=== PATIENT | male | born 1955 | race Caucasian/White ===

== ENCOUNTER 2020-08-08 12:23 | Observation (INO) | payer BC, SELFPAY ==
[2020-08-08] VITALS (12 sets, daily range): BP systolic 138–170; BP diastolic 70–98; PULSE 53–92; RESP 15–18; TEMP 36.2–36.9; O2SAT 96–99; BMI 29.7; BMI 29.0
--- NOTE | 2020-08-08 12:40 | EKG12_ITS ---
Test Reason : Blood Pressure : / mmHG Vent. Rate : 071 BPM Atrial Rate : 071 BPM P-R Int : 162 ms QRS Dur : 082 ms QT Int : 396 ms P-R-T Axes : 043 -36 044 degrees QTc Int : 430 ms Normal sinus rhythm with sinus arrhythmia Left axis deviation Minimal voltage criteria for LVH, may be normal variant Septal infarct , age undetermined Abnormal ECG Confirmed by TOBY VALENZUELA, WEI ([id number]), photography editor SHAE YADAV ([id number]) on 08/12/2020 1:31:08 PM Referred By: ISAAC Confirmed By:WEI LUIS MD
--- NOTE | 2020-08-08 12:48 | ED.VIS.GEN ---
History of Present Illness Chief Complaint: Dizziness Informant: Patient Onset: Today Context: Gradual Onset Timing: Continuous Current Severity: Mild Maximum Severity: Moderate Narrative: The patient is a 65-year-old male with medical history significant for COPD who presents to the emergency department with shortness of breath and lightheadedness. Patient states he woke in his normal state of health. He states that because he has to wear a mask, from time to time he will feel short of breath especially with exertion. He does not get chest pain. He states he was doing a lot of work today and felt lightheaded. He also felt like he was having tingling in both legs. He denies any focal symptoms. He states with resting, he is feeling mildly improved. He states he has been short of breath for a few months now. He does not feel like it is been significantly worsening. Sometimes he will have a scant cough. He has no history of coronary vascular disease. Prior similar symptoms: No Recent Illness/Hospitalization: No Past Medical History - Allergies and Home Meds Allergies/Adverse Reactions: Allergies No Known Allergies Allergy (Verified 08/08/20 12:24) Prior records reviewed: Yes Past Medical History: - - COPD, GERD Surgical History: noncontributory Smoking Status: Current every day smoker Review of Systems General: Denies: Chills, Fever, Sweats Eyes: Denies: Visual changes - bilaterally, Diplopia ENT: Denies: Rhinorrhea, Sore throat Cardiovascular: Denies: Chest pain, Palpitations Respiratory: Reports: Dyspnea, Cough. Denies: Dyspnea on exertion Gastrointestinal: Denies: Abdominal pain, Nausea, Vomiting, Diarrhea, Melena, Hematochezia Genitourinary: Denies: Dysuria, Hematuria, Frequency Musculoskeletal: Denies: Back pain, Extremity Pain Skin: Denies: Rash, Wounds Neurological: Denies: Headache, Weakness, Numbness Physical Exam Vital Signs/Narrative: Vital Signs Temp Pulse Resp BP Pulse Ox 08/08/20 12:25 98.1 F 92 16 148/89 H 98 Inital Vital Signs reviewed: Yes General: Well nourished, Well developed, No Acute Distress Head: Normocephalic, Atraumatic Eyes: Perrl, EOMI ENT: Moist mucous membranes, No rhinorrhea Neck: Supple, Nontender Cardiovascular: Regular rate, Regular rhythm, No murmurs Respiratory: No distress, Chest nontender, Wheezing Abdomen: Soft, Nontender, Nondistended, Normal bowel sounds Back: Nontender, Normal Inspection Extremities: Nontender, No edema Skin: Normal color, No rash Neurological: Alert, Oriented x3, Cranial nerves II-XII grossly intact, Normal Strength, Normal Sensation Psychological: Normal affect, Normal Mood Diagnostic/Tx/Re-eval Clinical Impression(s) from Imaging Studies Chest X-Ray 08/08/20 13:00 IMPRESSION: Hyperinflation. Scattered calcified granulomas. Electronically Signed: Dinh Desaikranthi, at 13:15 EDT , Service support , Abnormal Lab Results 08/08/20 08/08/20 12:50 12:50 WBC 6.8 RBC 4.71 Hgb 15.1 Hct 43.6 MCV 92.6 MCH 32.1 H MCHC 34.6 RDW Std Deviation 39.0 RDW Coeff of Kimmy 11.6 Plt Count 230 MPV 9.3 Immature Gran % (Auto) 0.300 Neut % (Auto) 67.8 Lymph % (Auto) 17.4 L [place] % (Auto) 12.0 H Eos % (Auto) 1.8 Baso % (Auto) 0.7 Absolute Neuts (auto) 4.6 Absolute Lymphs (auto) 1.18 Nucleated RBC % 0 Sodium 129 L Potassium 4.3 Chloride 96 L Carbon Dioxide 26.0 Anion Gap 7 BUN 10 Creatinine 0.81 Estim Creat Clear Calc 108.53 Est GFR (MDRD) Af Amer 123 Est GFR (MDRD) Non-Af 102 BUN/Creatinine Ratio 12.3 Glucose 111 H Calcium 9.7 Total Bilirubin 0.80 AST 80 H ALT 105 H Alkaline Phosphatase 104 Troponin I 0.103 H Total Protein 8.7 H Albumin 3.8 Globulin 4.9 H Albumin/Globulin Ratio 0.8 L - Rhythm Strip Rhythm Strip: Sinus Rhythm Rate: 80 Ectopy: None - EKG Initial EKG Interpretation: Sinus Rhythm, Non-Specific ST Changes Prior: No Prior - Medical Decision Making Patient presents to the emergency department with shortness of breath and lightheadedness. It does seem to be related to exertion. He had scant wheezing. I did obtain an EKG. There was changes consistent with LVH without acute ischemic change. Patient was given a breathing treatment and had total resolution of his symptoms. Chest x-ray shows no evidence of volume overload, pneumothorax, or infiltrative process. However, the patient's troponin is indeterminant. Given his age and exertional dyspnea, I do have some suspicion this may be a cardiac equivalent. I do feel that he would benefit from observation for cardiac rule out. He is comfortable with this plan of care. This was discussed with the hospitalist and the patient will be admitted. Impression 1. Exertional dyspnea 2. Indeterminate troponin
[2020-08-08] MEDS: Ipratropium/Albuterol Sulfate 3 ML AMPUL.NEB INHALATION (12:59)
--- NOTE | 2020-08-08 13:00 | RAD_ITS ---
STUDY: X-RAY CHEST REASON FOR EXAM: Male, 65 years old. Dizzy, weak, bilat leg numbness TECHNIQUE: Single AP portable view of the chest. COMPARISON: None. FINDINGS: EKG electrodes are seen. Hyperinflation. Scattered calcified granulomas. There is no demonstrated pleural abnormality. Normal size heart. Normal mediastinum and halima. Normal visualized pulmonary arteries. Normal visualized aortic arch and descending thoracic aorta. There are diffuse degenerative changes of the visualized thoracic spine. Normal visualized ribs, clavicles, and shoulders. There is no demonstrated abnormality of the visualized soft tissue structures of the upper abdomen. RAD/Chest 1 View (Portable) IMPRESSION: Hyperinflation. Scattered calcified granulomas. Electronically Signed: Dinh Leon, at 13:15 EDT , Service support ,
[2020-08-08 13:07] LABS: Absolute Lymphocyte Count 1.18 X10^3/uL (0.83-4.51); Absolute Neutrophil Count 4.6 X10^3/uL (2.0-7.7); Basophil# 0.05 X10^3/uL; Basophil% 0.7 % (0-1); Eosinophil# 0.12 X10^3/uL; Eosinophils% 1.8 % (0-5); Hematocrit 43.6 % (40-54); Hemoglobin 15.1 g/dL (13.0-16.5); Lymphocyte # 1.18 X10^3/ul (4.0); Lymphocyte % 17.4 % (19-41); Mean Corp Hgb Conc 34.6 g/dL (32-36); Mean Corpuscular Hgb 32.1 pg (27.0-32.0); Mean Corpuscular Volume 92.6 fL (80-94); Mean Platelet Vol. 9.3 fl (6.2-12.0); Monocyte# 0.81 X10^3/uL; NRBC Flagged by Analyzer 0 % (0-5); Neutrophil # 4.59 X10^3/uL (2.7-7.7); Neutrophil % 67.8 % (47-70); Platelet Count 230 K/mm3 (150-450); RBC Distribution Width CV 11.6 % (11.6-14.6); Red Blood Count 4.71 M/mm3 (4.6-6.2); White Blood Count 6.8 K/mm3 (4.4-11.0)
[2020-08-08 13:25] LABS: ALB/GLOB Ratio 0.8 RATIO (0.9-2.4); AST(SGOT) 80 U/L (15-37); Alanine Aminotransfer ALT/SGPT 105 U/L (16-61); Albumin, Serum 3.8 g/dL (3.2-5.0); Alkaline Phosphatase 104 U/L (45-117); Anion Gap 7 (5-15); BUN 10 mg/dL (7-18); BUN/Creat Ratio 12.3 RATIO (10-20); Calcium,Total 9.7 mg/dL (8.5-10.1); Chloride 96 mmol/L (98-107); Creatinine, Serum 0.81 mg/dL (0.70-1.30); EST Glomerular Filtration Rate 102 mL/min (>60); Est Glom Filt Rate - Afr Amer 123 mL/min (>60); Estimated Creatinine Clearance 108.53 ml/min; Globulin 4.9 g/dL (2.2-4.2); Glucose 111 mg/dL (74-106); Potassium 4.3 mmol/L (3.5-5.1); Protein, Total 8.7 g/dL (6.4-8.2); Sodium Level 129 mmol/L (136-145)
[2020-08-08] MEDS: Aspirin 325 MG Tablet PO (13:56)
--- NOTE | 2020-08-08 14:29 | HP.PCM_ITS ---
History of Present Illness Date of Admission: 08/08/20 The patient is a 65 year old M with a PMH of COPD and ongoing tobacco abuse, BPH, and EtOH abuse who presented to the ED on 08/08/2020 with progressively worsening dyspnea and lightheadedness. He states that he has noticed that over at least the last 2 weeks that he has been more SOB and contributed it to having to wear a mask at work and his COPD. He does however admit and his reinforces that even at home with exertion he has been more SOB. He has had decreased tolerance to exertion when outdoors and not wearing a mask as well when further asked about recreational activities. He denies having HTN, HPL, or DM but does admit to smoking and has been a smoker since he was about 19 yo. He has no family h/o CAD, stents, or CABG that he is aware. He denies any CP, diaphoresis, or n/v but his SOB abates with rest. He admits to drinking at least 10 beers per night. He denies ever going through withdrawal. He is currently not SOB. His EKG shows no changes c/w acute ischemia. He is mildly hyponatremic and hypochloremic. His glucose level was 111. His LFT are mildly elevated with AST 80 and ALT 105. His troponin was 0.103. Past Medical History Allergies No Known Allergies Allergy (Verified 08/08/20 12:24) Home Medications: Ambulatory Orders Medication Instructions Recorded Budesonide/Formoterol Fumarate 2 puff INHALATION BID 08/08/20 [Symbicort 80-4.5 Mcg Inhaler] Dutasteride 0.5 mg PO DAILY 08/08/20 Omeprazole 40 mg PO DAILY 08/08/20 Surgical History: noncontributory Lives: Spouse/ Significant Other Smoking Status: Current every day smoker Tobacco Use: Cigarettes Alcohol: None Drugs: None Review of Systems Constitutional: Denies: Anorexia, Chills, Fever, Night Sweats, Malaise, Weakness, Weight Change, Fatigue Eyes: Denies: Blurred vision, Double vision, Drainage, Eyelid Inflammation, Pain, Redness, Vision Change HEENT: Denies: Difficulty Hearing, Difficulty Swallowing, Ear Pain, Eye Pain, Hard of Hearing, Head Aches, Nasal bleeding, Nasal Congestion, Post Nasal Drip, Sinus Congestion, Sinus Drainage, Sore Throat, Visual Changes Cardiovascular: Denies: Chest Pain, Claudication, Chest Pressure, Chest Tightness, Edema, Heaviness, Light Headedness, Orthopnea, Palpitations, Paroxysmal Noc. Dyspnea, Syncope Respiratory: Reports: Shortness of Breath, Shortness of breath upon exertion. Denies: Cough, Hemoptysis, Pleuritic Pain, Sputum production, Wheezing Gastrointestinal: Denies: Abdominal Pain, Constipation, Diarrhea, Dyspepsia, He matemesis, Hematochezia, Nausea, Melena, Vomiting Genitourinary: Denies: Dysuria, Frequency, Hematuria, Hesitancy, Incontinence, Nocturia, Retention, Urgency Musculoskeletal: Denies: Back Pain, Joint Pain, Joint stiffness, Joint swelling, Joint Tenderness, Neck Pain Skin: Denies: Dryness, Jaundice, Lesions, Pruritis, Rash, Skin Changes, Wounds Neurological: Denies: Balance problems, Blurred vision, Double vision, Change in Speech, Slurred speech, Confusion, Difficulty swallowing, Focal weakness, Headaches, Incoordination, Numbness, Tingling, Tremor, Seizures Psychiatric: Denies: Anxiety, Depression Endocrine: Denies: Change in Body Habitus, Heat/ Cold Intolerance, Polydipsia, Polyuria Hematologic/ Lymphatic: Denies: Adenopathy, Anemia, Easy Bruising, Easy Bleeding, Petechiae, Purpura VTE Information - Inpt Only VTE Present on Admission: No VTE Mechan Device Prophylaxis: None VTE Pharm Prophylaxis ordered?: Yes - Physical Exam Vitals/I&O's: Vital Signs Temp Pulse Resp BP Pulse Ox 97.1 F L 78 18 170/98 H 99 08/08/20 13:53 08/08/20 13:53 08/08/20 13:53 08/08/20 13:53 08/08/20 13:53 Oxygen Delivery Method Room Air Weight: 105 kg Body Mass Index (BMI) 29.7 Intake and Output for Last 24 Hours 08/06/20 08/07/20 08/08/20 23:59 23:59 23:59 Intake Total 500 / 500 Balance 500 / 500 General: Alert, Oriented x3, Cooperative, No apparent distress, Well developed, Well nourished HEENT: Atraumatic, PERRLA, EOMI, Normocephalic, EAC Clear, - - sclera are red Oral: Moist Mucosa, No Gingival or Mucosal Lesions/ Ulcerations, - - dentures Neck: Supple, No JVD, Negative Carotid Bruits, Negative Hepatojugular Reflux, No Nodes, No Nuchal Rigidity, Trachea Midline, Thyroid Normal Size and Texture Lungs: Clear to auscultation, Normal air movement, No rhonchi, No wheeze, No rales Cardiovascular: Regular rate, Regular Rhythm, Normal S1, Normal S2 Abdomen: Bowel Sounds Present, Soft, Non Tender, Non-Distended, Obese Extremities: No clubbing, No cyanosis, No edema, Capillary Refill Less than 3 Seconds, Peripheral Pulses Normal Skin: No rashes, No breakdown Musculoskeletal: No Tenderness to Palpation of Joints or Extremities, No Muscle Wasting Lymphatic: No Cervical, Supraclavicular, or Inguinal Adenopathy Neurological: Cranial nerves II-XII grossly intact, Deep Tendon Reflexes 2+/4 and Symmetrical, Neuro grossly intact, Motor Exam 5/5 strength throughout, Muscle tone normal, Sensory exam intact to light touch and pain, Coordination normal Psych/Mental Status: Normal Affect, Appropriate Laboratory Results 08/08/20 12:50: WBC 6.8, RBC 4.71, Hgb 15.1, Hct 43.6, MCV 92.6, MCH 32.1 H, MCHC 34.6, RDW Std Deviation 39.0, RDW Coeff of Kimmy 11.6, Plt Count 230, MPV 9.3, Immature Gran % (Auto) 0.300, Neut % (Auto) 67.8, Lymph % (Auto) 17.4 L, [place] % (Auto) 12.0 H, Eos % (Auto) 1.8, Baso % (Auto) 0.7, Absolute Neuts (auto) 4.6, Absolute Lymphs (auto) 1.18, Nucleated RBC % 0 08/08/20 12:50: Sodium 129 L, Potassium 4.3, Chloride 96 L, Carbon Dioxide 26.0, Anion Gap 7, BUN 10, Creatinine 0.81, Estim Creat Clear Calc 108.53, Est GFR (MDRD) Af Amer 123, Est GFR (MDRD) Non-Af 102, BUN/Creatinine Ratio 12.3, Glucose 111 H, Calcium 9.7, Total Bilirubin 0.80, AST 80 H, ALT 105 H, Alkaline Phosphatase 104, Troponin I 0.103 H, Total Protein 8.7 H, Albumin 3.8, Globulin 4.9 H, Albumin/Globulin Ratio 0.8 L Current Medications Sodium Chloride () 500 mls @ 15 mls/hr IV PRN PRN PRN Reason: Blood Transfusion Sodium Chloride () 250 mls @ 15 mls/hr IV .[id number] PRN PRN Reason: Saline Flush Sodium Chloride () 250 mls @ 15 mls/hr IV .[id number] PRN PRN Reason: Additional IVPB Infusion Sodium Chloride () 10 - 40 ml IV UD PRN PRN Reason: SALINE FLUSH Assessment/Plan HILL -? anginal equivalent -cycle troponin -if no sig increase will get stress test -if trends up will consult cardiology -metoprolol 50 mg BID -start high dose statin -check lipids -check A1c -EKG with no elevations COPD -continue Inhaler -prn albuterol Mild Transaminitis -repeat in am -check RUQ US -? fatty liver with EtOH use/Obesity Hyponatremia -suspect related to chronic EtOH use -repeat in am -check TSH Hyperglycemia -check A1c Elevated BP -metoprolol and monitor Overweight -recommend wgt loss DVT prophylaxis -Lovenox Code status -Full Inpatient E&M: 79021 Init Hosp L3
--- NOTE | 2020-08-08 14:33 | EKG12_ITS ---
Test Reason : Blood Pressure : / mmHG Vent. Rate : 057 BPM Atrial Rate : 057 BPM P-R Int : 172 ms QRS Dur : 096 ms QT Int : 426 ms P-R-T Axes : 037 -20 018 degrees QTc Int : 414 ms Sinus bradycardia Left ventricular hypertrophy with repolarization abnormality Abnormal ECG When compared with ECG of 08-AUG-2020 12:57, MANUAL COMPARISON REQUIRED, DATA IS UNCONFIRMED Confirmed by TEOFILO VALENZUELA, TERRENCE ([id number]), continuity editor SHAE YADAV ([id number]) on 08/12/2020 1:21:15 PM Referred By: TAE Confirmed By:SANTIAGO RED MD
--- NOTE | 2020-08-08 14:59 | US_ITS ---
HISTORY: ELEV LFTS TECHNIQUE: Pedro scale and color doppler imaging was performed of the pancreas, liver, and gallbladder. COMPARISON: None FINDINGS: # of images incl. paperwork: 137 The liver is coarse in echotexture with poor visualization of intrahepatic vascular structures, measuring 19.3 cm in craniocaudal dimensions at about the mid axillary line. No gallstones, gallbladder wall thickening or biliary dilatation. Gallbladder wall measures 2 mm. Common bile duct measures 5 mm. No tenderness upon insonation the gallbladder. Visualized pancreas is normal in appearance. Right kidney is normal in size and appearance. Visualized abdominal aorta has normal caliber. IVC is patent. Hepatopedal flow is present within the central portal vein. US/Abdomen Limited IMPRESSION: Hepatomegaly and hepatic steatosis at 2134 Reported and signed by: Parminder Rojas MD Electronically Signed: Parminder Rojas MD at 21:33 EDT Tel , Service support ,
[2020-08-08] MEDS: Budesonide Respules 0.5 MG/2 ML AMPUL.NEB. INHALATION (19:45)
[2020-08-08] MEDS: Albuterol 2.5 MG/3 ML VIAL.NEB. INHALATION (19:46)
[2020-08-08] MEDS: Metoprolol Tartrate 50 MG Tablet PO (22:07)
[2020-08-08] MEDS: Atorvastatin Calcium 80 MG Tablet PO (22:08)
[2020-08-09] VITALS (8 sets, daily range): BP systolic 144–150; BP diastolic 75–85; PULSE 43–86; RESP 16–18; TEMP 36.8; O2SAT 96–100
--- NOTE | 2020-08-09 05:00 | EKG12_ITS ---
Test Reason : AM EKG Blood Pressure : / mmHG Vent. Rate : 056 BPM Atrial Rate : 056 BPM P-R Int : 180 ms QRS Dur : 096 ms QT Int : 428 ms P-R-T Axes : 045 -09 034 degrees QTc Int : 413 ms Sinus bradycardia Septal infarct , age undetermined Abnormal ECG When compared with ECG of 08-AUG-2020 15:20, MANUAL COMPARISON REQUIRED, DATA IS UNCONFIRMED Confirmed by TEOFILO VALENZUELA, TERRENCE ([id number]), newspaper photo editor SHAE YADAV ([id number]) on 08/22/2020 1:08:00 PM Referred By: TAE Confirmed By:SANTIAGO RED MD
[2020-08-09 05:36] LABS: Absolute Lymphocyte Count 1.22 X10^3/uL (0.83-4.51); Absolute Neutrophil Count 3.3 X10^3/uL (2.0-7.7); Basophil# 0.09 X10^3/uL; Basophil% 1.6 % (0-1); Eosinophil# 0.27 X10^3/uL; Eosinophils% 4.8 % (0-5); Hematocrit 43.2 % (40-54); Hemoglobin 14.5 g/dL (13.0-16.5); Lymphocyte # 1.22 X10^3/ul (4.0); Lymphocyte % 21.5 % (19-41); Mean Corp Hgb Conc 33.6 g/dL (32-36); Mean Corpuscular Hgb 31.2 pg (27.0-32.0); Mean Corpuscular Volume 92.9 fL (80-94); Monocyte# 0.74 X10^3/uL; Monocyte% 13.1 % (0-10); NRBC Flagged by Analyzer 0 % (0-5); Neutrophil # 3.33 X10^3/uL (2.7-7.7); Neutrophil % 58.6 % (47-70); Platelet Count 225 K/mm3 (150-450); RBC Distribution Width CV 11.9 % (11.6-14.6); RBC Distribution Width SD 40.9 fl (35.1-43.9); Red Blood Count 4.65 M/mm3 (4.6-6.2); White Blood Count 5.7 K/mm3 (4.4-11.0)
[2020-08-09 06:00] LABS: Cholesterol 174 mg/dL (200); High Density Lipoprotein 66 mg/dL; Magnesium 2.2 mg/dL (1.6-2.6); Phosphorus 3.1 mg/dL (2.5-4.9); Thyroid Stim Hormone (TSH) 3.34 uIU/mL (0.358-3.74); Triglycerides 69 mg/dL; Very Low Density Lipoprotein 14 mg/dL (5-40)
[2020-08-09] MEDS: Aspirin E.C. 81 MG Tablet PO (06:35)
[2020-08-09] MEDS: Albuterol 2.5 MG/3 ML VIAL.NEB. INHALATION ×2 (07:04→12:09)
[2020-08-09] MEDS: Budesonide Respules 0.5 MG/2 ML AMPUL.NEB. INHALATION (07:04)
[2020-08-09 09:04] LABS: Hemoglobin A1c 5.7 % (3.8-5.6)
--- NOTE | 2020-08-09 11:26 | DCINST_ITS ---
You will use the following diet at home:: Cardiac Your food should be the consistency of: Regular Your liquids should be the consistency of: Regular/Thin Discharge Activity: Return to Normal Activity Allergies/Adverse Reactions: Allergies No Known Allergies Allergy (Verified 08/08/20 12:24) Medications to take at Discharge Budesonide/Formoterol Fumarate [Symbicort 80-4.5 Mcg Inhaler] 2 puff INHALATION BID 08/08/20 Dutasteride 0.5 mg PO DAILY 08/08/20 Omeprazole 40 mg PO DAILY 08/08/20 Amlodipine [Norvasc] 5 mg PO DAILY #30 tablet 08/09/20 The following prescriptions were given: Amlodipine [Norvasc] 5 mg PO DAILY #30 tablet Primary Care Physician: Olegario Betancur MD [Primary Care Provider] - Please follow up with your Primary Care Physician in: 1 week Test Results: Test results from this visit will be discussed in further detail at your follow- up appointment, if applicable. Proposed Discharge Date: 08/09/20
--- NOTE | 2020-08-09 12:33 | STRESSREP ---
Stress Test Report Pharmacologic myocardial perfusion stress test. 65-year-old man with a history of chest pain. Stress protocol: Resting EKG demonstrates normal sinus rhythm with a rate of 65 bpm normal intervals are noted resting blood pressure is 138/90 mmHg. 0.4 mg of regadenoson was infused per usual protocol followed by rapid venous saline flush injection continuous EKG monitoring was performed. The maximum heart rate attained was 94 bpm which was 59% of max impacted heart rate the maximum workload was 1 metabolic equivalent. At rest there were no ST or T wave changes noted to suggest ischemia at peak infusion nonspecific ST-T wave changes were noted we did not meet the criteria for ischemia. No clinical angina was noted. Myocardial perfusion protocol. 14.3 mCi of technetium 99m sestamibi was injected at rest. 0.4 mg of regadenoson was infused per usual protocol. At peak infusion 44.1 mCi of technetium 99m sestamibi was injected stress images were obtained stress and rest images are reconstructed and compared in the short axis vertical long horizontal long axis. Gated images were also obtained Perfusion SPECT analysis: Review of the images demonstrate normal uptake of tracer noted in all areas of the myocardium the resting images similar demonstrate normal uptake of tracer noted in all areas of the myocardium. No obvious areas of reversibility are noted to suggest ischemia. Gated SPECT analysis: The gated ejection fraction is noted to be 70%. Conclusion: Normal pharmacologic myocardial perfusion stress test. Preserved ejection fraction.
[2020-08-09] MEDS: Metoprolol Tartrate 50 MG Tablet PO (12:47)
[2020-08-09] MEDS: Folic Acid 1 MG Tablet PO (12:48)
[2020-08-09] MEDS: Thiamine Hydrochloride 100 MG Tablet PO (12:48)
[2020-08-09] MEDS: Multivitamins,Ther W-Minerals Tablet 1 TABLET PO (12:48)
[2020-08-09] MEDS: Pantoprazole Sodium 40 MG Tablet PO (12:48)
--- NOTE | 2020-08-09 13:31 | PCM.DC.SUM ---
<Dino Ingram - Last Filed: 08/09/20 13:31> Discharge Date and Diagnosis Date of Admission: 08/08/20 Date of Discharge: 08/09/20 - Primary Discharge Diagnosis Acute Problems: Chest pain - musculoskeletal indeterminate troponin HTN Alcohol abuse Nicotine abuse Hospital Course and Treatment Imaging Results: 08/09/20 05:55 Nuclear Stress Test - Chemical [NM] AM (NON MEDS) Gated SPECT analysis: The gated ejection fraction is noted to be 70%. Conclusion: Normal pharmacologic myocardial perfusion stress test. Preserved ejection fraction. RAD/Chest 1 View (Portable) IMPRESSION: Hyperinflation. Scattered calcified granulomas. US/Abdomen Limited IMPRESSION: Hepatomegaly and hepatic steatosis Operations: None Procedures: Stress test Summary of Care Provided: Hospital Course: The patient is a 65 year old M with pmhx of EtOH and nicotine abuse, COPD, who presented to the ER with chest pain over the last 2 weeks with decreased exercise tolerance. He was found to have negative EKG, indeterminate troponin, negative CXR, hyponatremia, and mildly abnormal LFTs. He was admitted to the PCU with telemetry for chest pain work up. Trop remained flat with no significant rise/fall pattern. Stress test was negative. No events on tele. Abdominal US showed hepatomegaly and hepatic steatosis. The patient did not have any further symptoms. The patient was placed on norvasc for uncontrolled BP (changed from metoprolol with mild bradycardia), atorvastatin and baby aspirin as he had indeterminate troponin. He was discharged home in stable condition and will need follow up with his PCP in 1-2 weeks. This patient was seen by Dino Ingram PA-C under the supervision of Dr. Urias. [] - Physical Exam Vitals/I&O's: Vital Signs Temp Pulse Resp BP Pulse Ox 98.3 F 80 17 144/83 H 100 08/09/20 12:00 08/09/20 12:47 08/09/20 12:10 08/09/20 12:00 08/09/20 12:00 Oxygen Delivery Method Room Air Weight: 226 lb 13.69 oz Body Mass Index (BMI) 29.0 Intake and Output for Last 24 Hours 08/07/20 08/08/20 08/09/20 23:59 23:59 23:59 Intake Total 500 / 860 390 / 390 Balance 500 / 860 390 / 390 General: Alert, Oriented x3, Cooperative HEENT: Atraumatic, PERRLA, EOMI, Normocephalic Neck: Supple, No JVD, Negative Carotid Bruits Lungs: Clear to auscultation, Normal air movement Cardiovascular: Regular rate, No murmurs Abdomen: Bowel Sounds Present, Soft, Non Tender Extremities: No edema, Capillary Refill Less than 3 Seconds Skin: No rashes, No breakdown Musculoskeletal: No Tenderness to Palpation of Joints or Extremities Neurological: Cranial nerves II-XII grossly intact Psych/Mental Status: Normal Affect, Appropriate Laboratory Results 08/08/20 16:30: Troponin I 0.081 H 08/08/20 19:45: Troponin I 0.091 H 08/09/20 05:15: WBC 5.7, RBC 4.65, Hgb 14.5, Hct 43.2, MCV 92.9, MCH 31.2, MCHC 33.6, RDW Std Deviation 40.9, RDW Coeff of Kimmy 11.9, Plt Count 225, MPV 9.0, Immature Gran % (Auto) 0.400, Neut % (Auto) 58.6, Lymph % (Auto) 21.5, [place] % (Auto) 13.1 H, Eos % (Auto) 4.8, Baso % (Auto) 1.6 H, Absolute Neuts (auto) 3.3, Absolute Lymphs (auto) 1.22, Nucleated RBC % 0 08/09/20 05:15: Phosphorus 3.1, Magnesium 2.2, Triglycerides 69, Cholesterol 174, LDL Cholesterol 94, VLDL Cholesterol 14, HDL Cholesterol 66, TSH 3.34 08/09/20 05:15: Hemoglobin A1c 5.7 H Current Medications Acetaminophen (Tylenol) 650 mg PO Q6H PRN PRN PRN Reason: Pain Score 1-10/Temp > 100.7 F Al Hydroxide/Mg Hydroxide (Mylanta Ii) 30 ml PO Q6H PRN PRN PRN Reason: Gastric Burning Albuterol Sulfate (Ventolin Aerosols) 2.5 mg INHALATION Q2H PRN PRN PRN Reason: SOB/Wheezing Albuterol Sulfate (Ventolin Aerosols) 2.5 mg INHALATION Q6HWA.RT MERVIN Last Admin: 09/18/20 12:09 Dose: 2.5 mg Documented by: Aspirin (Ecotrin) 81 mg PO DAILY@0800 [facility] Last Admin: 08/09/20 06:35 Dose: 81 mg Documented by: Atorvastatin Calcium (Lipitor) 80 mg PO QHS [facility] Last Admin: 08/08/20 22:08 Dose: 80 mg Documented by: Budesonide (Pulmicort Aerosol) 0.5 mg INHALATION Q12H.RT [facility] Last Admin: 08/09/20 07:04 Dose: 0.5 mg Documented by: Docusate Sodium (Colace) 100 mg PO BID PRN PRN PRN Reason: Constipation Enoxaparin Sodium (Lovenox) 40 mg SC DAILY [facility] Last Admin: 08/09/20 12:48 Dose: Not Given Documented by: Finasteride (Proscar) 5 mg PO DAILY [facility] Last Admin: 08/09/20 12:46 Dose: Not Given Documented by: Folic Acid (Folic Acid) 1 mg PO DAILY@0800 [facility] Last Admin: 08/09/20 12:48 Dose: 1 mg Documented by: Lorazepam (Ativan) 2 mg PO Q2H PRN PRN; Protocol PRN Reason: CIWA score > 8 but <15 Lorazepam (Ativan) 2 mg PO UD PRN; Protocol PRN Reason: CIWA score >/=15. Lorazepam (Ativan) 2 mg IV Q2H PRN PRN; Protocol PRN Reason: CIWA score > 8 but <15 Lorazepam (Ativan) 2 mg IV UD PRN; Protocol PRN Reason: CIWA score >/=15. Melatonin (Melatonin) 3 mg PO QHS PRN PRN PRN Reason: INSOMNIA Metoprolol Tartrate (Lopressor (Beta Wilfrid)) 50 mg PO BID [facility] Last Admin: 08/09/20 12:47 Dose: 50 mg Documented by: Morphine Sulfate () 2 mg IV Q3H PRN PRN PRN Reason: Pain Score 6-10/10 Multivitamins/Minerals (Multivitamin With Minerals (Bkc)) 1 tablet PO DAILYCM [facility] Last Admin: 08/09/20 12:48 Dose: 1 tablet Documented by: Nitroglycerin (Nitrostat) 0.4 mg SUBLINGUAL Q5M PRN PRN Reason: CARDIAC/CHEST PAIN Ondansetron HCl (Zofran) 4 mg IV Q8H PRN PRN PRN Reason: NAUSEA/VOMITING Pantoprazole Sodium (Protonix) 40 mg PO DAILY [facility] Last Admin: 08/09/20 12:48 Dose: 40 mg Documented by: Sodium Chloride () 10 - 40 ml IV UD PRN PRN Reason: SALINE FLUSH Thiamine HCl (Vitamin B1) 100 mg PO DAILYCM [facility] Last Admin: 08/09/20 12:48 Dose: 100 mg Documented by: Discharge Diet: Low fat/ Low Cholesterol, 2000 mg Sodium Diet Discharge Activity: Return to Normal Activity Home Medications: Medications to take at Discharge Budesonide/Formoterol Fumarate [Symbicort 80-4.5 Mcg Inhaler] 2 puff INHALATION BID 08/08/20 Dutasteride 0.5 mg PO DAILY 08/08/20 Omeprazole 40 mg PO DAILY 08/08/20 Amlodipine [Norvasc] 5 mg PO DAILY #30 tab 08/09/20 Aspirin [Aspirin, Baby] 81 mg PO DAILY@0800 #1 tab.chew 08/09/20 Atorvastatin Calcium [Lipitor] 40 mg PO QHS #30 tab 08/09/20 Following Prescriptions Were Given to Patient: Aspirin [Aspirin, Baby] 81 mg PO DAILY@0800 #1 tab.chew Atorvastatin Calcium [Lipitor] 40 mg PO QHS #30 tab Transmission Status: Received by [facility] Amlodipine [Norvasc] 5 mg PO DAILY #30 tab Transmission Status: Received by [facility] Primary Care Physician: Olegario Betancur MD [Primary Care Provider] - Please follow up with your Primary Care Physician in: 1 week Disposition: Home Minutes spent on discharge:: 35 Patient Condition:: Stable Medical Necessity - Tobacco Use Smoking Status: Current every day smoker Tobacco Use: Cigarettes Meaningful Use Info Meaningful Use Diagnoses (Choose all that apply): None applicable <Chente Urias F - Last Filed: 08/09/20 15:06> Hospital Course and Treatment Summary of Care Provided: The patient is a 65 year old M [] - Physical Exam Vitals/I&O's: Vital Signs Temp Pulse Resp BP Pulse Ox 98.3 F 80 17 144/83 H 100 08/09/20 12:00 08/09/20 12:47 08/09/20 12:10 08/09/20 12:00 08/09/20 12:00 Oxygen Delivery Method Room Air Weight: 226 lb 13.69 oz Body Mass Index (BMI) 29.0 Intake and Output for Last 24 Hours 08/07/20 08/08/20 08/09/20 23:59 23:59 23:59 Intake Total 500 / 860 390 / 390 Balance 500 / 860 390 / 390 Laboratory Results 08/08/20 16:30: Troponin I 0.081 H 08/08/20 19:45: Troponin I 0.091 H 08/09/20 05:15: WBC 5.7, RBC 4.65, Hgb 14.5, Hct 43.2, MCV 92.9, MCH 31.2, MCHC 33.6, RDW Std Deviation 40.9, RDW Coeff of Kimmy 11.9, Plt Count 225, MPV 9.0, Immature Gran % (Auto) 0.400, Neut % (Auto) 58.6, Lymph % (Auto) 21.5, [place] % (Auto) 13.1 H, Eos % (Auto) 4.8, Baso % (Auto) 1.6 H, Absolute Neuts (auto) 3.3, Absolute Lymphs (auto) 1.22, Nucleated RBC % 0 08/09/20 05:15: Phosphorus 3.1, Magnesium 2.2, Triglycerides 69, Cholesterol 174, LDL Cholesterol 94, VLDL Cholesterol 14, HDL Cholesterol 66, TSH 3.34 08/09/20 05:15: Hemoglobin A1c 5.7 H Addendum: Dr. Urias I personally examined the patient and reviewed the chart. I agree with the above. 65-year-old male presented to the hospital with progressive dyspnea and lightheadedness. He does admit to using tobacco products which she was counseled to quit. He had an EKG which was unremarkable as well as 3 troponins the initial was slightly elevated to 0.103, and this decreased to 0.081 and then slightly increased back to 0.091. Because of the abnormal nature of his troponins he did have a stress test today which was unremarkable. This morning all of his symptoms of dyspnea and lightheadedness had resolved. On presentation his blood pressures were elevated in the 150s therefore he was started on Norvasc, given the increase in his troponins also he was started on a statin as well as an aspirin. He will need to follow-up with his PCP as an outpatient. And we discussed with him that if his chest pain or dyspnea recurs he is to come back to the hospital. I discussed with him the plan for discharge today he expressed understanding of the risks and benefits of going home. OBSV E&M: 89090 Observation care discharge
--- NOTE | 2020-08-09 14:16 | PHA.DC.MR ---
Pharmacy Service has performed discharge medication reconciliation for this patient. The patient's discharge medication list was reviewed for discrepancies and discrepancies were resolved. Home Medications Budesonide/Formoterol Fumarate [Symbicort 80-4.5 Mcg Inhaler] 2 puff INHALATION BID 08/08/20 Dutasteride 0.5 mg PO DAILY 08/08/20 Omeprazole 40 mg PO DAILY 08/08/20 Amlodipine [Norvasc] 5 mg PO DAILY #30 tab 08/09/20 Aspirin [Aspirin, Baby] 81 mg PO DAILY@0800 #1 tab.chew 08/09/20 Atorvastatin Calcium [Lipitor] 40 mg PO QHS #30 tab 08/09/20
== END 2020-08-09 11:26 | disposition home or self-care (01) ==
LOC: ED 13:17 → PCU 14:33
PROVIDERS: Admitting Provider Internal Medicine; Emergency Provider Emergency Medicine; PCP Family Medicine; Visit Provider Family Medicine
DX: R07.89 Other chest pain (principal); I10 Essential (primary) hypertension; R42 Dizziness and giddiness; J44.9 Chronic obstructive pulmonary disease, unspecified; R06.02 Shortness of breath; K21.9 Gastro-esophageal reflux disease without esophagitis; N40.0 Benign prostatic hyperplasia without lower urinary tract symptoms; F17.210 Nicotine dependence, cigarettes, uncomplicated; E87.1 Hypo-osmolality and hyponatremia; R74.0 Nonspecific elevation of levels of transaminase and lactic acid dehydrogenase [LDH]; R73.9 Hyperglycemia, unspecified; F10.10 Alcohol abuse, uncomplicated; Z79.51 Long term (current) use of inhaled steroids; Z79.899 Other long term (current) drug therapy
CPT/HCPCS: 36415; 71045; 76705; 78452; 80053; 80061; 83036; 83735; 84100; 84443; 84484; 85025; 93005; 93017; 94640; 99218; 99251; 99285; 99406; A9500; J7040; A4216; G0378; G0463; J2785

== ENCOUNTER → 2021-06-17 11:01 | Outpatient (CLI) | payer BC, SELFPAY ==
[2021-06-17 09:35] VITALS: BMI 27.1
[2021-06-17 12:41] LABS: Erythrocyte Sedimentation Rate 32 mm/hr (0-20)
[2021-06-17 12:44] LABS: Absolute Lymphocyte Count 0.59 X10^3/uL (0.83-4.51); Absolute Neutrophil Count 7.1 X10^3/uL (2.0-7.7); Basophil# 0.13 X10^3/uL; Basophil% 1.4 % (0-1); Eosinophil# 0.37 X10^3/uL; Hematocrit 35.4 % (40-54); Hemoglobin 12.7 g/dL (13.0-16.5); Lymphocyte # 0.59 X10^3/ul (0.83-4.51); Lymphocyte % 6.3 % (19-41); Mean Corp Hgb Conc 35.9 g/dL (32-36); Mean Corpuscular Hgb 31.1 pg (27.0-32.0); Mean Corpuscular Volume 86.8 fL (80-94); Monocyte# 1.08 X10^3/uL; Monocyte% 11.6 % (0-10); NRBC Flagged by Analyzer 0 % (0-5); Neutrophil # 7.08 X10^3/uL (2.7-7.7); Neutrophil % 75.8 % (47-70); POSITIVE DIFFERENTIAL YES; Platelet Count 440 K/mm3 (150-450); RBC Distribution Width CV 11.6 % (11.6-14.6); RBC Distribution Width SD 37.1 fl (35.1-43.9); Red Blood Count 4.08 M/mm3 (4.6-6.2); White Blood Count 9.3 K/mm3 (4.4-11.0)
[2021-06-17 12:50] LABS: Differential Indicated SCAN CRITERIA MET
[2021-06-17 12:51] LABS: Vitamin D,25 Hydroxy 30.9 ng/mL
[2021-06-17 12:58] LABS: ALB/GLOB Ratio 0.6 RATIO (0.9-2.4); AST(SGOT) 26 U/L (15-37); Alanine Aminotransfer ALT/SGPT 49 U/L (16-61); Albumin, Serum 3.6 g/dL (3.2-5.0); Alkaline Phosphatase 141 U/L (45-117); Anion Gap 12 (5-15); BUN 66 mg/dL (7-18); BUN/Creat Ratio 23.7 RATIO (10-20); Chloride 93 mmol/L (98-107); Cholesterol 171 mg/dL (200); Creatinine, Serum 2.79 mg/dL (0.70-1.30); EST Glomerular Filtration Rate 25 mL/min (>60); Est Glom Filt Rate - Afr Amer 30 mL/min (>60); Globulin 5.7 g/dL (2.2-4.2); Glucose 89 mg/dL (74-106); High Density Lipoprotein 40 mg/dL; Potassium 3.6 mmol/L (3.5-5.1); Protein, Total 9.3 g/dL (6.4-8.2); Sodium Level 122 mmol/L (136-145); Thyroid Stim Hormone (TSH) 2.35 uIU/mL (0.358-3.74); Triglycerides 108 mg/dL; Very Low Density Lipoprotein 22 mg/dL (5-40)
== END ==
PROVIDERS: PCP Internal Medicine; Referring Provider Nurse Practitioner Family; Visit Provider Nurse Practitioner Family
DX: R63.4 Abnormal weight loss (principal); E56.9 Vitamin deficiency, unspecified; I10 Essential (primary) hypertension; F10.10 Alcohol abuse, uncomplicated; Z72.0 Tobacco use
CPT/HCPCS: 36415; 80053; 80061; 82306; 84443; 85025; 85652

== ENCOUNTER 2021-06-17 14:33 | Inpatient (IN) | payer BC, SELFPAY ==
[2021-06-17] VITALS (7 sets, daily range): BP systolic 91–110; BP diastolic 62–74; PULSE 58–72; RESP 14–18; TEMP 36.6–36.7; O2SAT 96–100; BMI 27.1; BMI 26.9; BMI 26.8
--- NOTE | 2021-06-17 15:46 | EKG12_ITS ---
Test Reason : ABNL LABS Blood Pressure : / mmHG Vent. Rate : 062 BPM Atrial Rate : 062 BPM P-R Int : 202 ms QRS Dur : 106 ms QT Int : 408 ms P-R-T Axes : 093 -31 071 degrees QTc Int : 414 ms Sinus rhythm with occasional Premature ventricular complexes Left axis deviation Abnormal ECG Confirmed by JUANA VALENZUELA, BILLY ([id number]), mapping editor SHAE YADAV ([id number]) on 06/19/2021 9:56:33 AM Referred By: KIRT Confirmed By:BILLY ARIAS MD
[2021-06-17] MEDS: 0.9% Normal Saline 1,000 ML 999 ML IV (15:57)
--- NOTE | 2021-06-17 16:09 | RAD_ITS ---
STUDY: X-RAY CHEST REASON FOR EXAM: Male, 66 years old. shortness of breath TECHNIQUE: Single AP portable view of the chest. COMPARISON: 08/08/2020 FINDINGS: The lungs are clear and expanded. There is no demonstrated pleural abnormality. Normal size heart. Normal mediastinum and halima. Normal visualized pulmonary arteries. Normal visualized aortic arch and descending thoracic aorta. Normal visualized thoracic spine. Normal visualized ribs, clavicles, and shoulders. There is no demonstrated abnormality of the visualized soft tissue structures of the upper abdomen. RAD/Chest 1 View (Portable) IMPRESSION: Normal x-ray examination of the chest. Electronically Signed: Dexter Babin MD at 16:44 EDT Tel , Service support ,
--- NOTE | 2021-06-17 16:10 | EDS_ITS ---
HPI History of Present Illness Chief Complaint: Abn Labs Narrative Narrative: 66-year-old male presenting with abnormal lab values. He was told that his kidney function had declined. Patient states that over the last couple of weeks he has had no desire to eat or drink. He states that he has tried to turn this around has become more fluids and Gatorade's and states that he is urinating with clear urine at this point. Patient states that he used to drink at least a 12 pack a day but states over the last couple weeks he has not been drinking. He does feel as if he is a little lightheaded and generally fatigued. He does feel short of breath when he is working and he states that his coworkers have noticed this. Patient states he has a history of hypertension and GERD. Patient's believes he may be depressed. Patient had outpatient lab work drawn today and was sent to the ER after he had abnormal creatinine. [facility] Medical History COPD (chronic obstructive pulmonary disease) Depression Irregular heart rate Tobacco abuse Unintentional weight loss Home Medications budesonide-formoterol 2 puff INHALATION BID 08/08/20 [History Last Taken 08/08/20] omeprazole 40 mg PO DAILY 08/08/20 [History Last Taken 08/08/20] budesonide-formoterol HFA 160 mcg-4.5 mcg/actuation aerosol inhaler 2 puff INHALATION BID #10.2 g 06/17/21 [Rx Last Taken Unknown] gabapentin 100 mg capsule 100 mg PO DAILY 06/17/21 [History Last Taken Unknown] hydrochlorothiazide 25 mg tablet 25 mg PO DAILY 06/17/21 [History Last Taken Unknown] lisinopril 10 mg tablet 10 mg PO DAILY 06/17/21 [History Last Taken Unknown] sertraline 25 mg tablet 25 mg PO QHS #30 tab 06/17/21 [Rx Last Taken Unknown] Allergy/AdvReac Type Severity Reaction Status Date / Time No Known Allergies Allergy Verified 06/17/21 14:34 Family History Brother Cancer pancreatic cancer Father Alcoholism Surgical History H/O: knee surgery Social History Smoking Status: Light Smoker (<10/day) alcohol intake: current alcohol intake frequency: 3 or more drinks per day Alcohol type: beer details: 12 jus a day per patient substance use type: does not use ROS ROS ED Constitutional Constitutional ED: Reports other Details: Generalized weakness, lightheadedness ; Denies chills, fever(s) or sweats Eyes Eyes: Denies blurry vision or change in vision ENT ENT ED: Denies ear pain, rhinorrhea or sore throat Cardiovascular Cardiovascular: Denies chest pain, palpitations or racing heartbeat Respiratory/Chest Respiratory/Chest: Reports dyspnea; Denies cough or sputum Gastrointestinal Gastrointestinal: Denies abdominal pain, constipation, diarrhea or vomiting Genitourinary Genitourinary ED: Denies dysuria, hematuria or urinary frequency Musculoskeletal Musculoskeletal: Denies arthralgias, myalgias or neck pain Integumentary Denies abscess, Abrasions or rash Neurologic Neurologic: Denies headache(s), paresthesias or weakness Psychiatric Psychiatric: Reports depression; Denies anxiety, suicidal ideation or suicidal thoughts Endocrine Endocrinology: Denies polydipsia or polyuria EXAM Physical Exam Const Vital Signs: 06/17/21 14:34 06/17/21 15:59 06/17/21 16:06 Temperature 97.8 F Temperature Source Temporal Pulse Rate 70 Pulse Rate [Lying] 58 L Pulse Rate [Sitting] 70 Respiratory Rate 18 Respiratory Effort Normal Non-Labored Respiratory Pattern Normal Blood Pressure 93/64 Blood Pressure [Lying] 96/72 Blood Pressure [Sitting] 91/74 Blood Pressure [Standing] 102/62 Blood Pressure Mean 73 Blood Pressure Mean [Lying] 80 Blood Pressure Mean [Sitting] 79 Blood Pressure Mean [Standing] 75 Pulse Ox 100 Oxygen Delivery Method Room Air Positive well nourished General Appearance ED: NAD; Negative for pallor HEENT Reports moist mucous membranes Negative for trauma Eyes PERRL and EOMs intact bilaterally General Eye ED: Negative for pale conjunctiva or scleral icterus Resp normal respiratory effort and clear to auscultation bilaterally Cardio regular rate and regular rhythm GI normal to inspection, nondistended, normoactive bowel sounds Neuro oriented x3 and CN's II-XII intact bilaterally Sensorium / Orientation: alert Psych mental status grossly normal Skin no rashes or lesions noted and no wounds General Skin Exam: Negative for jaundice or pallor MDM MDM MDM Narrative Medical decision making narrative: Patient presenting with abnormal lab values. He states he has been feeling generally rundown, and has been eating and drinking less. He does state that he has been increasing his fluids and has been having normal urination that is clear to him. I was able to find patient's lab work done as an outpatient which shows his white blood cell count is 9.3, hemoglobin 12.7, hematocrit 35.4, platelets 440 his CMP showed a BUN of 66 and a creatinine of 2.79, GFR 25, alk phos 141, globulin 5.7, sodium 122, potassium 3.6, CO2 17 TSH was normal.I did check an EKG and on my interpretation shows a sinus rhythm with occasional PVC. Ventricular rate is 62 bpm, GA interval 202 ms, QRS duration 106 ms. Chest x-ray shows no acute cardiopulmonary process. Patient's troponin came back at 120 any again states he is not had any chest pain but does feel kind of generally weak when he is working and feels like he is short of breath. Patient's and he feel like this started about 2 weeks ago with a feeling of being run down and generalized weakness, however after talking to them at length it sounds like he has been losing weight and not eating for several weeks since his son and dog in the near past. Patient does not have abnormal orthostatic vital signs. He was given IV fluids in the ED. These will need to be continued on admission. Discussed with hospitalist for admission and transferred patient in stable condition. Impression: 1. Acute kidney injury 2. Hyponatremia 3. Elevated troponin 4. Lightheadedness Lab Data Labs: Laboratory Results - last 24 hr 06/17/21 15:55 Total Creatine Kinase 72 Troponin I High Sens 120.2 H* Radiography Diagnostic Testing: Radiology Impression Chest X-Ray 06/17/21 16:09 IMPRESSION: Normal x-ray examination of the chest. Electronically Signed: Dexter Babin MD at 16:44 EDT Tel , Service support , Discharge Plan Triage Chief Complaint: Abn Labs ED Provider: Mahendra Davila Dx/Rx/DC Orders Prescriptions: No Action hydrochlorothiazide 25 mg tablet 25 mg PO DAILY RF: 0 lisinopril 10 mg tablet 10 mg PO DAILY RF: 0 gabapentin 100 mg capsule 100 mg PO DAILY RF: 0 budesonide-formoterol [Symbicort] 160-4.5 mcg/actuation HFA aerosol inhaler 2 puff inhalation BID Qty: 10.2 RF: 3 sertraline 25 mg tablet 25 mg PO QHS Qty: 30 RF: 1 omeprazole 20 MG capsule,delayed release(DR/EC) 40 mg PO DAILY RF: 0 budesonide-formoterol 80-4.5 mcg/actuation HFA aerosol inhaler 2 puff inhalation BID RF: 0 Primary Care Provider: Falguni Beasley
[2021-06-17 16:28] LABS: CPK Total, Creatine Kinase 72 U/L (39-308); Troponin-I HS 120.2 pg/mL (3.0-78.5)
[2021-06-17 16:49] LABS: Bacteria 0 SEEN /hpf (None Seen); Mucous, Urine 0 SEEN /hpf (<or=2+); Red Blood Cells-Urine 0 SEEN /hpf (0-5); Squamous Epithelial Cells - UA 0 SEEN /hpf (0-5)
[2021-06-17 17:09] LABS: Color, Urine Yellow (Yellow); Glucose, Dipstick Normal (Normal); Ketone-Dipstick Negative (Negative); Leukocyte Esterase-Dipstick 100 /ul (Negative); Nitrite-Dipstick Negative (Negative); Occult Blood-Urine 10 /ul (Negative); Protein-Dipstick 15 mg/dl (Negative); Urine Bilirubin Dipstick Negative (Negative); Urine Clarity Clear (Clear); Urine Urobilinogen Normal (Normal)
[2021-06-17 17:20] LABS: White Blood Cells 0-5 SEEN /hpf (0-5)
[2021-06-17 17:21] LABS: Hyaline Cast 0-5 SEEN /lpf (0-5)
--- NOTE | 2021-06-17 17:26 | PCM.HP.STD ---
HPI - General General Date of Admission: 06/17/21 Date of Service: 06/17/21 Chief Complaint: Generalized weakness HPI Narrative TRACEY ORTIZ, is a 66 M with past medical history segment for COPD, essential hypertension, tobacco dependence who presents with generalized weakness. Patient in apparently not been eating and drinking for the past couple of days after the of his dog. He did experience progressive generalized weakness. He was seen at his primary care provider's office lab work obtained demonstrated presence of acute renal failure patient subsequently sent to the ED. In the ED patient was found to have elevated troponin he however did not complain of any chest pain or shortness of breath. Admitted to monitored bed for subsequent management [facility] Medical History COPD (chronic obstructive pulmonary disease) Depression Irregular heart rate Tobacco abuse Unintentional weight loss Home Medications omeprazole 40 mg PO DAILY 08/08/20 [History Last Taken 08/08/20] budesonide-formoterol HFA 160 mcg-4.5 mcg/actuation aerosol inhaler 2 puff INHALATION BID #10.2 g 06/17/21 [Rx Last Taken Unknown] gabapentin 100 mg capsule 100 mg PO DAILY 06/17/21 [History Last Taken Unknown] hydrochlorothiazide 25 mg tablet 25 mg PO DAILY 06/17/21 [History Last Taken Unknown] lisinopril 10 mg tablet 10 mg PO DAILY 06/17/21 [History Last Taken Unknown] sertraline 25 mg tablet 25 mg PO QHS #30 tab 06/17/21 [Rx Last Taken Unknown] Allergy/AdvReac Type Severity Reaction Status Date / Time No Known Allergies Allergy Verified 06/17/21 14:34 Family History Brother Cancer pancreatic cancer Father Alcoholism Surgical History H/O: knee surgery Social History Smoking Status: Light Smoker (<10/day) alcohol intake: current alcohol intake frequency: 3 or more drinks per day Alcohol type: beer details: 12 jus a day per patient substance use type: does not use ROS ROS Narrative GENERAL: weight loss, anorexia HEENT: denies headache, sinus congestion, RESPIRATORY: denies cough, sputum production, CARDIAC: denies chest pain, palpitations, orthopnea, GASTROINTESTINAL: denies abdominal pain, nausea, GENITOURINARY: denies dysuria, urgency, frequency, EXTREMITY: denies swelling MUSCULOSKELETAL: denies current joint pain or tenderness NEUROLOGIC: denies focal numbness, weakness, tingling HEMATOLOGIC: denies easy bruising and/or hemorrhage INTEGUMENT: denies rashes PSYCHIATRIC: denies suicidal or homicidal ideation Vital Signs Vital Signs Vital Signs: 06/17/21 14:34 06/17/21 15:59 06/17/21 16:06 Temperature 97.8 F Temperature Source Temporal Pulse Rate 70 Pulse Rate [Lying] 58 L Pulse Rate [Sitting] 70 Respiratory Rate 18 Respiratory Effort Normal Non-Labored Respiratory Pattern Normal Blood Pressure 93/64 Blood Pressure [Lying] 96/72 Blood Pressure [Sitting] 91/74 Blood Pressure [Standing] 102/62 Blood Pressure Mean 73 Blood Pressure Mean [Lying] 80 Blood Pressure Mean [Sitting] 79 Blood Pressure Mean [Standing] 75 Pulse Ox 100 Oxygen Delivery Method Room Air 06/17/21 17:26 Temperature 97.8 F Temperature Source Temporal Pulse Rate 66 Pulse Rate [Lying] Pulse Rate [Sitting] Respiratory Rate 14 Respiratory Effort Respiratory Pattern Blood Pressure 97/68 Blood Pressure [Lying] Blood Pressure [Sitting] Blood Pressure [Standing] Blood Pressure Mean 77 Blood Pressure Mean [Lying] Blood Pressure Mean [Sitting] Blood Pressure Mean [Standing] Pulse Ox 100 Oxygen Delivery Method Room Air Weight Weight: 95.254 kg Body Mass Index (BMI) 26.9 Physical Exam Narrative GENERAL: cooperative HEENT: Atraumatic; EYES; Anicteric, Normal Conjunctiva NECK; supple, normal thyroid, RESPIRATORY: Diminished to auscultation CARDIOVASCULAR: Regular S1 S2, GI: soft, normoactive bowel sounds, : No Renal angle tenderness; EXTREMITIES: No edema, no clubbing, MUSCULOSKELETAL: no muscle waisting NEURO: Awake; no lateralizing signs. SKIN: No Rash PSYCH; Flat affect Results Lab / Micro Data Labs: Laboratory Results - last 24 hr 06/17/21 15:55: Total Creatine Kinase 72, Troponin I High Sens 120.2 H* 06/17/21 15:55: Ethyl Alcohol 5.0 06/17/21 16:45: Urine Color Yellow, Urine Clarity Clear, Urine pH 6.0, Ur Specific [place] 1.010, Urine Protein 15 H, Urine Glucose (UA) Normal, Urine Ketones Negative, Urine Occult Blood 10 H, Urine Nitrite Negative, Urine Bilirubin Negative, Urine Urobilinogen Normal, Ur Leukocyte Esterase 100 H, Urine RBC 0 SEEN, Urine WBC 0-5 SEEN, Ur Squamous Epith Cells 0 SEEN, Urine Bacteria 0 SEEN, Hyaline Casts 0-5 SEEN, Urine Mucus 0 SEEN Radiology Impression Chest X-Ray 06/17/21 16:09 IMPRESSION: Normal x-ray examination of the chest. Electronically Signed: Dexter Babin MD at 16:44 EDT Tel , Service support , Assessment & Plan Assessment/Plan (1) JACKIE (acute kidney injury): (2) Elevated troponin: (3) Depression: (4) Tobacco abuse: (5) GERD (gastroesophageal reflux disease): (6) Essential hypertension: (7) COPD (chronic obstructive pulmonary disease): PLAN: Patient is a 66-year-old gentleman presented with progressive generalized weakness and abnormal labs 1. Acute kidney injury ?Patient has been admitted to a monitored bed currently being managed with IV fluid resuscitation. As part of his management ordered renal duplex . Patient was also started on IV fluid with subsequent monitoring electrolytes ordered. If patient kidney function persists we will consult nephrology. Patient is on lisinopril and HCTZ held as a result 2. Hyponatremia ?Secondary to combination of hypovolemic hyponatremia as well as patient being on HCTZ suspected offending medications held. Patient started on IV fluids with subsequent monitoring of electrolytes ordered 3. Elevated troponin ?Patient denies any chest pain no shortness of breath. Telemetry monitoring demonstrated frequent PVCs. Patient admitted to monitored bed for continuous telemetry. Ordered subsequent serial cardiac enzymes 2D echo. The patient troponin continues to rise will obtain cardiology consultation 4. Depression ?This may explain patient decreased oral intake. Patient is on SSRI continue 5. Essential hypertension ?Patient blood pressure controlled. On HCTZ and lisinopril held in view of above. 6. Tobacco dependence - Counseled on cessation, offered nicotine patch for tobacco cravings 7. COPD ?Currently not in exacerbation did continue with aerosol treatments as needed 8. GERD ? Patient is on omeprazole did continue 9. DVT prophylaxis ?Lovenox dose adjusted for kidney function Charges/Coding Visit Charges Inpatient E&M: 39761 Init Hosp L3
--- NOTE | 2021-06-17 17:28 | US_ITS ---
STUDY: RENAL ULTRASOUND - COMPLETE REASON FOR EXAM: Male, 66 years old. JACKIE TECHNIQUE: Ultrasound evaluation of the kidneys was performed with real-time and static thomson-scale imaging. COMPARISON: None. FINDINGS: RIGHT KIDNEY: Normal location of the right kidney, which is normal in size. The right kidney measures 12.5 cm. There is a normal cortex of the right kidney. The renal cortex measures 1.8 cm. There is no right renal mass or cyst. There are no right renal calculi. There is no right hydronephrosis. DISTAL RIGHT URETER: There is non-visualization of the distal right ureter. There is no demonstrated right ureterovesical junction calculus. There is a visualized right ureteral jet. LEFT KIDNEY: Normal location of the left kidney, which is normal in size. The left kidney measures 13.3 cm. There is a normal cortex of the left kidney. The renal cortex measures 1.8 cm. There is no left renal mass or cyst. There are no left renal calculi. There is no left hydronephrosis. DISTAL LEFT URETER: There is non-visualization of the distal left ureter. There is no demonstrated left ureterovesical junction calculus. There is a visualized left ureteral jet. BLADDER: The distended urinary bladder has a volume of 316 ml. The empty urinary bladder has a volume of ml. There is a normal wall thickness of the distended urinary bladder. There is no demonstrated mass within the urinary bladder. There are no demonstrated bladder calculi. US/Kidney and Bladder IMPRESSION: Normal ultrasound of the kidneys and urinary bladder. Electronically Signed: Dexter Babin MD at 8:25 EDT Tel , Service support ,
--- NOTE | 2021-06-17 17:42 | ECHOCS_ITS ---
Reason For Study: CHEST PAIN Procedure This was a 2D Doppler, Color Flow transthoracic echocardiogram. The study was technically difficult. Due to body habitus. Contrast injection was performed. Exam performed portable in patient room. Left Ventricle Normal LV size. Left ventricular systolic function is normal. The estimated ejection fraction is 65 %. No evidence for diastolic dysfunction. No regional wall motion abnormalities noted. Right Ventricle Normal RV size. Normal systolic function. Atria Normal left atrium. Normal right atrium. No doppler evidence for ASD. Mitral Valve There is no mitral annular calcification. Normal mitral valve. Trivial mitral valve insufficiency. Tricuspid Valve Normal tricuspid valve. Trivial tricuspid valve insufficiency. Unable to estimate RV systolic pressure/pulmonary artery pressure due to technically difficult study. Aortic Valve The aortic valve is not well visualized. Pulmonic Valve The pulmonic valve is not well visualized. Great Vessels Normal sized aortic root. Pericardium/Pleural No pericardial effusion. Epicardial fat. Medication Diluted definity 4.0ml given slow IV push to enhance endocardial definition. MMode/2D Measurements & Calculations LVIDd: 4.2 cm IVSd: 1.2 cm Ao root diam: 3.3 cm LVIDs: 3.0 cm LVPWd: 1.0 cm RVDd: 4.5 cm FS: 29.8 % LAV(MOD-bp): 46.9 ml LA A4 area: 15.8 cm2 LA dimension(2D): 3.3 cm LAV(MOD-bp) Indexed: 21.2 ml/m2 LAV(MOD-sp2): 51.0 ml LAV(MOD-sp4): 40.0 ml RA A4 area: 13.1 cm2 Time Measurements MV dec time: 0.33 sec Doppler Measurements & Calculations MV E max gus: 61.6 cm/sec Lat Peak E' Gus: 12.0 cm/sec Med Peak E' Gus: 8.3 cm/sec MV A max gus: 68.8 cm/sec E/E' lat: 5.1 E/E' med: 7.4 MV E/A: 0.90 Ao V2 max: 153.1 cm/sec LV V1 max: 122.9 cm/sec PA V2 max: 89.8 cm/sec Ao max P.4 mmHg LV V1 max P.0 mmHg ECHO/Echo Complete W/ Contrast Interpretation Summary The study was technically difficult. Contrast injection was performed. Left ventricular systolic function is normal. The estimated ejection fraction is 65 %. Trivial mitral valve insufficiency. Trivial tricuspid valve insufficiency. Epicardial fat. Unable to estimate RV systolic pressure/pulmonary artery pressure due to techni sheldon difficult study. No evidence for diastolic dysfunction. Ordering Physician: Wisam Oro Referring Physician: Falguni Beasley Performed By: Violeta Callahan RDCS, RVT
[2021-06-17] MEDS: 0.9% Normal Saline 1,000 ML 150 ML IV (18:16)
[2021-06-17] MEDS: Albuterol 2.5 MG/3 ML VIAL.NEB. INHALATION (19:22)
[2021-06-17] MEDS: Budesonide Respules 0.5 MG/2 ML AMPUL.NEB. INHALATION (19:22)
[2021-06-17 20:19] LABS: Troponin-I HS 110.7 pg/mL (3.0-78.5)
[2021-06-17] MEDS: Phenobarbital 32.4 MG Tablet 64.8 MG PO (20:27)
[2021-06-17] MEDS: Sertraline 50 MG Tablet 25 MG PO (20:36)
[2021-06-17 23:02] LABS: Troponin-I HS 119.3 pg/mL (3.0-78.5)
[2021-06-18] VITALS (14 sets, daily range): BP systolic 84–114; BP diastolic 43–72; PULSE 61–76; RESP 16–18; TEMP 36.3–37.2; O2SAT 95–100
[2021-06-18] MEDS: 0.9% Normal Saline 1,000 ML 150 ML IV ×4 (00:22→21:16)
[2021-06-18] MEDS: Phenobarbital 32.4 MG Tablet 64.8 MG PO ×2 (00:32→10:59)
[2021-06-18 06:50] LABS: Absolute Lymphocyte Count 0.66 X10^3/uL (0.83-4.51); Basophil# 0.11 X10^3/uL; Basophil% 1.4 % (0-1); Eosinophil# 0.29 X10^3/uL; Eosinophils% 3.7 % (0-5); Hematocrit 33.2 % (40-54); Hemoglobin 11.4 g/dL (13.0-16.5); Lymphocyte # 0.66 X10^3/ul (0.83-4.51); Lymphocyte % 8.4 % (19-41); Mean Corp Hgb Conc 34.3 g/dL (32-36); Mean Corpuscular Hgb 30.4 pg (27.0-32.0); Mean Corpuscular Volume 88.5 fL (80-94); Mean Platelet Vol. 8.6 fl (6.2-12.0); Monocyte# 0.74 X10^3/uL; Monocyte% 9.4 % (0-10); NRBC Flagged by Analyzer 0 % (0-5); Neutrophil % 76.5 % (47-70); Platelet Count 365 K/mm3 (150-450); RBC Distribution Width CV 11.7 % (11.6-14.6); RBC Distribution Width SD 37.7 fl (35.1-43.9); Red Blood Count 3.75 M/mm3 (4.6-6.2); White Blood Count 7.9 K/mm3 (4.4-11.0)
[2021-06-18 07:09] LABS: Anion Gap 10 (5-15); BUN 67 mg/dL (7-18); BUN/Creat Ratio 24.8 RATIO (10-20); Calcium,Total 9.3 mg/dL (8.5-10.1); Chloride 101 mmol/L (98-107); EST Glomerular Filtration Rate 25 mL/min (>60); Est Glom Filt Rate - Afr Amer 31 mL/min (>60); Estimated Creatinine Clearance 32.14 ml/min; Glucose 121 mg/dL (74-106); Magnesium 1.9 mg/dL (1.6-2.6); Potassium 3.8 mmol/L (3.5-5.1); Sodium Level 128 mmol/L (136-145)
[2021-06-18 07:14] LABS: Phosphorus 4.6 mg/dL (2.5-4.9)
[2021-06-18] MEDS: Albuterol 2.5 MG/3 ML VIAL.NEB. INHALATION ×2 (07:35→18:52)
[2021-06-18] MEDS: Budesonide Respules 0.5 MG/2 ML AMPUL.NEB. INHALATION ×2 (07:35→18:52)
--- NOTE | 2021-06-18 08:03 | PN.HOSP_ITS ---
Subjective Subjective No improvement in kidney function despite aggressive IV fluid resuscitation. Patient troponin remains elevated. Consult placed to cardiology Objective Data Objective Data Vital Signs: Vital Signs Temp Pulse Resp BP Pulse Ox 98.4 F 63 16 95/57 L 98 06/18/21 06:43 06/18/21 06:43 06/18/21 06:43 06/18/21 06:43 06/18/21 06:43 Oxygen Delivery Method Room Air Weight: 96.1 kg Body Mass Index (BMI) 26.8 Intake & Output: Intake and Output for Last 24 Hours 06/16/21 06/17/21 06/18/21 23:59 23:59 23:59 Intake Total 1000 / 1000 1847.5 / 1847.5 Balance 1000 / 1000 1847.5 / 1847.5 Lab / Micro Data Result Diagrams: 06/18/21 06:30 06/18/21 06:30 Labs: Laboratory Results - last 24 hr 06/17/21 15:55: Total Creatine Kinase 72, Troponin I High Sens 120.2 H* 06/17/21 15:55: Ethyl Alcohol 5.0 06/17/21 16:45: Urine Color Yellow, Urine Clarity Clear, Urine pH 6.0, Ur Specific [place] 1.010, Urine Protein 15 H, Urine Glucose (UA) Normal, Urine Ketones Negative, Urine Occult Blood 10 H, Urine Nitrite Negative, Urine Bilirubin Negative, Urine Urobilinogen Normal, Ur Leukocyte Esterase 100 H, Urine RBC 0 SEEN, Urine WBC 0-5 SEEN, Ur Squamous Epith Cells 0 SEEN, Urine Bacteria 0 SEEN, Hyaline Casts 0-5 SEEN, Urine Mucus 0 SEEN 06/17/21 19:25: Troponin I High Sens 110.7 H* 06/17/21 22:05: Troponin I High Sens 119.3 H* 06/18/21 06:30: Sodium 128 L, Potassium 3.8, Chloride 101, Carbon Dioxide 17.0 L , Anion Gap 10, BUN 67 H, Creatinine 2.70 H, Estim Creat Clear Calc 32.14, Est GFR (MDRD) Af Amer 31 L, Est GFR (MDRD) Non-Af 25 L, BUN/Creatinine Ratio 24.8 H , Glucose 121 H, Calcium 9.3, Magnesium 1.9 06/18/21 06:30: WBC 7.9, RBC 3.75 L, Hgb 11.4 L, Hct 33.2 L, MCV 88.5, MCH 30.4, MCHC 34.3, RDW Std Deviation 37.7, RDW Coeff of Kimmy 11.7, Plt Count 365, MPV 8.6, Immature Gran % (Auto) 0.600, Neut % (Auto) 76.5 H, Lymph % (Auto) 8.4 L, [place] % (Auto) 9.4, Eos % (Auto) 3.7, Baso % (Auto) 1.4 H, Absolute Neuts (auto) 6.0, Absolute Lymphs (auto) 0.66 L, Nucleated RBC % 0 06/18/21 06:30: Phosphorus 4.6 Radiography Diagnostic Testing: Radiology Impression Chest X-Ray 06/17/21 16:09 IMPRESSION: Normal x-ray examination of the chest. Electronically Signed: Dexter Babin MD at 16:44 EDT Tel , Service support , Physical Exam Narrative GENERAL: cooperative HEENT: Atraumatic; EYES; Anicteric, Normal Conjunctiva NECK; supple, normal thyroid, RESPIRATORY: Diminished to auscultation CARDIOVASCULAR: Regular S1 S2, GI: soft, normoactive bowel sounds, : No Renal angle tenderness; EXTREMITIES: No edema, no clubbing, MUSCULOSKELETAL: no muscle waisting NEURO: Awake; no lateralizing signs. SKIN: No Rash PSYCH; Flat affect Assessment & Plan Assessment/Plan (1) JACKIE (acute kidney injury): (2) Elevated troponin: (3) Depression: (4) Tobacco abuse: (5) GERD (gastroesophageal reflux disease): (6) Essential hypertension: (7) COPD (chronic obstructive pulmonary disease): PLAN: Patient is a 66-year-old gentleman presented with progressive generalized weakness and abnormal labs 1. Acute kidney injury ?Patient has been admitted to a monitored bed currently being managed with IV fluid resuscitation. As part of his management ordered renal duplex . Patient was also started on IV fluid with subsequent monitoring electrolytes ordered. If patient kidney function persists we will consult nephrology. Patient is on lisinopril and HCTZ held as a result ?06/18/2021 no improvement in kidney function. Did consult nephrology. Ordered renal duplex 2. Encephalopathy ?Do suspect possible alcohol withdrawal patient started on the alcohol withdrawal protocol 3. Hyponatremia ?Secondary to combination of hypovolemic hyponatremia as well as patient being on HCTZ suspected offending medications held. Patient started on IV fluids with subsequent monitoring of electrolytes ordered -06/18/2021; sodium level remains low. We will continue with IV fluids with subsequent monitoring of electrolytes 4. Elevated troponin ?Patient denies any chest pain no shortness of breath. Telemetry monitoring demonstrated frequent PVCs. Patient admitted to monitored bed for continuous telemetry. Ordered subsequent serial cardiac enzymes 2D echo. The patient troponin continues to rise will obtain cardiology consultation -06/18/2021; consult was placed to Dr. Ruvalcaba in view of the persistent elevated troponin. Case discussed with him 5. Depression ?This may explain patient decreased oral intake. Patient is on SSRI continue 6. Essential hypertension ?Patient blood pressure controlled. On HCTZ and lisinopril held in view of a lalito. 7. COPD ?Currently not in exacerbation did continue with aerosol treatments as needed 8. GERD ? Patient is on omeprazole did continue 9. DVT prophylaxis ?Lovenox dose adjusted for kidney function 10. Tobacco dependence - Counseled on cessation, offered nicotine patch for tobacco cravings Charges/Coding Visit Charges Inpatient E&M: 57559 Subs Hosp L3
--- NOTE | 2021-06-18 09:27 | CASEMGMT ---
SW reviewed patient's chart and noted he drinks 8-10 beers a day and he has been depressed from losing his dog and a son recently. SW met with patient, introduced self and role at [facility]. SW asked patient about his recent losses and if he would like to talk about it. He said he is fine and he does not need anything. SW encouraged him to talk about it with someone to help him process everything and learn some coping skills. He declined stating again that he is fine. SW asked him about his alcohol consumption and he said he is fine. He said his does worry about his drinking, but he feels like he is fine. SILVA let him know that if he changes his mind SW would be more than happy to come back and talk with him and/or give him resources. Francie MARSHALL
[2021-06-18] MEDS: Thiamine Hydrochloride 100 MG Tablet PO (10:57)
[2021-06-18] MEDS: Gabapentin 100 MG Capsule PO (10:57)
[2021-06-18] MEDS: Folic Acid 1 MG Tablet PO (10:57)
[2021-06-18] MEDS: Pantoprazole Sodium 40 MG Tablet PO (10:58)
[2021-06-18] MEDS: Enoxaparin 40 MG/0.4 ML Syringe SC (11:02)
--- NOTE | 2021-06-18 13:12 | CASEMGMT ---
RN CM M[employer]GAGE LOAN ASSISTANT CM to room to meet with patient for initial transition planning/care coordination assessment. LISA HERNDON introduced self and role at [facility]. Pt voices understanding and consents to assessment at this time. Pt sitting up in chair in room in no distress at this time. Sue, @ bedside. Pt is A/O at this time and answers all questions appropriately. Care providers, pharmacy, and demographics verified/updated at this time. PCP: Dr Beasley. Pt is new pt w/Dr Beasley--has not had first appt yet. He was just in to see Olegario Sanchez NP, yesterday. Specialists: none Preferred Pharmacy: [facility] Retail pharmacy Insurance: [place] Prescription Benefit: Yes LNOK: Sue Living Arrangements: Lives w/ in one-story home w/3 steps to enter w/full flight of stairs up and down. Independent w/ADL's and IADL's. Transportation: Pt states drives self and states no transportation concerns at this time. DME: Denies using any DME and denies needs. HHC/SNF: No history of either. No needs identified. Pt wishes to return home and states has no concerns with going home at time of discharge. CM to follow for any discharge planning/needs. Pt voices no concerns/needs at this time. Advised pt to ask for CM if any questions/concerns/needs arise. Voices understanding. PLAN: Home Lashawn ARCOS RN, CM
--- NOTE | 2021-06-18 13:47 | CON.PCM.CA_ITS ---
Assessment & Plan Assessment/Plan (1) Abnormal cardiac enzyme level: PLAN: The patient does have abnormal cardiac enzyme levels. The etiology is unclear at this time. His ECG is demonstrated no acute changes. His echocardiogram does not appear to demonstrate obvious left ventricular regional wall motion abnormalities or diminished LV systolic function. He may eventually need additional cardiovascular evaluation from a noninvasive or invasive standpoint to evaluate for any obvious coronary artery contribution to this. However, in the interim, there is concern about other etiologies such as being related to his renal insufficiency and elevated creatinine levels. He would not be an ideal candidate for further invasive cardiovascular evaluation based upon his renal insufficiency for concerns of IV contrast related nephropathy, etc. He can continue medical therapy in the interim as deemed appropriate. (2) PVC (premature ventricular contraction): PLAN: He has been found to have PVCs on his cardiac rhythm monitor. He can continue medical therapy as deemed appropriate while he is undergoing his noninvasive evaluation. (3) Essential hypertension: PLAN: He does have a history of hypertension. His blood pressure will need to be followed with his medicines adjusted and taken into consideration his renal dysfunction. (4) JACKIE (acute kidney injury): PLAN: He is going to be evaluated by nephrology for further input on his renal insufficiency. In the interim he has been receiving IV fluids and thus far has had no significant impact on his renal insufficiency. Also, his diminished appetite, etc., may potentially be related to his renal insufficiency and his markedly elevated BUN level. (5) COPD (chronic obstructive pulmonary disease): QUALIFIERS: COPD type: unspecified COPD Qualified Code(s): J44.9 - Chronic obstructive pulmonary disease, unspecified PLAN: He does need to discontinue his tobacco use. He will need continue pulmonary evaluation by internal medicine, etc. (6) Alcohol abuse: PLAN: He has been advised to discontinue his alcohol intake. (7) Tobacco abuse: PLAN: He is also been advised to discontinue his tobacco intake. Addt'l Comments Of note, based upon his symptoms with respect to his diminished appetite, etc., he did undergo a COVID-19 rapid test which was reported as negative. The patient's case has been discussed and reviewed with the patient and Dr. Oro. This note was generated using a voice recognition system and there may be incorrect words, spelling or punctuation that were not noted when reviewing the office note prior to saving. HPI Consult Data Date of Consult: 06/18/21 HPI Narrative HPI Narrative: TRACEY ORTIZ, is a 66 year old white male who presents for vascular consultation based upon concerns of abnormal cardiac enzymes in the setting of a history of hypertension and renal insufficiency. The patient denies any cardiovascular history that he is aware of. He does not recall undergoing any cardiovascular testing in the past. He states he has been active at work and at home. He notes recently his activity level has declined. He also notes that his appetite has declined. He states he has been forcing himself to eat. He denies any ongoing chest discomfort. He has had no episodes of orthopnea or PND or peripheral pitting edema. He denies any near-syncope or syncope. He admits to being a heavy smoker and a heavy beer drinker (at least a 12 pack/day). He has been undergoing cardiovascular evaluation based upon his symptoms. This included troponin I levels which have been elevated and without significant change. He was noted to have an ECG was sinus rhythm with a left axis deviation and o ccasional PVCs. On cardiac radiation monitor it appeared he also had an brief episode appearing compatible with an ectopic atrial rhythm/tachycardia. He has undergone evaluation with a transthoracic echocardiogram with the results as noted below. [facility] Medical History (Updated 06/18/21 @ 17:[address] Bryant Ruvalcaba MD) Abnormal cardiac enzyme level COPD (chronic obstructive pulmonary disease) Depression Irregular heart rate PVC (premature ventricular contraction) Smoker Tobacco abuse Unintentional weight loss Home Medications omeprazole 40 mg PO DAILY 08/08/20 [History Last Taken 06/17/21] budesonide-formoterol HFA 160 mcg-4.5 mcg/actuation aerosol inhaler 2 puff INHALATION BID #10.2 g 06/17/21 [Rx Last Taken 06/17/21] gabapentin 100 mg capsule 100 mg PO DAILY 06/17/21 [History Last Taken 06/17/21] hydrochlorothiazide 25 mg tablet 25 mg PO DAILY 06/17/21 [History Last Taken 06/17/21] lisinopril 10 mg tablet 10 mg PO DAILY 06/17/21 [History Last Taken 06/17/21] sertraline 25 mg tablet 25 mg PO QHS #30 tab 06/17/21 [Rx Last Taken Unknown] Allergy/AdvReac Type Severity Reaction Status Date / Time No Known Allergies Allergy Verified 06/17/21 14:34 Family History Brother Cancer pancreatic cancer Father Alcoholism Surgical History (Updated 06/17/21 @ 18:03 by Jaye Rojo) H/O: knee surgery Social History Smoking Status: Light Smoker (<10/day) alcohol intake: current alcohol intake frequency: 3 or more drinks per day Alcohol type: beer details: 12 jus a day per patient substance use type: does not use ROS Constitutional Constitutional: Reports as per HPI Eyes Eyes: Reports as per HPI ENT HEENT: Reports as per HPI Cardiovascular Cardiovascular: Reports dyspnea and fatigue Respiratory/Chest Respiratory/Chest: Reports dyspnea Gastrointestinal Gastrointestinal: Reports as per HPI Genitourinary Genitourinary: Reports as per HPI Musculoskeletal Musculoskeletal: Reports as per HPI Physical Exam Narrative The patient appears to be awake and alert and in no acute distress. Const alert, oriented x3 and no apparent distress Orientation / Consciousness: awake HEENT normocephalic, head/scalp atraumatic and hearing grossly normal bilaterally Eyes PERRL, EOMs intact bilaterally and conjunctivae normal Neck full ROM, supple and no JVD Chest inspection of chest normal Resp normal respiratory effort and clear to auscultation bilaterally Cardio regular rate, regular rhythm, S1 normal heart sound and S2 normal heart sound GI normal to inspection, nondistended, normoactive bowel sounds Extremity no pedal edema Skin no rashes or lesions noted Neuro oriented x3, moves all extremities, no focal motor deficits and no sensory deficits noted Psych mental status grossly normal Objective Data Vital Signs: Vital Signs Temp Pulse Resp BP Pulse Ox 97.7 F L 70 16 95/56 L 99 06/18/21 10:48 06/18/21 10:48 06/18/21 10:48 06/18/21 10:48 06/18/21 10:48 Oxygen Delivery Method Room Air Weight: 211 lb 13.828 oz Body Mass Index (BMI) 26.8 Intake & Output: Intake and Output for Last 24 Hours 06/16/21 06/17/21 06/18/21 23:59 23:59 23:59 Intake Total 1000 / 1000 1847.5 / 1847.5 Balance 1000 / 1000 1847.5 / 1847.5 Lab / Micro Data Result Diagrams: 06/18/21 06:30 06/18/21 06:30 Labs: Laboratory Results - last 24 hr 06/17/21 15:55: Total Creatine Kinase 72, Troponin I High Sens 120.2 H* 06/17/21 15:55: Ethyl Alcohol 5.0 06/17/21 16:45: Urine Color Yellow, Urine Clarity Clear, Urine pH 6.0, Ur Specific [place] 1.010, Urine Protein 15 H, Urine Glucose (UA) Normal, Urine Ketones Negative, Urine Occult Blood 10 H, Urine Nitrite Negative, Urine Bilirubin Negative, Urine Urobilinogen Normal, Ur Leukocyte Esterase 100 H, Urine RBC 0 SEEN, Urine WBC 0-5 SEEN, Ur Squamous Epith Cells 0 SEEN, Urine Bacteria 0 SEEN, Hyaline Casts 0-5 SEEN, Urine Mucus 0 SEEN 06/17/21 19:25: Troponin I High Sens 110.7 H* 06/17/21 22:05: Troponin I High Sens 119.3 H* 06/18/21 06:30: Sodium 128 L, Potassium 3.8, Chloride 101, Carbon Dioxide 17.0 L , Anion Gap 10, BUN 67 H, Creatinine 2.70 H, Estim Creat Clear Calc 32.14, Est GFR (MDRD) Af Amer 31 L, Est GFR (MDRD) Non-Af 25 L, BUN/Creatinine Ratio 24.8 H , Glucose 121 H, Calcium 9.3, Magnesium 1.9 06/18/21 06:30: WBC 7.9, RBC 3.75 L, Hgb 11.4 L, Hct 33.2 L, MCV 88.5, MCH 30.4, MCHC 34.3, RDW Std Deviation 37.7, RDW Coeff of Kimmy 11.7, Plt Count 365, MPV 8.6, Immature Gran % (Auto) 0.600, Neut % (Auto) 76.5 H, Lymph % (Auto) 8.4 L, [place] % (Auto) 9.4, Eos % (Auto) 3.7, Baso % (Auto) 1.4 H, Absolute Neuts (auto) 6.0, Absolute Lymphs (auto) 0.66 L, Nucleated RBC % 0 06/18/21 06:30: Phosphorus 4.6 Cardiology Labs/Tests 06/17/21 16:45: Urine Color Yellow, Urine Clarity Clear, Urine pH 6.0, Ur Specific [place] 1.010, Urine Protein 15 H, Urine Glucose (UA) Normal, Urine Ketones Negative, Urine Occult Blood 10 H, Urine Nitrite Negative, Urine Bilirubin Negative, Urine Urobilinogen Normal, Ur Leukocyte Esterase 100 H, Urine RBC 0 SEEN, Urine WBC 0-5 SEEN 06/18/21 06:30: Sodium 128 L, Potassium 3.8, Chloride 101, Carbon Dioxide 17.0 L , Anion Gap 10, BUN 67 H, Creatinine 2.70 H, Est GFR (MDRD) Af Amer 31 L, Est GFR (MDRD) Non-Af 25 L, BUN/Creatinine Ratio 24.8 H, Glucose 121 H, Calcium 9.3, Magnesium 1.9 06/18/21 06:30: WBC 7.9, RBC 3.75 L, Hgb 11.4 L, Hct 33.2 L, MCV 88.5, MCH 30.4, MCHC 34.3, Plt Count 365, MPV 8.6, Immature Gran % (Auto) 0.600, Neut % (Auto) 76.5 H, Lymph % (Auto) 8.4 L, [place] % (Auto) 9.4, Eos % (Auto) 3.7, Baso % (Auto) 1.4 H, Absolute Neuts (auto) 6.0, Nucleated RBC % 0 06/18/21 06:30: Phosphorus 4.6 Rhythm: As noted above EKG: As noted above ECHO: Interpretation Summary The study was technically difficult. Contrast injection was performed. Left ventricular systolic function is normal. The estimated ejection fraction is 65 %. Trivial mitral valve insufficiency. Trivial tricuspid valve insufficiency. Epicardial fat. Unable to estimate RV systolic pressure/pulmonary artery pressure due to technically difficult study. No evidence for diastolic dysfunction. Radiography Diagnostic Testing: Radiology Impression Chest X-Ray 06/17/21 16:09 IMPRESSION: Normal x-ray examination of the chest. Electronically Signed: Dexter Babin MD at 16:44 EDT Tel , Service support , Renal Ultrasound 06/17/21 17:28 IMPRESSION: Normal ultrasound of the kidneys and urinary bladder. Electronically Signed: Dexter Babin MD at 8:25 EDT Tel , Service support ,
--- NOTE | 2021-06-18 19:50 | CON.PCM.RE_ITS ---
Assessment & Plan Assessment/Plan (1) JACKIE (acute kidney injury): PLAN: JACKIE. cr was normal last year. now 2.7. renal US is ok. UA shows trace RBC, WBC. no signs of UTI. AIN is possible but he has confirmed that he did not start any new medication in last one year. all his meds including lisinopril and diuretic are more than one year old. no NSAIDs. no other precipitants. patient admits to drinking ETOH. will check CK. continue fluids other events. troponins high. cardiology following. echo looks ok Hyponatremia. ? volume depletion. continue fluids dw family dw Dr Oro HPI Consult Data Date of Consult: 06/18/21 HPI Narrative HPI Narrative: TRACEY ORTIZ, is a 66 M who presents to the hospital with several complaints generalized weakness, muscle pains/cramps, weakness, one episode of vomitings all within last 2 weeks or so. no urinary complaints. breathing is ok. admit sodium is low, cr high, troponins are high. [facility] Medical History (Updated 06/18/21 @ 17:[address] Bryant Ruvalcaba MD) Abnormal cardiac enzyme level COPD (chronic obstructive pulmonary disease) Depression Irregular heart rate PVC (premature ventricular contraction) Smoker Tobacco abuse Unintentional weight loss Home Medications omeprazole 40 mg PO DAILY 08/08/20 [History Last Taken 06/17/21] budesonide-formoterol HFA 160 mcg-4.5 mcg/actuation aerosol inhaler 2 puff INHALATION BID #10.2 g 06/17/21 [Rx Last Taken 06/17/21] gabapentin 100 mg capsule 100 mg PO DAILY 06/17/21 [History Last Taken 06/17/21] hydrochlorothiazide 25 mg tablet 25 mg PO DAILY 06/17/21 [History Last Taken 06/17/21] lisinopril 10 mg tablet 10 mg PO DAILY 06/17/21 [History Last Taken 06/17/21] sertraline 25 mg tablet 25 mg PO QHS #30 tab 06/17/21 [Rx Last Taken Unknown] Allergy/AdvReac Type Severity Reaction Status Date / Time No Known Allergies Allergy Verified 06/17/21 14:34 Family History Brother Cancer pancreatic cancer Father Alcoholism Surgical History (Updated 06/17/21 @ 18:03 by Jaye Rojo) H/O: knee surgery Social History Smoking Status: Light Smoker (<10/day) alcohol intake: current alcohol intake frequency: 3 or more drinks per day Alcohol type: beer details: 12 jus a day per patient substance use type: does not use ROS ROS Narrative except above Physical Exam Narrative Alert awake oriented x 3 no obvious distress no pallor no icterus no JVD s1s2 no murmurs lungs clear abdomen soft no organomegaly no edema no cyanosis Medical Records Data Medical Nutrition Assessment Dietitian: Nutrition Therapy Diagnosis Start: 06/18/21 13:53 Freq: Status: Active Protocol: Document 06/18/21 14:29 AG (Rec: 06/18/21 14:30 AG [email or web address]) Nutrition Malnutrition Evidence of Malnutrition Exists No Intake Problem Inadequate Oral Intake Etiology r/t decreased appetite, altered tastes Signs/Symptoms as evidenced by pt reports of consuming ~50-75% of estimated nutritional needs over past 3 months w/ worsening PO intake over past few days, unintentional wt loss of 16#/7 % x 3 months Status Active Problem Recommendation Dietitian Recommendations/Changes continue regular diet d/t recent wt loss and poor PO intake; at risk for malnutrition but does not meet criteria at this time. Continue Ensure Enlive 120mL 4x/day until PO intake improves. Recommend cardiac diet when intake at meals is improved. Lab / Micro Data Result Diagrams: 06/18/21 06:30 06/18/21 06:30 Labs: Laboratory Results - last 24 hr 06/17/21 19:25: Troponin I High Sens 110.7 H* 06/17/21 22:05: Troponin I High Sens 119.3 H* 06/18/21 06:30: Sodium 128 L, Potassium 3.8, Chloride 101, Carbon Dioxide 17.0 L , Anion Gap 10, BUN 67 H, Creatinine 2.70 H, Estim Creat Clear Calc 32.14, Est GFR (MDRD) Af Amer 31 L, Est GFR (MDRD) Non-Af 25 L, BUN/Creatinine Ratio 24.8 H , Glucose 121 H, Calcium 9.3, Magnesium 1.9 06/18/21 06:30: WBC 7.9, RBC 3.75 L, Hgb 11.4 L, Hct 33.2 L, MCV 88.5, MCH 30.4, MCHC 34.3, RDW Std Deviation 37.7, RDW Coeff of Kimmy 11.7, Plt Count 365, MPV 8.6, Immature Gran % (Auto) 0.600, Neut % (Auto) 76.5 H, Lymph % (Auto) 8.4 L, [place] % (Auto) 9.4, Eos % (Auto) 3.7, Baso % (Auto) 1.4 H, Absolute Neuts (auto) 6.0, Absolute Lymphs (auto) 0.66 L, Nucleated RBC % 0 06/18/21 06:30: Phosphorus 4.6 06/18/21 13:40: COVID-19 (RAUDEL) Not Detected Radiology Impression Renal Ultrasound 06/17/21 17:28 IMPRESSION: Normal ultrasound of the kidneys and urinary bladder. Electronically Signed: Dexter Babin MD at 8:25 EDT Tel , Service support , Echocardiogram 06/17/21 17:42 Interpretation Summary The study was technically difficult. Contrast injection was performed. Left ventricular systolic function is normal. The estimated ejection fraction is 65 %. Trivial mitral valve insufficiency. Trivial tricuspid valve insufficiency. Epicardial fat. Unable to estimate RV systolic pressure/pulmonary artery pressure due to allyssa hnically difficult study. No evidence for diastolic dysfunction. Ordering Physician: Wisam Oro Referring Physician: Falguni Beasley Performed By: Violeta Callahan, LEI, RVT
[2021-06-18] MEDS: Sertraline 50 MG Tablet 25 MG PO (21:20)
[2021-06-19] VITALS (8 sets, daily range): BP systolic 99–123; BP diastolic 56–68; PULSE 47–92; RESP 16–17; TEMP 36.7–36.8; O2SAT 96–100
[2021-06-19] MEDS: 0.9% Normal Saline 1,000 ML 150 ML IV (04:14)
[2021-06-19] MEDS: Aspirin 81 MG TAB.CHEW PO (06:13)
[2021-06-19 06:35] LABS: Absolute Lymphocyte Count 0.86 X10^3/uL (0.83-4.51); Absolute Neutrophil Count 4.5 X10^3/uL (2.0-7.7); Basophil# 0.14 X10^3/uL; Basophil% 2.1 % (0-1); Eosinophil# 0.38 X10^3/uL; Eosinophils% 5.7 % (0-5); Hematocrit 32.6 % (40-54); Hemoglobin 11.5 g/dL (13.0-16.5); Lymphocyte # 0.86 X10^3/ul (0.83-4.51); Lymphocyte % 12.8 % (19-41); Mean Corp Hgb Conc 35.3 g/dL (32-36); Mean Corpuscular Hgb 31.1 pg (27.0-32.0); Mean Corpuscular Volume 88.1 fL (80-94); Mean Platelet Vol. 8.4 fl (6.2-12.0); Monocyte# 0.74 X10^3/uL; NRBC Flagged by Analyzer 0 % (0-5); Neutrophil # 4.54 X10^3/uL (2.7-7.7); Neutrophil % 67.8 % (47-70); Platelet Count 365 K/mm3 (150-450); RBC Distribution Width CV 11.9 % (11.6-14.6); RBC Distribution Width SD 38.5 fl (35.1-43.9); White Blood Count 6.7 K/mm3 (4.4-11.0)
[2021-06-19 07:00] LABS: AST(SGOT) 25 U/L (15-37); Alanine Aminotransfer ALT/SGPT 44 U/L (16-61); Albumin, Serum 3.1 g/dL (3.2-5.0); Alkaline Phosphatase 124 U/L (45-117); Anion Gap 9 (5-15); BUN 49 mg/dL (7-18); BUN/Creat Ratio 22.3 RATIO (10-20); Bilirubin, Direct 0.12 mg/dL (0.00-0.30); Calcium,Total 9.1 mg/dL (8.5-10.1); Chloride 108 mmol/L (98-107); Cholesterol 157 mg/dL (200); EST Glomerular Filtration Rate 32 mL/min (>60); Est Glom Filt Rate - Afr Amer 39 mL/min (>60); Estimated Creatinine Clearance 39.44 ml/min; Glucose 117 mg/dL (74-106); High Density Lipoprotein 41 mg/dL; Potassium 3.4 mmol/L (3.5-5.1); Protein, Total 8.1 g/dL (6.4-8.2); Sodium Level 134 mmol/L (136-145); Triglycerides 71 mg/dL; Very Low Density Lipoprotein 14 mg/dL (5-40)
[2021-06-19] MEDS: Albuterol 2.5 MG/3 ML VIAL.NEB. INHALATION (07:19)
[2021-06-19] MEDS: Budesonide Respules 0.5 MG/2 ML AMPUL.NEB. INHALATION (07:20)
--- NOTE | 2021-06-19 07:31 | PN.HOSP_ITS ---
Subjective Subjective Patient seen both his renal ultrasound as well as 2D echo were essentially unremarkable. Plan is for patient to undergo a Lexiscan stress test this a.m. Patient also did admit to heavy use of alcohol. Subsequently ordered liver ultrasound Objective Data Objective Data Vital Signs: Vital Signs Temp Pulse Resp BP Pulse Ox 98.0 F 60 16 108/62 100 06/19/21 06:07 06/19/21 06:07 06/19/21 06:07 06/19/21 06:07 06/19/21 06:07 Oxygen Delivery Method Room Air Weight: 94.1 kg Body Mass Index (BMI) 26.8 Intake & Output: Intake and Output for Last 24 Hours 06/17/21 06/18/21 06/19/21 23:59 23:59 23:59 Intake Total 1000 / 1000 4807.5 / 4807.5 1000 / 1000 Balance 1000 / 1000 4807.5 / 4807.5 1000 / 1000 Medical Nutrition Assessment Dietitian: Nutrition Therapy Diagnosis Start: 06/18/21 13:53 Freq: Status: Active Protocol: Document 06/18/21 14:29 (Rec: 06/18/21 14:30 [id number]) Nutrition Malnutrition Evidence of Malnutrition Exists No Intake Problem Inadequate Oral Intake Etiology r/t decreased appetite, altered tastes Signs/Symptoms as evidenced by pt reports of consuming ~50-75% of estimated nutritional needs over past 3 months w/ worsening PO intake over past few days, unintentional wt loss of 16#/7 % x 3 months Status Active Problem Recommendation Dietitian Recommendations/Changes continue regular diet d/t recent wt loss and poor PO intake; at risk for malnutrition but does not meet criteria at this time. Continue Ensure Enlive 120mL 4x/day until PO intake improves. Recommend cardiac diet when intake at meals is improved. Lab / Micro Data Result Diagrams: 06/19/21 06:20 06/19/21 06:20 Labs: Laboratory Results - last 24 hr 06/18/21 13:40: COVID-19 (RAU[facility]) Not Detected 06/19/21 06:20: Sodium 134 L, Potassium 3.4 L, Chloride 108 H, Carbon Dioxide 17.0 L, Anion Gap 9, BUN 49 H, Creatinine 2.20 H, Estim Creat Clear Calc 39.44, Est GFR (MDRD) Af Amer 39 L, Est GFR (MDRD) Non-Af 32 L, BUN/Creatinine Ratio 22.3 H, Glucose 117 H, Calcium 9.1, Total Bilirubin 0.30, Direct Bilirubin 0.12, AST 25, ALT 44, Alkaline Phosphatase 124 H, Total Protein 8.1, Albumin 3.1 L, Globulin 5.0 H, Triglycerides 71, Cholesterol 157, LDL Cholesterol 102, VLDL Cholesterol 14, HDL Cholesterol 41 06/19/21 06:20: WBC 6.7, RBC 3.70 L, Hgb 11.5 L, Hct 32.6 L, MCV 88.1, MCH 31.1, MCHC 35.3, RDW Std Deviation 38.5, RDW Coeff of Kimmy 11.9, Plt Count 365, MPV 8.4, Immature Gran % (Auto) 0.600, Neut % (Auto) 67.8, Lymph % (Auto) 12.8 L, [place] % (Auto) 11.0 H, Eos % (Auto) 5.7 H, Baso % (Auto) 2.1 H, Absolute Neuts (auto) 4.5, Absolute Lymphs (auto) 0.86, Nucleated RBC % 0 Radiography Diagnostic Testing: Radiology Impression Renal Ultrasound 06/17/21 17:28 IMPRESSION: Normal ultrasound of the kidneys and urinary bladder. Electronically Signed: Dexter Babin MD at 8:25 EDT Tel , Service support , Echocardiogram 06/17/21 17:42 Interpretation Summary The study was technically difficult. Contrast injection was performed. Left ventricular systolic function is normal. The estimated ejection fraction is 65 %. Trivial mitral valve insufficiency. Trivial tricuspid valve insufficiency. Epicardial fat. Unable to estimate RV systolic pressure/pulmonary artery pressure due to technically difficult study. No evidence for diastolic dysfunction. ___ Ordering Physician: Wisam Oro Referring Physician: Falguni Beasley Performed By: Violeta Callahan, LEI, RVT Physical Exam Narrative GENERAL: cooperative HEENT: Atraumatic; EYES; Anicteric, Normal Conjunctiva NECK; supple, normal thyroid, RESPIRATORY: Diminished to auscultation CARDIOVASCULAR: Regular S1 S2, GI: soft, normoactive bowel sounds, : No Renal angle tenderness; EXTREMITIES: No edema, no clubbing, MUSCULOSKELETAL: no muscle waisting NEURO: Awake; no lateralizing signs. SKIN: No Rash PSYCH; Flat affect Assessment & Plan Assessment/Plan (1) JACKIE (acute kidney injury): (2) Elevated troponin: (3) Depression: (4) Tobacco abuse: (5) GERD (gastroesophageal reflux disease): (6) Essential hypertension: (7) COPD (chronic obstructive pulmonary disease): QUALIFIERS: COPD type: unspecified COPD Qualified Code(s): J44.9 - Chronic obstructive pulmonary disease, unspecified PLAN: Patient is a 66-year-old gentleman presented with progressive generalized weakness and abnormal labs 1. Acute kidney injury ?Patient has been admitted to a monitored bed currently being managed with IV fluid resuscitation. As part of his management ordered renal duplex . Patient was also started on IV fluid with subsequent monitoring electrolytes ordered. If patient kidney function persists we will consult nephrology. Patient is on lisinopril and HCTZ held as a result ?06/18/2021 no improvement in kidney function. Did consult nephrology. Ordered renal duplex -06/19/2021, slight improvement in kidney function but not that significant. Ultrasound of the kidney was reported as being normal. 2. Encephalopathy ?Do suspect possible alcohol withdrawal patient started on the alcohol withdrawal protocol -06/19/2021; patient did admit to significant use of alcohol subsequently ordered liver ultrasound 3. Hyponatremia ?Secondary to combination of hypovolemic hyponatremia as well as patient being on HCTZ suspected offending medications held. Patient started on IV fluids with subsequent monitoring of electrolytes ordered -06/18/2021; sodium level remains low. We will continue with IV fluids with subsequent monitoring of electrolytes ?06/19/2021; sodium levels improving with rehydration 4. Elevated troponin ?Patient denies any chest pain no shortness of breath. Telemetry monitoring demonstrated frequent PVCs. Patient admitted to monitored bed for continuous telemetry. Ordered subsequent serial cardiac enzymes 2D echo. The patient troponin continues to rise will obtain cardiology consultation -06/18/2021; consult was placed to Dr. Ruvalcaba in view of the persistent elevated troponin. Case discussed with him ?06/19/2021; case was discussed with Dr. Ruvalcaba plans for patient to undergo Lexiscan stress test 5. Depression ?This may explain patient decreased oral intake. Patient is on SSRI continue 6. Essential hypertension ?Patient blood pressure controlled. On HCTZ and lisinopril held in view of above. 7. COPD ?Currently not in exacerbation did continue with aerosol treatments as needed 8. GERD ? Patient is on omeprazole did continue 9. DVT prophylaxis ?Lovenox dose adjusted for kidney function 10. Tobacco dependence - Counseled on cessation, offered nicotine patch for tobacco cravings 11. Hypokalemia ?Corrected per protocol Charges/Coding Visit Charges Inpatient E&M: 80490 Subs Hosp L2
--- NOTE | 2021-06-19 08:15 | US_ITS ---
STUDY: ABDOMINAL ULTRASOUND - RIGHT UPPER QUADRANT REASON FOR VISIT: Male, 66 years old . History of cirrhosis. TECHNIQUE: Ultrasound evaluation of the right upper quadrant was performed with real-time and static mcleod-scale imaging. TECHNICAL QUALITY: Adequate. COMPARISON: Comparison is made with prior examination dated 08/08/2020. FINDINGS: Liver: The liver is slightly enlarged and measures 18.6 cm. There is increased echogenicity consistent with fatty infiltration. The bile ducts are within normal limits. There is hepatic color flow. The direction of portal flow is hepatopetal. There is no demonstrated mass lesion. Gallbladder: Normal distended gallbladder. The gallbladder wall measures 2.6 mm. There is a negative sonographic Gabriel''s sign. There is no pericholecystic fluid. There are no gallstones. Common Bile Duct (C.B.D.): The common bile duct measures 3.3 mm. Pancreas: There is nonvisualization of the pancreas. There is normal echogenicity of the pancreas. There is no demonstrated pancreatic mass or cyst. Right Kidney: Normal size of the right kidney. The right kidney measures 12.7 cm x 7.5 cm x 6.1 cm. Normal renal cortex. The right cortex measures 2.0 cm. There is no demonstrated renal mass or cyst. There is no right hydronephrosis. US/Liver IMPRESSION: Mild hepatomegaly and fatty infiltration of the liver. Electronically Signed: Dinh Leon MD at 10:26 EDT , Service support ,
--- NOTE | 2021-06-19 09:17 | PN.CARD_ITS ---
Subjective Subjective The patient denies any ongoing chest discomfort. He has had no worsening shortness of breath or dyspnea. He states he feels somewhat better since his arrival at the hospital. He has been up and walking with OT/PT. He states he felt okay on his feet. Objective Data Vital Signs: Vital Signs Temp Pulse Resp BP Pulse Ox 98.0 F 47 L 16 108/62 100 06/19/21 06:07 06/19/21 07:56 06/19/21 06:07 06/19/21 06:07 06/19/21 06:07 Oxygen Delivery Method Room Air Weight: 207 lb 7.28 oz Body Mass Index (BMI) 26.8 Intake & Output: Intake and Output for Last 24 Hours 06/17/21 06/18/21 06/19/21 23:59 23:59 23:59 Intake Total 1000 / 1000 4807.5 / 4807.5 1000 / 1000 Balance 1000 / 1000 4807.5 / 4807.5 1000 / 1000 Lab / Micro Data Result Diagrams: 06/19/21 06:20 06/19/21 06:20 Labs: Laboratory Results - last 24 hr 06/18/21 13:40: COVID-19 (RAUDEL) Not Detected 06/19/21 06:20: Sodium 134 L, Potassium 3.4 L, Chloride 108 H, Carbon Dioxide 17.0 L, Anion Gap 9, BUN 49 H, Creatinine 2.20 H, Estim Creat Clear Calc 39.44, Est GFR (MDRD) Af Amer 39 L, Est GFR (MDRD) Non-Af 32 L, BUN/Creatinine Ratio 22.3 H, Glucose 117 H, Calcium 9.1, Total Bilirubin 0.30, Direct Bilirubin 0.12, AST 25, ALT 44, Alkaline Phosphatase 124 H, Total Protein 8.1, Albumin 3.1 L, Globulin 5.0 H, Triglycerides 71, Cholesterol 157, LDL Cholesterol 102, VLDL Cholesterol 14, HDL Cholesterol 41 06/19/21 06:20: WBC 6.7, RBC 3.70 L, Hgb 11.5 L, Hct 32.6 L, MCV 88.1, MCH 31.1, MCHC 35.3, RDW Std Deviation 38.5, RDW Coeff of Kimmy 11.9, Plt Count 365, MPV 8.4, Immature Gran % (Auto) 0.600, Neut % (Auto) 67.8, Lymph % (Auto) 12.8 L, [facility] % (Auto) 11.0 H, Eos % (Auto) 5.7 H, Baso % (Auto) 2.1 H, Absolute Neuts (auto) 4.5, Absolute Lymphs (auto) 0.86, Nucleated RBC % 0 Cardiology Labs/Tests 06/19/21 06:20: Sodium 134 L, Potassium 3.4 L, Chloride 108 H, Carbon Dioxide 17.0 L, Anion Gap 9, BUN 49 H, Creatinine 2.20 H, Est GFR (MDRD) Af Amer 39 L, Est GFR (MDRD) Non-Af 32 L, BUN/Creatinine Ratio 22.3 H, Glucose 117 H, Calcium 9.1, Total Bilirubin 0.30, Direct Bilirubin 0.12, Triglycerides 71, Cholesterol 157, LDL Cholesterol 102, VLDL Cholesterol 14, HDL Cholesterol 41 06/19/21 06:20: WBC 6.7, RBC 3.70 L, Hgb 11.5 L, Hct 32.6 L, MCV 88.1, MCH 31.1, MCHC 35.3, Plt Count 365, MPV 8.4, Immature Gran % (Auto) 0.600, Neut % (Auto) 67.8, Lymph % (Auto) 12.[address] L, [facility] % (Auto) 11.0 H, Eos % (Auto) 5.7 H, Baso % (Auto) 2.1 H, Absolute Neuts (auto) 4.5, Nucleated RBC % 0 Rhythm: Sinus rhythm Radiography Diagnostic Testing: Radiology Impression Echocardiogram 06/17/21 17:42 Interpretation Summary The study was technically difficult. Contrast injection was performed. Left ventricular systolic function is normal. The estimated ejection fraction is 65 %. Trivial mitral valve insufficiency. Trivial tricuspid valve insufficiency. Epicardial fat. Unable to estimate RV systolic pressure/pulmonary artery pressure due to technically difficult study. No evidence for diastolic dysfunction. Ordering Physician: Wisam Oro Referring Physician: Falguni Beasley Performed By: Violeta Callahan, JONACS, RVT Physical Exam Narrative The patient appears to be awake and alert and in no acute distress. Const alert, oriented x3 and no apparent distress Orientation / Consciousness: awake HEENT normocephalic, head/scalp atraumatic and hearing grossly normal bilaterally Eyes PERRL, EOMs intact bilaterally and conjunctivae normal Neck full ROM, supple and no JVD Chest inspection of chest normal Resp normal respiratory effort and clear to auscultation bilaterally Cardio regular rate, regular rhythm, S1 normal heart sound and S2 normal heart sound GI normal to inspection, nondistended, normoactive bowel sounds Extremity no pedal edema Skin no rashes or lesions noted Neuro oriented x3, moves all extremities, no focal motor deficits and no sensory deficits noted Psych mental status grossly normal Assessment & Plan Assessment/Plan (1) Abnormal cardiac enzyme level: PLAN: The patient does have abnormal cardiac enzyme levels. The etiology is unclear at this time. His ECG is demonstrated no acute changes. His echocardiogram does not appear to demonstrate obvious left ventricular regional wall motion abnormalities or diminished LV systolic function. He is going to proceed with a pharmacologic stress nuclear imaging study today to screen for any obvious evidence of ongoing myocardial ischemia that would warrant further evaluation and care. He would not be an ideal candidate for further invasive cardiovascular evaluation based upon his renal insufficiency for concerns of IV contrast related nephropathy, etc. He can continue medical therapy in the interim as deemed appropriate. (2) PVC (premature ventricular contraction): PLAN: He has been found to have PVCs on his cardiac rhythm monitor. He can continue medical therapy as deemed appropriate while he is undergoing his noninvasive evaluation. (3) Essential hypertension: PLAN: He does have a history of hypertension. His blood pressure will need to be followed with his medicines adjusted and jose en into consideration his renal dysfunction. (4) JACKIE (acute kidney injury): PLAN: He has been evaluated by nephrology. He has continued to receive IV volume with no adverse cardiovascular effects. His creatinine level has improved somewhat. There is a question as to whether or not the patient may have an underlying hepatorenal syndrome, despite his hepatic studies demonstrating only an elevated alkaline phosphatase, based upon his history of alcohol intake and his renal insufficiency not quickly resolving with IV hydration. (5) COPD (chronic obstructive pulmonary disease): QUALIFIERS: COPD type: unspecified COPD Qualified Code(s): J44.9 - Chronic obstructive pulmonary disease, unspecified PLAN: He does need to discontinue his tobacco use. He will need continue pulmonary evaluation by internal medicine, etc. (6) Alcohol abuse: PLAN: He has been advised to discontinue his alcohol intake. (7) Tobacco abuse: PLAN: He is also been advised to discontinue his tobacco intake. Addt'l Comments Also of note, he does have a slightly low albumin level and a somewhat elevated globulin level which appears to have been reported in the past. These findings may need further evaluation by internal medicine and other subspecialist as deemed appropriate. The patient's case was discussed and reviewed with the patient and Dr. Oro. This note was generated using a voice recognition system and there may be incorrect words, spelling or punctuation that were not noted when reviewing the office note prior to saving.
[2021-06-19] MEDS: Pantoprazole Sodium 40 MG Tablet PO (11:17)
[2021-06-19] MEDS: Folic Acid 1 MG Tablet PO (11:17)
[2021-06-19] MEDS: Thiamine Hydrochloride 100 MG Tablet PO (11:18)
[2021-06-19] MEDS: Gabapentin 100 MG Capsule PO (11:18)
--- NOTE | 2021-06-19 12:47 | STRESSREP_ITS ---
Stress Test Report Date: 06-19-2021 Procedure: Pharmacologic stress nuclear imaging study Indications: Abnormal cardiac enzymes; shortness of breath/dyspnea on exertion; PVCs Consent: Per the patient Procedure: The patient underwent pharmacologic (Regadenoson 0.4mg ) evaluation with a peak heart rate of 98 beats per minute (62%predicted maximal heart rate) and a peak blood pressure of 106/62 mmHg. The baseline ECG demonstrated sinus rhythm. The peak pharmacologic ECG demonstrated no obvious ECG changes. There were occasional PVCs pretest, during infusion, and recovery. There was no complaint of chest discomfort during pharmacologic infusion or recovery. The examination was discontinued secondary to completion of protocol. Impression: 1. Pharmacologic (Regadenoson) evaluation 2. Peak pharmacologic ECG with no obvious ECG changes. 3. There were occasional PVCs pretest, during infusion, and recovery. 4. Nuclear images pending Myocardial perfusion imaging study: Technique: The patient was injected with 10.0 millicuries of technetium 99m Cardiolite and subsequently rest SPECT Cardiolite nuclear imaging was obtained in the horizont al long, vertical long, and short axis views. The patient underwent pharmacologic (Regadenoson) evaluation with a peak heart rate of 98 beats per minute (62% percent predicted maximal heart rate) and a peak blood pressure of 106/62 mmHg. The patient was injected with 33.0 millicuries of technetium 99m Cardiolite and subsequently stress SPECT Cardiolite nuclear imaging was obtained in the horizontal long, vertical long, and short axis views. A gated Cardiolite study at peak stress was obtained. Interpretation: Rest and stress SPECT Cardiolite nuclear imaging status post realignment, normalization, and attenuation correction demonstrate relative uniform tracer uptake and myocardial perfusion appearing within normal limits. There is end systolic thickening and brightening. The gated Cardiolite study demonstrates myocardial thickening and inward wall motion. The reported LVEF is 66%. Impression: 1. Rest and stress SPECT Cardiolite nuclear imaging demonstrate relative uniform tracer uptake and myocardial perfusion appearing within normal limits. 2. The gated Cardiolite study reports an LVEF of 66%. This note was generated with [employer] software. It may contain incorrect words, spelling, and punctuation that were not noted in checking the note before signing.
--- NOTE | 2021-06-19 12:50 | PCM.PN.REN ---
Subjective Subjective No new complaints. Energy levels are back to normal. Able to walk in the hallways. Voiding without any problems. No discoloration of the urine. Appetite is fair. Scheduled for stress test today. Objective Data Objective Data Vital Signs: Vital Signs Temp Pulse Resp BP Pulse Ox 98.0 F 68 16 118/56 L 98 06/19/21 11:00 06/19/21 12:29 06/19/21 11:00 06/19/21 11:00 06/19/21 11:00 Oxygen Delivery Method Room Air Weight: 94.1 kg Body Mass Index (BMI) 26.8 Intake & Output: Intake and Output for Last 24 Hours 06/17/21 06/18/21 06/19/21 23:59 23:59 23:59 Intake Total 1000 / 1000 4807.5 / 4807.5 1000 / 1000 Balance 1000 / 1000 4807.5 / 4807.5 1000 / 1000 Medical Nutrition Assessment Dietitian: Nutrition Therapy Diagnosis Start: 06/18/21 13:53 Freq: Status: Active Protocol: Document 06/18/21 14:29 AG (Rec: 06/18/21 14:30 AG [id number]) Nutrition Malnutrition Evidence of Malnutrition Exists No Intake Problem Inadequate Oral Intake Etiology r/t decreased appetite, altered tastes Signs/Symptoms as evidenced by pt reports of consuming ~50-75% of estimated nutritional needs over past 3 months w/ worsening PO intake over past few days, unintentional wt loss of 16#/7 % x 3 months Status Active Problem Recommendation Dietitian Recommendations/Changes continue regular diet d/t recent wt loss and poor PO intake; at risk for malnutrition but does not meet criteria at this time. Continue Ensure Enlive 120mL 4x/day until PO intake improves. Recommend cardiac diet when intake at meals is improved. Lab / Micro Data Result Diagrams: 06/19/21 06:20 06/19/21 06:20 Labs: Laboratory Results - last 24 hr 06/18/21 13:40: COVID-19 ([facility]UDEL) Not Detected 06/19/21 06:20: Sodium 134 L, Potassium 3.4 L, Chloride 108 H, Carbon Dioxide 17.0 L, Anion Gap 9, BUN 49 H, Creatinine 2.20 H, Estim Creat Clear Calc 39.44, Est GFR (MDRD) Af Amer 39 L, Est GFR (MDRD) Non-Af 32 L, BUN/Creatinine Ratio 22.3 H, Glucose 117 H, Calcium 9.1, Total Bilirubin 0.30, Direct Bilirubin 0.12, AST 25, ALT 44, Alkaline Phosphatase 124 H, Total Protein 8.1, Albumin 3.1 L, Globulin 5.0 H, Triglycerides 71, Cholesterol 157, LDL Cholesterol 102, VLDL Cholesterol 14, HDL Cholesterol 41 06/19/21 06:20: WBC 6.7, RBC 3.70 L, Hgb 11.5 L, Hct 32.6 L, MCV 88.1, MCH 31.1, MCHC 35.3, RDW Std Deviation 38.5, RDW Coeff of Kimmy 11.9, Plt Count 365, MPV 8.4, Immature Gran % (Auto) 0.600, Neut % (Auto) 67.8, Lymph % (Auto) 12.8 L, [place] % (Auto) 11.0 H, Eos % (Auto) 5.7 H, Baso % (Auto) 2.1 H, Absolute Neuts (auto) 4.5, Absolute Lymphs (auto) 0.86, Nucleated RBC % 0 Radiography Diagnostic Testing: Radiology Impression Echocardiogram 06/17/21 17:42 Interpretation Summary The study was technically difficult. Contrast injection was performed. Left ventricular systolic function is normal. The estimated ejection fraction is 65 %. Trivial mitral valve insufficiency. Trivial tricuspid valve insufficiency. Epicardial fat. Unable to estimate RV systolic pressure/pulmonary artery pressure due to technically difficult study. No evidence for diastolic dysfunction. Ordering Physician: Wisam Oro Referring Physician: Falguni Beasley Performed By: Violeta Callahan, LEI, RVT Liver Ultrasound 06/19/21 08:15 IMPRESSION: Mild hepatomegaly and fatty infiltration of the liver. Electronically Signed: Dinh Leon MD at 10:26 EDT , Service support , Physical Exam Narrative Alert awake oriented x 3 no obvious distress no pallor no icterus no JVD s1s2 no murmurs lungs clear abdomen soft no organomegaly no edema no cyanosis Assessment & Plan Assessment/Plan (1) JACKIE (acute kidney injury): PLAN: JACKIE. cr was normal last year. Admitted with a creatinine of 2.7. renal US is ok. UA shows trace RBC, WBC. no signs of UTI. AIN is possible but he has confirmed that he did not start any new medication in last one year. all his meds including lisinopril and diuretic are more than one year old. no NSAIDs. no other precipitants. patient admits to drinking ETOH. CPK levels normal. Blood pressure values are better. Creatinine is also improved to 2.2. Clinically looks better. Asymptomatic. Since creatinine is better, no further work-up needed at this point. CMP reviewed. Patient has high globulins. Not sure if this is polyclonal or monoclonal. Placed an order for serum protein electrophoresis. Usually takes 3 to 4 days for the results to come back. We can follow this up as outpatient In the time of discharge, hold lisinopril and hydrochlorothiazide We will arrange follow-up in the office in about 1 to 2 weeks Hyponatremia. Sodium is better at 132.
--- NOTE | 2021-06-19 12:55 | DS.PCM_ITS ---
Providers Date of Admission: 06/17/21 Primary Care Physician: Dr. Falguni Beasley MD Consultations 06/18/21 08:03 Consult: Nephrology Routine Consulting Provider: Yehuda Martin Reason for Consult: jackie EMERGENT Consult: No Notified: Yes Date Notified: 06/18/21 Time Notified: 08:54 Method of Notification: Answering Service 06/18/21 08:14 Consult: Cardiology Routine Consulting Provider: Bryant Ruvalcaba Reason for Consult: elevated trop EMERGENT Consult: No Notified: Yes Date Notified: 06/18/21 Time Notified: 08:14 Method of Notification: Verbal Reason For Visit: JACKIE Diagnosis Discharge Diagnosis (1) JACKIE (acute kidney injury): Status: Acute Code(s): N17.9 - Acute kidney failure, unspecified (2) NAFLD (nonalcoholic fatty liver disease): Status: Acute Code(s): K76.0 - Fatty (change of) liver, not elsewhere classified Medications at Discharge Home Medications omeprazole 40 mg PO DAILY 08/08/20 budesonide-formoterol HFA 160 mcg-4.5 mcg/actuation aerosol inhaler 2 puff INHALATION BID #10.2 g 06/17/21 gabapentin 100 mg capsule 100 mg PO DAILY 06/17/21 sertraline 25 mg tablet 25 mg PO QHS #30 tab 06/17/21 aspirin 81 mg PO DAILY@0800 #60 tab 06/19/21 atorvastatin [Lipitor] 20 mg PO QHS #60 tab 06/19/21 folic acid 1 mg PO DAILY@0800 #60 tab 06/19/21 potassium chloride [K-Tab] 20 meq PO BID #60 tab 06/19/21 thiamine HCl (vitamin B1) 100 mg PO DAILY #60 tab 06/19/21 Hospital Course Summary of Care Provided Minutes Spent on Discharge: 35 Hospital Course: Patient is a 66-year-old gentleman presented with progressive generalized weakness and abnormal labs 1. Acute kidney injury ?Patient has been admitted to a monitored bed currently being managed with IV fluid resuscitation. As part of his management ordered renal duplex . Patient was also started on IV fluid with subsequent monitoring electrolytes ordered. If patient kidney function persists we will consult nephrology. Patient is on lisinopril and HCTZ held as a result ?06/18/2021 no improvement in kidney function. Did consult nephrology. Ordered renal duplex -06/19/2021, slight improvement in kidney function but not that significant. Ultrasound of the kidney was reported as being normal. -Case discussed with nephrology patient will be discharged home for subsequent outpatient work-up 2. Encephalopathy secondary to acute alcohol withdrawal ?Do suspect possible alcohol withdrawal patient started on the alcohol withdrawal protocol -06/19/2021; patient did admit to significant use of alcohol subsequently ordered liver ultrasound. Ultrasound demonstrated fatty liver. 3. Hyponatremia ?Secondary to combination of hypovolemic hyponatremia as well as patient being on HCTZ suspected offending medications held. Patient started on IV fluids with subsequent monitoring of electrolytes ordered -06/18/2021; sodium level remains low. We will continue with IV fluids with subsequent monitoring of electrolytes ?06/19/2021; sodium levels improving with rehydration 4. Elevated troponin ?Patient denies any chest pain no shortness of breath. Telemetry monitoring demonstrated frequent PVCs. Patient admitted to monitored bed for continuous telemetry. Ordered subsequent serial cardiac enzymes 2D echo. The patient troponin continues to rise will obtain cardiology consultation -06/18/2021; consult was placed to Dr. Ruvalcaba in view of the persistent stephanie vated troponin. Case discussed with him ?06/19/2021; case was discussed with Dr. Ruvalcaba plans for patient to undergo Lexiscan stress test ?Nuclear stress test was negative for stress-induced ischemia discharged home on aspirin and atorvastatin 5. Depression ?This may explain patient decreased oral intake. Patient is on SSRI continue 6. Essential hypertension ?Patient blood pressure controlled. On HCTZ and lisinopril held in view of above. 7. COPD ?Currently not in exacerbation did continue with aerosol treatments as needed 8. GERD ? Patient is on omeprazole did continue 9. DVT prophylaxis ?Lovenox dose adjusted for kidney function 10. Tobacco dependence - Counseled on cessation, offered nicotine patch for tobacco cravings 11. Hypokalemia ?Corrected per protocol Physical Exam Narrative GENERAL: cooperative HEENT: Atraumatic; EYES; Anicteric, Normal Conjunctiva NECK; supple, normal thyroid, RESPIRATORY: Diminished to auscultation CARDIOVASCULAR: Regular S1 S2, GI: soft, normoactive bowel sounds, : No Renal angle tenderness; EXTREMITIES: No edema, no clubbing, MUSCULOSKELETAL: no muscle waisting NEURO: Awake; no lateralizing signs. SKIN: No Rash PSYCH; Flat affect Medical Records Data Medical Nutrition Assessment Dietitian: Nutrition Therapy Diagnosis Start: 06/18/21 13:53 Freq: Status: Active Protocol: Document 06/18/21 14:29 AG (Rec: 06/18/21 14:30 AG [id number]) Nutrition Malnutrition Evidence of Malnutrition Exists No Intake Problem Inadequate Oral Intake Etiology r/t decreased appetite, altered tastes Signs/Symptoms as evidenced by pt reports of consuming ~50-75% of estimated nutritional needs over past 3 months w/ worsening PO intake over past few days, unintentional wt loss of 16#/7 % x 3 months Status Active Problem Recommendation Dietitian Recommendations/Changes continue regular diet d/t recent wt loss and poor PO intake; at risk for malnutrition but does not meet criteria at this time. Continue Ensure Enlive 120mL 4x/day until PO intake improves. Recommend cardiac diet when intake at meals is improved. Weight / BMI Weight Weight: 94.1 kg Body Mass Index (BMI) 26.8 ABG / Lab / Microbiology Data Result Diagrams: 06/19/21 06:20 06/19/21 06:20 Laboratory: Laboratory Results - last 24 hr 06/18/21 13:40: COVID-19 (RAUDEL) Not Detected 06/19/21 06:20: Sodium 134 L, Potassium 3.4 L, Chloride 108 H, Carbon Dioxide 17.0 L, Anion Gap 9, BUN 49 H, Creatinine 2.20 H, Estim Creat Clear Calc 39.44, Est GFR (MDRD) Af Amer 39 L, Est GFR (MDRD) Non-Af 32 L, BUN/Creatinine Ratio 22.3 H, Glucose 117 H, Calcium 9.1, Total Bilirubin 0.30, Direct Bilirubin 0.12, AST 25, ALT 44, Alkaline Phosphatase 124 H, Total Protein 8.1, Albumin 3.1 L, Globulin 5.0 H, Triglycerides 71, Cholesterol 157, LDL Cholesterol 102, VLDL Cholesterol 14, HDL Cholesterol 41 06/19/21 06:20: WBC 6.7, RBC 3.70 L, Hgb 11.5 L, Hct 32.6 L, MCV 88.1, MCH 31.1, MCHC 35.3, RDW Std Deviation 38.5, RDW Coeff of Kimmy 11.9, Plt Count 365, MPV 8.4, Immature Gran % (Auto) 0.600, Neut % (Auto) 67.8, Lymph % (Auto) 12.8 L, Wallace % (Auto) 11.0 H, Eos % (Auto) 5.7 H, Baso % (Auto) 2.1 H, Absolute Neuts (auto) 4.5, Absolute Lymphs (auto) 0.86, Nucleated RBC % 0 Radiography Diagnostic Testing: Radiology Impression Echocardiogram 06/17/21 17:42 Interpretation Summary The study was technically difficult. Contrast injection was performed. Left ventricular systolic function is normal. The estimated ejection fraction is 65 %. Trivial mitral valve insufficiency. Trivial tricuspid valve insufficiency. Epicardial fat. Unable to estimate RV systolic pressure/pulmonary artery pressure due to technically difficult study. No evidence for diastolic dysfunction. Ordering Physician: Wisam Oro Referring Physician: Falguni Beasley Performed By: Violeta Callahan, JONA, RVT Liver Ultrasound 06/19/21 08:15 IMPRESSION: Mild hepatomegaly and fatty infiltration of the liver. Electronically Signed: Dinh Leon MD at 10:26 EDT , Service support , Meaningful Use Info Meaningful Use Diagnoses (Choose all that apply): None applicable Discharge Plan Admission Admit Date/Time: 06/17/21 17:18 Primary Reason for Your Visit: Renal failure Attending Provider: Wisam Oro Primary Care Provider: Falguin Beasley Consulting Providers: Bryant Ruvalcaba ; Yehuda Martin Discharge Orders/Prescriptions Prescriptions: New folic acid 1 mg Tablet 1 mg PO DAILY@0800 Qty: 60 RF: 0 thiamine HCl (vitamin B1) 100 mg tablet 100 mg PO DAILY Qty: 60 RF: 0 aspirin 81 mg Tablet,Chewable 81 mg PO DAILY@0800 Qty: 60 RF: 0 atorvastatin [Lipitor] 20 mg tablet 20 mg PO QHS Qty: 60 RF: 0 potassium chloride [K-Tab] 20 mEq tablet extended release 20 meq PO BID Qty: 60 RF: 0 Continued gabapentin 100 mg capsule 100 mg PO DAILY RF: 0 budesonide-formoterol [Symbicort] 160-4.5 mcg/actuation HFA aerosol inhaler 2 puff inhalation BID Qty: 10.2 RF: 3 sertraline 25 mg tablet 25 mg PO QHS Qty: 30 RF: 1 omeprazole 20 MG capsule,delayed release(DR/EC) 40 mg PO DAILY RF: 0 Discontinued hydrochlorothiazide 25 mg tablet 25 mg PO DAILY RF: 0 lisinopril 10 mg tablet 10 mg PO DAILY RF: 0 Referrals / Follow Up: Falguni Beasley MD [Primary Care Provider] - In 1 Week Yehuda Martin MD [STAFF PHYSICIAN] - Within 1 Week Bryant Ruvalcaba MD [STAFF PHYSICIAN] - Within 1 Month Disposition Disposition (needs filled in before D/C Order can be placed): Home, Self Care Charges/Coding Visit Charges Inpatient E&M: [id number] [facility]
== END 2021-06-19 16:33 | disposition home or self-care (01) | DRG 682 ==
LOC: ED 15:44 → PCU 17:23
PROVIDERS: Admitting Provider Internal Medicine; Emergency Provider Student in an Organized Health Care Education/Training Program; PCP Internal Medicine; Visit Provider Internal Medicine
DX: N17.9 Acute kidney failure, unspecified (principal); G92 Toxic encephalopathy; E87.1 Hypo-osmolality and hyponatremia; F10.239 Alcohol dependence with withdrawal, unspecified; K76.0 Fatty (change of) liver, not elsewhere classified; I10 Essential (primary) hypertension; K21.9 Gastro-esophageal reflux disease without esophagitis; J44.9 Chronic obstructive pulmonary disease, unspecified; F32.9 Major depressive disorder, single episode, unspecified; F17.200 Nicotine dependence, unspecified, uncomplicated; R77.8 Other specified abnormalities of plasma proteins; I49.3 Ventricular premature depolarization; E86.1 Hypovolemia; Z79.899 Other long term (current) drug therapy; E87.6 Hypokalemia
CPT/HCPCS: 36415; 71045; 76705; 76770; 78452; 80048; 80061; 80076; 81001; 82077; 82550; 83735; 84100; 84484; 85025; 87635; 93005; 93017; 93306; 94640; 97161; 97166; 97802; 99251; 99285; 99406; A9500; J7030; Q9957; U0005; A4216; C8929; G0463; J2785; J3490; U0003

== ENCOUNTER → 2021-06-23 09:34 | Outpatient (CLI) | payer BC, SELFPAY ==
[2021-06-23 09:06] VITALS: BMI 26.8
[2021-06-23 12:26] LABS: Erythrocyte Sedimentation Rate 31 mm/hr (0-20)
[2021-06-23 12:39] LABS: Anion Gap 9 (5-15); BUN 32 mg/dL (7-18); BUN/Creat Ratio 15.2 RATIO (10-20); Calcium,Total 9.8 mg/dL (8.5-10.1); Chloride 106 mmol/L (98-107); Creatinine, Serum 2.11 mg/dL (0.70-1.30); EST Glomerular Filtration Rate 34 mL/min (>60); Est Glom Filt Rate - Afr Amer 41 mL/min (>60); Glucose 113 mg/dL (74-106); Potassium 3.2 mmol/L (3.5-5.1); Sodium Level 133 mmol/L (136-145)
[2021-06-23 12:45] LABS: Hemoglobin A1c 6.4 % (3.8-5.6)
[2021-06-25 15:03] LABS: Magnesium 1.9 mg/dL (1.6-2.6)
== END ==
PROVIDERS: PCP Internal Medicine; Visit Provider Internal Medicine
DX: N17.9 Acute kidney failure, unspecified (principal); R63.4 Abnormal weight loss; R73.03 Prediabetes; F10.10 Alcohol abuse, uncomplicated; E87.6 Hypokalemia
CPT/HCPCS: 36415; 80048; 83036; 83735; 85652; 86140

== ENCOUNTER 2021-07-09 00:57 | Emergency (ER) | payer BC, SELFPAY ==
[2021-06-23 09:06] VITALS: BMI 26.8
[2021-07-09] VITALS (8 sets, daily range): BP systolic 106–127; BP diastolic 63–82; PULSE 69–89; RESP 16–20; TEMP 36.9; O2SAT 97–99; BMI 27.6
--- NOTE | 2021-07-09 01:22 | EKG12_ITS ---
Test Reason : DYSRHYTHMIA Blood Pressure : / mmHG Vent. Rate : 074 BPM Atrial Rate : 074 BPM P-R Int : 166 ms QRS Dur : 104 ms QT Int : 382 ms P-R-T Axes : 052 -19 069 degrees QTc Int : 424 ms Sinus rhythm with occasional Premature ventricular complexes Otherwise normal ECG Confirmed by TOBY VALENZUELA, WEI ([id number]), commercial production editor SHAE YADAV ([id number]) on 07/14/2021 8:32:33 AM Referred By: JACOBO Confirmed By:WEI LUIS MD
[2021-07-09 01:31] LABS: Absolute Lymphocyte Count 2.02 X10^3/uL (0.83-4.51); Absolute Neutrophil Count 4.5 X10^3/uL (2.0-7.7); Basophil# 0.08 X10^3/uL; Eosinophils% 5.1 % (0-5); Hematocrit 31.4 % (40-54); Hemoglobin 10.2 g/dL (13.0-16.5); Lymphocyte # 2.02 X10^3/ul (0.83-4.51); Lymphocyte % 25.7 % (19-41); Mean Corp Hgb Conc 32.5 g/dL (32-36); Mean Corpuscular Hgb 30.8 pg (27.0-32.0); Mean Corpuscular Volume 94.9 fL (80-94); Monocyte% 10.2 % (0-10); NRBC Flagged by Analyzer 0 % (0-5); Neutrophil # 4.52 X10^3/uL (2.7-7.7); Neutrophil % 57.5 % (47-70); Platelet Count 292 K/mm3 (150-450); RBC Distribution Width CV 13.1 % (11.6-14.6); RBC Distribution Width SD 44.6 fl (35.1-43.9); Red Blood Count 3.31 M/mm3 (4.6-6.2); White Blood Count 7.9 K/mm3 (4.4-11.0)
--- NOTE | 2021-07-09 01:41 | EDS_ITS ---
HPI History of Present Illness Chief Complaint: Shortness of Breath Narrative Narrative: 66-year-old male presenting with lightheadedness. He states he noted that his blood pressure was low at home today. He states his systolic blood pressure was 101. He states that he has lightheadedness even with sitting. He does not know what his baseline blood pressure is to compare his blood pressure reading tonight. Patiently recently admitted acute renal failure and states he has not been the same since. He states he is followed up and his kidney function has been doing better. He states he has a history of EtOH abuse and stopped this on his last admission. He does state that he has drank a little bit since then. He does not feel that he is using too much alcohol. He denies drugs. He is not a smoker anymore. Patient states that he felt like he was short of breath while walking into the ER with his mask on but states he has not been short of breath. He denies any chest pain. [facility] Medical History Abnormal cardiac enzyme level Borderline type 2 diabetes mellitus Colon cancer screening COPD (chronic obstructive pulmonary disease) Depression Hypokalemia Irregular heart rate Kidney disease NAFLD (nonalcoholic fatty liver disease) PVC (premature ventricular contraction) Smoker Smoking greater than 40 pack years Tobacco abuse Unintentional weight loss Home Medications budesonide-formoterol HFA 160 mcg-4.5 mcg/actuation aerosol inhaler 2 puff INHALATION BID #10.2 g 06/17/21 [Rx Last Taken 06/17/21] aspirin 81 mg PO DAILY@0800 #60 tab 06/19/21 [Rx Last Taken Unknown] atorvastatin [Lipitor] 20 mg PO QHS #60 tab 06/19/21 [Rx Last Taken Unknown] folic acid 1 mg PO DAILY@0800 #60 tab 06/19/21 [Rx Last Taken Unknown] thiamine HCl (vitamin B1) 100 mg PO DAILY #60 tab 06/19/21 [Rx Last Taken Unknown] lansoprazole 30 mg capsule,delayed release 30 mg PO DAILY #90 cap 06/23/21 [Rx Last Taken Unknown] magnesium oxide 400 mg PO DAILY #60 tab 06/27/21 [Rx Last Taken Unknown] gabapentin 100 mg PO TID 07/09/21 [History Last Taken Unknown] potassium chloride [K-Tab] 40 meq PO BID 07/09/21 [History Last Taken Unknown] Allergy/AdvReac Type Severity Reaction Status Date / Time No Known Allergies Allergy Verified 07/09/21 01:00 Family History Brother Cancer pancreatic cancer Father Alcoholism Surgical History H/O: knee surgery Social History Smoking Status: Light Smoker (<10/day) alcohol intake: current alcohol intake frequency: 3 or more drinks per day Alcohol type: beer details: 12 jus a day per patient substance use type: does not use ROS ROS ED Constitutional Constitutional ED: Reports other Details: Lightheadedness ; Denies chills or fever(s) Eyes Eyes: Denies blurry vision or diplopia ENT ENT ED: Denies rhinorrhea or sore throat Cardiovascular Cardiovascular: Reports palpitations; Denies chest pain or racing heartbeat Respiratory/Chest Respiratory/Chest: Reports dyspnea; Denies cough Gastrointestinal Gastrointestinal: Denies abdominal pain, diarrhea, nausea or vomiting Genitourinary Genitourinary ED: Denies dysuria or hematuria Musculoskeletal Musculoskeletal: Denies arthralgias or myalgias Integumentary Denies abscess or rash Neurologic Neurologic: Denies headache(s) or paresthesias EXAM Physical Exam Const Vital Signs: 07/09/21 00:57 07/09/21 01:00 07/09/21 01:46 Temperature 98.4 F Temperature Source Temporal Pulse Rate 78 Pulse Rate [Lying] Pulse Rate [Sitting] Pulse Rate [Standing] Respiratory Rate 20 H Respiratory Effort Short of Breath Respiratory Pattern Normal Blood Pressure 127/78 H Blood Pressure [Lying] Blood Pressure [Sitting] Blood Pressure [Standing] Blood Pressure Mean 94 Blood Pressure Mean [Lying] Blood Pressure Mean [Sitting] Blood Pressure Mean [Standing] Pulse Ox 99 98 Oxygen Delivery Method Room Air Room Air 07/09/21 02:06 07/09/21 03:08 07/09/21 04:07 Temperature Temperature Source Pulse Rate 78 89 Pulse Rate [Lying] 77 Pulse Rate [Sitting] 69 Pulse Rate [Standing] 78 Respiratory Rate 17 17 Respiratory Effort Respiratory Pattern Blood Pressure 118/80 106/63 Blood Pressure [Lying] 114/78 Blood Pressure [Sitting] 116/73 Blood Pressure [Standing] 116/82 H Blood Pressure Mean 92 77 Blood Pressure Mean [Lying] 90 Blood Pressure Mean [Sitting] 87 Blood Pressure Mean [Standing] 93 Pulse Ox 99 97 Oxygen Delivery Method Room Air Room Air 07/09/21 04:29 Temperature Temperature Source Pulse Rate 82 Pulse Rate [Lying] Pulse Rate [Sitting] Pulse Rate [Standing] Respiratory Rate 19 H Respiratory Effort Respiratory Pattern Blood Pressure 112/70 Blood Pressure [Lying] Blood Pressure [Sitting] Blood Pressure [Standing] Blood Pressure Mean 84 Blood Pressure Mean [Lying] Blood Pressure Mean [Sitting] Blood Pressure Mean [Standing] Pulse Ox 98 Oxygen Delivery Method Room Air Positive well nourished General Appearance ED: NAD; Negative for pallor HEENT Reports moist mucous membranes Negative for trauma Eyes PERRL and EOMs intact bilaterally General Eye ED: Negative for pale conjunctiva or scleral icterus Chest Wall inspection of chest normal and palpation of chest normal Resp normal respiratory effort and clear to auscultation bilaterally Cardio regular rate and regular rhythm Neuro oriented x3, CN's II-XII intact bilaterally and no sensory deficits noted Sensorium / Orientation: alert Motor Exam: strength 5/5 throughout Psych mental status grossly normal Skin no rashes or lesions noted and no wounds General Skin Exam: Negative for jaundice or pallor MDM MDM MDM Narrative Medical decision making narrative: Patient presenting with lightheadedness. Patient states that this seems to occur at rest and on ambulation. He has not fallen. He denies chest pain. He states that he was short of breath walking into the ER with his mask on but denies any other shortness of breath prior to arrival. Patient denies any chest pain. He states he is just not felt right since he left the hospital. He was able to go on vacation out of town but he states he did drink a little bit of alcohol but not like he had done in the past. EKG on arrival shows a normal sinus rhythm with PVCs without signs of ST elevation or depression on my interpretation. His chest x-ray on my interpretation shows no acute cardiopulmonary process. The radiologist does read this as COPD with atherosclerosis. CBC shows white blood cell count 7.9, hemoglobin 10.2, crit 31.4, platelets 292. Patient's hemoglobin is dropped from his previous admission and I did check Hemoccult which is positive. Patient denies any black or bloody stools. He states he is making normal bowel movements. He denies vomiting, coffee-ground emesis, hematemesis. I do suspect that given his history of drinking this is more than likely an upper GI bleed as he has not no bloody stools. He is on aspirin daily after his previous visit for elevated troponins. His troponin today is elevated again at 89.1 but this is lower than his previous admission. Delta troponin is 99.9. Creatinine is has significantly improved to 1.51. Electrolytes are normal. Patient's LFTs are normal with exception of his globulin which is high at 5.0. Orthostatic vital signs are negative. Patient is ambulatory in the hallway without difficulty. EtOH is negative. Urinalysis is negative for infection, hematuria, ketones. Patient was discussed with Dr. Ruvalcaba who the patient is supposed to follow-up with this month after his initial hospitalization. I did review the EKG with him as well as the case. Patient does not have any classic symptoms of ACS and simply is stating that he is lightheaded. Patient had a normal stress test as well as an echocardiogram and patient recently and it was decided at that time that the patient would be on aspirin and follow-up as an outpatient given his renal dysfunction and normal work-up thus far. Again patient is not complaining of any chest pain or dyspnea. After discussing the case with Dr. Ruvalcaba he does not feel the patient needs admission from a cardiac standpoint. Since he had a negative work-up and he has a GI bleed he recommended staying off of the aspirin. He also recommended that the patient stop drinking alcohol. I spoke with Dr. Reeves and from a GI standpoint since he is not requiring blood transfusion, not orthostatic he felt the patient could follow-up on an outpatient basis. I again discussed the case with Dr. Ruvalcaba and he recommended Holter monitoring for the patient. I recommended that the patient call the office for closer appointment if he is having any other issues he should return to the ED. He will be given a prescription for PPI. Impression: 1. Elevated troponin 2. Lightheadedness 3. Upper GI bleed 4. Anemia Lab Data Attestation: I reviewed the patient's lab results. Labs: Laboratory Results - last 24 hr 07/09/21 07/09/21 07/09/21 01:08 01:08 01:08 WBC 7.9 RBC 3.31 L Hgb 10.2 L Hct 31.4 L MCV 94.9 H MCH 30.8 MCHC 32.5 RDW Std Deviation 44.6 H RDW Coeff of Kimmy 13.1 Plt Count 292 MPV 10.0 Immature Gran % (Auto) 0.500 Neut % (Auto) 57.5 Lymph % (Auto) 25.7 Elbert % (Auto) 10.2 H Eos % (Auto) 5.1 H Baso % (Auto) 1.0 Absolute Neuts (auto) 4.5 Absolute Lymphs (auto) 2.02 Nucleated RBC % 0 Sodium 136 Potassium 3.9 Chloride 105 Carbon Dioxide 28.0 Anion Gap 3 L BUN 17 Creatinine 1.51 H Estim Creat Clear Calc 57.46 Est GFR (MDRD) Af Amer 60 Est GFR (MDRD) Non-Af 50 L BUN/Creatinine Ratio 11.3 Glucose 99 Calcium 9.5 Magnesium 1.9 Total Bilirubin 0.20 Direct Bilirubin 0.08 AST 30 ALT 41 Alkaline Phosphatase 113 Troponin I High Sens 89.1 H* Total Protein 8.3 H Albumin 3.3 Globulin 5.0 H Lipase Urine Color Urine Clarity Urine pH Ur Specific Hawthorne Urine Protein Urine Glucose (UA) Urine Ketones Urine Occult Blood Urine Nitrite Urine Bilirubin Urine Urobilinogen Ur Leukocyte Esterase Urine RBC Urine WBC Ur Squamous Epith Cells Urine Bacteria Urine Mucus Ethyl Alcohol 07/09/21 07/09/21 07/09/21 01:08 01:54 01:58 WBC RBC Hgb Hct MCV MCH MCHC RDW Std Deviation RDW Coeff of Kimmy Plt Count MPV Immature Gran % (Auto) Neut % (Auto) Lymph % (Auto) Elbert % (Auto) Eos % (Auto) Baso % (Auto) Absolute Neuts (auto) Absolute Lymphs (auto) Nucleated RBC % Sodium Potassium Chloride Carbon Dioxide Anion Gap BUN Creatinine Estim Creat Clear Calc Est GFR (MDRD) Af Amer Est GFR (MDRD) Non-Af BUN/Creatinine Ratio Glucose Calcium Magnesium Total Bilirubin Direct Bilirubin AST ALT Alkaline Phosphatase Troponin I High Sens Total Protein Albumin Globulin Lipase 105 Urine Color Yellow Urine Clarity Clear Urine pH 7.0 Ur Specific Hawthorne 1.005 Urine Protein Negative Urine Glucose (UA) Normal Urine Ketones Negative Urine Occult Blood Negative Urine Nitrite Negative Urine Bilirubin Negative Urine Urobilinogen Normal Ur Leukocyte Esterase Negative Urine RBC 0 SEEN Urine WBC 0 SEEN Ur Squamous Epith Cells 0 SEEN Urine Bacteria 0 SEEN Urine Mucus 0 SEEN Ethyl Alcohol < 3.0 07/09/21 03:59 WBC RBC Hgb Hct MCV MCH MCHC RDW Std Deviation RDW Coeff of Kimmy Plt Count MPV Immature Gran % (Auto) Neut % (Auto) Lymph % (Auto) Elbert % (Auto) Eos % (Auto) Baso % (Auto) Absolute Neuts (auto) Absolute Lymphs (auto) Nucleated RBC % Sodium Potassium Chloride Carbon Dioxide Anion Gap BUN Creatinine Estim Creat Clear Calc Est GFR (MDRD) Af Amer Est GFR (MDRD) Non-Af BUN/Creatinine Ratio Glucose Calcium Magnesium Total Bilirubin Direct Bilirubin AST ALT Alkaline Phosphatase Troponin I High Sens 99.9 H* Total Protein Albumin Globulin Lipase Urine Color Urine Clarity Urine pH Ur Specific Haw[place]orne Urine Protein Urine Glucose (UA) Urine Ketones Urine Occult Blood Urine Nitrite Urine Bilirubin Urine Urobilinogen Ur Leukocyte Esterase Urine RBC Urine WBC Ur Squamous Epith Cells Urine Bacteria Urine Mucus Ethyl Alcohol Radiography Diagnostic Testing: Radiology Impression Chest X-Ray 07/09/21 02:14 IMPRESSION: COPD and atherosclerotic disease. at 0301 Reported and signed by: Olegario Frost MD Electronically Signed: Olegario Frost MD at 2:59 EDT Tel , Service support , Discharge Plan Triage Chief Complaint: Shortness of Breath ED Provider: Mahendra Davila Dx/Rx/DC Orders Prescriptions: No Action budesonide-formoterol [Symbicort] 160-4.5 mcg/actuation HFA aerosol inhaler 2 puff inhalation BID Qty: 10.2 RF: 3 lansoprazole 30 mg capsule,delayed release(DR/EC) 30 mg PO DAILY Qty: 90 RF: 2 folic acid 1 mg Tablet 1 mg PO DAILY@0800 Qty: 60 RF: 0 thiamine HCl (vitamin B1) 100 mg tablet 100 mg PO DAILY Qty: 60 RF: 0 aspirin 81 mg Tablet,Chewable 81 mg PO DAILY@0800 Qty: 60 RF: 0 atorvastatin [Lipitor] 20 mg tablet 20 mg PO QHS Qty: 60 RF: 0 gabapentin 100 mg capsule 100 mg PO TID RF: 0 potassium chloride [K-Tab] 20 mEq tablet extended release 40 meq PO BID RF: 0 magnesium oxide 400 mg magnesium tablet 400 mg PO DAILY Qty: 60 RF: 2 Primary Care Provider: Falguni Beasley
[2021-07-09] MEDS: Aspirin 81 MG TAB.CHEW 324 MG PO (01:45)
[2021-07-09 02:00] LABS: Bacteria 0 SEEN /hpf (None Seen); Mucous, Urine 0 SEEN /hpf (<or=2+); Red Blood Cells-Urine 0 SEEN /hpf (0-5); Squamous Epithelial Cells - UA 0 SEEN /hpf (0-5); White Blood Cells 0 SEEN /hpf (0-5)
[2021-07-09 02:01] LABS: Color, Urine Yellow (Yellow); Glucose, Dipstick Normal (Normal); Ketone-Dipstick Negative (Negative); Leukocyte Esterase-Dipstick Negative /ul (Negative); Nitrite-Dipstick Negative (Negative); Occult Blood-Urine Negative /ul (Negative); Protein-Dipstick Negative (Negative); Specific Gravity, Urine 1.005 (1.002-1.030); Urine Bilirubin Dipstick Negative (Negative); Urine Clarity Clear (Clear); Urine Urobilinogen Normal (Normal)
[2021-07-09 02:01] LABS: Anion Gap 3 (5-15); BUN 17 mg/dL (7-18); BUN/Creat Ratio 11.3 RATIO (10-20); Calcium,Total 9.5 mg/dL (8.5-10.1); Chloride 105 mmol/L (98-107); Creatinine, Serum 1.51 mg/dL (0.70-1.30); EST Glomerular Filtration Rate 50 mL/min (>60); Est Glom Filt Rate - Afr Amer 60 mL/min (>60); Estimated Creatinine Clearance 57.46 ml/min; Glucose 99 mg/dL (74-106); Magnesium 1.9 mg/dL (1.6-2.6); Potassium 3.9 mmol/L (3.5-5.1); Sodium Level 136 mmol/L (136-145); Troponin-I HS 89.1 pg/mL (3.0-78.5)
[2021-07-09 02:03] LABS: Lipase 105 U/L (73-393)
[2021-07-09 02:07] LABS: AST(SGOT) 30 U/L (15-37); Alanine Aminotransfer ALT/SGPT 41 U/L (16-61); Albumin, Serum 3.3 g/dL (3.2-5.0); Alkaline Phosphatase 113 U/L (45-117); Bilirubin, Direct 0.08 mg/dL (0.00-0.30); Protein, Total 8.3 g/dL (6.4-8.2)
--- NOTE | 2021-07-09 02:14 | RAD_ITS ---
HISTORY: chest pain EXAMINATION/TECHNIQUE: XR Chest 1 View portable AP view COMPARISON: AP chest x-ray from 06/17/21 FINDINGS: LINES/DEVICES: security researcher leads. LUNGS: Stable hyperexpanded lungs with mild biapical pleural scarring. No pulmonary edema. No focal airspace consolidation. No sizable pleural effusion. No pneumothorax detected. MEDIASTINUM AND CARDIOVASCULAR STRUCTURES: Heart size within normal limits for imaging technique. Atherosclerotic calcifications along the aorta. BONES AND SOFT TISSUES: Skeletal degenerative changes. RAD/Chest 1 View (Portable) IMPRESSION: COPD and atherosclerotic disease. at 0301 Reported and signed by: Olegario Frost MD Electronically Signed: Olegario Frost MD at 2:59 EDT Tel , Service support ,
[2021-07-09 02:20] LABS: Alcohol, Blood (Medical)-Serum < 3.0 mg/dL
[2021-07-09 04:30] LABS: Troponin-I HS 99.9 pg/mL (3.0-78.5)
== END 2021-07-09 06:50 | disposition home or self-care (01) ==
PROVIDERS: Emergency Provider Student in an Organized Health Care Education/Training Program; PCP Internal Medicine
DX: R79.89 Other specified abnormal findings of blood chemistry (principal); R42 Dizziness and giddiness; K92.2 Gastrointestinal hemorrhage, unspecified; D64.9 Anemia, unspecified; F17.200 Nicotine dependence, unspecified, uncomplicated; J44.9 Chronic obstructive pulmonary disease, unspecified; Z79.899 Other long term (current) drug therapy; Z79.82 Long term (current) use of aspirin
CPT/HCPCS: 71045; 80048; 80076; 81001; 82077; 82274; 83690; 83735; 84484; 85025; 93005; 99285; A4216

== ENCOUNTER → 2021-07-09 05:53 | Outpatient (CLI) | payer BC, SELFPAY ==
[2021-07-09 00:57] VITALS: BMI 27.6
== END ==
PROVIDERS: PCP Internal Medicine; Visit Provider Internal Medicine Cardiovascular Disease
DX: I49.9 Cardiac arrhythmia, unspecified (principal)
CPT/HCPCS: 93225; 93226

== ENCOUNTER → 2021-07-15 12:30 | Outpatient (CLI) | payer BC, SELFPAY ==
[2021-06-23 09:06] VITALS: BMI 26.8
--- NOTE | 2021-07-15 12:31 | CT_ITS ---
STUDY: LOW DOSE CT LUNG CANCER SCREENING REASON FOR EXAM: Male, 66 years old. Lung cancer screening -- 47 pack year history; current smoker; asymptomatic RADIATION DOSAGE (If Supplied By Facility): CTDIvol = ( 4.02 ) mGy, DLP = ( 150.49 ) mGycm TECHNIQUE: No contrast was administered. Low dose technique was utilized (average mAS-38 and kVp 120). 1.25 mm axial source images with a slice interval of 1.25-mm were reconstructed in lung windows. 2.5 mm axial source images with a slice interval of 2.5-mm were reconstructed in lung windows. 5.0 mm axial source images with a slice interval of 5.0-mm were reconstructed in soft tissue windows. Nodule measured using lung windows on PACS and/or independent workstation with automated measurement of minimum and maximum diameter. Nodule measurement reported as average diameter rounded to the nearest whole number. Growth is defined as an increase ins size of greater than 1.5 mm. COMPARISON: Comparison is made with prior chest radiograph dated 07/09/2021. NODULES: No suspicious nodules are seen. Emphysema: Hyperinflation. Increased markings at the right lung apex with small bullous changes suggestive of a right apical scarring. Endobronchial lesion: None Aorta: Atherosclerotic plaque formation. Coronary arteries: Coronary artery calcification. Heart: Unremarkable Pulmonary artery: Unremarkable Mediastinal nodes: Small benign-appearing mediastinal lymph nodes. Other chest and abdominal findings: Degenerative changes of the thoracic spine. CT/Low Dose CT Lung Screening IMPRESSION: Lung-RADS category 2 - Continue annual screening with LDCT in 12 months. IMPORTANT NOTES FOR USE: ACR Lung-RADS Version 1.1 Assessment Categories Release Date: 2018 Category: Coded 0-4 bases on nodule(s) with highest degree of suspicion. Negative screen is defined as categories 1 and 2; a positive screen is defined as categories 3 and 4. Category 3 and 4A nodules that are unchanged on interval CT should be coded as category 2, and individuals returned to screening in 12 months. Category 4X: Category 3 or 4 nodules with additional imaging findings that increase the suspicion of lung cancer, such as spiculation, GGN that doubles in size in 1 year, enlarged lymph notes, etc. Category Modifiers: S (significant finding unrelated to lung cancer) Electronically Signed: Dinh Leon MD at 13:26 EDT , Service support ,
== END ==
PROVIDERS: PCP Internal Medicine; Referring Provider Nurse Practitioner Family; Visit Provider Nurse Practitioner Family
DX: F17.209 Nicotine dependence, unspecified, with unspecified nicotine-induced disorders (principal); Z12.2 Encounter for screening for malignant neoplasm of respiratory organs
CPT/HCPCS: 71271

== ENCOUNTER → 2021-07-24 08:36 | Outpatient (CLI) | payer BC, SELFPAY ==
--- NOTE | 2021-07-24 16:19 | PFTCOMP ---
COMPLETE PULMONARY FUNCTION TEST INTERPRETATION Brief HPI: Patient is a 66 year old male, currently under the care of Dr. Beasley, who presents to [facility] for complete pulmonary function tests secondary to diagnosis of dyspnea. Respiratory therapist reports good effort and reproducible results. Interpretation: Forced expiration spirometry shows a moderately severe large airways obstructive ventilatory defect with an FEV1 of 52% predicted. There is no significant bronchodilator response by strict ATS criteria. Spirograms are of good quality and plateau slowly, indicating slowly emptying areas of the lungs. The respiratory flow volume loop shows decreased expiratory flow rates at all lung volumes consistent with airway obstruction. Lung volumes by body plethysmography show an elevated total lung capacity at 8.84 L, 117% predicted. FRC and RV are elevated out of proportion. Lung volume measurements are consistent with hyperinflation and air-trapping. Diffusion capacity by carbon monoxide is decreased at 64% predicted. The airway resistance is elevated. No previous pulmonary function tests were available for review. Impression: Irreversible moderately severe large airways obstructive ventilatory defect with a symmetric reduction diffusing capacity, resulting in air trapping with hyperinflation, and in a pattern consistent with relatively advanced COPD.
== END ==
PROVIDERS: PCP Internal Medicine; Referring Provider Internal Medicine; Visit Provider Internal Medicine
DX: R06.02 Shortness of breath (principal); F17.210 Nicotine dependence, cigarettes, uncomplicated
CPT/HCPCS: 94060; 94726; 94729

== ENCOUNTER → 2021-07-25 08:04 | Outpatient (CLI) | payer BC, SELFPAY ==
[2021-07-25 12:28] LABS: Anion Gap 2 (5-15); BUN 17 mg/dL (7-18); BUN/Creat Ratio 13.1 RATIO (10-20); Calcium,Total 9.7 mg/dL (8.5-10.1); Chloride 107 mmol/L (98-107); EST Glomerular Filtration Rate 59 mL/min (>60); Est Glom Filt Rate - Afr Amer 71 mL/min (>60); Glucose 120 mg/dL (74-106); Potassium 4.3 mmol/L (3.5-5.1); Sodium Level 139 mmol/L (136-145)
== END ==
PROVIDERS: PCP Internal Medicine; Referring Provider Internal Medicine Nephrology; Visit Provider Internal Medicine Nephrology
DX: E87.6 Hypokalemia (principal)
CPT/HCPCS: 36415; 80048

== ENCOUNTER → 2022-04-10 | Outpatient (CLI) | payer BC, SELFPAY ==
--- NOTE | 2022-04-10 13:48 | RAD_ITS ---
INDICATION: cough, shortness of breath EXAMINATION/TECHNIQUE: X-RAY - XR Chest 2 Views COMPARISON: 07/09/2021 FINDINGS: LINES/DEVICES: None. LUNGS: No consolidation, edema or effusion. No pneumothorax. MEDIASTINUM AND CARDIOVASCULAR STRUCTURES: Cardiac silhouette not enlarged. Central airways and mediastinal contour are unremarkable. BONES AND SOFT TISSUES: Unremarkable. RAD/Chest PA and Lateral IMPRESSION: No radiographic evidence of acute cardiopulmonary disease. Electronically Signed: Sanford Bruce MD at 21:17 EDT ,
== END | disposition home or self-care (01) ==
PROVIDERS: PCP Internal Medicine; Referring Provider Physician Assistant; Visit Provider Physician Assistant
DX: R06.02 Shortness of breath (principal); R05.9 Cough, unspecified; Z20.822 Contact with and (suspected) exposure to COVID-19
CPT/HCPCS: 71046; 87635; U0003; U0005

== ENCOUNTER → 2022-06-29 | Outpatient (CLI) | payer BC, SELFPAY ==
--- NOTE | 2022-06-29 11:36 | RAD_ITS ---
HISTORY: COVID +. TECHNIQUE: XR Chest 2 Views. COMPARISON: None. FINDINGS: CARDIOMEDIASTINAL BORDERS: Cardiac silhouette within normal limits in size. Mediastinal contour unremarkable with chronic calcification of the aortic knob. LUNGS: Mild lingular opacity. PLEURA: No pleural effusion or pneumothorax seen. OSSEOUS STRUCTURES: Spinal osteophytes present. RAD/Chest PA and Lateral IMPRESSION: Mild lingular opacity, possible atelectasis or inflammation. Electronically Signed: Lauren Bronson MD at 9:51 EDT ,
== END | disposition home or self-care (01) ==
LOC: RAD 11:35
PROVIDERS: PCP Internal Medicine; Referring Provider Physician Assistant; Visit Provider Internal Medicine
DX: U07.1 COVID-19 (principal)
CPT/HCPCS: 71046

== ENCOUNTER → 2022-08-11 | Outpatient (CLI) | payer BC, SELFPAY ==
--- NOTE | 2022-08-11 16:51 | CT_ITS ---
STUDY: LOW DOSE CT LUNG CANCER SCREENING REASON FOR EXAM: Male, 67 years old. Lung cancer screening -- and gt;30 pk yr hx; current smoker;asymptomatic RADIATION DOSAGE (If Supplied By Facility): CTDIvol = ( 4.02 ) mGy, DLP = ( 137.43 ) mGycm TECHNIQUE: No contrast was administered. Low dose technique was utilized (average mAS-38 and kVp 120). 1.25 mm axial source images with a slice interval of 1.25-mm were reconstructed in lung windows. 2.5 mm axial source images with a slice interval of 2.5-mm were reconstructed in lung windows. 5.0 mm axial source images with a slice interval of 5.0-mm were reconstructed in soft tissue windows. COMPARISON: 07/15/2021 Emphysema: Mild bilateral apical scarring. Mild emphysema with subpleural blebs. No noncalcified nodule or mass. Endobronchial lesion: None Aorta: Some calcified plaque in the aortic arch but no aneurysm. CORONARY ARTERIES: Coronary artery calcification is seen. Heart: No cardiomegaly. Pulmonary artery: Normal Mediastinal nodes: Normal Other chest and abdominal findings: CT/Low Dose CT Lung Screening IMPRESSION: Lung-RADS category 1 - Continue annual screening with LDCT in 12 months. IMPORTANT NOTES FOR USE: ACR Lung-RADS Version 1.1 Assessment Categories Release Date: 2018 Category: Coded 0-4 bases on nodule(s) with highest degree of suspicion. Negative screen is defined as categories 1 and 2; a positive screen is defined as categories 3 and 4. Category 3 and 4A nodules that are unchanged on interval CT should be coded as category 2, and individuals returned to screening in 12 months. Category 4X: Category 3 or 4 nodules with additional imaging findings that increase the suspicion of lung cancer, such as spiculation, GGN that doubles in size in 1 year, enlarged lymph notes, etc. Category Modifiers: S (significant finding unrelated to lung cancer) Electronically Signed: Dexter Babin MD at 17:55 EDT ,
== END | disposition home or self-care (01) ==
PROVIDERS: PCP Internal Medicine; Referring Provider Nurse Practitioner Family; Visit Provider Nurse Practitioner Family
DX: Z87.891 Personal history of nicotine dependence (principal); Z12.2 Encounter for screening for malignant neoplasm of respiratory organs
CPT/HCPCS: 71271

== ENCOUNTER → 2022-11-03 | Outpatient (CLI) | payer BC, SELFPAY ==
--- NOTE | 2022-11-03 07:38 | CT_ITS ---
STUDY: CT ABDOMEN WITH CONTRAST REASON FOR EXAM: Male, 67 years old. History of periumbilical abdominal pain for one week. RADIATION DOSAGE (If Supplied By Facility): CTDIvol = ( 16.37 ) mGy, DLP = ( 846.61 ) mGycm TECHNIQUE: Transaxial images were obtained post I.V. administration of Oral and amp;amp; IV Gastrografin and amp;amp; 100mL Isovue-300, and with oral contrast. Sagittal and coronal images were reconstructed. Individualized dose optimization techniques were used for this CT. COMPARISON: None. FINDINGS: The visualized lung bases are unremarkable. The visualized portions of the heart are within normal limits. There is decreased attenuation of the liver consistent with steatosis. Hepatomegaly. Normal gallbladder and extrahepatic biliary system. Normal spleen. Normal pancreas. Normal bilateral adrenal glands. Normal right kidney. Normal left kidney. There is a small hiatal hernia. Normal small intestine. Normal colon. The appendix is visualized and appears normal. There is scan atherosclerotic calcification of the abdominal aorta and its major visceral branches, without a demonstrated aneurysm. Normal inferior vena cava. There is borderline retroperitoneal lymphadenopathy with enlarged nodes no greater than 10mm in the short axis diameter. Normal abdominal wall. There are degenerative changes of the visualized lumbar spine. CT/Abdomen WITH IV Contrast IMPRESSION: Diffuse fatty infiltration of the liver. Hepatomegaly. Electronically Signed: Dinh Leon MD at 14:57 [facility] ,
[2022-11-03 09:30] LABS: CREATININE FINGERSTICK < 0.9 mg/dL (0.70-1.30); EGFR FINGERSTICK > 60.0000 mL/min (>60)
== END | disposition home or self-care (01) ==
LOC: CT 07:11
PROVIDERS: PCP Internal Medicine; Referring Provider Physician Assistant; Visit Provider Physician Assistant
DX: K43.9 Ventral hernia without obstruction or gangrene (principal); R10.9 Unspecified abdominal pain
CPT/HCPCS: 74160; Q9967; A4216

== ENCOUNTER → 2022-12-18 | Outpatient (CLI) | payer BC, SELFPAY ==
[2022-12-18 16:46] LABS: Absolute Lymphocyte Count 1.63 X10^3/uL (0.83-4.51); Absolute Neutrophil Count 4.5 X10^3/uL (2.0-7.7); Basophil# 0.09 X10^3/uL; Basophil% 1.3 % (0-1); Eosinophil# 0.19 X10^3/uL; Eosinophils% 2.7 % (0-5); Lymphocyte # 1.63 X10^3/ul (0.83-4.51); Lymphocyte % 22.8 % (19-41); Mean Corp Hgb Conc 33.3 g/dL (32-36); Mean Corpuscular Hgb 31.5 pg (27.0-32.0); Mean Corpuscular Volume 94.4 fL (80-94); Mean Platelet Vol. 9.9 fl (6.2-12.0); Monocyte# 0.76 X10^3/uL; Monocyte% 10.6 % (0-10); NRBC Flagged by Analyzer 0 % (0-5); Neutrophil # 4.47 X10^3/uL (2.7-7.7); Neutrophil % 62.3 % (47-70); Platelet Count 241 K/mm3 (150-450); RBC Distribution Width CV 12.6 % (11.6-14.6); Red Blood Count 4.45 M/mm3 (4.6-6.2); White Blood Count 7.2 K/mm3 (4.4-11.0)
[2022-12-18 17:06] LABS: ALB/GLOB Ratio 0.9 RATIO (0.9-2.4); AST(SGOT) 31 U/L (15-37); Alanine Aminotransfer ALT/SGPT 52 U/L (16-61); Albumin, Serum 3.8 g/dL (3.2-5.0); Alkaline Phosphatase 144 U/L (45-117); Anion Gap 8 (5-15); BUN 20 mg/dL (7-18); BUN/Creat Ratio 17.5 RATIO (10-20); Calcium,Total 9.3 mg/dL (8.5-10.1); Chloride 105 mmol/L (98-107); Cholesterol 155 mg/dL (200); Creatinine, Serum 1.14 mg/dL (0.70-1.30); EST Glomerular Filtration Rate 68 mL/min (>60); Est Glom Filt Rate - Afr Amer 83 mL/min (>60); Globulin 4.1 g/dL (2.2-4.2); Glucose 99 mg/dL (74-106); High Density Lipoprotein 56 mg/dL; PSA,Total - Annual Screen 0.64 ng/mL (0.00-4.00); Potassium 4.2 mmol/L (3.5-5.1); Protein, Total 7.9 g/dL (6.4-8.2); Sodium Level 138 mmol/L (136-145); Triglycerides 121 mg/dL; Very Low Density Lipoprotein 24 mg/dL (5-40)
== END | disposition home or self-care (01) ==
PROVIDERS: PCP Internal Medicine; Referring Provider Internal Medicine; Visit Provider Internal Medicine
DX: R73.03 Prediabetes (principal); N40.0 Benign prostatic hyperplasia without lower urinary tract symptoms; I10 Essential (primary) hypertension
CPT/HCPCS: 36415; 80053; 80061; 84153; 85025; G0103

== ENCOUNTER → 2023-05-28 | Outpatient (CLI) | payer BC, SELFPAY ==
[2023-05-28 12:45] LABS: Hemoglobin A1c 5.7 % (3.8-5.6)
[2023-05-28 12:51] LABS: ALB/GLOB Ratio 0.8 RATIO (0.9-2.4); AST(SGOT) 43 U/L (15-37); Alanine Aminotransfer ALT/SGPT 67 U/L (16-61); Albumin, Serum 3.7 g/dL (3.2-5.0); Alkaline Phosphatase 150 U/L (45-117); Anion Gap 4 (5-15); BUN 12 mg/dL (7-18); BUN/Creat Ratio 12.3 RATIO (10-20); Calcium,Total 9.5 mg/dL (8.5-10.1); Chloride 105 mmol/L (98-107); Creatinine, Serum 0.98 mg/dL (0.70-1.30); EST Glomerular Filtration Rate 82 mL/min (>60); Est Glom Filt Rate - Afr Amer 99 mL/min (>60); Globulin 4.4 g/dL (2.2-4.2); Glucose 108 mg/dL (74-106); Potassium 4.4 mmol/L (3.5-5.1); Protein, Total 8.1 g/dL (6.4-8.2); Sodium Level 131 mmol/L (136-145)
== END | disposition home or self-care (01) ==
LOC: BIMLAB 09:14
PROVIDERS: PCP Internal Medicine; Referring Provider Internal Medicine; Visit Provider Internal Medicine
DX: R73.03 Prediabetes (principal)
CPT/HCPCS: 36415; 80053; 83036

== ENCOUNTER → 2023-06-11 | Outpatient (CLI) | payer BC, SELFPAY ==
--- NOTE | 2023-06-11 10:53 | US_ITS ---
STUDY: ABDOMINAL ULTRASOUND - RIGHT UPPER QUADRANT REASON FOR VISIT: Male, 68 years old Elevated Liver Enzymes TECHNIQUE: Ultrasound evaluation of the right upper quadrant was performed with real-time and static mcleod-scale imaging. TECHNICAL QUALITY: Limited. Examination limited by bowel gas. COMPARISON: 06/19/2021 FINDINGS: Liver: The liver measures 20 cm. There is increased echogenicity consistent with fatty infiltration. The bile ducts are within normal limits. There is hepatic color flow. The direction of portal flow is hepatopetal. There is no demonstrated mass lesion. Gallbladder: Normal distended gallbladder. The gallbladder wall measures 2 mm. There is a negative sonographic Gabriel''s sign. There is no pericholecystic fluid. There are no gallstones. Common Bile Duct (C.B.D.): The common bile duct measures 6 mm. Pancreas: Visualized pancreas is sonographically normal. Right Kidney: Normal size of the right kidney. The right kidney measures 11.8 x 7.3 x 7.1 cm. Normal renal cortex. The right cortex measures 2.4 cm. There is no demonstrated renal mass or cyst. There is no right hydronephrosis. US/Liver IMPRESSION: Hepatomegaly with diffuse fatty infiltration of the liver, no discrete lesion. No significant interval change. Electronically Signed: Krish Gomes MD at 15:31 EDT ,
== END | disposition home or self-care (01) ==
LOC: US 10:53
PROVIDERS: PCP Internal Medicine; Referring Provider Internal Medicine; Visit Provider Internal Medicine
DX: K70.9 Alcoholic liver disease, unspecified (principal); F10.10 Alcohol abuse, uncomplicated
CPT/HCPCS: 76705

== ENCOUNTER → 2023-10-05 | Outpatient (CLI) | payer BC, SELFPAY ==
--- NOTE | 2023-10-05 12:38 | CT_ITS ---
STUDY: LOW DOSE CT LUNG CANCER SCREENING REASON FOR EXAM: Male, 68 years old. h/o tobacco dependency RADIATION DOSAGE (If Supplied By Facility): CTDIvol = ( 3.18 ) mGy, DLP = ( 107.22 ) mGycm TECHNIQUE: No contrast was administered. Low dose technique was utilized (average mAS-38 and kVp 120). 1.25 mm axial source images with a slice interval of 1.25-mm were reconstructed in lung windows. 2.5 mm axial source images with a slice interval of 2.5-mm were reconstructed in lung windows. 5.0 mm axial source images with a slice interval of 5.0-mm were reconstructed in soft tissue windows. COMPARISON: 08/11/2022 Emphysema: Mild bilateral apical scarring. Mild emphysema with subpleural blebs. 6 mm noncalcified nodule in the superior segment the right lower lobe lungs on image 114 and follow-up CT is recommended in 6 months document stability. Endobronchial lesion: None Aorta: Some calcified plaque in the aortic arch but no aortic aneurysm. CORONARY ARTERIES: Coronary artery calcification is seen. Heart: No cardiomegaly. Pulmonary artery: Normal Mediastinal nodes: Normal Other chest and abdominal findings: None CT/Low Dose CT Lung Screening IMPRESSION: Lung-RADS category 3 - Continue screening with LDCT in 6 months. IMPORTANT NOTES FOR USE: ACR Lung-RADS Version 1.1 Assessment Categories Release Date: 2018 Category: Coded 0-4 bases on nodule(s) with highest degree of suspicion. Negative screen is defined as categories 1 and 2; a positive screen is defined as categories 3 and 4. Category 3 and 4A nodules that are unchanged on interval CT should be coded as category 2, and individuals returned to screening in 12 months. Category 4X: Category 3 or 4 nodules with additional imaging findings that increase the suspicion of lung cancer, such as spiculation, GGN that doubles in size in 1 year, enlarged lymph notes, etc. Category Modifiers: S (significant finding unrelated to lung cancer) Electronically Signed: Dexter Babin MD at 23:38 EST ,
[2023-10-05 13:00] VITALS: PULSE 101; PULSE 104; PULSE 105; PULSE 112; PULSE 79; PULSE 85; PULSE 90; PULSE 96; O2SAT 95; O2SAT 96; O2SAT 97
--- NOTE | 2023-10-06 10:05 | PCM.PSN.6M ---
PSN 6 Minute Walk Test 6 Minute Walk Test 6 Minute Walk Test: 6 Minute Walk Test PSN:6-Minute Walk Test Start: 10/05/23 13:09 Freq: Status: Active Protocol: [id number] Document 10/05/23 13:00 [facility] (Rec: 10/05/23 13:12 [facility] [id number]) 6 Minute Walk Test Date Performed 10/05/23 Time Performed 13:00 Height 6 ft 2 in Weight: 230 lb Weight in Pounds 230.[address]: Dr Holliday Assistive device used: None Pre-test Oxygen Delivery Method Room Air Pulse Ox 97 Pulse Rate (60-100) 79 Dyspnea David Scale (0-10) 0 Exertion David Scale (6-20) 6 1st minute Pulse Ox 95 Pulse Rate (60-100) 96 2nd minute Oxygen Delivery Method Room Air Pulse Ox 95 Pulse Rate (60-100) 101 H 3rd minute Oxygen Delivery Method Room Air Pulse Ox 95 Pulse Rate (60-100) 90 4th minute Oxygen Delivery Method Room Air Pulse Ox 95 Pulse Rate (60-100) 104 H 5th minute Oxygen Delivery Method Room Air Pulse Ox 95 Pulse Rate (60-100) 105 H 6th minute Oxygen Delivery Method Room Air Pulse Ox 95 Pulse Rate (60-100) 112 H Dyspnea David Scale (0-10) 2 Exertion David Scale (6-20) 0 Reported Symptoms Increased Work of Breathing Post-test Oxygen Delivery Method Room Air Pulse Ox 96 Pulse Rate (60-100) 85 Full Laps Walked 19 Partial Lap, Number of Tiles Walked 29 Total Distance Walked (ft) 1150 Interpretation Interpretation: The patient ambulated 1150 feet over the course of 6 minutes beginning on room air without assistive devices. Pretesting oxygen saturation was noted to be 97% on room air. With ambulation, the erik oxygen saturation was 95%. There was no significant exertional oxygen desaturation. Recommendations Recommendations: There is no indication for the use of supplemental oxygen at this time.
== END | disposition home or self-care (01) ==
PROVIDERS: PCP Internal Medicine; Referring Provider Internal Medicine Critical Care Medicine; Visit Provider Internal Medicine Critical Care Medicine
DX: Z12.2 Encounter for screening for malignant neoplasm of respiratory organs (principal); J44.9 Chronic obstructive pulmonary disease, unspecified; F17.200 Nicotine dependence, unspecified, uncomplicated
CPT/HCPCS: 71271; 94618

== ENCOUNTER → 2023-12-22 | Outpatient (CLI) | payer BC, SELFPAY ==
[2023-12-22 12:26] LABS: Absolute Lymphocyte Count 0.94 X10^3/uL (0.83-4.51); Absolute Neutrophil Count 5.1 X10^3/uL (2.0-7.7); Basophil% 1.4 % (0-1); Eosinophil# 0.19 X10^3/uL; Eosinophils% 2.7 % (0-5); Hematocrit 48.3 % (40-54); Hemoglobin 15.6 g/dL (13.0-16.5); Lymphocyte # 0.94 X10^3/ul (0.83-4.51); Lymphocyte % 13.6 % (19-41); Mean Corp Hgb Conc 32.3 g/dL (32-36); Mean Corpuscular Hgb 30.1 pg (27.0-32.0); Mean Corpuscular Volume 93.1 fL (80-94); Mean Platelet Vol. 10.1 fl (6.2-12.0); Monocyte# 0.58 X10^3/uL; Monocyte% 8.4 % (0-10); NRBC Flagged by Analyzer 0 % (0-5); Neutrophil # 5.08 X10^3/uL (2.7-7.7); Neutrophil % 73.6 % (47-70); Platelet Count 286 K/mm3 (150-450); RBC Distribution Width CV 12.8 % (11.6-14.6); RBC Distribution Width SD 43.7 fl (35.1-43.9); Red Blood Count 5.19 M/mm3 (4.6-6.2); White Blood Count 6.9 K/mm3 (4.4-11.0)
[2023-12-22 13:10] LABS: ALB/GLOB Ratio 0.8 RATIO (0.9-2.4); AST(SGOT) 39 U/L (15-37); Alanine Aminotransfer ALT/SGPT 57 U/L (16-61); Albumin, Serum 3.7 g/dL (3.2-5.0); Alkaline Phosphatase 131 U/L (45-117); Anion Gap 4 (5-15); BUN 17 mg/dL (7-18); BUN/Creat Ratio 16.5 RATIO (10-20); Chloride 107 mmol/L (98-107); Cholesterol 141 mg/dL (200); Creatinine, Serum 1.03 mg/dL (0.70-1.30); EST Glomerular Filtration Rate 77 mL/min (>60); Est Glom Filt Rate - Afr Amer 93 mL/min (>60); Globulin 4.7 g/dL (2.2-4.2); Glucose 104 mg/dL (74-106); High Density Lipoprotein 58 mg/dL; PSA,Total - Annual Screen 0.75 ng/mL (0.00-4.00); Potassium 4.3 mmol/L (3.5-5.1); Protein, Total 8.4 g/dL (6.4-8.2); Sodium Level 135 mmol/L (136-145); Triglycerides 73 mg/dL; Very Low Density Lipoprotein 15 mg/dL (5-40)
== END | disposition home or self-care (01) ==
LOC: BIMLAB 09:33
PROVIDERS: PCP Internal Medicine; Referring Provider Internal Medicine; Visit Provider Internal Medicine
DX: E78.5 Hyperlipidemia, unspecified (principal); I10 Essential (primary) hypertension; N40.0 Benign prostatic hyperplasia without lower urinary tract symptoms
CPT/HCPCS: 36415; 80053; 80061; 84153; 85025; G0103

== ENCOUNTER → 2024-01-14 | Outpatient (CLI) | payer BC, SELFPAY ==
--- NOTE | 2024-01-14 11:03 | ECHOCS_ITS ---
Reason For Study: Afib Procedure This was a 2D Doppler, Color Flow transthoracic echocardiogram. Contrast injection was performed. Exam performed in department. Left Ventricle Normal LV size. Left ventricular systolic function is normal. The estimated ejection fraction is 65 %. No regional wall motion abnormalities noted. Right Ventricle Normal RV size. Normal systolic function. Atria Normal left atrium. Normal right atrium. Mitral Valve Normal mitral valve. Tricuspid Valve Normal tricuspid valve. Mild (1+) tricuspid valve insufficiency. Pulmonary artery systolic pressure is 38 mmHg. Aortic Valve The aortic valve is not well visualized. Pulmonic Valve The pulmonic valve is not well visualized. Great Vessels Normal aortic root. The pulmonary artery is normal size. Normal inferior vena cava. Pericardium/Pleural No pericardial effusion. Medication Diluted definity 2ml given slow IV push to enhance endocardial definition. MMode/2D Measurements & Calculations LVIDd: 5.0 cm IVSd: 1.0 cm Ao root diam: 3.6 cm LVIDs: 3.2 cm LVPWd: 1.0 cm RVDd: 4.3 cm FS: 35.8 % LAV(MOD-bp): 61.9 ml LVAd ap4: 29.2 cm2 SV(MOD-sp4): 52.5 ml LAV(MOD-bp) Indexed: 26.6 ml/m2 LVLd ap4: 8.6 cm LAV(MOD-sp2): 66.9 ml EDV(MOD-sp4): 80.9 ml LAV(MOD-sp4): 49.6 ml EDV(sp4-el): 84.4 ml LVAs ap4: 15.7 cm2 LVLs ap4: 7.0 cm ESV(MOD-sp4): 28.4 ml ESV(sp4-el): 29.8 ml EF(MOD-sp4): 64.9 % EF(sp4-el): 64.7 % SV(sp4-el): 54.6 ml LA A4 area: 20.0 cm2 LA dimension(2D): 3.5 cm RA A4 area: 18.0 cm2 TAPSE: 2.1 cm Doppler Measurements & Calculations MV E max gus: 111.3 cm/sec Lat Peak E' Gus: 13.6 cm/sec Med Peak E' Gus: 9.7 cm/sec E/E' lat: 8.2 E/E' med: 11.5 Ao V2 max: 171.6 cm/sec LV V1 max: 122.0 cm/sec PA V2 max: 96.6 cm/sec Ao max P.0 mmHg LV V1 max P.1 mmHg Ao V2 mean: 127.1 cm/sec Ao mean P.2 mmHg Ao V2 VTI: 32.1 cm TR max gus: 292.3 cm/sec TR max P.2 mmHg ECHO/Echo Complete W/ Contrast Interpretation Summary Normal LV size. Left ventricular systolic function is normal. The estimated ejection fraction is 65 %. Pulmonary artery systolic pressure is 38 mmHg. Contrast injection was performed. Ordering Physician: Emilio Horne Referring Physician: Falguni Beasley Performed By: Clara Horne, RDCS, RVT
--- OUTSIDE RECORDS SUMMARY | 2024-01-14 11:34 | XMS RPT_ITS | CCD ---
Author Name Unknown Address [address] [place] [address] Organization [facility] Results Test Name Value Interpretation Reference Range Facil ity Summary Purpose Family History No Family History Records FoundNo Family History Records Found Advance Directives No Advanced Directives Records FoundNo Advanced Directives Records Found Additional Source Comments (unrecognized sect ion and content) No Status Records FoundNo Status Records Found INFORMATION SOURCE (unrecogn ized section and content) DATE CREATED AUTHOR AUTHOR'S PERRY ALCALA 09/21/[address] [facility] FOR RECORDS PERTAINING TO PATIENTS WHO ARE OR HAVE BEEN ENROLLED IN A CHEMICAL DEPENDENCY/SUBSTANCEABUSE PROGRAM, SOME INFORMATION MAY BE OMITTED. This clinical summary was aggregated from multiple sources. Caution should be exercised in using it in the provision of clinical care. This summary normalizes information from multiple sources, and as a consequence, information in this document may materially change the coding, format and clinical context of patient data. In addition, data may be omitted in some cases. CLINICAL DECISIONS SHOULD BE BASED ON THE PRIMARY CLINICAL RECORDS. [employer] [facility]. provides no warranty or guarantee of the accuracy or completeness of information in this document.
== END | disposition home or self-care (01) ==
PROVIDERS: PCP Internal Medicine; Visit Provider Nurse Practitioner Family
DX: I48.0 Paroxysmal atrial fibrillation (principal)
CPT/HCPCS: 93306; Q9957; A4216; C8929

== ENCOUNTER → 2024-04-05 | Outpatient (CLI) | payer BC, SELFPAY | END | disposition home or self-care (01) | LOC: PSN 06:41 | PROVIDERS: PCP Internal Medicine; Referring Provider Internal Medicine Cardiovascular Disease; Visit Provider Internal Medicine Cardiovascular Disease | DX: I48.19 Other persistent atrial fibrillation (principal) | CPT/HCPCS: 93225; 93226 ==

== ENCOUNTER → 2024-05-19 | Outpatient (CLI) | payer BC, SELFPAY ==
--- NOTE | 2024-05-19 14:37 | CT_ITS ---
EXAM: CT CHEST WITHOUT INTRAVENOUS CONTRAST CLINICAL INDICATION: 6 mm nodule TECHNIQUE: Helically acquired images were obtained of the chest without intravenous contrast. This CT exam was performed using one or more of the following dose reduction techniques: automated exposure control, adjustment of the mA and/or kV according to patient size, and/or use of iterative reconstruction technique. RADIATION DOSE: CTDIvol = 16.15 mGy, DLP = 621.70 mGy-cm COMPARISON: No relevant prior studies available. FINDINGS: ARTIFACTS: Breathing motion artifacts. LUNGS AND PLEURAL SPACES: Paraseptal cysts in the upper lobes. No pleural effusion or thickening. No pneumothorax. No suspicious pulmonary nodules. No suspicious infiltrates. HEART: Mild cardiomegaly. Normal pericardium. Few calcified plaques in the LAD branch and circumflex branch of the left coronary artery. MEDIASTINUM: Unremarkable. No mediastinal or hilar adenopathy. Esophagus is unremarkable. No hiatal hernia. THYROID: Unremarkable. No thyroid lesions. BONES/JOINTS: Diffuse idiopathic skeletal hyperostosis along the thoracic spine. Partial ankylosis of the anterior T8 and T9 vertebral bodies. No suspicious lytic or blastic abnormality. VASCULATURE: Unremarkable. Thoracic aorta is non-dilated. CT/Chest without Contrast IMPRESSION: 1. Limited study due to breathing motion artifacts. 2. No CT evidence of any suspicious pulmonary nodules or infiltrates. 3. Paraseptal cysts in the upper lobes. 4. No acute cardiopulmonary pathology. 5. Partial ankylosis in the anterior aspect of T8 and T9 vertebral bodies. 6. Diffuse idiopathic skeletal hyperostosis along the thoracic spine. Electronically Signed: Waldo Decker MD at 14:54 EDT ,
== END | disposition home or self-care (01) ==
LOC: CT 14:36
PROVIDERS: PCP Internal Medicine; Referring Provider Nurse Practitioner Acute Care; Visit Provider Nurse Practitioner Acute Care
DX: R91.1 Solitary pulmonary nodule (principal)
CPT/HCPCS: 71250

== ENCOUNTER → 2024-10-06 | Outpatient (CLI) | payer BC, SELFPAY ==
[2024-10-06 15:23] LABS: Absolute Lymphocyte Count 0.95 X10^3/uL (0.83-4.51); Absolute Neutrophil Count 5.7 X10^3/uL (2.0-7.7); Basophil# 0.08 X10^3/uL; Eosinophil# 0.19 X10^3/uL; Eosinophils% 2.4 % (0-5); Hematocrit 45.3 % (40-54); Hemoglobin 14.7 g/dL (13.0-16.5); Lymphocyte # 0.95 X10^3/ul (0.83-4.51); Lymphocyte % 12.1 % (19-41); Mean Corp Hgb Conc 32.5 g/dL (32-36); Mean Corpuscular Hgb 30.8 pg (27.0-32.0); Mean Platelet Vol. 9.9 fl (6.2-12.0); Monocyte# 0.91 X10^3/uL; Monocyte% 11.6 % (0-10); NRBC Flagged by Analyzer 0 % (0-5); Neutrophil # 5.68 X10^3/uL (2.7-7.7); Neutrophil % 72.5 % (47-70); Platelet Count 268 K/mm3 (150-450); RBC Distribution Width CV 13.3 % (11.6-14.6); RBC Distribution Width SD 46.7 fl (35.1-43.9); Red Blood Count 4.77 M/mm3 (4.6-6.2); White Blood Count 7.8 K/mm3 (4.4-11.0)
[2024-10-06 15:50] LABS: ALB/GLOB Ratio 0.8 RATIO (0.9-2.4); AST(SGOT) 40 U/L (15-37); Alanine Aminotransfer ALT/SGPT 46 U/L (16-61); Albumin, Serum 3.6 g/dL (3.2-5.0); Alkaline Phosphatase 145 U/L (45-117); Anion Gap 5 (5-15); BUN 14 mg/dL (7-18); Calcium,Total 9.9 mg/dL (8.5-10.1); Chloride 101 mmol/L (98-107); Cholesterol 129 mg/dL (200); Creatinine, Serum 0.82 mg/dL (0.70-1.30); EST Glomerular Filtration Rate 99 mL/min (>60); Est Glom Filt Rate - Afr Amer 120 mL/min (>60); Globulin 4.7 g/dL (2.2-4.2); Glucose 94 mg/dL (74-106); High Density Lipoprotein 51 mg/dL; PSA,Total- Diagnostic 0.56 ng/mL (0.0-4.0); Potassium 4.5 mmol/L (3.5-5.1); Protein, Total 8.3 g/dL (6.4-8.2); Sodium Level 129 mmol/L (136-145); Triglycerides 86 mg/dL; Very Low Density Lipoprotein 17 mg/dL (5-40)
== END | disposition home or self-care (01) ==
LOC: BIMLAB 11:40
PROVIDERS: PCP Internal Medicine; Referring Provider Internal Medicine; Visit Provider Internal Medicine
DX: I10 Essential (primary) hypertension (principal); E78.00 Pure hypercholesterolemia, unspecified; N40.0 Benign prostatic hyperplasia without lower urinary tract symptoms
CPT/HCPCS: 36415; 80053; 80061; 84153; 85025

== ENCOUNTER → 2024-10-18 | Outpatient (CLI) | payer BC, SELFPAY ==
[2024-10-18 16:36] LABS: ALB/GLOB Ratio 0.9 RATIO (0.9-2.4); AST(SGOT) 44 U/L (15-37); Alanine Aminotransfer ALT/SGPT 47 U/L (16-61); Albumin, Serum 3.8 g/dL (3.2-5.0); Alkaline Phosphatase 144 U/L (45-117); Anion Gap 5 (5-15); BUN 16 mg/dL (7-18); BUN/Creat Ratio 18.5 RATIO (10-20); Calcium,Total 9.7 mg/dL (8.5-10.1); Chloride 103 mmol/L (98-107); Creatinine, Serum 0.87 mg/dL (0.70-1.30); EST Glomerular Filtration Rate 93 mL/min (>60); Est Glom Filt Rate - Afr Amer 113 mL/min (>60); Globulin 4.3 g/dL (2.2-4.2); Glucose 111 mg/dL (74-106); Potassium 4.6 mmol/L (3.5-5.1); Protein, Total 8.1 g/dL (6.4-8.2); Sodium Level 133 mmol/L (136-145)
== END | disposition home or self-care (01) ==
PROVIDERS: PCP Internal Medicine; Referring Provider Internal Medicine; Visit Provider Internal Medicine
DX: K70.9 Alcoholic liver disease, unspecified (principal); F10.10 Alcohol abuse, uncomplicated
CPT/HCPCS: 36415; 80053

== ENCOUNTER → 2024-10-31 | Outpatient (CLI) | payer BC, SELFPAY | END | disposition home or self-care (01) | LOC: SL 19:58 | PROVIDERS: PCP Internal Medicine; Referring Provider Nurse Practitioner Acute Care; Visit Provider Nurse Practitioner Acute Care | DX: G47.10 Hypersomnia, unspecified (principal); R29.818 Other symptoms and signs involving the nervous system | CPT/HCPCS: 95810 ==

== ENCOUNTER 2024-12-28 16:05 | Outpatient (CLI) | payer BC, SELFPAY | END 2024-12-28 23:59 | disposition home or self-care (01) | LOC: BIMLAB 16:06 | PROVIDERS: PCP Internal Medicine; Referring Provider Internal Medicine; Visit Provider Internal Medicine | DX: J06.9 Acute upper respiratory infection, unspecified (principal) | CPT/HCPCS: 87631 ==

== ENCOUNTER → 2025-03-30 | Outpatient (CLI) | payer MEDICARE, OTHER, SELFPAY ==
[2025-03-30 13:41] LABS: Absolute Lymphocyte Count 0.98 X10^3/uL (0.83-4.51); Absolute Neutrophil Count 6.8 X10^3/uL (2.0-7.7); Basophil# 0.06 X10^3/uL; Basophil% 0.7 % (0-1); Eosinophil# 0.17 X10^3/uL; Eosinophils% 1.9 % (0-5); Hematocrit 44.2 % (40-54); Hemoglobin 15.1 g/dL (13.0-16.5); Lymphocyte # 0.98 X10^3/ul (0.83-4.51); Mean Corp Hgb Conc 34.2 g/dL (32-36); Mean Corpuscular Hgb 32.7 pg (27.0-32.0); Mean Corpuscular Volume 95.7 fL (80-94); Mean Platelet Vol. 9.6 fl (6.2-12.0); NRBC Flagged by Analyzer 0 % (0-5); Neutrophil # 6.82 X10^3/uL (2.7-7.7); Neutrophil % 76.7 % (47-70); Platelet Count 253 K/mm3 (150-450); RBC Distribution Width SD 44.8 fl (35.1-43.9); Red Blood Count 4.62 M/mm3 (4.6-6.2); White Blood Count 8.9 K/mm3 (4.4-11.0)
[2025-03-30 14:06] LABS: Hemoglobin A1c 6.1 % (<=5.6)
== END | disposition home or self-care (01) ==
LOC: BIMLAB 11:08
PROVIDERS: PCP Internal Medicine; Referring Provider Internal Medicine; Visit Provider Internal Medicine
DX: I10 Essential (primary) hypertension (principal); R73.03 Prediabetes
CPT/HCPCS: 36415; 83036; 85025

== ENCOUNTER → 2025-05-04 | Outpatient (CLI) | payer MEDICARE, OTHER, SELFPAY ==
--- NOTE | 2025-05-04 13:22 | CT_ITS ---
PROCEDURE: LOW DOSE CT LUNG SCREENING 05/04/2025 REASON FOR EXAM: SMOKER QUIT 11/22/2023 TECHNIQUE: LOW DOSE CT LUNG SCREENING Coronal and Sagittal reconstruction series were provided. One or more dose reduction techniques were used (e.g., Automated exposure control, adjustment of the mA and/or kV according to patient size, use of iterative reconstruction technique). REFERENCE LINK: [facility] Lung-RADS RADIATION DOSE SUMMARY: CTDlvol: 4.02 mGy DLP: 140.9 mGycm COMPARISON: 05/19/2024. FINDINGS: PULMONARY NODULES: (Only nodules >3mm are reported) Nodules described below are on series 2 unless otherwise specified. Unchanged paraseptal emphysema. Unchanged coronary artery calcifications. Normal unenhanced main pulmonary artery and right and left pulmonary arteries. Normal bilateral peripheral pulmonary arteries. Normal thoracic aorta and visualized great vessels. There is no demonstrated aortic aneurysm. Normal heart and pericardium. Normal mediastinum. Normal hilar regions. Normal visualized trachea and bronchi. Normal pleura. Normal visualized upper abdomen. CT/Low Dose CT Lung Screening IMPRESSION: Unchanged emphysema. Coronary artery calcification (CAC) is is present Lung-RADS Category: 2 BENIGN (BASED ON IMAGING FEATURES OR INDOLENT BEHAVIOR). RECOMMEND 12-MONTH SCREENING LDCT. Reading Location: [facility]
--- OUTSIDE RECORDS SUMMARY | 2025-05-04 19:27 | XMS RPT_ITS | CCD ---
Author Organization [facility] Care Team Providers Care Machine Operator Hay Stacker Name Role Phone Dr. Falguni Beasley Primary Care Provider [phone] Dr. Falguni Beasley Referring Provider [phone] JOVANNY Manrique Attending Provider Dr. Falguni Lopez Attending Provider [phone] Dr. Falguni Beasley Primary Care Provider [phone] Dr. Falguni Beasley Referring Provider [phone] JOVANNY Manrique Attending Provider Mack Grier BOX STORAGE WORKER, BOX STORAGE WORKER-C Jennifer Attending Provider Dr. Falguni Beasley Primary Care Provider [phone] Danis BOX STORAGE WORKER, BOX STORAGE WORKER-C Jennifer Attending Provider Danis BOX STORAGE WORKER, BOX STORAGE WORKER-C Jennifer Referring Provider Dr. Falguni Beasley Referring Provider [phone] Laura BOX STORAGE WORKER, BOX STORAGE WORKER-C Olegario Attending Provider [phone] JOVANNY Manrique Attending Provider Dr. Robyn Hill Attending Provider Dr. Falguni Beasley Primary Care Provider [phone]) Dr. Falguni Beasley Attending Provider [phone] Dr. Falguni Beasley Primary Care Provider [phone] Dr. Falguni Beasley Attending Provider [phone] Dr. Falguni Beasley Referring Provider [phone] Dr. Falguni Beasley Primary Care Provider [phone] Dr. Falguni Beasley Referring Provider [phone] Dr. Dayne Holliday Attending Provider Dr. Dayne Holliday Referring Provider Dr. Dayne Holliday Other Provider Dr. Falguni Beasley Primary Care Provider [phone] Dr. Dayne Holliday Attending Provider Dr. Falguni Beasley Referring Provider [phone] Dk BOX STORAGE WORKER, BOX STORAGE WORKER-C Olimpia Attending Provider Coleen FORMAN, BOX STORAGE WORKER-C Linda Mccarthy Attending Provider Dr. Falguni Beasley Attending Provider Dr. Arturo Cohen Attending Provider Gale VALENZUELA, Dr. Montes De Oca Primary Care Provider Gale VALENZUELA, Dr. Montes De Oca Attending Provider [phone] Gale VALENZUELA, Dr. Montes De Oca Referring Provider [phone] Olimpia Hartley Attending Provider Gale VALENZUELA, Dr. Montes De Oca Primary Care Provider Dr. Falguni Beasley MD Referring Provider [phone] Dr. Falguni Beasley MD Attending Provider [phone] Linda Peña Attending Provider Olimpia Root NP Attending Unavailable Oleghe, Efewongbe Primary Care Unavailable Olimpia Root NP Referring Unavailable Oleghe, Efewongbe Referring Unavailable Oleghe, Efewongbe Attending Unavailable Oleghe, Efewongbe Primary Care Unavailable Oleghe, Efewongbe Referring Unavailable Kirk Lemons Attending Unavailable Oleghe, Efewongbe Primary Care Unavailable Oleghe, Efewongbe Referring Unavailable Oleghe, Efewongbe Attending Unavailable Oleghe, Efewongbe Primary Care Unavailable Oleghe, Efewongbe Referring Unavailable Oleghe, Efewongbe Primary Care Unavailable Dk BOX STORAGE WORKER, Olimpia Attending Unavailable Oleghe, Efewongbe Primary Care Unavailable Oleghe, Efewongbe Referring Unavailable Jackie Chávez Attending Unavailable Oleghe, Efewongbe Primary Care Unavailable Oleghe, Efewongbe Referring Unavailable Coleen BOX STORAGE WORKERLinda Attending Unavailable Oleghe, Efewongbe Referring Unavailable Dk BOX STORAGE WORKER, Olimpia Attending Unavailable Oleghe, Efewongbe Primary Care Unavailable Oleghe, Efewongbe Attending Unavailable Oleghe, Efewongbe Primary Care Unavailable Oleghe, Efewongbe Referring Unavailable Oleghe, Efewongbe Referring Unavailable Oleghe, Efewongbe Attending Unavailable Oleghe, Efewongbe Primary Care Unavailable Oleghe, Efewongbe Referring Unavailable Coleen BOX STORAGE WORKERLinda Attending Unavailable Oleghe, Efewongbe Primary Care Unavailable Oleghe, Efewongbe Primary Care Unavailable Dk BOX STORAGE WORKER, Olimpia Referring Unavailable Dk BOX STORAGE WORKER, Olimpia Attending Unavailable Oleghe, Efewongbe Attending Unavailable Oleghe, Efewongbe Primary Care Unavailable Oleghe, Efewongbe Referring Unavailable Dk BOX STORAGE WORKER, Olimpia Attending Unavailable Oleghe, Efewongbe Primary Care Unavailable Dk BOX STORAGE WORKER, Olimpia Referring Unavailable Oleghe, Efewongbe Attending Unavailable Oleghe, Efewongbe Referring Unavailable Oleghe, Efewongbe Primary Care Unavailable Oleghe, Efewongbe Referring Unavailable Oleghe, Efewongbe Attending Unavailable Oleghe, Efewongbe Primary Care Unavailable Allergies Allergy Classification Reported Allergen(s) Allergy Type Date of Onset Reaction(s) Facility (2 sources) venom-wasp Allergy to substance 03-30-2025 Swelling [facility] (1 source) venom-wasp Drug allergy (disorder) 04-30-2025 [facility] Repository Medications Current Medications Medication Drug Class(es) Dates Sig (Normalized) Sig (Original) [id number] 200 actuat albuterol 0.09 mg/actuat metered dose inhaler (20 sources) beta2-Adrenergic Agonist Start: 08-19-2023 End: 10-13-2024 Albuterol Sulfate 90 mcg/actuation HFA aerosol inhaler Active 2 NMA INHALATION Q4H as needed for shortness of breath or wheezing 8.October 13, 2024 10:24am administer with spacer Start: 08-19-2023 take 1 puff(s) by in halation every four hours Albuterol Sulfate Active 2 PUFF INHALATION Q4H 8.August 18, 2023 11:00pm administer with spacer Start: 10-26-2022 End: 12-10-2023 Albuterol Sulfate 90 mcg/act uation HFA aerosol inhaler Discontinued 2 NMA INHALATION EVERY 6 HOURS as needed October 26, 2022 1:00am December 10, 2023 12:48pm Start: 10-26-2022 End: 12-10-2023 take 1 puff(s) by inhalation every six hours Albuterol Sulfate Discontinued 2 PUFF INHALATION EVERY 6 HOURS October 26, 2022 12:00am December 10, 2023 11:48am Start: 04-10-2022 take 1 puff(s) by in halation every six hours Albuterol Sulfate Active 2 PUFF INHALATION EVERY 6 HOURS 8.April 10, 2022 1:14pm Start: 04-10-2022 End: 06-10-2022 Albuterol Sulfate 90 mcg/act uation HFA aerosol inhaler Discontinued 2 NMA INHALATION EVERY 6 HOURS as needed for shortness of breath or wheezing 8.April 10, 2022 12:00am June 10, 2022 4:29pm Start: 04-10-2022 End: 06-10-2022 take 1 puff(s) by inhalation every six hours Albuterol Sulfate Discontinued 2 PUFF INHALATION EVERY 6 HOURS 8.April 09, 2022 11:00pm June 10, 2022 3:29pm ascorbic acid 500 mg oral tablet (13 sources) Vitamin C Start: 03-24-2024 take 1 g by mouth once daily Ascorbic Acid (Vitamin C) 500 mg tablet Active 1 g PO DAILY March 24, 2024 12:00am Start: 10-28-2021 End: 12-10-2023 take 1 tablet by mouth once daily Ascorbic Acid (Vitamin C) 500 mg tablet Discontinued 500 mg PO DAILY October 28, 2021 1:00am December 10, 2023 12:48pm cholecalciferol 0.025 mg oral tablet (16 sources) Vitamin D Start: 04-30-2025 take 1 tablet by mouth once daily Cholecalciferol (Vitamin D3) 25 mcg (1,000 unit) tablet Active 125 ug PO DAILY April 30, 2025 11:38am Start: 12-10-2023 End: 04-30-2025 take 1 tablet by mouth once daily Cholecalciferol (Vitamin D3) 25 mcg (1,000 unit) tablet Discontinued 50 ug PO DAILY December 10, 2023 12:47pm April 30, 2025 11:39am Start: 10-28-2021 End: 12-10-2023 take 1 tablet by mouth once daily Cholecalciferol (Vitamin D3) 25 mcg (1,000 unit) tablet Discontinued 25 ug PO DAILY October 28, 2021 1:00am December 10, 2023 12:49pm [id number] 0.3 ml EPINEPHrine 1 mg/ml auto-injector (2 sources) alpha-Adrenergic Agonist, beta-Adrenergic Agonist, Catecholamine Start: 06-08-2024 Epinephrine (Epip en 2-Wisam) 0.3 mg/0.3 mL auto-injector Active 0.3 mg IM every 5 to 15 minutes as needed for anaphylaxis 2 June 08, 2024 12:00am administer at onset of symptoms, may repeat if no improvement after 15 minutes, call 911 Fluticasone-Umeclidin -Vilanter (20 sources) Anticholinergic, Corticosteroid, beta2-Adrenergic Agonist Start: 04-17-2025 Fluticasone-Ume clidi n-Vilanter (Trelegy Ellipta) 100-62.5-25 mcg blister with device Active 1 NMA INHALATION Q24H 60 April 17, 2025 10:12am Start: 02-07-2025 End: 04-17-2025 Cdcsejrfenl-Zpntoavcr-Limmtf er (Trelegy Ellipta) 100-62.5-25 mcg blister with device Discontinued 1 NMA INHALATION Q24H 60 February 07, 2025 12:02pm April 17, 2025 10:13am Start: 02-07-2025 Fluticasone-Um eclidin-Vilanter (Trelegy Ellipta) 100-62.5-25 mcg blister with device Active 1 NMA INHALATION Q24H 60 February 07, 2025 12:02pm Start: 12-08-2024 End: 02-07-2025 Dbmybuqodvv-Paliwlhcj-Qlvrzy er (Trelegy Ellipta) 100-62.5-25 mcg blister with device Discontinued 1 NMA INHALATION Q24H 60 December 08, 2024 9:21am February 07, 2025 2:26pm Start: 07-11-2024 End: 12-08-2024 Jhcukjlblsi-Uzfqlaxdo-Mohxrg er (Trelegy Ellipta) 100-62.5-25 mcg blister with device Discontinued 1 NMA INHALATION Q24H 60 July 11, 2024 11:42am December 08, 2024 9:21am Start: 05-11-2024 End: 07-11-2024 Tmwrszqtsbt-Texrszwds-Xadubj er (Trelegy Ellipta) 100-62.5-25 mcg blister with device Discontinued 1 NMA INHALATION Q24H 60 May 11, 2024 12:41pm July 11, 2024 11:43am Start: 02-08-2024 End: 05-11-2024 Fxhmbvufhxd-Hwawrkaxn-Swlixn er (Trelegy Ellipta) 100-62.5-25 mcg blister with device Discontinued 1 NMA INHALATION Q24H 60 February 08, 2024 12:51pm May 11, 2024 12:41pm Start: 11-11-2023 End: 12-10-2023 Cmknlrlfxrr-Vcrlfclwu-Sbmxbc er (Trelegy Ellipta) 100-62.5-25 mcg blister with device Discontinued 1 NMA INHALATION Q24H 60 November 11, 2023 9:54am December 10, 2023 12:47pm Start: 11-11-2023 End: 12-10-2023 Zsrkgnugjgq-Tsbheppvu-Jtmrqt er (Trelegy Ellipta) 100-62.5-25 mcg blister with device Discontinued 1 INH INHALATION Q24H 60 November 11, 2023 8:54am December 10, 2023 11:47am Start: 11-11-2023 End: 02-08-2024 Umjxppvgugk-Acmdfbbeo-Xsqfaf er (Trelegy Ellipta) 100-62.5-25 mcg blister with device Discontinued 1 NMA INHALATION Q24H 60 November 11, 2023 9:53am February 08, 2024 12:52pm Start: 11-11-2023 Fluticasone-Um eclidin-Vilanter (Trelegy Ellipta) 100-62.5-25 mcg blister with device Active 1 INH INHALATION Q24H 60 November 11, 2023 8:53am Start: 06-28-2023 End: 10-13-2023 Dgjailzvsfr-Cjkiptpai-Xlffto er (Trelegy Ellipta) 100-62.5-25 mcg blister with device Discontinued 1 NMA INHALATION Q24H 60 June 28, 2023 4:45pm October 13, 2023 2:11pm Start: 06-28-2023 End: 10-13-2023 Nsqbinilumq-Rslhlfzdg-Gsvhin er (Trelegy Ellipta) 100-62.5-25 mcg blister with device Discontinued 1 INH INHALATION Q24H June 28, 2023 3:45pm October 13, 2023 1:11pm Start: 06-28-2023 Fluticasone-Um eclidin-Vilanter (Trelegy Ellipta) 100-62.5-25 mcg blister with device Active 1 INH INHALATION Q24H 60 June 28, 2023 3:45pm Start: 05-31-2023 End: 06-28-2023 Ndnboyyfhqr-Sevkrzwtt-Ntzdwb er (Trelegy Ellipta) 100-62.5-25 mcg blister with device Discontinued 1 NMA INHALATION Q24H 60 May 31, 2023 4:01pm June 28, 2023 4:46pm Start: 05-31-2023 End: 06-28-2023 Aojmgxnvxsg-Ropnnjnrr-Pxgmos er (Trelegy Ellipta) 100-62.5-25 mcg blister with device Discontinued 1 INH INHALATION Q24H 60 May 31, 2023 3:01pm June 28, 2023 3:46pm Start: 05-31-2023 Fluticasone-Um eclidin-Vilanter (Trelegy Ellipta) 100-62.5-25 mcg blister with device Active 1 INH INHALATION Q24H 60 May 31, 2023 4:01pm Start: 05-05-2023 End: 05-31-2023 Itcytbcsapp-Gtewywazj-Hdcbid er (Trelegy Ellipta) 100-62.5-25 mcg blister with device Discontinued 1 NMA INHALATION Q24H 60 May 05, 2023 8:52am May 31, 2023 4:02pm Start: 05-05-2023 End: 05-31-2023 Ajpshszpnmb-Eknvkdyko-Wcxrsf er (Trelegy Ellipta) 100-62.5-25 mcg blister with device Discontinued 1 INH INHALATION Q24H 60 May 05, 2023 7:52am May 31, 2023 3:02pm Start: 05-05-2023 End: 05-31-2023 Rqrjljqvpgo-Vmkfbzuku-Onkwgk er (Trelegy Ellipta) 100-62.5-25 mcg blister with device Discontinued 1 INH INHALATION Q24H 60 May 05, 2023 8:52am May 31, 2023 4:02pm Start: 04-01-2023 End: 05-05-2023 Hhzfecjlguo-Lndnbqpcy-Bcjbkx er (Trelegy Ellipta) 100-62.5-25 mcg blister with device Discontinued 1 NMA INHALATION Q24H 60 April 01, 2023 2:38pm May 05, 2023 8:52am Start: 04-01-2023 End: 05-05-2023 Sucdeoveltp-Biheopcyg-Adfjde er (Trelegy Ellipta) 100-62.5-25 mcg blister with device Discontinued 1 INH INHALATION Q24H 60 April 01, 2023 1:38pm May 05, 2023 7:52am Start: 04-01-2023 End: 05-05-2023 Gkislhtncni-Cxqhdujzh-Yzatkt er (Trelegy Ellipta) 100-62.5-25 mcg blister with device Discontinued 1 INH INHALATION Q24H 60 April 01, 2023 2:38pm May 05, 2023 8:52am Start: 03-03-2023 End: 04-01-2023 Dcqlporabma-Ulzmbmznm-Unsnlp er (Trelegy Ellipta) 100-62.5-25 mcg blister with device Discontinued 1 NMA INHALATION Q24H 60 March 03, 2023 1:13pm April 01, 2023 2:39pm Start: 03-03-2023 End: 04-01-2023 Eldlgdsztwg-Qkhtsdtil-Efdmbv er (Trelegy Ellipta) 100-62.5-25 mcg blister with device Discontinued 1 INH INHALATION Q24H 60 March 03, 2023 12:13pm April 01, 2023 1:39pm Start: 03-03-2023 End: 04-01-2023 Byomhubqfwv-Eafqcjuaf-Mjfich er (Trelegy Ellipta) 100-62.5-25 mcg blister with device Discontinued 1 INH INHALATION Q24H 60 March 03, 2023 1:13pm April 01, 2023 2:39pm Start: 02-01-2023 End: 03-03-2023 Mvhptmhfick-Pnefkdquu-Qcexii er (Trelegy Ellipta) 100-62.5-25 mcg blister with device Discontinued 1 NMA INHALATION Q24H 60 February 01, 2023 5:17pm March 03, 2023 1:13pm Start: 02-01-2023 End: 03-03-2023 Aohpvkasntq-Acajjtfqr-Obzbef er (Trelegy Ellipta) 100-62.5-25 mcg blister with device Discontinued 1 INH INHALATION Q24H 60 February 01, 2023 4:17pm March 03, 2023 12:13pm Start: 02-01-2023 End: 03-03-2023 Okoryhfneqf-Bdhwahqrs-Jyyblq er (Trelegy Ellipta) 100-62.5-25 mcg blister with device Discontinued 1 INH INHALATION Q24H 60 February 01, 2023 5:17pm March 03, 2023 1:13pm Start: 12-31-2022 End: 02-01-2023 Euwekrgmplw-Rjbjtbaxp-Egodvd er (Trelegy Ellipta) 100-62.5-25 mcg blister with device Discontinued 1 NMA INHALATION Q24H 60 December 31, 2022 4:59pm February 01, 2023 5:17pm Start: 12-31-2022 End: 03-13-2023 Piyumdzgzyc-Zwcpqjjyz-Onlxaz er (Trelegy Ellipta) 100-62.5-25 mcg blister with device Discontinued 1 INH INHALATION Q24H 60 December 31, 2022 3:59pm February 01, 2023 4:17pm Start: 12-31-2022 End: 02-01-2023 Svbotxzlwpg-Xwmtdssba-Jsijnt er (Trelegy Ellipta) 100-62.5-25 mcg blister with device Discontinued 1 INH INHALATION Q24H 60 December 31, 2022 4:59pm February 01, 2023 5:17pm Start: 11-30-2022 End: 12-31-2022 Vxmkuejasaj-Fgkysbevv-Jzpuhc er (Trelegy Ellipta) 100-62.5-25 mcg blister with device Discontinued 1 NMA INHALATION Q24H 60 November 30, 2022 12:36pm December 31, 2022 4:59pm Start: 11-30-2022 End: 12-31-2022 Jtmhidtmjpf-Zfqudjbra-Ysuqmv er (Trelegy Ellipta) 100-62.5-25 mcg blister with device Discontinued 1 INH INHALATION Q24H 60 November 30, 2022 11:36am December 31, 2022 3:59pm Start: 11-30-2022 End: 12-31-2022 Zlyllevtvrg-Yxeqndzfn-Nqtwtx er (Trelegy Ellipta) 100-62.5-25 mcg blister with device Discontinued 1 INH INHALATION Q24H 60 November 30, 2022 12:36pm December 31, 2022 4:59pm Start: 11-30-2022 Fluticasone-Um eclidin-Vilanter (Trelegy Ellipta) 100-62.5-25 mcg blister with device Active 1 INH INHALATION Q24H 60 November 30, 2022 11:36am Start: 10-30-2022 End: 11-30-2022 Ljeowilmdvr-Nvybrgudj-Uhaisz er (Trelegy Ellipta) 100-62.5-25 mcg blister with device Discontinued 1 NMA INHALATION Q24H 60 October 30, 2022 1:20pm November 30, 2022 12:36pm Start: 10-30-2022 End: 11-30-2022 Mvuneqmrqgd-Yvebzgdbl-Oaaced er (Trelegy Ellipta) 100-62.5-25 mcg blister with device Discontinued 1 INH INHALATION Q24H October 30, 2022 1:20pm November 30, 2022 12:36pm Start: 10-30-2022 End: 11-30-2022 Zlawkojsgoy-Sgoxopczq-Cyeefh er (Trelegy Ellipta) 100-62.5-25 mcg blister with device Discontinued 1 INH INHALATION Q24H October 30, 2022 12:20pm November 30, 2022 11:36am Start: 10-30-2022 Fluticasone-Um eclidin-Vilanter (Trelegy Ellipta) 100-62.5-25 mcg blister with device Active 1 INH INHALATION Q24H October 30, 2022 12:20pm Start: 09-28-2022 End: 10-30-2022 Yoadfjdwygv-Wqwnsvldt-Fbemwk er (Trelegy Ellipta) 100-62.5-25 mcg blister with device Discontinued 1 NMA INHALATION Q24H 60 September 28, 2022 9:53pm October 30, 2022 1:20pm Start: 09-28-2022 End: 10-30-2022 Tiubtbhbszg-Suqqrhdin-Wvranm er (Trelegy Ellipta) 100-62.5-25 mcg blister with device Discontinued 1 INH INHALATION Q24H September 28, 2022 9:53pm October 30, 2022 1:20pm Start: 09-28-2022 End: 10-30-2022 Idlkxbfgrnp-Xjotqgfrn-Lzzybl er (Trelegy Ellipta) 100-62.5-25 mcg blister with device Discontinued 1 INH INHALATION Q24H September 28, 2022 8:53pm October 30, 2022 12:20pm Start: 08-27-2022 End: 09-28-2022 Cpuphsqpogl-Upspqfckl-Pbfily er (Trelegy Ellipta) 100-62.5-25 mcg blister with device Discontinued 1 NMA INHALATION Q24H August 27, 2022 5:11pm September 28, 2022 9:54pm Start: 08-27-2022 End: 09-28-2022 Xhvrjrkheih-Mpewzupey-Kwwems er (Trelegy Ellipta) 100-62.5-25 mcg blister with device Discontinued 1 INH INHALATION Q24H 60 August 27, 2022 5:11pm September 28, 2022 9:54pm Start: 08-27-2022 End: 09-28-2022 Ruccoeoixlr-Sedusukrt-Ifatao er (Trelegy Ellipta) 100-62.5-25 mcg blister with device Discontinued 1 INH INHALATION Q24H 60 August 27, 2022 4:11pm September 28, 2022 8:54pm Start: 07-28-2022 End: 08-27-2022 Whiyjakshui-Deypbxlhv-Zroykm er (Trelegy Ellipta) 100-62.5-25 mcg blister with device Discontinued 1 NMA INHALATION Q24H 60 July 28, 2022 9:05am August 27, 2022 5:11pm Start: 07-28-2022 End: 08-27-2022 Smltqnrvqje-Gxsdhbbgb-Bdbaon er (Trelegy Ellipta) 100-62.5-25 mcg blister with device Discontinued 1 INH INHALATION Q24H 60 July 28, 2022 9:05am August 27, 2022 5:11pm Start: 07-28-2022 End: 08-27-2022 Wqlehyxsotp-Kgoxgqrzp-Xpkmum er (Trelegy Ellipta) 100-62.5-25 mcg blister with device Discontinued 1 INH INHALATION Q24H 60 July 28, 2022 8:05am August 27, 2022 4:11pm Start: 07-28-2022 Fluticasone-Um eclidin-Vilanter (Trelegy Ellipta) 100-62.5-25 mcg blister with device Active 1 INH INHALATION Q24H July 28, 2022 9:05am Start: 06-29-2022 End: 07-28-2022 Ogjdytubuhc-Rdimvjnog-Dmndyk er (Trelegy Ellipta) 100-62.5-25 mcg blister with device Discontinued 1 NMA INHALATION Q24H 60 June 29, 2022 8:51am July 28, 2022 9:05am Start: 06-29-2022 End: 07-28-2022 Dekndalsdya-Rnlpmfiqd-Vmfolr er (Trelegy Ellipta) 100-62.5-25 mcg blister with device Discontinued 1 INH INHALATION Q24H 60 June 29, 2022 7:51am July 28, 2022 8:05am Start: 06-29-2022 End: 07-28-2022 Xptjpafqxdw-Vlblsvxat-Cwvqeu er (Trelegy Ellipta) 100-62.5-25 mcg blister with device Discontinued 1 INH INHALATION Q24H 60 June 29, 2022 8:51am July 28, 2022 9:05am Start: 06-29-2022 Fluticasone-Um eclidin-Vilanter (Trelegy Ellipta) 100-62.5-25 mcg blister with device Active 1 INH INHALATION Q24H 60 June 29, 2022 8:51am Start: 05-26-2022 End: 06-29-2022 Sddmijghflt-Hsbeapfpf-Xsxonl er (Trelegy Ellipta) 100-62.5-25 mcg blister with device Discontinued 1 NMA INHALATION Q24H 60 May 26, 2022 4:42pm June 29, 2022 8:51am Start: 05-26-2022 End: 06-29-2022 Vrcdvluqywa-Hsytfuxqd-Qvkzme er (Trelegy Ellipta) 100-62.5-25 mcg blister with device Discontinued 1 INH INHALATION Q24H 60 May 26, 2022 3:42pm June 29, 2022 7:51am Start: 05-26-2022 End: 06-29-2022 Veicubirnqs-Lzsasjdfe-Uhkapk er (Trelegy Ellipta) 100-62.5-25 mcg blister with device Discontinued 1 INH INHALATION Q24H 60 May 26, 2022 4:42pm June 29, 2022 8:51am Start: 04-22-2022 End: 05-26-2022 Ugtsorntbgo-Eytoimegw-Kooozk er (Trelegy Ellipta) 100-62.5-25 mcg blister with device Discontinued 1 NMA INHALATION Q24H 60 April 22, 2022 3:40pm May 26, 2022 4:42pm Start: 04-22-2022 End: 05-26-2022 Vevkefosyqt-Cdxsuwcnr-Msvlsk er (Trelegy Ellipta) 100-62.5-25 mcg blister with device Discontinued 1 INH INHALATION Q24H 60 April 22, 2022 2:40pm May 26, 2022 3:42pm Start: 04-22-2022 End: 05-26-2022 Slpznillfzf-Ttckcvpzm-Rgvsuv er (Trelegy Ellipta) 100-62.5-25 mcg blister with device Discontinued 1 INH INHALATION Q24H 60 April 22, 2022 3:40pm May 26, 2022 4:42pm Start: 03-23-2022 End: 04-22-2022 Cpckgtzujby-Tklflltro-Bxvzmq er (Trelegy Ellipta) 100-62.5-25 mcg blister with device Discontinued 1 NMA INHALATION Q24H March 23, 2022 10:52am April 22, 2022 3:40pm Start: 03-23-2022 End: 04-22-2022 Pbtrsofabpx-Dvtfailee-Yetodr er (Trelegy Ellipta) 100-62.5-25 mcg blister with device Discontinued 1 INH INHALATION Q24H March 23, 2022 9:52am April 22, 2022 2:40pm Start: 03-23-2022 End: 04-22-2022 Ipchilehvsz-Jtrwnhfey-Sgnqiz er (Trelegy Ellipta) 100-62.5-25 mcg blister with device Discontinued 1 INH INHALATION Q24H March 23, 2022 10:52am April 22, 2022 3:40pm Start: 03-23-2022 Fluticasone-Um eclidin-Vilanter (Trelegy Ellipta) 100-62.5-25 mcg blister with device Active 1 INH INHALATION Q24H March 23, 2022 10:52am Start: 02-24-2022 End: 03-23-2022 Iuixthqwjpd-Lckvgmgsk-Imxaav er (Trelegy Ellipta) 100-62.5-25 mcg blister with device Discontinued 1 NMA INHALATION Q24H 60 February 24, 2022 11:22am March 23, 2022 10:52am Start: 02-24-2022 End: 03-23-2022 Omghjatoxez-Exanbgvnn-Quctnu er (Trelegy Ellipta) 100-62.5-25 mcg blister with device Discontinued 1 INH INHALATION Q24H 60 February 24, 2022 10:22am March 23, 2022 9:52am Start: 02-24-2022 End: 03-23-2022 Mpsqoakwehq-Ykemefdkm-Slljlc er (Trelegy Ellipta) 100-62.5-25 mcg blister with device Discontinued 1 INH INHALATION Q24H 60 February 24, 2022 11:22am March 23, 2022 10:52am Start: 12-23-2021 End: 02-24-2022 Ldwnlevqbdd-Namlrpbgl-Vlhvrw er (Trelegy Ellipta) 100-62.5-25 mcg blister with device Discontinued 1 NMA INHALATION Q24H 60 December 23, 2021 9:04am February 24, 2022 11:22am Start: 12-23-2021 End: 02-24-2022 Boewnnjaevn-Hzbqzrane-Ddnmno er (Trelegy Ellipta) 100-62.5-25 mcg blister with device Discontinued 1 INH INHALATION Q24H 60 December 23, 2021 8:04am February 24, 2022 10:22am Start: 12-23-2021 End: 02-24-2022 Bwgwxdjoiyv-Wbgglzdxm-Agxgml er (Trelegy Ellipta) 100-62.5-25 mcg blister with device Discontinued 1 INH INHALATION Q24H 60 December 23, 2021 9:04am February 24, 2022 11:22am Start: 10-17-2021 End: 12-23-2021 Pvmasprlsof-Qhuqwycqe-Cbnzjr er (Trelegy Ellipta) 100-62.5-25 mcg blister with device Discontinued 1 NMA INHALATION Q24H 60 October 17, 2021 11:02am December 23, 2021 9:04am Start: 10-17-2021 End: 12-23-2021 Rhyrjtfeghz-Bnjuhwvba-Mqslwq er (Trelegy Ellipta) 100-62.5-25 mcg blister with device Discontinued 1 INH INHALATION Q24H 60 October 17, 2021 10:02am December 23, 2021 8:04am Start: 10-17-2021 End: 12-23-2021 Vrcrdxiikcj-Kawiifxln-Xuutol er (Trelegy Ellipta) 100-62.5-25 mcg blister with device Discontinued 1 INH INHALATION Q24H 60 October 17, 2021 11:02am December 23, 2021 9:04am Start: 08-04-2021 End: 10-17-2021 Arzyuhohicu-Xtkntxtyo-Ilvnlm er (Trelegy Ellipta) 100-62.5-25 mcg blister with device Discontinued 1 INH INHALATION Q24H 60 August 04, 2021 10:07am October 17, 2021 11:02am Start: 08-04-2021 End: 10-17-2021 Cfaxowbatgs-Ibtsvcomk-Kfiozu er (Trelegy Ellipta) 100-62.5-25 mcg blister with device Discontinued 1 NMA INHALATION Q24H 60 August 04, 2021 12:00am October 17, 2021 11:02am Start: 08-04-2021 End: 10-17-2021 Umpyujdwign-Evzvidvqs-Gqpqhe er (Trelegy Ellipta) 100-62.5-25 mcg blister with device Discontinued 1 INH INHALATION Q24H 60 August 03, 2021 11:00pm October 17, 2021 10:02am Start: 08-04-2021 End: 10-17-2021 Fyqxcrsrwpb-Latdxwvfa-Gccfcg er (Trelegy Ellipta) 100-62.5-25 mcg blister with device Discontinued 1 INH INHALATION Q24H 60 August 04, 2021 12:00am October 17, 2021 11:02am lisinopril 10 mg oral tablet (13 sources) Angiotensin Converting Enzyme Inhibitor Start: 09-14-2024 take 1 tablet by mouth once daily Lisinopril 10 mg tablet Active 10 mg PO DAILY September 14, 2024 12:00am Start: 06-17-2021 End: 06-19-2021 take 1 tablet by mouth once daily Lisinopril 10 mg tablet Discontinued 10 mg PO DAILY June 17, 2021 12:00am June 19, 2021 12:58pm magnesium oxide 400 mg oral tablet (20 sources) Start: 06-25-2023 take 1 tablet by mouth once daily Magnesium Oxide 400 mg (241.3 mg magnesium) tablet Active 0 .ROUTE .COMPLEX 90 June 25, 2023 7:02pm TAKE 1 TABLET BY MOUTH EVERY DAY Start: 06-26-2021 End: 06-25-2023 take 1 tablet by mouth once daily Magnesium Oxide 400 mg magnesium tablet Discontinued 400 mg PO DAILY 60 December 31, 2022 4:59pm June 25, 2023 7:02pm 24 hr metoprolol succinate 50 mg extended release oral tablet (20 sources) beta-Adrenergic Wilfrid Start: 03-27-2024 End: 04-12-2025 take 1 tablet by mouth once daily Metoprolol Succinate 50 mg tablet extended release 24 hr Active 50 mg PO DAILY April 12, 2025 11:42am Start: 03-03-2024 End: 03-24-2024 take 1 tablet by mouth once daily Metoprolol Succinate 50 mg tablet extended release 24 hr Discontinued 50 mg PO DAILY March 03, 2024 12:00am March 24, 2024 3:04pm Start: 07-17-2021 End: 07-21-2021 take 1 tablet by mouth twice daily Metoprolol Tartrate 50 mg tablet Discontinued 50 mg PO TWICE A DAY 60 July 17, 2021 9:45am July 21, 2021 8:35am Multivitamin preparation (9 sources) Start: 10-28-2021 take 1 tablet by mouth once daily Multivitamin Active 1 TABLET PO DAILY October 28, 2021 11:00am Start: 10-28-2021 take 1 tablet by hanh th once daily Multivitamin Active 1 TABLET PO DAILY October 28, 2021 12:00am Start: 10-28-2021 take 1 tablet by hanh th once daily Multivitamin Active 1 TABLET PO DAILY October 28, 2021 1:00am Multivitamin tablet (2 sources) Start: 10-28-2021 Multivitamin tablet Active 1 {tbl} PO DAILY October 28, 2021 1:00am traZODone hydrochloride 50 mg oral tablet (20 sources) Serotonin Reuptake Inhibitor Start: 11-05-2023 End: 12-08-2023 take 1 tablet by mouth at bedtime as needed Trazodone Active 0 .ROUTE .COMPLEX 60 December 08, 2023 9:47pm TAKE 1 TABLET BY MOUTH AT BEDTIME NEEDED FOR INSOMNIA Start: 07-16-2021 End: 04-17-2025 take 1 tablet by mouth at bedtime as needed Trazodone 50 mg tablet Active 0 .ROUTE .COMPLEX 90 April 17, 2025 10:34am TAKE 1 TABLET BY MOUTH AT BEDTIME NEEDED FOR INSOMNIA Start: 06-20-2021 End: 06-23-2021 take 1 tablet by mouth at bedtime as needed Trazodone 50 mg tablet Discontinued 50 mg PO AT BEDTIME as needed for insomnia June 20, 2021 12:00am June 23, 2021 9:04am Zinc (11 sources) Start: 10-28-2021 take 50 mg by mouth once daily Zinc Active 50 MG PO DAILY October 28, 2021 11:01am Start: 10-28-2021 take 1 tablet by mouth once da alyssa Zinc 50 mg tablet Active 50 mg PO DAILY October 28, 2021 1:00am Start: 10-28-2021 take 50 mg by mouth once daily Zinc Active 50 MG PO DAILY October 28, 2021 12:00am Start: 10-28-2021 take 50 mg by mouth once daily Zinc Active 50 MG PO DAILY October 28, 2021 1:00am Completed/Discontinued Medications Medication Drug Class(es) Dates Sig (Normalized) Sig (Original) amLODIPine 5 mg oral tablet (11 sources) Dihydropyridine Calcium Channel Wilfrid Start: 08-09-2020 End: 06-17-2021 take 1 tablet by mouth once daily Amlodipine 5 MG tablet Discontinued 5 mg PO DAILY August 09, 2020 12:00am June 17, 2021 9:29am amoxicillin 875 mg / clavulanate 125 mg oral tablet (2 sources) Penicillin-class Antibacterial Start: 01-12-2025 End: 03-30-2025 Amoxicillin-Pot Clavulanate 875-125 mg tablet Discontinued 1 {tbl} PO TWICE A DAY January 12, 2025 1:00am March 30, 2025 10:22am apixaban 5 mg oral tablet (10 sources) Factor Xa Inhibitor Start: 06-20-2024 End: 02-09-2025 take 1 tablet by mouth twice daily Apixaban (Eliquis) 5 mg tablet Discontinued 5 mg PO TWICE A DAY 60 December 06, 2024 10:23am February 09, 2025 9:47am Start: 03-03-2024 End: 03-24-2024 take 1 tablet by mouth twice daily Apixaban (Eliquis) 5 mg tablet Discontinued 5 mg PO TWICE A DAY 60 March 03, 2024 12:00am March 24, 2024 3:04pm aspirin 81 mg delayed release oral tablet (20 sources) Platelet Aggregation Inhibitor, Nonsteroidal Anti-inflammatory Drug Start: 10-27-2024 End: 04-30-2025 take 1 tablet by mouth once daily Aspirin (Adult Aspirin Regimen) 81 mg tablet,delayed release (DR/EC) Discontinued 81 mg PO daily October 27, 2024 1:00am April 30, 2025 11:37am Start: 09-14-2024 End: 10-06-2024 take 1 tablet by mouth once daily Aspirin (Adult Aspirin Regimen) 81 mg tablet,delayed release (DR/EC) Discontinued 81 mg PO daily September 14, 2024 12:00am October 06, 2024 12:15pm Start: 06-19-2021 End: 07-21-2021 take 1 tablet by mouth once daily Aspirin 81 mg Tablet,Chewable Discontinued 81 mg PO DAILY@0800 60 June 19, 2021 12:00am July 21, 2021 8:34am On Hold: Order Changed Start: 08-09-2020 End: 06-17-2021 take 1 tablet by mouth once daily Aspirin 81 MG tablet,chewable Discontinued 81 mg PO DAILY@0800 1 August 09, 2020 12:00am June 17, 2021 9:29am atorvastatin 20 mg oral tablet (20 sources) HMG-CoA Reductase Inhibitor Start: 06-19-2021 End: 02-16-2025 take 1 tablet by mouth once daily at bedtime Atorvastatin 20 mg tablet Discontinued 0 .ROUTE .COMPLEX October 24, 2024 5:38pm February 16, 2025 4:38pm TAKE 1 TABLET BY MOUTH EVERYDAY AT BEDTIME Start: 08-09-2020 End: 06-17-2021 take 1 tablet by mouth at bedtime Atorvastatin 40 MG tablet Discontinued 40 mg PO AT BEDTIME August 09, 2020 12:00am June 17, 2021 9:29am azithromycin 250 mg oral tablet (20 sources) Macrolide Antimicrobial Start: 06-30-2022 End: 12-18-2022 take 2-5 tablets by mouth once daily Azithromycin (Zithromax Z-Wisam) 250 mg tablet Discontinued 0 PO .COMPLEX 6 October 26, 2022 10:58am December 18, 2022 4:23pm take 500 mg today (day 1), then 250 mg for 4 days (days 2-5) PO Start: 04-10-2022 End: 06-10-2022 take 2-5 tablets by mouth once daily Azithromycin (Zithromax Z-Wisam) 250 mg tablet Discontinued 0 PO .COMPLEX 6 April 10, 2022 12:00am June 10, 2022 4:28pm take 500 mg today (day 1), then 250 mg for 4 days (days 2-5) PO benzonatate 200 mg oral capsule (19 sources) Non-narcotic Antitussive Start: 10-26-2022 End: 12-18-2022 take 1 capsule by mouth three times daily as needed for cough Benzonatate 200 mg capsule Discontinued 200 mg PO THREE TIMES A DAY as needed for cough 60 October 26, 2022 10:59am December 18, 2022 4:25pm Start: 04-10-2022 End: 06-10-2022 take 1 capsule by mouth three times daily as needed for cough Benzonatate 200 mg capsule Discontinued 200 mg PO THREE TIMES A DAY as needed for cough 60 April 10, 2022 12:00am June 10, 2022 4:29pm Budesonide-Formoterol (11 sources) Corticosteroid, beta2-Adrenergic Agonist Start: 06-17-2021 End: 08-04-2021 take 1 puff(s) by inhalation twice daily Budesonide-Formoterol (Symbicort) 160-4.5 mcg/actuation HFA aerosol inhaler Discontinued 2 PUFF INHALATION TWICE A DAY 10.2 June 17, 2021 10:48am August 04, 2021 10:08am Start: 06-17-2021 End: 08-04-2021 Budesonide-Formoterol (Symbi efrem) 160-4.5 mcg/actuation HFA aerosol inhaler Discontinued 2 NMA INHALATION TWICE A DAY 10.2 June 17, 2021 12:00am August 04, 2021 10:08am Start: 06-17-2021 End: 08-04-2021 take 1 puff(s) by inhalation twice daily Budesonide-Formoterol (Symbicort) 160-4.5 mcg/actuation HFA aerosol inhaler Discontinued 2 PUFF INHALATION TWICE A DAY 10.2 June 16, 2021 11:00pm August 04, 2021 9:08am Start: 06-17-2021 End: 08-04-2021 take 1 puff(s) by inhalation twice daily Budesonide-Formoterol (Symbicort) 160-4.5 mcg/actuation HFA aerosol inhaler Discontinued 2 PUFF INHALATION TWICE A DAY 10.2 June 17, 2021 12:00am August 04, 2021 10:08am Haaccuyfxl-Fpxwuhyr-Kbdqjczp ol (4 sources) Corticosteroid, beta2-Adrenergic Agonist Start: 10-13-2023 End: 12-10-2023 Uraooflxjp-Majekqby-Dvmwctet ol (Breztri Aerosphere) 160-9-4.8 mcg/actuation HFA aerosol inhaler Discontinued 2 NMA INHALATION TWICE A DAY 10.7 October 13, 2023 1:00am December 10, 2023 12:48pm Start: 10-13-2023 End: 12-10-2023 Xjragzlocw-Ubuyicvg-Renkmgjl ol (Breztri Aerosphere) 160-9-4.8 mcg/actuation HFA aerosol inhaler Discontinued 2 INH INHALATION TWICE A DAY 10.7 October 13, 2023 12:00am December 10, 2023 11:48am dexamethasone 6 mg oral tablet (10 sources) Corticosteroid Start: 06-30-2022 End: 10-26-2022 take 1 tablet by mouth once daily Dexamethasone 6 mg tablet Discontinued 6 mg PO DAILY June 30, 2022 12:00am October 26, 2022 10:58am dutasteride 0.5 mg oral capsule (11 sources) 5-alpha Reductase Inhibitor Start: 08-08-2020 End: 06-17-2021 take 1 capsule by mouth once daily Dutasteride 0.5 MG capsule Discontinued 0.5 mg PO DAILY August 08, 2020 12:00am June 17, 2021 9:29am elderberry fruit 200 mg oral capsule (11 sources) Start: 10-28-2021 End: 03-03-2024 take 1 capsule by mouth three times daily Elderberry Fruit 200 mg capsule Discontinued 200 mg PO THREE TIMES A DAY October 28, 2021 1:00am March 03, 2024 11:06am ferrous sulfate 325 mg oral tablet (20 sources) Start: 07-21-2021 End: 11-23-2024 take 1 tablet by mouth every other day Ferrous Sulfate 325 mg (65 mg iron) tablet Discontinued 325 mg PO every other day July 25, 2024 12:37pm November 23, 2024 12:52pm folic acid 1 mg oral tablet (20 sources) Start: 06-19-2021 End: 02-20-2025 take 1 tablet by mouth once daily Folic Acid 1 mg tablet Discontinued 0 .ROUTE .COMPLEX August 23, 2024 12:52pm February 20, 2025 12:26pm TAKE 1 TABLET BY MOUTH EVERY DAY @ 08:00 gabapentin 100 mg oral capsule (20 sources) Anti-epileptic Agent Start: 07-09-2021 End: 03-05-2025 take 1 capsule by mouth three times daily Gabapentin 100 mg capsule Discontinued 100 mg PO THREE TIMES A DAY February 20, 2025 12:26pm March 05, 2025 2:44pm Start: 06-17-2021 End: 07-09-2021 take 1 capsule by mouth once daily Gabapentin 100 mg capsule Discontinued 100 mg PO DAILY July 08, 2021 4:28pm July 09, 2021 2:05am guaiFENesin 400 mg oral tablet (11 sources) Start: 04-10-2022 End: 06-10-2022 take 1 tablet by mouth three times daily as needed for cough Guaifenesin 400 mg tablet Discontinued 400 mg PO THREE TIMES A DAY as needed for congestion, cough 60 April 10, 2022 12:00am June 10, 2022 4:29pm hydroCHLOROthiazide 25 mg oral tablet (11 sources) Thiazide Diuretic Start: 06-17-2021 End: 06-19-2021 take 1 tablet by mouth once daily Hydrochlorothiazide 25 mg tablet Discontinued 25 mg PO DAILY June 17, 2021 12:00am June 19, 2021 12:58pm lansoprazole 30 mg delayed release oral capsule (20 sources) Proton Pump Inhibitor Start: 06-23-2021 End: 12-05-2024 take 1 capsule by mouth once daily Lansoprazole 30 mg capsule,delayed release(DR/EC) Discontinued 30 mg PO DAILY October 02, 2024 5:59pm December 05, 2024 3:01pm Nirmatrelvir-Ritonavir (10 sources) Start: 06-29-2022 End: 08-27-2022 Nirmatrelvir-Ritonavir (Paxlovid (Eua)) 150-100 mg tablets,dose pack Discontinued 0 PO per package directions June 29, 2022 12:00am August 27, 2022 5:11pm PO PER PKG DIR Take with food. Hold Atorvastatin and Trazodone x 7 days. Start: 06-29-2022 End: 08-27-2022 Nirmatrelvir-Ritonavir (Paxl ovid (Eua)) 150-100 mg tablets,dose pack Discontinued 0 PO per package directions June 28, 2022 11:00pm August 27, 2022 4:11pm PO PER PKG DIR Take with food. Hold Atorvastatin and Trazodone x 7 days. Start: 06-29-2022 Nirmatrelvir-R itonavir (Paxlovid (Eua)) 150-100 mg tablets,dose pack Active 0 PO per package directions June 29, 2022 12:00am PO PER PKG DIR Take with food. Hold Atorvastatin and Trazodone x 7 days. omeprazole 20 mg delayed release oral capsule (11 sources) Proton Pump Inhibitor Start: 08-08-2020 End: 06-23-2021 take 2 capsules by mouth once daily Omeprazole 20 MG capsule,delayed release(DR/EC) Discontinued 40 mg PO DAILY August 08, 2020 12:00am June 23, 2021 9:24am Start: 08-08-2020 End: 06-23-2021 take 40 mg by mouth once daily Omeprazole Discontinued 40 MG PO DAILY August 07, 2020 11:00pm June 23, 2021 8:24am potassium chloride 20 meq extended release oral tablet (20 sources) Start: 10-28-2021 End: 11-23-2024 take 1 tablet by mouth twice daily Potassium Chloride (K-Tab) 20 mEq tablet extended release Discontinued 20 meq PO TWICE A DAY June 28, 2024 4:26pm November 23, 2024 12:52pm Start: 07-09-2021 End: 10-28-2021 take 2 tablets by mouth twice daily Potassium Chloride (K-Tab) 20 mEq tablet extended release Discontinued 40 meq PO TWICE A DAY 240 July 16, 2021 7:59am July 21, 2021 8:36am Start: 06-19-2021 End: 07-09-2021 take 1 tablet by mouth twice daily Potassium Chloride (K-Tab) 20 mEq tablet extended release Discontinued 20 meq PO TWICE A DAY 60 July 08, 2021 4:29pm July 09, 2021 2:12am predniSONE 20 mg oral tablet (20 sources) Start: 12-29-2024 End: 03-30-2025 take 2 tablets by mouth once daily Prednisone 20 mg tablet Discontinued 40 mg PO daily December 29, 2024 1:00am March 30, 2025 10:22am Start: 10-26-2022 End: 12-18-2022 take 2 tablets by mouth once daily at mealtime Prednisone 20 mg tablet Discontinued 40 mg PO DAILY October 26, 2022 1:00am December 18, 2022 4:25pm Take with food. Avoid NSAIDS. Start: 10-26-2022 End: 12-18-2022 take 40 mg by mouth once daily at mealtime Prednisone Discontinued 40 MG PO DAILY October 26, 2022 12:00am December 18, 2022 3:25pm Take with food. Avoid NSAIDS. Start: 04-10-2022 End: 06-10-2022 take 2 tablets by mouth once daily Prednisone 20 mg tablet Discontinued 40 mg PO DAILY April 10, 2022 12:00am June 10, 2022 4:29pm Start: 04-10-2022 End: 06-10-2022 take 40 mg by mouth once daily Prednisone Discontinued 40 MG PO DAILY April 09, 2022 11:00pm June 10, 2022 3:29pm psyllium 520 mg oral capsule (2 sources) Start: 03-24-2024 End: 04-30-2025 Psyllium Husk (Daily Fiber) 0.52 gram capsule Discontinued 0.52 g PO DAILY March 24, 2024 12:00am April 30, 2025 11:39am sertraline 25 mg oral tablet (11 sources) Serotonin Reuptake Inhibitor Start: 06-17-2021 End: 06-23-2021 take 1 tablet by mouth at bedtime Sertraline 25 mg tablet Discontinued 25 mg PO AT BEDTIME June 17, 2021 12:00am June 23, 2021 9:04am has not started thiamine 100 mg oral tablet (20 sources) Start: 06-19-2021 End: 04-12-2025 take 1 tablet by mouth once daily Thiamine Hcl (Vitamin B1) 100 mg tablet Discontinued 100 mg PO DAILY April 12, 2025 1:44pm April 12, 2025 9:26pm Problems Active Problems Problem Classification Problem Date Documented Date Episodic/Chronic Abdominal hernia (12 sources) Umbilical hernia; Translations: [Umbilical hernia without obstruction or gangrene] Episodic Abdominal pain (2 sources) Unspecified abdominal pain; Translations: [Abdominal pain, unspecified site] Episodic Acute and unspecified renal failure (11 sources) Injury of kidney; Translations: [Acute kidney failure, unspecified] 06-17-2021 Episodic Alcohol-related disorders (20 sources) Alcohol abuse; Translations: [Alcohol abuse, uncomplicated] Onset: 11-16-2024 Chronic Comment on above: The patient was coun seled briefly on his alcohol use and explained that continued alcohol exposure will increase his risk of subsequent atrial fibrillation should we convert him back to sinus rhythm. Cardiac dysrhythmias (20 sources) Irregular heart beat; Translations: [Cardiac arrhythmia, unspecified] Onset: 10-27-2024 06-17-2021 Chronic Chronic obstructive pulmonary disease and bronchiectasis (20 sources) Chronic obstructive lung disease; Translations: [Chronic obstructive pulmonary disease, unspecified] Chronic Chronic obstructive pulmonary disease and bronchiectasis (2 sources) Bronchitis, not specified as acute or chronic; Translations: [Bronchitis, not specified as acute or chronic] Episodic Deficiency and other anemia (11 sources) Anemia; Translations: [Anemia, unspecified] 12-09-2021 Episodic Diabetes mellitus without complication (20 sources) Prediabetes; Translations: [Prediabetes] Onset: 04-10-2025 Episodic Disorders of lipid metabolism (16 sources) Hyperlipidemia; Translations: [Hyperlipidemia, unspecified] Onset: 10-06-2024 Chronic Esophageal disorders (17 sources) Gastroesophageal reflux disease; Translations: [Gastro-esophageal reflux disease without esophagitis] Onset: 04-10-2025 12-09-2021 Chronic Essential hypertension (20 sources) Essential hypertension; Translations: [Essential (primary) hypertension] Onset: 04-10-2025 Chronic Fluid and electrolyte disorders (11 sources) Hypokalemia; Translations: [Hypokalemia] 06-23-2021 Episodic Hyperplasia of prostate (9 sources) Benign prostatic hyperplasia; Translations: [Benign prostatic hyperplasia without lower urinary tract symptoms] Onset: 10-06-2024 12-18-2022 Chronic Mood disorders (11 sources) Depressive disorder; Translations: [Depression] 06-17-2021 Chronic Open wounds of extremities (2 sources) Laceration without foreign body of left upper arm, initial encounter; Translations: [Open wound of upper arm, without mention of complication] Episodic Other connective tissue disease (8 sources) Diastasis recti; Translations: [Separation of muscle (nontraumatic), other site] 11-07-2022 Episodic Other connective tissue disease (2 sources) Separation of muscle (nontraumatic), other site; Translations: [Diastasis of muscle] Episodic Other connective tissue disease (4 sources) Suspected respiratory disease; Translations: [Other symptoms and signs involving the nervous system] 06-08-2024 Episodic Other hematologic conditions (11 sources) Raised cardiac enzyme or marker; Translations: [Other specified abnormalities of plasma proteins] 06-25-2021 Episodic Other liver diseases (3 sources) Non-alcoholic fatty liver; Translations: [Fatty (change of) liver, not elsewhere classified] Chronic Other liver diseases (8 sources) Fatty (change of) liver, not elsewhere classified; Translations: [Nonalcoholic fatty liver disease] 06-19-2021 Chronic Other liver diseases (11 sources) Cardiac enzymes abnormal; Translations: [Abnormal levels of other serum enzymes] 06-25-2021 Episodic Other lower respiratory disease (11 sources) Dyspnea; Translations: [Shortness of breath] 07-21-2021 Episodic Other lower respiratory disease (6 sources) Nodule of lung; Translations: [Solitary pulmonary nodule] 10-13-2023 Episodic Other nutritional; endocrine; and metabolic disorders (2 sources) Obesity; Translations: [Obesity, unspecified] 10-11-2024 Chronic Other nutritional; endocrine; and metabolic disorders (11 sources) Unintentional weight loss; Translations: [Abnormal weight loss] 06-17-2021 Episodic Other nutritional; endocrine; and metabolic disorders (4 sources) Overweight; Translations: [Overweight] 10-11-2024 Episodic Other skin disorders (2 sources) Disorder of skin of upper limb; Translations: [Disorder of the skin and subcutaneous tissue, unspecified] 06-08-2024 Episodic Other upper respiratory infections (5 sources) Sinusitis; Translations: [Chronic sinusitis, unspecified] Onset: 04-10-2025 03-30-2025 Chronic Poisoning by nonmedicinal substances (2 sources) Insect sting; Translations: [Toxic effect of venom of other arthropod, accidental (unintentional), initial encounter] 06-08-2024 Episodic Residual codes; unclassified (4 sources) Hypersomnia; Translations: [Hypersomnia, unspecified] 12-10-2023 Chronic Residual codes; unclassified (2 sources) Hypersomnia, unspecified; Translations: [Hypersomnia, unspecified] 12-10-2023 Chronic Residual codes; unclassified (12 sources) Tobacco user; Translations: [Tobacco use] 06-17-2021 Episodic Residual codes; unclassified (2 sources) Tobacco use; Translations: [Tobacco use disorder] Episodic Residual codes; unclassified (2 sources) Bilateral lower limb edema; Translations: [Localized edema] 06-08-2024 Episodic Spondylosis; intervertebral disc disorders; other back problems (8 sources) Lumbar radiculopathy; Translations: [Radiculopathy, lumbar region] 12-18-2022 Episodic Substance-related disorders (20 sources) Cigarette smoker ; Translations: [Nicotine dependence, cigarettes, uncomplicated] Onset: 04-30-2025 Chronic Unclassified (1 source) Other persistent atrial fibrillation; Translations: [Other persistent atrial fibrillation] Onset: 04-10-2025 Viral infection (2 sources) COVID-19; Translations: [Other specified viral infection] Episodic Past or Other Problems Problem Classification Problem Date Documented Da te Episodic/Chronic Other connective tissue disease (1 source) Other symptoms and signs involving the nervous system; Translations: [Other symptoms and signs involving the nervous system] Onset: 12-02-2024 Episodic Other lower respiratory disease (3 sources) Solitary pulmonary nodule; Translations: [Solitary pulmonary nodule] Onset: 05-29-2024 10-13-2023 Episodic Other screening for suspected conditions (not mental disorders or infectious disease) (20 sources) Patient encounter status; Translations: [Encounter for screening for malignant neoplasm of respiratory organs] Onset: 06-08-2024 Episodic Other skin disorders (1 source) Disorder of the skin and subcutaneous tissue, unspecified; Translations: [Disorder of the skin and subcutaneous tissue, unspecified] Onset: 06-08-2024 Episodic Other upper respiratory infections (5 sources) Acute upper respiratory infection, unspecified; Translations: [Acute upper respiratory infections of unspecified site] Onset: 01-19-2025 Episodic Results Test Name Value Interpretation Reference Range Facility Cardiology Visit Reporton Cardiology Visit Report [facility] [address] [place] [address] OFFICE VISIT Date of Service: 04/30/25 MR#: [id number] Acct: [id number] Name: TRACEY IVERSON Rep #: [id number] 20 : 1955 Provider: MORALES us Age/Sex: 69/M Location: [facility] [place] Status: Signed HPI HPI History of Present Illness Details: Patient is a 69-year-old white male that comes in with his today for cardiovascular monitoring. There is specifically here to discuss treatment options for atrial fibrillation. He denies chest, arm, jaw, or neck discomfort. He denies palpitations. He denies bilateral lower extremity edema. He denies claudication. He states shortness of breath with activity. He denies shortness of breath at rest, orthopnea, or PND. He denies chronic cough. He denies significant, sudden weight gain. He denies lightheadedness, dizziness, near-syncope, or syncope. He denies blood in urine, blood in stool, or epistaxis. He denies fever with chills. He denies myalgia. He denies fatigue. His exercise level has remained stable. 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 Accompanied by: Self Is patient in pain?: No Allergies venom-wasp (wasp sting) Allergy (Verified 04/30/25 11:35) Swelling Medications ???Medication ???Instructions ???Recorded ???Confirmed ???Type multivitamin 1 tab PO DAILY 10/28/21 04/30/25 H istory zinc 50 mg tablet 50 mg PO DAILY 10/28/21 04/30/25 H istory magnesium oxide 400 mg (241.3 mg See Rx Instructions .Route 3 04/30/25 Rx magnesium) tablet .COMPLEX #90 tabs ascorbic acid (vitamin C) 500 mg 1 g PO DAILY 03/24/24 04/30/25 His tory tablet epinephrine 0.3 mg/0.3 mL 0.3 mg (0.3 mL) IM Q5-15M PRN 05/2204/30/25 Rx injection, auto-injector (EpiPen anaphylaxis #2 ea 2-Wisam) lisinopril 10 mg tablet 10 mg PO DAILY #30 tabs 09/14/24 0 04/30/25 Rx albuterol sulfate 90 mcg/actuation 2 puff inhalation Q4H PRN 04/30/25 Rx aerosol inhaler shortness of breath or wheezing #8.5 grams ferrous sulfate 325 mg (65 mg 325 mg PO Q OTHER DAY #60 tabs 01/1604/30/25 Rx iron) tablet potassium chloride 20 mEq 20 meq PO BID #180 tabs 11/23/24 0 04/30/25 Rx tablet,extended release (K-Tab) lansoprazole 30 mg capsule,delayed 30 mg PO DAILY #90 caps 12/05/24 04/30/25 Rx release apixaban 5 mg tablet (Eliquis) 5 mg PO .COMPLEX #14 tabs 02/09/25 04/30/25 Rx atorvastatin 20 mg tablet 20 mg PO QHS #90 TABLETS 02/16/25 04/30/25 Rx folic acid 1 mg tablet See Rx Instructions .Route 5 04/30/25 Rx .COMPLEX #90 tabs gabapentin 100 mg capsule 100 mg PO TID NERVE PAIN #90 caps 03/05/25 04/30/25 Rx metoprolol succinate 50 mg 50 mg PO DAILY #30 tabs 04/12/25 0 04/30/25 Rx tablet,extended release 24 hr thiamine HCl (vitamin B1) 100 mg 100 mg PO DAILY #90 tabs 04/12/25 04/30/25 Rx tablet fluticasone fur. 100 mcg-umeclid 1 inh inhalation Q24H #60 ea 04/1704/30/25 Rx 62.5 mcg-vilant 25 mcg inhalat.powder (Trelegy Ellipta) trazodone 50 mg tablet See Rx Instructions .Route 5 04/30/25 Rx .COMPLEX #90 tabs cholecalciferol (vitamin D3) 25 125 mcg PO DAILY 04/30/25 04/30/25 History mcg (1,000 unit) tablet Have you fallen in the past year?: No PFSH Medical History Sinusitis URI (upper respiratory infection) Essential hypertension Atrial fibrillation Alcoholic liver disease, unspecified Lumbar radiculopathy BPH (benign prostatic hyperplasia) Hyperlipidemia Anemia Shortness of breath Tobacco use disorder, continuous Encounter for screening for malignant neoplasm of lung in current smoker with 30 pack year history or greater Kidney disease Hypokalemia Colon cancer screening Borderline type 2 diabetes mellitus Smoking greater than 40 pack years NAFLD (nonalcoholic fatty liver disease) PVC (premature ventricular contraction) Abnormal cardiac enzyme level Smoker COPD (chronic obstructive pulmonary disease) Depression Tobacco abuse Unintentional weight loss Surgical History H/O: knee surgery Family History Brother Cancer pancreatic cancer Father Alcoholism Social History Smoking Status: Former smoker Tobacco: How many years used: 48 how long ago did patient quit smokin11/20/23 alcohol (more content not included)... Normal [facility] Absolute lymphocyte countOrd ered By: Falguni Beasley on 03-30-2025 Lymphocytes Auto (Unsp spec) [#/Vol] 0.98 10*3/uL 0.83-4.51 [facility] Absolute neutrophil countOrd ered By: Falguni Beasley on 03-30-2025 Neutrophils (Bld) [#/Vol] 6.8 10*3/uL 2.0-7.7 [facility] Automated lymphocyte count a s percentage of total leukocytesOrdered By: Falguni Beasley on 03-30-2025 Lymphocytes/100 WBC Auto (Unsp spec) 11.0 % Low 19-41 [facility] Basophil percentageOrdered B y: Falguni Beasley on 03-30-2025 Basophils/100 WBC (Bld) 0.7 % 0-1 [facility] CBC W/Diff, Automatedon Absolute Lymph 0.98 X10 3/uL Normal 0.83-4.51 [facility] Comment on above: Performed By: #### L 100.0100, L501.9985 ####[facility] [address] [place], [address] Absolute Neut 6.8 X10 3/uL Normal 2.0-7.7 [facility] Comment on above: Performed By: #### L 100.0100, L501.9985 ####[facility] [address] [place], [address] Basophils/100 WBC (Bld) 0.7 % Normal 0-1 [facility] Comment on above: Performed By: #### L 100.0100, L501.9985 ####[facility] [address] [place], [address] Eosinophils/100 WBC (Bld) 1.9 % Normal 0-5 [facility] Comment on above: Performed By: #### L 100.0100, L501.9985 ####[facility] [address] [place], [address] Erythrocyte distribution width (RBC) [Ratio] 13.0 % Normal 11.6-14.6 [facility] Comment on above: Performed By: #### L 100.0100, L501.9985 ####[facility] [address] [place], [address] Hematocrit (Bld) [Volume fraction] 44.2 % Normal 40-54 [facility] Comment on above: Performed By: #### L 100.0100, L501.9985 ####[facility] [address] [place], [address] Hemoglobin (Bld) [Mass/Vol] 15.1 g/dL Normal 13.0-16.5 [facility] Comment on above: Performed By: #### L 100.0100, L501.9985 ####[facility] [address] [place], [address] IG% 0.700 Normal 0.0-0.9 [facility] Comment on above: Result Comment: IG% - Immature Granulocytes (promyelocytes, myelocytes and metamyelocytes) > 1% indicates that a LEFT SHIFT is Present. Performed By: #### L 100.0100, L501.9985 ####[facility] [address] [place], [address] Lymphocytes/100 WBC (Bld) 11.0 % Low 19-41 [facility] Comment on above: Performed By: #### L 100.0100, L501.9985 ####[facility] [address] [place], [address] MCH (RBC) [Entitic mass] 32.7 pg High 27.0-32.0 [facility] Comment on above: Performed By: #### L 100.0100, L501.9985 ####[facility] [address] [place], [address] MCHC (RBC) [Mass/Vol] 34.2 g/dL Normal 32-36 [facility] Comment on above: Performed By: #### L 100.0100, L501.9985 ####[facility] [address] [place], [address] MCV (RBC) [Entitic vol] 95.7 fL High 80-94 [facility] Comment on above: Performed By: #### L 100.0100, L501.9985 ####[facility] [address] [place], [address] Monocytes/100 WBC (Bld) 9.0 % Normal 0-10 [facility] Comment on above: Performed By: #### L 100.0100, L501.9985 ####[facility] [address] [place], [address] Neutrophils/100 WBC (Bld) 76.7 % High 47-70 [facility] Comment on above: Performed By: #### L 100.0100, L501.9985 ####[facility] [address] [place], [address] Nucleated RBC (Bld) [#/Vol] 0 10*3/uL Normal 0-5 [facility] Comment on above: Performed By: #### L 100.0100, L501.9985 ####[facility] [address] [place], [address] Platelet mean volume (Bld) [Entitic vol] 9.6 fL Normal 6.2-12.0 [facility] Comment on above: Performed By: #### L 100.0100, L501.9985 ####[facility] [address] [place], [address] Platelets (Bld) [#/Vol] 253 10*3/uL Normal 150-450 [facility] Comment on above: Performed By: #### L 100.0100, L501.9985 ####[facility] [address] [place], [address] RBC (Bld) [#/Vol] 4.62 10*6/uL Normal 4.6-6.2 [facility] Comment on above: Performed By: #### L 100.0100, L501.9985 ####[facility] [address] [place], [address] RDW SD 44.8 fl High 35.1-43.9 [facility] Comment on above: Performed By: #### L 100.0100, L5.9985 ####[facility] [address] [place], [address] WBC (Bld) [#/Vol] 8.9 10*3/uL Normal 4.4-11.0 [facility] Comment on above: Performed By: #### L 100.0100, L5.9985 ####[facility] [address] [place], [address] Eosinophil percentageOrdered By: aFlguni Beasley on 03-30-2025 Eosinophils/100 WBC (Bld) 1.9 % 0-5 [facility] Erythrocyte distribution wid th ratioOrdered By: Falguni Beasley on 03-30-2025 Erythrocyte distribution width (RBC) [Ratio] 13.0 % 11.6-14.6 [facility] Erythrocyte distribution wid th standard deviationOrdered By: [facility] Beasley on 03-30-2025 Erythrocyte distribution width (RBC) [Ratio] 44.8 fl High 35.1-43.9 [facility] Hematocrit Auto (Bld) [Volum e fraction]Ordered By: Falguni Beasley on 03-30-2025 Hematocrit (Bld) [Volume fraction] 44.2 % 40-54 [facility] Hemoglobin A1con 03-30-2025 HbA1c (Bld) [Mass fraction] 6.1 % High <=5.6 [facility] Comment on above: Result Comment: Norm al < 5.7 % Prediabetic 5.7 - 6.4 % Diabetic >or= 6.5 % Please note range changes. Performed By: #### L 100.0100, L5.9985 ####[facility] [address] [place], [address] Hemoglobin A1c percentageOrd ered By: Falguni Beasley on 03-30-2025 HbA1c (Bld) [Mass fraction] 6.1 % High <5.7 [facility] Comment on above: Normal < 5.7 % Predi abetic 5.7 - 6.4 % Diabetic >or= 6.5 % Please note range changes. Hemoglobin measurementOrdere d By: Falguni Beasley on 03-30-2025 Hemoglobin (Bld) [Mass/Vol] 15.1 g/dL 13.0-16.5 [facility] Immature granulocytes/100 WB C Auto (Bld)Ordered By: Falguni Beasley on 03-30-2025 Immature granulocytes/100 WBC (Bld) 0.700 % 0.0-0.9 [facility] Comment on above: IG% - Immature Granu locytes (promyelocytes, myelocytes and metamyelocytes) > 1% indicates that a LEFT SHIFT is Present. Internal Medicine Office Vis iton 03-30-2025 Internal Medicine Office Visit [facility] [place], [place] [address] OFFICE VISIT Date of Service: 03/30/25 MR#: [id number] Acct: [id number] Name: TRACEY IVERSON Rep #: [id number] : 1955 Provider: Dr. 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 Accompanied by: Self Is patient in pain?: No Allergies venom-wasp (wasp sting) Allergy (Verified 03/30/25 10:15) Swelling Medications ???Medication ???Instructions ???Recorded ???Confirmed ???Type multivitamin 1 tab PO DAILY 10/28/21 03/30/25 H istory zinc 50 mg tablet 50 mg PO DAILY 10/28/21 01/12/25 H istory magnesium oxide 400 mg (241.3 mg See Rx Instructions .Route 3 03/30/25 Rx magnesium) tablet .COMPLEX #90 tabs cholecalciferol (vitamin D3) 25 50 mcg PO DAILY 12/10/23 03/30/25 History mcg (1,000 unit) tablet ascorbic acid (vitamin C) 500 mg 1 g PO DAILY 03/24/24 03/30/25 His tory tablet psyllium husk 0.52 gram capsule 0.52 g PO DAILY 03/24/24 01/12/25 History (Daily Fiber) metoprolol succinate 50 mg 50 mg PO DAILY #30 tabs 03/27/24 0 03/30/25 Rx tablet,extended release 24 hr epinephrine 0.3 mg/0.3 mL 0.3 mg (0.3 mL) IM Q5-15M PRN 05/2203/30/25 Rx injection, auto-injector (EpiPen anaphylaxis #2 ea 2-Wisam) thiamine HCl (vitamin B1) 100 mg 100 mg PO DAILY #90 tabs 07/11/24 01/12/25 Rx tablet lisinopril 10 mg tablet 10 mg PO DAILY #30 tabs 09/14/24 0 03/30/25 Rx albuterol sulfate 90 mcg/actuation 2 puff inhalation Q4H PRN 03/30/25 Rx aerosol inhaler shortness of breath or wheezing #8.5 grams trazodone 50 mg tablet See Rx Instructions .Route 4 03/30/25 Rx .COMPLEX #60 tabs aspirin 81 mg tablet,delayed 81 mg PO QDAY 10/27/24 03/30/25 Hi story release (Adult Aspirin Regimen) ferrous sulfate 325 mg (65 mg 325 mg PO Q OTHER DAY #60 tabs 01/1603/30/25 Rx iron) tablet potassium chloride 20 mEq 20 meq PO BID #180 tabs 11/23/24 0 03/30/25 Rx tablet,extended release (K-Tab) lansoprazole 30 mg capsule,delayed 30 mg PO DAILY #90 caps 12/05/24 03/30/25 Rx release fluticasone fur. 100 mcg-umeclid 1 inh inhalation Q24H #60 ea 02/0703/30/25 Rx 62.5 mcg-vilant 25 mcg inhalat.powder (Trelegy Ellipta) apixaban 5 mg tablet (Eliquis) 5 mg PO .COMPLEX #14 tabs 02/09/25 03/30/25 Rx atorvastatin 20 mg tablet 20 mg PO QHS #90 TABLETS 02/16/25 03/30/25 Rx folic acid 1 mg tablet See Rx Instructions .Route 5 03/30/25 Rx .COMPLEX #90 tabs gabapentin 100 mg capsule 100 mg PO TID NERVE PAIN #90 caps 03/05/25 03/30/25 Rx Have you fallen in the past year?: No [facility] Medical History (Updated 03/30/25 @ 12:[address] Falguni Beasley MD) Sinusitis URI (upper respiratory infection) Essential hypertension Atrial fibrillation Alcoholic liver disease, unspecified Lumbar radiculopathy BPH (benign prostatic hyperplasia) Hyperlipidemia Anemia Shortness of breath Tobacco use disorder, continuous Encounter for screening for malignant neoplasm of lung in current smoker with 30 pack year history or greater Kidney disease Hypokalemia Colon cancer screening Borderline type 2 diabetes mellitus Smoking greater than 40 pack years NAFLD (nonalcoholic fatty liver disease) PVC (premature ventricular contraction) Abnormal cardiac enzyme level Smoker COPD (chronic obstructive pulmonary disease) Depression Tobacco abuse Unintentional weight loss Surgical History H/O: knee surgery Family History Brother Cancer pancreatic cancer Father Alcoholism Social History Smoking Status: Former smoker Tobacco: How many years used: 48 how long ago did patient quit smokin11/20/23 alcohol intake: current alcohol intake frequency: 3 or more drinks per day Alcohol type: beer substance use type: does not use caffeine: Yes Type: coffee Number of servings: 1 HPI HPI Chief Complaint: 3 month FU Details: TRACEY IVERSON, is a 69 M who presents to the office today for follow-up of his chronic conditions. Just recently got back from [place] and following this, has had some sinus pressure, congestion and postnasal drip. No chills, fever o (more content not included)... Normal [facility] MCV (mean corpuscular volume ) determinationOrdered By: Falguni Beasley on 03-30-2025 MCV (RBC) [Entitic vol] 95.7 fL High 80-94 [facility] Mean corpuscular hemoglobin (MCH) determinationOrdered By: Falguni Beasley on 03-30-2025 MCH (RBC) [Entitic mass] 32.7 pg High 27.0-32.0 [facility] Mean corpuscular hemoglobin concentration (MCHC) determinationOrdered By: Falguni Beasley on 03-30-2025 MCHC (RBC) [Mass/Vol] 34.2 g/dL 32-36 [facility] Mean platelet volume determi nationOrdered By: Falguni Beasley on 03-30-2025 Platelet mean volume (Bld) [Entitic vol] 9.6 fL 6.2-12.0 [facility] Monocyte percentageOrdered B y: Falguni Beasley on 03-30-2025 Monocytes/100 WBC (Bld) 9.0 % 0-10 [facility] Neutrophil percentageOrdered By: Falguni Beasley on 03-30-2025 Neutrophils/100 WBC (Bld) 76.7 % High 47-70 [facility] Nucleated red blood cell per centageOrdered By: Falguni Beasley on 03-30-2025 Nucleated RBC/100 WBC (Bld) [Ratio] 0 % 0-5 [facility] Platelet countOrdered By: Makayla Beasley on 03-30-2025 Platelets (Bld) [#/Vol] 253 10*3/uL 150-450 [facility] RBC Auto (Bld) [#/Vol]Ordere d By: Falguni Beasley on 03-30-2025 RBC (Bld) [#/Vol] 4.62 10*6/uL 4.6-6.2 [facility] White blood cell (WBC) count Ordered By: Falguni Beasley on 03-30-2025 WBC (Bld) [#/Vol] 8.9 10*3/uL 4.4-11.0 [facility] Pulmonary Visit Reporton Pulmonary Visit Report [facility] [address] [place] [address] OFFICE VISIT Date of Service: 01/12/25 MR#: [id number] Acct: [id number] Name: TRACEY IVERSON Rep #: [id number] : 1955 Provider: MORALES Root Age/Sex: 69/M Location: [facility] Status: Signed Assessment and Plan Assessment and Plan (1) COPD (chronic obstructive pulmonary disease): Status: Chronic Qualifiers: COPD type: unspecified COPD Qualified Code(s): J44.9 - Chronic obstructive pulmonary disease, unspecified Plan: Deteriorated, treating with Augmentin. He did not feel the last round of prednisone was helpful, therefore, not repeating it. Continue current maintenance medication, symptomatically controlled on triple therapy with the use of Trelegy. No additional testing at this time. Contact the office for any new or worsening symptoms. An acute visit and typically be arranged within 1-2 days. Follow-up in 6 months. (2) Suspected sleep apnea: Status: Acute Plan: Recent test was inconclusive but looking negative. It did reveal possible nocturnal hypoxia. He has a 2 week vacation next month in which he will be traveling to [facility]. He would be willing to revisit the possibility of nocturnal oxygen use at his next office visit. I did educate him on the risks of hypoxia, he is adamant that he will think about it. (3) Overweight: Status: Chronic Plan: Complicates exam, plan, care and prognosis. Continue to encourage weight loss. (4) Lung nodule: Status: Chronic Plan: Stable. Due for LDCT in April 2025, ordered at the last office visit. He will be eligible for LDCT for the next 15 years. Medications: New amoxicillin-pot clavulanate 875-125 mg 1 TAB PO BID 20 tabs 0RF Plan Details Follow Up: 08/22/25 ([facility]) HPI 3 M FU Chief Complaint: Test results HPI Comments Details: This patient presents to the office today to review recent test results. He is ambulatory, currently on room air and accompanied today by his . He was recently diagnosed with RSV, 2 weeks ago, by his PCP. He was treated with a burst of prednisone. He did note improvement but then developed green sinus drainage and a productive green sputum. He is compliant with use of Trelegy 1 puff daily. He does report rinsing his mouth out after each use. He denies any medication side effect such as sore throat or thrush. He has not recently needed to use the albuterol rescue inhaler. He successfully quit smoking over one year ago. He reports shortness of breath. He reports a cough that is productive of green-colored sputum. He denies any hemoptysis. He also reports greenish nasal drainage as well as sinus and chest congestion. Has not had any wheezing, chest pain or palpitations. He also denies any fever, chills or body aches. He did not sleep well during the sleep test. He is not interested in repeating the sleep study at this time. He does not feel he would be able to wear a pap mask. Test results personally reviewed with the patient: CT of the chest without contrast completed on May 19, 2024. No pneumothorax. No suspicious pulmonary nodules. No suspicious infiltrates. Polysomnogram completed on October 31, 2024. Overall AHI was 4.3 events per hour according to AASM guidelines. However, it is noted that this study was considered inconclusive because there was very limited sleep time of only 84.5 minutes. There were mild oxyhemoglobin desaturations during sleep that were not related to apneas or hypopneas. Oxyhemoglobin saturation was equal to or less than 88% for 20.3 minutes of the study. 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 Accompanied by: Allergies venom-wasp (wasp sting) Allergy (Verified 01/12/25 14:44) Swelling Medications ???Medication ???Instructions ???Recorded ???Confirmed ???Type multivitamin 1 tab PO DAILY 10/28/21 01/12/25 H istory zinc 50 mg tablet 50 mg PO DAILY 10/28/21 01/12/25 H istory magnesium oxide 400 mg (241.3 mg See Rx Instructions .Route 3 01/12/25 Rx magnesium) tablet .COMPLEX #90 tabs cholecalciferol (vitamin D3) 25 50 mcg PO DAILY 12/10/23 01/12/25 History mcg (1,000 unit) tablet ascorbic acid (vitamin C) 500 mg 1 g PO DAILY 03/24/24 01/12/25 His tory tablet psyllium husk 0.52 gram capsule 0.52 g PO DAILY 03/24/24 01/12/25 History (Daily Fiber) metoprolol succin (more content not included)... Normal [facility] Influenza virus A and B and SARS-CoV-2 (COVID-19) and Respiratory syncytial virus RNAOrdered By: Falguni Beasley on 12-28-2024 SARS-CoV-2 (COVID-19) RNA RAUDEL+probe Ql (Unsp spec) RSV Abnormal [facility] Internal Medicine Office Vis iton 12-28-2024 Internal Medicine Office Visit [facility] [place] [address] [place] [address] OFFICE VISIT Date of Service: 12/28/24 MR#: [id number] Acct: [id number] Name: TRACEY IVERSON Rep #: [id number] : 1955 Provider: Dr. Falguni villanueva MD Age/Sex: 69/M Location: [facility].[facility] Status: Signed Intake Vital Signs 10/27/24 11:37 12/28/24 15:08 Height 6 ft 2 in 6 ft 2 in Weight: 228 lb 234 lb BMI 29.2 30.0 BP 108/66 144/82 H Blood Pressure Location Lt brachial Lt brachial Position Sitting Sitting Respiration 18 18 Pulse 77 70 Pulse Source Monitor Monitor Temp 97.5 F L Temp Source Temporal Pulse Oximetry (%) 95 99 Oxygen Delivery Method room air room air Intake Visit Reasons: 3 month med Chief Complaint: 3 month FU Is patient in pain?: No Allergies venom-wasp (wasp sting) Allergy (Verified 12/28/24 15:09) Swelling Medications ???Medication ???Instructions ???Recorded ???Confirmed ???Type multivitamin 1 tab PO DAILY 10/28/21 12/28/24 H istory zinc 50 mg tablet 50 mg PO DAILY 10/28/21 12/28/24 H istory magnesium oxide 400 mg (241.3 mg See Rx Instructions .Route 3 12/28/24 Rx magnesium) tablet .COMPLEX #90 tabs cholecalciferol (vitamin D3) 25 50 mcg PO DAILY 12/10/23 12/28/24 History mcg (1,000 unit) tablet ascorbic acid (vitamin C) 500 mg 1 g PO DAILY 03/24/24 12/28/24 His tory tablet psyllium husk 0.52 gram capsule 0.52 g PO DAILY 03/24/24 12/28/24 History (Daily Fiber) metoprolol succinate 50 mg 50 mg PO DAILY #30 tabs 03/27/24 0 12/28/24 Rx tablet,extended release 24 hr epinephrine 0.3 mg/0.3 mL 0.3 mg (0.3 mL) IM Q5-15M PRN 05/2212/28/24 Rx injection, auto-injector (EpiPen anaphylaxis #2 ea 2-Wisam) thiamine HCl (vitamin B1) 100 mg 100 mg PO DAILY #90 tabs 07/11/24 12/28/24 Rx tablet folic acid 1 mg tablet See Rx Instructions .Route 4 12/28/24 Rx .COMPLEX #90 tabs lisinopril 10 mg tablet 10 mg PO DAILY #30 tabs 09/14/24 0 12/28/24 Rx albuterol sulfate 90 mcg/actuation 2 puff inhalation Q4H PRN 12/28/24 Rx aerosol inhaler shortness of breath or wheezing #8.5 grams atorvastatin 20 mg tablet See Rx Instructions .Route 4 12/28/24 Rx .COMPLEX #90 tabs trazodone 50 mg tablet See Rx Instructions .Route 4 12/28/24 Rx .COMPLEX #60 tabs aspirin 81 mg tablet,delayed 81 mg PO QDAY 10/27/24 12/28/24 Hi story release (Adult Aspirin Regimen) ferrous sulfate 325 mg (65 mg 325 mg PO Q OTHER DAY #60 tabs 01/1612/28/24 Rx iron) tablet potassium chloride 20 mEq 20 meq PO BID #180 tabs 11/23/24 0 12/28/24 Rx tablet,extended release (K-Tab) lansoprazole 30 mg capsule,delayed 30 mg PO DAILY #90 caps 12/05/24 12/28/24 Rx release apixaban 5 mg tablet (Eliquis) 5 mg PO BID #60 tabs 12/06/24 0205/16 Rx fluticasone fur. 100 mcg-umeclid 1 inh inhalation Q24H #60 ea 12/0812/28/24 Rx 62.5 mcg-vilant 25 mcg inhalat.powder (Trelegy Ellipta) gabapentin 100 mg capsule 100 mg PO TID NERVE PAIN #90 caps 12/19/24 12/28/24 Rx Have you fallen in the past year?: No PFSH Medical History (Updated 12/28/24 @ 15:[address] Falguni Beasley MD) URI (upper respiratory infection) Essential hypertension Atrial fibrillation Alcoholic liver disease, unspecified Lumbar radiculopathy BPH (benign prostatic hyperplasia) Hyperlipidemia Anemia Shortness of breath Tobacco use disorder, continuous Encounter for screening for malignant neoplasm of lung in current smoker with 30 pack year history or greater Kidney disease Hypokalemia Colon cancer screening Borderline type 2 diabetes mellitus Smoking greater than 40 pack years NAFLD (nonalcoholic fatty liver disease) PVC (premature ventricular contraction) Abnormal cardiac enzyme level Smoker COPD (chronic obstructive pulmonary disease) Depression Tobacco abuse Unintentional weight loss Surgical History H/O: knee surgery Family History Brother Cancer pancreatic cancer Father Alcoholism Social History Smoking Status: Former smoker Tobacco: How many years used: 48 how long ago did patient quit smokin11/20/23 alcohol intake: current alcohol intake frequency: 3 or more drinks per day Alcohol type: beer substance use type: does not use caffeine: Yes Type: coffee Number of servings: 1 HPI HPI Chief Complaint: 3 month FU Details: TRACEY IVERSON, is a 69 M who presents to the office today for follow-up of his chronic conditions. Also has some concerns. Reports a 4-day history of nasal congestion, sore throat and feeling of unwell. History of sick contac (more content not included)... Normal [facility] M100.678on 12-28-2024 M100.678 SARS-CoV-2 (COVID 19 ) Negative INFLUENZA A Negative INFLUENZA B Negative RSV PCR A Positive A RSV Normal [facility] Comment on above: Performed By: #### M 100.678 ####[facility] [address] [place], [address] 12 Lead EKG performed by [facility] on 10-27-2024 12 Lead EKG performed by [facility] [address] [place] [address] 12 Lead EKG performed by [facility] 10/27/24808 MR#: [id number] Acct: [id number] Name: TRACEY IVERSON Rep #: [id number] : 1955 69 From: Kirk Lemons MD Attending Dr: Dr. Kirk Lemons MD Status: [facility] Ordering Dr: Kirk Lemons MD Date: 10/27/24 Location: [facility] Sex: M C Admitted: [facility]/12 Lead EKG performed by [facility] ECG Report Interpretation ----Atrial fibrillation -Left axis -anterior fascicular block. -Poor R-wave progression -nonspecificABNORMAL Electronically signed on 10/27/2024 at 12:[address] Kirk Lemons [email or web address] Version 8610 10/27/242 Date Kirk Lemons MD CC: Dr. Falguni Beasley MD Date Dictated: 10/27/24808 Date Transcribed: 10/27/24808 Goods Layer: BRISEIDA Signed Normal [facility] Cardiology Visit Reporton Cardiology Visit Report [facility] [address] [place] [address] OFFICE VISIT Date of Service: 10/27/24 MR#: [id number] Acct: [id number] Name: TRACEY IVERSON Rep #: [id number] : 1955 Provider: Dr. Kirk haji MD Age/Sex: 69/M Location: [facility] Status: Signed HPI HPI History of Present Illness Details: Patient is a 69-year-old white male that comes in with his today for cardiovascular monitoring. There is specifically here to discuss treatment options for atrial fibrillation. The patient has been documented to be in atrial fibrillation for at least 1 year and possibly longer than that. He is totally asymptomatic and has no idea when he actually went into atrial fibrillation. 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 The patient is tolerating Eliquis without any nuisance bleeding. When he initially started Eliquis he did have some nosebleeds but those have resolved. Recent hemoglobin was 14.7 mid September 2024. He had an echocardiogram done 01/14/2024 which showed normal LV function ejection fraction 65% his PA pressure was slightly elevated at 38. The atrial were both of normal size there was 1+ tricuspid regurgitation and no other valvular disease documented. Patient denies any PND orthopnea denies any lower extremity edema denies any significant shortness of breath or dyspnea on exertion. What shortness of breath he does have he feels is related to his pulmonary insufficiency. He is is managed by the pulmonary team is due to have a sleep study done in the near future. 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: No Is patient in pain?: No Allergies venom-wasp (wasp sting) Allergy (Verified 10/27/24 11:53) Swelling Medications ???Medication ???Instructions ???Recorded ???Confirmed ???Type multivitamin 1 tab PO DAILY 10/28/21 10/27/24 History zinc 50 mg tablet 50 mg PO DAILY 10/28/21 10/27/24 History magnesium oxide 400 mg (241.3 mg See Rx Instructions .Route 06/25/23 10/27/24 Rx magnesium) tablet .COMPLEX #90 tabs cholecalciferol (vitamin D3) 25 50 mcg PO DAILY 12/10/23 10/27/24 History mcg (1,000 unit) tablet ascorbic acid (vitamin C) 500 mg 1 g PO DAILY 03/24/24 10/27/24 History tablet psyllium husk 0.52 gram capsule 0.52 g PO DAILY 03/24/24 10/27/24 History (Daily Fiber) metoprolol succinate 50 mg 50 mg PO DAILY #30 tabs 03/27/24 10/27/24 Rx tablet,extended release 24 hr epinephrine 0.3 mg/0.3 mL 0.3 mg (0.3 mL) IM Q5-15M PRN 06/08/24 10/27/24 Rx injection, auto-injector (EpiPen anaphylaxis #2 ea 2-Wisam) potassium chloride 20 mEq 20 meq PO BID #180 tabs 06/28/24 10/27/24 Rx tablet,extended release (K-Tab) fluticasone fur. 100 mcg-umeclid 1 inh inhalation Q24H #60 ea 07/11/24 10/27/24 Rx 62.5 mcg-vilant 25 mcg inhalat.powder (Trelegy Ellipta) thiamine HCl (vitamin B1) 100 mg 100 mg PO DAILY #90 tabs 07/11/24 10/27/24 Rx tablet ferrous sulfate 325 mg (65 mg 325 mg PO Q OTHER DAY #60 tabs 07/25/24 10/27/24 Rx iron) tablet folic acid 1 mg tablet See Rx Instructions .Route 08/23/24 10/27/24 Rx .COMPLEX #90 tabs apixaban 5 mg tablet (Eliquis) 5 mg PO BID #60 tabs 09/14/24 10/27/24 Rx lisinopril 10 mg tablet 10 mg PO DAILY #30 tabs 09/14/24 10/27/24 Rx lansoprazole 30 mg capsule,delayed 30 mg PO DAILY #90 caps 10/02/24 10/27/24 Rx release albuterol sulfate 90 mcg/actuation 2 puff inhalation Q4H PRN 10/13/24 10/27/24 Rx aerosol inhaler shortness of breath or wheezing #8.5 grams atorvastatin 20 mg tablet See Rx Instructions .Route 10/24/24 10/27/24 Rx .COMPLEX #90 tabs gabapentin 100 mg capsule 100 mg PO TID NERVE PAIN #90 caps 10/24/24 10/27/24 Rx trazodone 50 mg tablet See Rx Instructions .Route 10/24/24 10/27/24 Rx .COMPLEX #60 tabs aspirin 81 mg tablet,delayed 81 mg PO QDAY 10/27/24 10/27/24 History release (Adult Aspirin Regimen) Ejection fraction %: 65 Have you fallen in the past year?: No [facility] Medical History Essential hypertension Atrial fibrillation Alcoholic liver disease, unspecified Lumbar radiculopathy BPH (benign prostatic hyperplasia) Hyperlipidemia Anemia (more content not included)... Normal [facility] Comprehensive Metabolic Prof ilon 10-18-2024 Albumin [Mass/Vol] 3.8 g/dL Normal 3.2-5.0 [facility] Comment on above: Performed By: #### L 500.4050 ####[facility] [address] [place] [phone] Albumin/Globulin [Mass ratio] 0.9 {ratio} Normal 0.9-2.4 [facility] Comment on above: Performed By: #### L 500.4050 ####[facility] [address] [place] [phone] ALK P 144 U/L High 45-117 [facility] Comment on above: Performed By: #### L 500.4050 ####[facility] [address] [facility] [address] ALT [Catalytic activity/Vol] 47 U/L Normal 16-61 [facility] Comment on above: Performed By: #### L 500.4050 ####[facility] [address] [place] [phone] AST [Catalytic activity/Vol] 44 U/L High 15-37 [facility] Comment on above: Performed By: #### L 500.4050 ####[facility] [address] [place], [address] Bilirubin [Mass/Vol] 0.70 mg/dL Normal 0.20-1.00 [facility] Comment on above: Result Comment: For patients on eltrombopag therapy, use of Dimension [place] TBIL is not recommended. Performed By: #### L 500.4050 ####[facility] [address] [place], [address] BUN/CRE 18.5 RATIO Normal 10-20 [facility] Comment on above: Performed By: #### L 500.4050 ####[facility] [address] [place], [address] CA,Total 9.7 mg/dL Normal 8.5-10.1 [facility] Comment on above: Performed By: #### L 500.4050 ####[facility] [address] [place], [address] Chloride [Moles/Vol] 103 mmol/L Normal 98-107 [facility] Comment on above: Performed By: #### L 500.4050 ####[facility] [address] [place], [address] CO2 [Moles/Vol] 25.0 mmol/L Normal 21.0-32.0 [facility] Comment on above: Performed By: #### L 500.4050 ####[facility] [address] [place], [address] Creatinine [Mass/Vol] 0.87 mg/dL Normal 0.70-1.30 [facility] Comment on above: Result Comment: The validity of the calculated GFR GFRAA in patients over 70 years has not been determined. Clinical correlation is essential. Performed By: #### L 500.4050 ####[facility] [address] [place], [address] EST GFR - AA 113 mL/min Normal >60 [facility] Comment on above: Result Comment: Afri can Icelandic GFR Calc Performed By: #### L 500.4050 ####[facility] [address] [place], [address] GAP 5 Normal 5-15 [facility] Comment on above: Performed By: #### L 500.4050 ####[facility] [address] [place], [address] GFR/1.73 sq M.predicted among non-blacks MDRD (S/P/Bld) [Vol rate/Area] 93 mL/min/{1.73_m2} Normal >60 [facility] Comment on above: Result Comment: Non- GFR Calc Performed By: #### L 500.4050 ####[facility] [address] [place], [address] Globulin (S) [Mass/Vol] 4.3 g/dL High 2.2-4.2 [facility] Comment on above: Performed By: #### L 500.4050 ####[facility] [address] [place], [address] Glucose [Mass/Vol] 111 mg/dL High 74-106 [facility] Comment on above: Result Comment: Fast ing Glucose result from 100 to 125 mg/dL suggests IMPAIRED HOMEOSTASIS per A.D.A. criteria. Performed By: #### L 500.4050 ####[facility] [address] [place], [address] Potassium [Moles/Vol] 4.6 mmol/L Normal 3.5-5.1 [facility] Comment on above: Performed By: #### L 500.4050 ####[facility] [address] [place], [place], [address] Sodium [Moles/Vol] 133 mmol/L Low 136-145 [facility] Comment on above: Performed By: #### L 500.4050 ####[facility] [address] [place], [place], [phone] T PROT 8.1 g/dL Normal 6.4-8.2 [facility] Comment on above: Performed By: #### L 500.4050 ####[facility] [address] [place], [place], [phone] Urea nitrogen [Mass/Vol] 16 mg/dL Normal 7-18 [facility] Comment on above: Performed By: #### L 500.4050 ####[facility] [address] [place], [address] Pulmonary Visit Reporton Pulmonary Visit Report [facility] [place] [address] [place], [place] [address] OFFICE VISIT Date of Service: 10/11/24 MR#: [id number] Acct: [id number] Name: TRACEY IVERSON Rep #: [id number] Provider: MORALES Root Age/Sex: 69/M Location: [facility] [place].PM[facility] Status: Signed Assessment and Plan Assessment and Plan (1) Lung nodule: Status: Chronic Plan: Stable. Due for LDCT in April 2025, ordered accordingly. The patient has successfully quit smoking. He will be eligible for LDCT for the next 15 years. (2) COPD (chronic obstructive pulmonary disease): Status: Chronic Qualifiers: COPD type: unspecified COPD Qualified Code(s): J44.9 - Chronic obstructive pulmonary disease, unspecified Plan: Stable, he does not appear to be an exacerbation of COPD today. No need for prednisone or antibiotic. Continue current maintenance medication, symptomatically controlled on triple therapy with the use of Trelegy. No additional testing at this time. Contact the office for any new or worsening symptoms. An acute visit and typically be arranged within 1-2 days. Follow-up in 3 months. (3) Suspected sleep apnea: Status: Acute Plan: Suspect obstructive sleep apnea. Lengthy discussion about the pathophysiology of obstructive sleep apnea. We discussed the risks of untreated sleep apnea as well as the benefits, including risk for irregular heart rhythms such as atrial fibrillation. Sending the patient for split-night study, if the patient is indicated to have obstructive sleep apnea PAP therapy will be initiated. Initial goal will be to wear PAP at least 4 hours nightly. Ultimately, it should be worn any time spent sleeping. I have encouraged the patient to call the office with any difficulties acclimating to PAP therapy. Follow up in the office in 3 months, at which time I anticipate the patient will be on PAP therapy for 4-6 weeks. (4) Overweight: Status: Chronic Plan: Complicates exam, plan, care and prognosis. Continue to encourage weight loss. Orders: Orders Low Dose CT Lung Screening 04/22/25 F17.200 - Nicotine dependence, unspecified, uncomplicated, F17.210 - Nicotine dependence, cigarettes, uncomplicated Split Night Sleep Study Today R29.818 - Other symptoms and signs involving the nervous system HPI 1 Y FU Chief Complaint: Test results HPI Comments Details: This patient presents to the office today to review recent test results. He is ambulatory, currently on room air and accompanied today by his . He has not recently been seen in the ED or urgent care for any respiratory illness. Has not required any antibiotics or prednisone for any breathing problems. He is compliant with use of Trelegy 1 puff daily. He does report rinsing his mouth out after each use. He denies any medication side effect such as sore throat or thrush. He has not recently needed to use the albuterol rescue inhaler. He successfully quit smoking one year ago. He reports shortness of breath on exertion only. He has a dry cough, but denies any sputum production or hemoptysis. Has not had any wheezing, chest tightness, chest pain or palpitations. He also denies any fever, chills or body aches. The patient admits that he does snore. His confirms that he does. He is not feeling rested when he wakes up in the morning. He does not nap, however he does admit to occasionally nodding off to sleep unintentionally. He does have difficulty with dry mouth. He is not having excessive nocturia. STOP-BANG Assessment: 1. Do you snore? Y 2. Are you frequently tired during the day? Y 3. Have you been observed gasping or choking while asleep? Y 4. Do you have high blood pressure? Y 5. BMI - greater than 35kg/m2? N 6. Age - over 50 years old? Y 7. Neck Circumference - greater than 37 cm for females or 40 cm for males? Y 8. Gender - male? Y Total STOP-BANG score = 7 which indicates HIGH risk for obstructive sleep apnea (yes to 3 or more questions = high risk of sleep apnea). Test results personally reviewed with the patient: CT of the chest without contrast completed on May 19, 2024. No pneumothorax. No suspicious pulmonary nodules. No suspicious infiltrates. 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 Normal [facility] CBC W/Diff, Automatedon 09-22 Absolute Lymph 0.95 X10 3/uL Normal 0.83-4.51 [facility] Comment on above: Performed By: #### L 500.4100, L501.9940, L100.0100, L500.4050 #### [facility] [address] [place], [address] Absolute Neut 5.7 X10 3/uL Normal 2.0-7.7 [facility] Comment on above: Performed By: #### L 500.4100, L501.9940, L100.0100, L500.4050 #### [facility] [address] [place], [address] Basophils/100 WBC (Bld) 1.0 % Normal 0-1 [facility] Comment on above: Performed By: #### L 500.4100, L501.9940, L100.0100, L500.4050 #### [facility] [address] [place], [address] Eosinophils/100 WBC (Bld) 2.4 % Normal 0-5 [facility] Comment on above: Performed By: #### L 500.4100, L501.9940, L100.0100, L500.4050 #### [facility] [address] [place], [address] Erythrocyte distribution width (RBC) [Ratio] 13.3 % Normal 11.6-14.6 [facility] Comment on above: Performed By: #### L 500.4100, L501.9940, L100.0100, L500.4050 #### [facility] [address] [place], [address] Hematocrit (Bld) [Volume fraction] 45.3 % Normal 40-54 [facility] Comment on above: Performed By: #### L 500.4100, L501.9940, L100.0100, L500.4050 #### [facility] [address] [place], [address] Hemoglobin (Bld) [Mass/Vol] 14.7 g/dL Normal 13.0-16.5 [facility] Comment on above: Performed By: #### L 500.4100, L501.9940, L100.0100, L500.4050 #### [facility] [address] [place], [address] IG% 0.400 Normal 0.0-0.9 [facility] Comment on above: Result Comment: IG% - Immature Granulocytes (promyelocytes, myelocytes and metamyelocytes) > 1% indicates that a LEFT SHIFT is Present. Performed By: #### L 500.4100, L501.9940, L100.0100, L500.4050 #### [facility] [address] [place], [address] Lymphocytes/100 WBC (Bld) 12.1 % Low 19-41 [facility] Comment on above: Performed By: #### L 500.4100, L501.9940, L100.0100, L500.4050 #### [facility] [address] [place], [address] MCH (RBC) [Entitic mass] 30.8 pg Normal 27.0-32.0 [facility] Comment on above: Performed By: #### L 500.4100, L501.9940, L100.0100, L500.4050 #### [facility] [address] [place], [address] MCHC (RBC) [Mass/Vol] 32.5 g/dL Normal 32-36 [facility] Comment on above: Performed By: #### L 500.4100, L501.9940, L100.0100, L500.4050 #### [facility] [address] [place], [address] MCV (RBC) [Entitic vol] 95.0 fL High 80-94 [facility] Comment on above: Performed By: #### L 500.4100, L501.9940, L100.0100, L500.4050 #### [facility] [address] [place], [address] Monocytes/100 WBC (Bld) 11.6 % High 0-10 [facility] Comment on above: Performed By: #### L 500.4100, L501.9940, L100.0100, L500.4050 #### [facility] [address] [place], [address] Neutrophils/100 WBC (Bld) 72.5 % High 47-70 [facility] Comment on above: Performed By: #### L 500.4100, L501.9940, L100.0100, L500.4050 #### [facility] [address] [place], [address] Nucleated RBC (Bld) [#/Vol] 0 10*3/uL Normal 0-5 [facility] Comment on above: Performed By: #### L 500.4100, L501.9940, L100.0100, L500.4050 #### [facility] [address] [place], [address] Platelet mean volume (Bld) [Entitic vol] 9.9 fL Normal 6.2-12.0 [facility] Comment on above: Performed By: #### L 500.4100, L501.9940, L100.0100, L500.4050 #### [facility] [address] [place], [address] Platelets (Bld) [#/Vol] 268 10*3/uL Normal 150-450 [facility] Comment on above: Performed By: #### L 500.4100, L501.9940, L100.0100, L500.4050 #### [facility] [address] [place], [address] RBC (Bld) [#/Vol] 4.77 10*6/uL Normal 4.6-6.2 [facility] Comment on above: Performed By: #### L 500.4100, L501.9940, L100.0100, L500.4050 #### [facility] [address] [place], [address] RDW SD 46.7 fl High 35.1-43.9 [facility] Comment on above: Performed By: #### L 500.4100, L501.9940, L100.0100, L500.4050 #### [facility] [address] [place], [address] WBC (Bld) [#/Vol] 7.8 10*3/uL Normal 4.4-11.0 [facility] Comment on above: Performed By: #### L 500.4100, L501.9940, L100.0100, L500.4050 #### [facility] [address] [place], [address] Absolute Neut Normal 2.0-7.7 [facility] Comment on above: Result Comment: DUPL ICATE Performed By: #### L 500.4050, L500.4100, L100.0100 ####[facility] [address] [place], [address] HCT Normal 40-54 [facility] Comment on above: Result Comment: DUPL ICATE Performed By: #### L 500.4050, L500.4100, L100.0100 ####[facility] [address] [place], [address] HGB Normal 13.0-16.5 [facility] Comment on above: Result Comment: DUPL ICATE Performed By: #### L 500.4050, L500.4100, L100.0100 ####[facility] [address] [place], [address] MCH Normal 27.0-32.0 [facility] Comment on above: Result Comment: DUPL ICATE Performed By: #### L 500.4050, L500.4100, L100.0100 ####[facility] [address] [place], [address] MCHC Normal 32-36 [facility] Comment on above: Result Comment: DUPL ICATE Performed By: #### L 500.4050, L500.4100, L100.0100 ####[facility] [address] [place], [address] MCV Normal 80-94 [facility] Comment on above: Result Comment: DUPL ICATE Performed By: #### L 500.4050, L500.4100, L100.0100 ####[facility] [address] [place], [address] NEUT% Normal 47-70 [facility] Comment on above: Result Comment: DUPL ICATE Performed By: #### L 500.4050, L500.4100, L100.0100 ####[facility] [address] [place], [address] PLT Normal 150-450 [facility] Comment on above: Result Comment: DUPL ICATE Performed By: #### L 500.4050, L500.4100, L100.0100 ####[facility] [address] [place], [address] RBC Normal 4.6-6.2 [facility] Comment on above: Result Comment: DUPL ICATE Performed By: #### L 500.4050, L500.4100, L100.0100 ####[facility] [address] [place], [address] RDW CV Normal 11.6-14.6 [facility] Comment on above: Result Comment: DUPL ICATE Performed By: #### L 500.4050, L500.4100, L100.0100 ####[facility] [address] [place], [address] RDW SD Normal 35.1-43.9 [facility] Comment on above: Result Comment: DUPL ICATE Performed By: #### L 500.4050, L500.4100, L100.0100 ####[facility] [address] [place], [address] WBC Normal 4.4-11.0 [facility] Comment on above: Result Comment: DUPL ICATE Performed By: #### L 500.4050, L500.4100, L100.0100 ####[facility] [address] [place], [address] Comprehensive Metabolic Prof ilon 10-06-2024 Albumin [Mass/Vol] 3.6 g/dL Normal 3.2-5.0 [facility] Comment on above: Order Comment: LINDA HORNE ORDERED BMP Performed By: #### L 500.4100, L501.9940, L100.0100, L500.4050 #### [facility] [address] [place], [address] Albumin/Globulin [Mass ratio] 0.8 {ratio} Low 0.9-2.4 [facility] Comment on above: Order Comment: LINDA HORNE ORDERED BMP Performed By: #### L 500.4100, L501.9940, L100.0100, L500.4050 #### [facility] [address] [place], [address] ALK P 145 U/L High 45-117 [facility] Comment on above: Order Comment: LINDA HORNE ORDERED BMP Performed By: #### L 500.4100, L501.9940, L100.0100, L500.4050 #### [facility] [address] [place], [address] ALT [Catalytic activity/Vol] 46 U/L Normal 16-61 [facility] Comment on above: Order Comment: LINDA HORNE ORDERED BMP Performed By: #### L 500.4100, L501.9940, L100.0100, L500.4050 #### [facility] [address] [place], [address] AST [Catalytic activity/Vol] 40 U/L High 15-37 [facility] Comment on above: Order Comment: LINDA HORNE ORDERED BMP Performed By: #### L 500.4100, L501.9940, L100.0100, L500.4050 #### [facility] [address] [place], [address] Bilirubin [Mass/Vol] 0.60 mg/dL Normal 0.20-1.00 [facility] Comment on above: Order Comment: LINDA COLEEN ORDERED BMP Result Comment: For patients on eltrombopag therapy, use of Dimension [place] TBIL is not recommended. Performed By: #### L 500.4100, L501.9940, L100.0100, L500.4050 #### [facility] [address] [place], [address] BUN/CRE 17.0 RATIO Normal 10-20 [facility] Comment on above: Order Comment: LIDNA COLEEN ORDERED BMP Performed By: #### L 500.4100, L501.9940, L100.0100, L500.4050 #### [facility] [address] [place], [address] CA,Total 9.9 mg/dL Normal 8.5-10.1 [facility] Comment on above: Order Comment: LINDA HORNE ORDERED BMP Performed By: #### L 500.4100, L501.9940, L100.0100, L500.4050 #### [facility] [address] [place], [address] Chloride [Moles/Vol] 101 mmol/L Normal 98-107 [facility] Comment on above: Order Comment: LINDA HORNE ORDERED BMP Performed By: #### L 500.4100, L501.9940, L100.0100, L500.4050 #### [facility] [address] [place], [address] CO2 [Moles/Vol] 24.0 mmol/L Normal 21.0-32.0 [facility] Comment on above: Order Comment: LINDA HORNE ORDERED BMP Performed By: #### L 500.4100, L501.9940, L100.0100, L500.4050 #### [facility] [address] [place], [address] Creatinine [Mass/Vol] 0.82 mg/dL Normal 0.70-1.30 [facility] Comment on above: Order Comment: LINDA HORNE ORDERED BMP Result Comment: The validity of the calculated GFR GFRAA in patients over 70 years has not been determined. Clinical correlation is essential. Performed By: #### L 500.4100, L501.9940, L100.0100, L500.4050 #### [facility] [address] [place], [address] EST GFR - AA 120 mL/min Normal >60 [facility] Comment on above: Order Comment: LINDA HORNE ORDERED BMP Result Comment: Afri can Icelandic GFR Calc Performed By: #### L 500.4100, L501.9940, L100.0100, L500.4050 #### [facility] [address] [place], [address] GAP 5 Normal 5-15 [facility] Comment on above: Order Comment: LINDA HORNE ORDERED BMP Performed By: #### L 500.4100, L501.9940, L100.0100, L500.4050 #### [facility] [address] [place], [address] GFR/1.73 sq M.predicted among non-blacks MDRD (S/P/Bld) [Vol rate/Area] 99 mL/min/{1.73_m2} Normal >60 [facility] Comment on above: Order Comment: LINDA HORNE ORDERED BMP Result Comment: Non- GFR Calc Performed By: #### L 500.4100, L501.9940, L100.0100, L500.4050 #### [facility] [address] [place], [address] Globulin (S) [Mass/Vol] 4.7 g/dL High 2.2-4.2 [facility] Comment on above: Order Comment: LINDA HORNE ORDERED BMP Performed By: #### L 500.4100, L501.9940, L100.0100, L500.4050 #### [facility] [address] [place], [address] Glucose [Mass/Vol] 94 mg/dL Normal 74-106 [facility] Comment on above: Order Comment: LINDA COLEEN ORDERED BMP Performed By: #### L 500.4100, L501.9940, L100.0100, L500.4050 #### [facility] [address] [place], [address] Potassium [Moles/Vol] 4.5 mmol/L Normal 3.5-5.1 [facility] Comment on above: Order Comment: LINDA COLEEN ORDERED BMP Performed By: #### L 500.4100, L501.9940, L100.0100, L500.4050 #### [facility] [address] [place], [address] Sodium [Moles/Vol] 129 mmol/L Low 136-145 [facility] Comment on above: Order Comment: LINDA HORNE ORDERED BMP Performed By: #### L 500.4100, L501.9940, L100.0100, L500.4050 #### [facility] [address] [place], [address] T PROT 8.3 g/dL High 6.4-8.2 [facility] Comment on above: Order Comment: LINDA HORNE ORDERED BMP Performed By: #### L 500.4100, L501.9940, L100.0100, L500.4050 #### [facility] [address] [place], [address] Urea nitrogen [Mass/Vol] 14 mg/dL Normal 7-18 [facility] Comment on above: Order Comment: LINDA COLEEN ORDERED BMP Performed By: #### L 500.4100, L501.9940, L100.0100, L500.4050 #### [facility] [address] [place], [address] ALB Normal 3.2-5.0 [facility] Comment on above: Result Comment: DUPL ICATE Performed By: #### L 500.4050, L500.4100, L100.0100 ####[facility] [address] [place], [address] ALK P Normal 45-117 [facility] Comment on above: Result Comment: DUPL ICATE Performed By: #### L 500.4050, L500.4100, L100.0100 ####[facility] [address] [place], [address] ALT Normal 16-61 [facility] Comment on above: Result Comment: DUPL ICATE Performed By: #### L 500.4050, L500.4100, L100.0100 ####[facility] [address] [place], [address] AST Normal 15-37 [facility] Comment on above: Result Comment: DUPL ICATE Performed By: #### L 500.4050, L500.4100, L100.0100 ####[facility] [address] [place], [address] BUN Normal 7-18 [facility] Comment on above: Result Comment: DUPL ICATE Performed By: #### L 500.4050, L500.4100, L100.0100 ####[facility] [address] [place], [address] Performed By: #### L 500.2500 ####[facility] [address] [place], [address] BUN/CRE Normal 10-20 [facility] Comment on above: Result Comment: DUPL ICATE Performed By: #### L 500.4050, L500.4100, L100.0100 ####[facility] [address] [place], [address] Performed By: #### L 500.2500 ####[facility] [address] [place], [address] CA,Total Normal 8.5-10.1 [facility] Comment on above: Result Comment: DUPL ICATE Performed By: #### L 500.4050, L500.4100, L100.0100 ####[facility] [address] [place], [address] Performed By: #### L 500.2500 ####[facility] [address] [place], [address] CL Normal 98-107 [facility] Comment on above: Result Comment: DUPL ICATE Performed By: #### L 500.4050, L500.4100, L100.0100 ####[facility] [address] [place], [address] Performed By: #### L 500.2500 ####[facility] [address] [place], [address] CO2 Normal 21.0-32.0 [facility] Comment on above: Result Comment: DUPL ICATE Performed By: #### L 500.4050, L500.4100, L100.0100 ####[facility] [address] [place], [address] Performed By: #### L 500.2500 ####[facility] [address] [place], [address] CREAT,SERUM Normal 0.70-1.30 [facility] Comment on above: Result Comment: DUPL ICATE Performed By: #### L 500.4050, L500.4100, L100.0100 ####[facility] [address] [place], [address] Performed By: #### L 500.2500 ####[facility] [address] [place], [address] EST GFR Normal >60 [facility] Comment on above: Result Comment: DUPL ICATE Performed By: #### L 500.4050, L500.4100, L100.0100 ####[facility] [address] [place], [address] Performed By: #### L 500.2500 ####[facility] [address] [place], [address] EST GFR - AA Normal >60 [facility] Comment on above: Result Comment: DUPL ICATE Performed By: #### L 500.4050, L500.4100, L100.0100 ####[facility] [address] [place], [address] Performed By: #### L 500.2500 ####[facility] [address] [place], [address] GAP Normal 5-15 [facility] Comment on above: Result Comment: DUPL ICATE Performed By: #### L 500.4050, L500.4100, L100.0100 ####[facility] [address] [place], [address] Performed By: #### L 500.2500 ####[facility] [address] [place], [address] GLU Normal 74-106 [facility] Comment on above: Result Comment: DUPL ICATE Performed By: #### L 500.4050, L500.4100, L100.0100 ####[facility] [address] [place], [address] Performed By: #### L 500.2500 ####[facility] [address] [place], [address] Potassium Normal 3.5-5.1 [facility] Comment on above: Result Comment: DUPL ICATE Performed By: #### L 500.4050, L500.4100, L100.0100 ####[facility] [address] [place], [address] Performed By: #### L 500.2500 ####[facility] [address] [place], [address] T BILI Normal 0.20-1.00 [facility] Comment on above: Result Comment: DUPL ICATE Performed By: #### L 500.4050, L500.4100, L100.0100 ####[facility] [address] [place], [address] T PROT Normal 6.4-8.2 [facility] Comment on above: Result Comment: DUPL ICATE Performed By: #### L 500.4050, L500.4100, L100.0100 ####[facility] [address] [place], [address] Comprehensive Metabolic Profil Normal 136-145 [facility] Comment on above: Result Comment: DUPL ICATE Performed By: #### L 500.4050, L500.4100, L100.0100 ####[facility] [address] [place], [address] Performed By: #### L 500.2500 ####[facility] [address] [place], [address] Internal Medicine Office Vis karthik 10-06-2024 Internal Medicine Office Visit [facility] [address] [place] [address] [place] [address] OFFICE VISIT Date of Service: 10/06/24 MR#: [id number] Acct: [id number] Name: DIANATRACEY SARMIENTOS Rep #: [id number] : 1955 Provider: Dr. Falguni villanueva MD Age/Sex: 69/M Location: [facility] Status: Signed Intake Vital Signs 06/08/24 14:58 09/14/24 15:38 10/06/24 11:17 Height 6 ft 2 in 6 ft 2 in 6 ft 2 in Weight: 228 lb BMI 29.2 BP 122/68 H Blood Pressure Location Lt brachial Position Sitting Respiration 16 Pulse 70 Pulse Source Monitor Temp 98.7 F Temp Source Temporal Pulse Oximetry (%) 97 Oxygen Delivery Method room air Intake Visit Reasons: 6 M FU Chief Complaint: 6 M FU Is patient in pain?: No Allergies No Known Allergies Allergy (Verified 10/06/24 11:13) Medications ???Medication ???Instructions ???Recorded ???Confirmed ???Type multivitamin 1 tab PO DAILY 10/28/21 10/06/24 History zinc 50 mg tablet 50 mg PO DAILY 10/28/21 10/06/24 History magnesium oxide 400 mg (241.3 mg See Rx Instructions .Route 06/25/23 10/06/24 Rx magnesium) tablet .COMPLEX #90 tabs albuterol sulfate 90 mcg/actuation 2 puff inhalation Q4H PRN 08/19/23 10/06/24 Rx aerosol inhaler shortness of breath or wheezing #8.5 grams atorvastatin 20 mg tablet See Rx Instructions .Route 12/06/23 10/06/24 Rx .COMPLEX #90 tabs cholecalciferol (vitamin D3) 25 50 mcg PO DAILY 12/10/23 10/06/24 History mcg (1,000 unit) tablet ascorbic acid (vitamin C) 500 mg 1 g PO DAILY 03/24/24 10/06/24 History tablet psyllium husk 0.52 gram capsule 0.52 g PO DAILY 03/24/24 10/06/24 History (Daily Fiber) metoprolol succinate 50 mg 50 mg PO DAILY #30 tabs 03/27/24 10/06/24 Rx tablet,extended release 24 hr trazodone 50 mg tablet See Rx Instructions .Route 04/05/24 10/06/24 Rx .COMPLEX #60 tabs epinephrine 0.3 mg/0.3 mL 0.3 mg (0.3 mL) IM Q5-15M PRN 06/08/24 10/06/24 Rx injection, auto-injector (EpiPen anaphylaxis #2 ea 2-Wisam) potassium chloride 20 mEq 20 meq PO BID #180 tabs 06/28/24 10/06/24 Rx tablet,extended release (K-Tab) fluticasone fur. 100 mcg-umeclid 1 inh inhalation Q24H #60 ea 07/11/24 10/06/24 Rx 62.5 mcg-vilant 25 mcg inhalat.powder (Trelegy Ellipta) thiamine HCl (vitamin B1) 100 mg 100 mg PO DAILY #90 tabs 07/11/24 10/06/24 Rx tablet ferrous sulfate 325 mg (65 mg 325 mg PO Q OTHER DAY #60 tabs 07/25/24 10/06/24 Rx iron) tablet folic acid 1 mg tablet See Rx Instructions .Route 08/23/24 10/06/24 Rx .COMPLEX #90 tabs apixaban 5 mg tablet (Eliquis) 5 mg PO BID #60 tabs 09/14/24 10/06/24 Rx gabapentin 100 mg capsule 100 mg PO TID NERVE PAIN #90 caps 09/14/24 10/06/24 Rx lisinopril 10 mg tablet 10 mg PO DAILY #30 tabs 09/14/24 10/06/24 Rx lansoprazole 30 mg capsule,delayed 30 mg PO DAILY #90 caps 10/02/24 10/06/24 Rx release Have you fallen in the past year?: No PFSH Medical History Essential hypertension Atrial fibrillation Alcoholic liver disease, unspecified Lumbar radiculopathy BPH (benign prostatic hyperplasia) Hyperlipidemia Anemia Shortness of breath Tobacco use disorder, continuous Encounter for screening for malignant neoplasm of lung in current smoker with 30 pack year history or greater Kidney disease Hypokalemia Colon cancer screening Borderline type 2 diabetes mellitus Smoking greater than 40 pack years NAFLD (nonalcoholic fatty liver disease) PVC (premature ventricular contraction) Abnormal cardiac enzyme level Smoker COPD (chronic obstructive pulmonary disease) Depression Tobacco abuse Unintentional weight loss Surgical History H/O: knee surgery Family History Brother Cancer pancreatic cancer Father Alcoholism Social History Smoking Status: Former smoker Tobacco: How many years used: 48 how long ago did patient quit smokin11/20/23 alcohol intake: current alcohol intake frequency: 3 or more drinks per day Alcohol type: beer substance use type: does not use caffeine: Yes Type: coffee Number of servings: 1 HPI HPI Chief Complaint: 6 M FU Details: TRACEY IVERSON, is a 69 M who presents to the office today for follow-up of his chronic conditions. No acute concerns at this time. History of hypertension, since his last visit has been started on lisinopril and metoprolol which he is taking as prescribed. Blood pressure today at 122/68. Also history of atrial fibrillation, currently on apixaban. Consideration is for cardioversion, follows up closely with cardiology as well. He has concerns about Eliquis cost. History of COPD currently on Trelegy. No recent exac (more content not included)... Normal [facility] Lipid Profileon 10-06-2024 Cholesterol [Mass/Vol] 129 mg/dL Normal 200 [facility] Comment on above: Order Comment: LINDA HORNE ORDERED BMP Result Comment: <200 mg/dL Desirable 200-240 mg/dL Borderline >240 mg/dL High Risk Performed By: #### L 500.4100, L501.9940, L100.0100, L500.4050 #### [facility] [address] [facility] [place], [address] Cholesterol in HDL [Mass/Vol] 51 mg/dL Normal [facility] Comment on above: Order Comment: LINDA HORNE ORDERED BMP Result Comment: The drugs N-Acetylcysteine and Metamizole may falsely depress this assay. Reference Range HDL <40 mg/dL Low HDL Cholesterol HDL >or= 60 mg/dL High HDL Cholesterol Performed By: #### L 500.4100, L501.9940, L100.0100, L500.4050 #### [facility] [address] [facility] [place], [address] Cholesterol in LDL [Mass/Vol] 61 mg/dL Normal 0-130 [facility] Comment on above: Order Comment: LINDA HORNE ORDERED BMP Performed By: #### L 500.4100, L501.9940, L100.0100, L500.4050 #### [facility] [address] [place], [address] Cholesterol in VLDL [Mass/Vol] 17 mg/dL Normal 5-40 [facility] Comment on above: Order Comment: LINDA HORNE ORDERED BMP Performed By: #### L 500.4100, L501.9940, L100.0100, L500.4050 #### [facility] [address] [place], [address] Triglyceride [Mass/Vol] 86 mg/dL Normal [facility] Comment on above: Order Comment: LINDA HORNE ORDERED BMP Result Comment: The drugs N-Acetylcysteine and Metamizole may falsely depress this assay. Serum Triglycerides Reference Interval Normal <150 mg/dL Borderline high 150 - 199 mg/dL High 200 - 499 mg/dL Very High > or = 500 mg/dL Performed By: #### L 500.4100, L501.9940, L100.0100, L500.4050 #### [facility] [address] [place], [address] CHOL Normal 200 [facility] Comment on above: Result Comment: DUPL ICATE Performed By: #### L 500.4050, L500.4100, L100.0100 ####[facility] [address] [place], [address] HDL Normal [facility] Comment on above: Result Comment: DUPL ICATE The drugs N-Acetylcysteine and Metamizole may falsely depress this assay. Performed By: #### L 500.4050, L500.4100, L100.0100 ####[facility] [address] [place], [address] LDL Normal 0-130 [facility] Comment on above: Result Comment: DUPL ICATE Performed By: #### L 500.4050, L500.4100, L100.0100 ####[facility] [address] [place], [address] TRIG Normal [facility] Comment on above: Result Comment: DUPL ICATE The drugs N-Acetylcysteine and Metamizole may falsely depress this assay. Performed By: #### L 500.4050, L500.4100, L100.0100 ####[facility] [address] [place], [address] VLDL Normal 5-40 [facility] Comment on above: Result Comment: DUPL ICATE Performed By: #### L 500.4050, L500.4100, L100.0100 ####[facility] [address] [place], [address] PSA,Total- Diagnosticon 11-1 PSA, DIAGNOSTIC 0.56 ng/mL Normal 0.0-4.0 [facility] Comment on above: Order Comment: LINDA HORNE ORDERED BMP Result Comment: This test was performed using the TPSA assay method for the [employer] chemistry system. Values obtained with different assay methods cannot be used interchangably. When changing PSA assays in the course of monitoring a patient, additional sequential testing should be carried out to confirm baseline values. Performed By: #### L 500.4100, L501.9940, L100.0100, L500.4050 #### [facility] [address] [place], [address] 12 Lead EKG performed by [facility] on 09-14-2024 12 Lead EKG performed by [facility] [address] [place] [address] 12 Lead EKG performed by [facility] 09/14/24 1631 MR#: [id number] Acct: [id number] Name: TRACEY IVERSON Rep #: [id number] : 1955 69 From: Linda Horne BOX STORAGE WORKER BOX STORAGE WORKER-C Attending Dr: Linda Horne, BOX STORAGE WORKER-C Status: DEP AMB Ordering Dr: Linda Horne NP BOX STORAGE WORKER-C Date: 09/14/24 Location: [facility] Sex: M C Admitted: BMS/12 Lead EKG performed by [facility] ECG Report Interpretation ----Atrial fibrillation -Left axis -anterior fascicular block. ABNORMAL Electronically signed on 09/15/2024 at 12:10 by Arturo Cohenwood Software Version [id number] 09/15/24 1213 Date Linda NIELSEN CC: Dr. Falguni Beasley MD Date Dictated: 09/14/241630 Date Transcribed: 09/14/241630 Goods Layer: OLU Signed Normal [facility] Card[facility] Visit Reporton Cardiology Visit Report [facility] [facility] [place] [address] OFFICE VISIT Date of Service: 09/14/24 MR#: [id number] Acct: [id number] Name: TRACEY IVERSON Rep #: [id number] : 1955 Provider: MORALES us Age/Sex: 69/M Location: [facility] Status: Signed HPI HPI History of Present Illness Details: He is a 69-year-old white male presents for a cardiovascular patient follow-up. Is a history of atrial fibrillation, possibly hypertension, borderline diabetes, mount alcohol for fatty liver disease, and tobacco abuse. He had an echocardiogram done 01/14/2024 which showed normal LV function ejection fraction 65% his PA pressure was slightly elevated at 38. The atrial were both of normal size there was 1+ tricuspid regurgitation and no other valvular disease documented. He denies chest, arm, jaw, or neck discomfort. He denies palpitations. He denies bilateral lower extremity edema. He denies claudication. He acknowledges shortness of breath with activity such as walking and lifting. He attributes this to COPD as it is similar for several years. He denies shortness of breath at rest, orthopnea, or PND. He denies chronic cough. He denies significant, sudden weight gain. He denies lightheadedness, dizziness, near-syncope, or syncope. He denies blood in urine, blood in stool, or epistaxis. He denies fever with chills. He denies myalgia. He denies fatigue. His exercise level has remained stable. Intake Vital Signs 06/08/24 14:58 09/14/24 15:38 Height 6 ft 2 in 6 ft 2 in Weight: 233 lb 226 lb BMI 29.9 29.0 BP 142/92 H 160/86 H Blood Pressure Location Lt brachial Lt brachial Position Sitting Sitting Respiration 16 18 Pulse 84 64 Pulse Source Monitor NIBP Temp 97.8 F Pulse Oximetry (%) 97 Oxygen Delivery Method room air Intake Visit Reasons: ELIQUIS F/U PER [facility] Elevating Grader Operator Required: No Accompanied by: Is patient in pain?: No Allergies No Known Allergies Allergy (Verified 09/14/24 15:38) Medications ???Medication ???Instructions ???Recorded ???Confirmed ???Type multivitamin 1 tab PO DAILY 10/28/21 09/14/24 History zinc 50 mg tablet 50 mg PO DAILY 10/28/21 09/14/24 History magnesium oxide 400 mg (241.3 mg See Rx Instructions .Route 06/25/23 09/14/24 Rx magnesium) tablet .COMPLEX #90 tabs albuterol sulfate 90 mcg/actuation 2 puff inhalation Q4H PRN 08/19/23 09/14/24 Rx aerosol inhaler shortness of breath or wheezing #8.5 grams atorvastatin 20 mg tablet See Rx Instructions .Route 12/06/23 09/14/24 Rx .COMPLEX #90 tabs cholecalciferol (vitamin D3) 25 50 mcg PO DAILY 12/10/23 09/14/24 History mcg (1,000 unit) tablet ascorbic acid (vitamin C) 500 mg 1 g PO DAILY 03/24/24 09/14/24 History tablet psyllium husk 0.52 gram capsule 0.52 g PO DAILY 03/24/24 09/14/24 History (Daily Fiber) metoprolol succinate 50 mg 50 mg PO DAILY #30 tabs 03/27/24 09/14/24 Rx tablet,extended release 24 hr trazodone 50 mg tablet See Rx Instructions .Route 04/05/24 09/14/24 Rx .COMPLEX #60 tabs epinephrine 0.3 mg/0.3 mL 0.3 mg (0.3 mL) IM Q5-15M PRN 06/08/24 09/14/24 Rx injection, auto-injector (EpiPen anaphylaxis #2 ea 2-Wisam) potassium chloride 20 mEq 20 meq PO BID #180 tabs 06/28/24 09/14/24 Rx tablet,extended release (K-Tab) lansoprazole 30 mg capsule,delayed 30 mg PO DAILY #90 caps 07/05/24 09/14/24 Rx release fluticasone fur. 100 mcg-umeclid 1 inh inhalation Q24H #60 ea 07/11/24 09/14/24 Rx 62.5 mcg-vilant 25 mcg inhalat.powder (Trelegy Ellipta) thiamine HCl (vitamin B1) 100 mg 100 mg PO DAILY #90 tabs 07/11/24 09/14/24 Rx tablet ferrous sulfate 325 mg (65 mg 325 mg PO Q OTHER DAY #60 tabs 07/25/24 09/14/24 Rx iron) tablet folic acid 1 mg tablet See Rx Instructions .Route 08/23/24 09/14/24 Rx .COMPLEX #90 tabs apixaban 5 mg tablet (Eliquis) 5 mg PO BID #60 tabs 09/14/24 09/14/24 Rx aspirin 81 mg tablet,delayed 81 mg PO QDAY 09/14/24 09/14/24 History release (Adult Aspirin Regimen) gabapentin 100 mg capsule 100 mg PO TID NERVE PAIN #90 caps 09/14/24 Rx lisinopril 10 mg tablet 10 mg PO DAILY #30 tabs 09/14/24 09/14/24 Rx Have you fallen in the past year?: No [facility] Medical History (Updated 09/14/24 @ 16:30 by Linda Horne BOX STORAGE WORKER, BOX STORAGE WORKER-C) Essential hypertension Atrial fibrillation Alcoholic liver disease, unspecified Lumbar radiculopathy BPH (benign prostatic hyperplasia) Hyperlipidemia Anemia Shortness of breath Tobacco use disorder, continuous Encounter for screening for malignant neoplasm of lung in current smoker with 30 pack year history or greater Kidney disease Hypokalemia Colon cancer screening Borderline type 2 diabetes mellitus Smoking greater than 40 pack years NAFLD (nonalcoholic fatty liver disease) P (more content not included)... Normal [facility] Internal Medicine Office Vis iton 06-08-2024 Internal Medicine Office Visit [facility] [address] [place] [address] [place] [address] OFFICE VISIT Date of Service: 06/08/24 MR#: [id number] Acct: [id number] Name: TRACEY IVERSON Rep #: [id number] : 1955 Provider: MORALES rodriguez Age/Sex: 69/M Location: [facility] [facility] Status: Signed Intake Vital Signs 03/24/24 14:27 06/08/24 14:58 Height 6 ft 2 in 6 ft 2 in Weight: 232 lb 233 lb BMI 29.7 29.9 BP 134/78 H 142/92 H Blood Pressure Location Lt brachial Lt brachial Position Sitting Sitting Respiration 16 16 Pulse 78 84 Pulse Source Monitor Monitor Temp 97.8 F Temp Source Temporal Pulse Oximetry (%) 93 97 Oxygen Delivery Method room air room air Intake Visit Reasons: ACUTE ANKLES AND FEET SWOLLEN Chief Complaint: Follow-up chronic conditions Elevating Grader Operator Required: No Is patient in pain?: No Allergies No Known Allergies Allergy (Verified 06/08/24 14:58) Medications ???Medication ???Instructions ???Recorded ???Confirmed ???Type multivitamin 1 tab PO DAILY 10/28/21 06/08/24 History zinc 50 mg tablet 50 mg PO DAILY 10/28/21 06/08/24 History magnesium oxide 400 mg (241.3 mg See Rx Instructions .Route 06/25/23 06/08/24 Rx magnesium) tablet .COMPLEX #90 tabs albuterol sulfate 90 mcg/actuation 2 puff inhalation Q4H PRN 08/19/23 06/08/24 Rx aerosol inhaler shortness of breath or wheezing #8.5 grams lansoprazole 30 mg capsule,delayed 30 mg PO DAILY #90 caps 10/12/23 06/08/24 Rx release potassium chloride 20 mEq 20 meq PO BID #180 tabs 11/04/23 06/08/24 Rx tablet,extended release (K-Tab) atorvastatin 20 mg tablet See Rx Instructions .Route 12/06/23 06/08/24 Rx .COMPLEX #90 tabs cholecalciferol (vitamin D3) 25 50 mcg PO DAILY 12/10/23 06/08/24 History mcg (1,000 unit) tablet thiamine HCl (vitamin B1) 100 mg 100 mg PO DAILY #90 tabs 12/22/23 06/08/24 Rx tablet folic acid 1 mg tablet See Rx Instructions .Route 02/22/24 06/08/24 Rx .COMPLEX #90 tabs ascorbic acid (vitamin C) 500 mg 1 g PO DAILY 03/24/24 06/08/24 History tablet psyllium husk 0.52 gram capsule 0.52 g PO DAILY 03/24/24 06/08/24 History (Daily Fiber) metoprolol succinate 50 mg 50 mg PO DAILY #30 tabs 03/27/24 06/08/24 Rx tablet,extended release 24 hr ferrous sulfate 325 mg (65 mg 325 mg PO Q OTHER DAY #60 tabs 04/05/24 06/08/24 Rx iron) tablet trazodone 50 mg tablet See Rx Instructions .Route 04/05/24 06/08/24 Rx .COMPLEX #60 tabs gabapentin 100 mg capsule 100 mg PO TID NERVE PAIN #90 caps 04/06/24 06/08/24 Rx fluticasone fur. 100 mcg-umeclid 1 inh inhalation Q24H #60 ea 05/11/24 06/08/24 Rx 62.5 mcg-vilant 25 mcg inhalat.powder (Trelegy Ellipta) epinephrine 0.3 mg/0.3 mL 0.3 mg (0.3 mL) IM Q5-15M PRN 06/08/24 06/08/24 Rx injection, auto-injector (EpiPen anaphylaxis #2 ea 2-Wisam) Have you fallen in the past year?: No Nurse's Note: Bilateral ankle swelling and feet. Has been going on all week. Did not injure them Took a couple days off work and elevated them a little bit which helped some. Denies seeping, redness, or warmth. Has pain when they were real big. L arm spot for a couple of weeks just popped up. It has not changed at all had no itching, crusting, bleeding or discharge [facility] Medical History Abnormal cardiac enzyme level Alcoholic liver disease, unspecified Anemia Atrial fibrillation Borderline type 2 diabetes mellitus BPH (benign prostatic hyperplasia) Colon cancer screening COPD (chronic obstructive pulmonary disease) Depression Encounter for screening for malignant neoplasm of lung in current smoker with 30 pack year history or greater Hyperlipidemia Hypokalemia Kidney disease Lumbar radiculopathy NAFLD (nonalcoholic fatty liver disease) PVC (premature ventricular contraction) Shortness of breath Smoker Smoking greater than 40 pack years Tobacco abuse Tobacco use disorder, continuous Unintentional weight loss Surgical History H/O: knee surgery Family History Brother Cancer pancreatic cancer Father Alcoholism Social History Smoking Status: Former smoker Tobacco: How many years used: 48 how long ago did patient quit smokin11/20/23 alcohol intake: current alcohol intake frequency: 3 or more drinks per day Alcohol type: beer substance use type: does not use caffeine: Yes Type: coffee Number of servings: 1 HPI HPI Chief Complaint: Follow-up chronic conditions Details: TRACEY IVERSON, is a 69 M who presents to the office today for an acute visit for concerns of BLE swelling. Patient reports he noticed bilateral lower extremity swelling x 4 days. He he r (more content not included)... Normal [facility] Chest without Contraston Chest without Contrast [facility] Imaging Services [address] [place] [id number] Chest without Contrast MR#: [id number] Acct: [id number] Name: TRACEY IVERSON Rep #: [id number] : 1955 M 69 From: Waldo Decker MD PCP: Dr. Falguni Beasley MD Status: REG CLI Study: Chest without Contrast Date of Exam: 05/19/24 Exam# [id number] Ordering Dr: Olimpia Root [employer] WORKER-C [id number] EXAM: CT CHEST WITHOUT INTRAVENOUS CONTRAST CLINICAL INDICATION: 6 mm nodule TECHNIQUE: Helically acquired images were obtained of the chest without intravenous contrast. This CT exam was performed using one or more of the following dose reduction techniques: automated exposure control, adjustment of the mA and/or kV according to patient size, and/or use of iterative reconstruction technique. RADIATION DOSE: CTDIvol = 16.15 mGy, DLP = 621.70 mGy-cm COMPARISON: No relevant prior studies available. FINDINGS: ARTIFACTS: Breathing motion artifacts. LUNGS AND PLEURAL SPACES: Paraseptal cysts in the upper lobes. No pleural effusion or thickening. No pneumothorax. No suspicious pulmonary nodules. No suspicious infiltrates. HEART: Mild cardiomegaly. Normal pericardium. Few calcified plaques in the LAD branch and circumflex branch of the left coronary artery. MEDIASTINUM: Unremarkable. No mediastinal or hilar adenopathy. Esophagus is unremarkable. No hiatal hernia. THYROID: Unremarkable. No thyroid lesions. BONES/JOINTS: Diffuse idiopathic skeletal hyperostosis along the thoracic spine. Partial ankylosis of the anterior T8 and T9 vertebral bodies. No suspicious lytic or blastic abnormality. VASCULATURE: Unremarkable. Thoracic aorta is non-dilated. CT/Chest without Contrast IMPRESSION: 1. Limited study due to breathing motion artifacts. 2. No CT evidence of any suspicious pulmonary nodules or infiltrates. 3. Paraseptal cysts in the upper lobes. 4. No acute cardiopulmonary pathology. 5. Partial ankylosis in the anterior aspect of T8 and T9 vertebral bodies. 6. Diffuse idiopathic skeletal hyperostosis along the thoracic spine. Electronically Signed: Waldo Decker MD at 14:54 EDT , CC: MORALES Root; Dr. Falguni Beasley MD Goods Layer: Signed Normal [facility] Absolute lymphocyte countOrd ered By: Falguni Beasley on 12-22-2023 Lymphocytes Auto (Unsp spec) [#/Vol] 0.94 10*3/uL 0.83-4.51 [facility] Automated lymphocyte count a s percentage of total leukocytesOrdered By: Falguni Beasley on 12-22-2023 Lymphocytes/100 WBC Auto (Unsp spec) 13.6 % 19-41 [facility] Basophil percentageOrdered B y: Falguni Beasley on 12-22-2023 Basophils/100 WBC (Bld) 1.4 % 0-1 [facility] Bilirubin [Mass/Vol] 0.60 mg/dL 0.20-1.00 [facility] Comment on above: For patients on eltr ombopag therapy, use of Dimension [place] TBIL is not recommended. Chloride [Moles/Vol] 107 mmol/L 98-107 [facility] Cholesterol [Mass/Vol] 141 mg/dL <200 [facility] Comment on above: <200 mg/dL Desirable 200-240 mg/dL Borderline >240 mg/dL High Risk Eosinophils/100 WBC (Bld) 2.7 % 0-5 [facility] Glucose [Mass/Vol] 104 mg/dL 74-106 [facility] Comment on above: Fasting Glucose resu lt from 100 to 125 mg/dL suggests IMPAIRED HOMEOSTASIS per A.D.A. criteria. Hemoglobin (Bld) [Mass/Vol] 15.6 g/dL 13.0-16.5 [facility] Monocytes/100 WBC (Bld) 8.4 % 0-10 [facility] Neutrophils (Bld) [#/Vol] 5.1 10*3/uL 2.0-7.7 [facility] Neutrophils/100 WBC (Bld) 73.6 % 47-70 [facility] Potassium [Moles/Vol] 4.3 mmol/L 3.5-5.1 [facility] Protein [Mass/Vol] 8.4 g/dL 6.4-8.2 [facility] Sodium [Moles/Vol] 135 mmol/L 136-145 [facility] Triglyceride [Mass/Vol] 73 mg/dL <199 [facility] Comment on above: The drugs N-Acetylcy steine and Metamizole may falsely depress this assay.Serum Triglycerides Reference Interval Normal <150 mg/dL Borderline high 150 - 199 mg/dL High 200 - 499 mg/dL Very High > or = 500 mg/dL WBC (Bld) [#/Vol] 6.9 10*3/uL 4.4-11.0 [facility] Determination of erythrocyte mean corpuscular volume (MCV)Ordered By: Falguni Beasley on 12-22-2023 MCV (RBC) [Entitic vol] 93.1 fL 80-94 [facility] Erythrocyte distribution wid th ratioOrdered By: Falguni Beasley on 12-22-2023 Erythrocyte distribution width (RBC) [Ratio] 12.8 % 11.6-14.6 [facility] Erythrocyte distribution wid th standard deviationOrdered By: [facility] Urbinajennifer on 12-22-2023 Erythrocyte distribution width (RBC) [Entitic vol] 43.7 fL 35.1-43.9 [facility] Hematocrit Auto (Bld) [Volum e fraction]Ordered By: donald Beasley on 12-22-2023 Hematocrit (Bld) [Volume fraction] 48.3 % 40-54 [facility] Immature granulocytes/100 WB C Auto (Bld)Ordered By: [facility] Carlitosjennifer on 12-22-2023 Immature granulocytes/100 WBC (Bld) 0.300 % 0.0-0.9 [facility] Comment on above: IG% - Immature Granu locytes (promyelocytes, myelocytes and metamyelocytes) > 1% indicates that a LEFT SHIFT is Present. Laboratory - Chemistry and C hemistry - challengeOrdered By: Falguni Beasley on 12-22-2023 Albumin/Globulin [Mass ratio] 0.8 {ratio} 0.9-2.4 [facility] ALP [Catalytic activity/Vol] 131 U/L 45-117 [facility] ALT [Catalytic activity/Vol] 57 U/L 16-61 [facility] Cholesterol in HDL (Body fld) [Mass/Vol] 58 mg/dL >40 [facility] Comment on above: The drugs N-Acetylcy steine and Metamizole may falsely depress this assay. Reference Range HDL <40 mg/dL Low HDL Cholesterol HDL >or= 60 mg/dL High HDL Cholesterol Cholesterol in LDL (Body fld) [Moles/Vol] 68 mg/dL 0-130 [facility] Cholesterol in VLDL Calc [Moles/Vol] 15 mg/dL 5-40 [facility] CO2 [Moles/Vol] 24.0 mmol/L 21.0-32.0 [facility] Globulin (S) [Mass/Vol] 4.7 g/dL 2.2-4.2 [facility] Urea nitrogen/Creatinine [Mass ratio] 16.5 mg/mg 10-20 [facility] Laboratory - Hematology and Cell countsOrdered By: Falguni Beasley on 12-22-2023 MCH (RBC) [Entitic mass] 30.1 pg 27.0-32.0 [facility] MCHC (RBC) [Mass/Vol] 32.3 g/dL 32-36 [facility] Nucleated RBC/100 WBC (Bld) [Ratio] 0 % 0-5 [facility] Platelets (Bld) [#/Vol] 286 10*3/uL 150-450 [facility] - Hematology and Cell countson 12-22-2023 HbA1c (Bld) [Mass fraction] 5.7 % 4.2-6.3 [facility] No Panel InformationOrdered By: Falguni Beasley on 12-22-2023 Estimated GFR (MDRD) Amer 93 mL/min >60 [facility] Comment on above: GFR Calc Estimated GFR (MDRD) Non-Af Amer 77 mL/min >60 [facility] Comment on above: Non- GFR Calc Platelet mean volume Ayad-Ec ker (Bld) [Entitic vol]Ordered By: Falguni Beasley on 12-22-2023 Platelet mean volume (Bld) [Entitic vol] 10.1 fL 6.2-12.0 [facility] RBC Auto (Bld) [#/Vol]Ordere d By: Falguni Beasley on 12-22-2023 RBC (Bld) [#/Vol] 5.19 10*6/uL 4.6-6.2 [facility] Screening prostate specific antigen (PSA) measurementOrdered By: Falguni Beasley on 12-22-2023 Prostate specific Ag IA [Mass/Vol] 0.75 ng/mL 0.00-4.00 [facility] Comment on above: This test was perfor med using the TPSA assay method for the[facility] chemistry system. Values obtained with differentassay methods cannot be used interchangably.When changing PSA assays in the course of monitoring apatient, additional sequential testing should be carriedout to confirm baseline values. Serum or plasma calcium rl urement (mass/volume)Ordered By: Falguni Beasley on 12-22-2023 Calcium [Mass/Vol] 10.0 mg/dL 8.5-10.1 [facility] Serum or plasma creatinine m easurement (mass/volume)Ordered By: Falguni Beasley on 12-22-2023 Creatinine [Mass/Vol] 1.03 mg/dL 0.70-1.30 [facility] Comment on above: The validity of the calculated GFR & GFRAA in patients over 70 years has not been determined. Clinical correlation is essential. Serum or plasma urea nitroge n measurement (mass/volume)Ordered By: Falguni Beasley on 12-22-2023 Urea nitrogen [Mass/Vol] 17 mg/dL 7-18 [facility] Thin prep Papanicolaou smear with manual screeningOrdered By: Falguni Beasley on 12-22-2023 Thin prep Papanicolaou smear with manual screening 3.7 g/dL 3.2-5.0 [facility] Thin prep Papanicolaou smear with manual screening 39 U/L 15-37 [facility] Thin prep Papanicolaou smear with manual screening 4 5-15 [facility] Basophil percentageOrdered B y: Falguni Beasley on 05-28-2023 Bilirubin [Mass/Vol] 0.50 mg/dL 0.20-1.00 [facility] Comment on above: For patients on eltr ombopag therapy, use of Dimension [place] TBIL is not recommended. Chloride [Moles/Vol] 105 mmol/L 98-107 [facility] Glucose [Mass/Vol] 108 mg/dL 74-106 [facility] Comment on above: Fasting Glucose resu lt from 100 to 125 mg/dL suggests IMPAIRED HOMEOSTASIS per A.D.A. criteria. Potassium [Moles/Vol] 4.4 mmol/L 3.5-5.1 [facility] Protein [Mass/Vol] 8.1 g/dL 6.4-8.2 [facility] Sodium [Moles/Vol] 131 mmol/L 136-145 [facility] Laboratory - Chemistry and C hemistry - challengeOrdered By: Falguni Beasley on 05-28-2023 ALP [Catalytic activity/Vol] 150 U/L 45-117 [facility] ALT [Catalytic activity/Vol] 67 U/L 16-61 [facility] CO2 [Moles/Vol] 22.0 mmol/L 21.0-32.0 [facility] Globulin (S) [Mass/Vol] 4.4 g/dL 2.2-4.2 [facility] Urea nitrogen/Creatinine [Mass ratio] 12.3 mg/mg 10-20 [facility] No Panel InformationOrdered By: Falguni Beasley on 05-28-2023 Estimated GFR (MDRD) Amer 99 mL/min >60 [facility] Comment on above: GFR Calc Estimated GFR (MDRD) Non-Af Amer 82 mL/min >60 [facility] Comment on above: Non- GFR Calc Serum or plasma albumin rl urement (mass/volume)Ordered By: Falguni Beasley on 05-28-2023 Albumin [Mass/Vol] 3.7 g/dL 3.2-5.0 [facility] Serum or plasma albumin/glob ulin mass ratioOrdered By: Falguni Beasley on 05-28-2023 Albumin/Globulin [Mass ratio] 0.8 {ratio} 0.9-2.4 [facility] Serum or plasma calcium rl urement (mass/volume)Ordered By: Falguni Beasley on 05-28-2023 Calcium [Mass/Vol] 9.5 mg/dL 8.5-10.1 [facility] Serum or plasma creatinine m easurement (mass/volume)Ordered By: Falguni Beasley on 05-28-2023 Creatinine [Mass/Vol] 0.98 mg/dL 0.70-1.30 [facility] Comment on above: The validity of the calculated GFR & GFRAA in patients over 70 years has not been determined. Clinical correlation is essential. Serum or plasma urea nitroge n measurement (mass/volume)Ordered By: Falguni Beasley on 05-28-2023 Urea nitrogen [Mass/Vol] 12 mg/dL 7-18 [facility] Thin prep Papanicolaou smear with manual screeningOrdered By: Falguni Beasley on 05-28-2023 Thin prep Papanicolaou smear with manual screening 43 U/L 15-37 [facility] Thin prep Papanicolaou smear with manual screening 4 5-15 [facility] Whole blood hemoglobin A1c/t otal hemoglobin ratio (mass fraction)Ordered By: Falguni Beasley on 05-28-2023 HbA1c (Bld) [Mass fraction] 5.7 % 3.8-5.6 [facility] Comment on above: Normal < 5.7 % Predi abetic 5.7 - 6.4 % Diabetic >or= 6.5 % Please note range changes. Absolute lymphocyte countOrd ered By: Dr. Beasley on 12-18-2022 Lymphocytes Auto (Unsp spec) [#/Vol] 1.63 10*3/uL 0.83-4.51 [facility] Basophil percentageOrdered B y: Dr. Beasley on 12-18-2022 Basophils/100 WBC (Bld) 1.3 % 0-1 [facility] Bilirubin [Mass/Vol] 0.40 mg/dL 0.20-1.00 [facility] Comment on above: For patients on eltr ombopag therapy, use of Dimension [place] TBIL is not recommended. Chloride [Moles/Vol] 105 mmol/L 98-107 [facility] Cholesterol [Mass/Vol] 155 mg/dL <200 [facility] Comment on above: <200 mg/dL Desirable 200-240 mg/dL Borderline >240 mg/dL High Risk Eosinophils/100 WBC (Bld) 2.7 % 0-5 [facility] Glucose [Mass/Vol] 99 mg/dL 74-106 [facility] Neutrophils (Bld) [#/Vol] 4.5 10*3/uL 2.0-7.7 [facility] Neutrophils/100 WBC (Bld) 62.3 % 47-70 [facility] Potassium [Moles/Vol] 4.2 mmol/L 3.5-5.1 [facility] Protein [Mass/Vol] 7.9 g/dL 6.4-8.2 [facility] Sodium [Moles/Vol] 138 mmol/L 136-145 [facility] Triglyceride [Mass/Vol] 121 mg/dL <199 [facility] Comment on above: The drugs N-Acetylcy steine and Metamizole may falsely depress this assay.Serum Triglycerides Reference Interval Normal <150 mg/dL Borderline high 150 - 199 mg/dL High 200 - 499 mg/dL Very High > or = 500 mg/dL WBC (Bld) [#/Vol] 7.2 10*3/uL 4.4-11.0 [facility] Blood erythrocytes count (nu mber/volume)Ordered By: Dr. Beasley on 12-18-2022 RBC (Bld) [#/Vol] 4.45 10*6/uL 4.6-6.2 [facility] Blood hemoglobin measurement (mass/volume)Ordered By: Dr. Beasley on 12-18-2022 Hemoglobin (Bld) [Mass/Vol] 14.0 g/dL 13.0-16.5 [facility] Blood lymphocytes/100 leukoc ytesOrdered By: Dr. Beasley on 12-18-2022 Lymphocytes/100 WBC (Bld) 22.8 % 19-41 [facility] Blood monocytes/100 leukocyt esOrdered By: Dr. Beasley on 12-18-2022 Monocytes/100 WBC (Bld) 10.6 % 0-10 [facility] Blood platelet mean volumeOr dered By: Dr. Beasley on 12-18-2022 Platelet mean volume (Bld) [Entitic vol] 9.9 fL 6.2-12.0 [facility] Determination of erythrocyte mean corpuscular volume (MCV)Ordered By: Dr. Beasley on 12-18-2022 MCV (RBC) [Entitic vol] 94.4 fL 80-94 [facility] Hematocrit Auto (Bld) [Volum e fraction]Ordered By: Dr. Beasley on 12-18-2022 Hematocrit (Bld) [Volume fraction] 42.0 % 40-54 [facility] Laboratory - Chemistry and C hemistry - challengeOrdered By: Dr. Beasley on 12-18-2022 ALP [Catalytic activity/Vol] 144 U/L 45-117 [facility] ALT [Catalytic activity/Vol] 52 U/L 16-61 [facility] CO2 [Moles/Vol] 25.0 mmol/L 21.0-32.0 [facility] Globulin (S) [Mass/Vol] 4.1 g/dL 2.2-4.2 [facility] Urea nitrogen/Creatinine [Mass ratio] 17.5 mg/mg 10-20 [facility] - Hematology and Cell countsOrdered By: Dr. Beasley on 12-18-2022 Erythrocyte distribution width (RBC) [Entitic vol] 43.0 fL 35.1-43.9 [facility] Erythrocyte distribution width (RBC) [Ratio] 12.6 % 11.6-14.6 [facility] Immature granulocytes/100 WBC (Bld) 0.300 % 0.0-0.9 [facility] Comment on above: IG% - Immature Granu locytes (promyelocytes, myelocytes and metamyelocytes) > 1% indicates that a LEFT SHIFT is Present. MCH (RBC) [Entitic mass] 31.5 pg 27.0-32.0 [facility] Nucleated RBC/100 WBC (Bld) [Ratio] 0 % 0-5 [facility] - Hematology and Cell countson 12-18-2022 HbA1c (Bld) [Mass fraction] 5.7 % 4.2-6.3 [facility] MCHC Auto (RBC) [Mass/Vol]Or dered By: Dr. Beasley on 12-18-2022 MCHC (RBC) [Mass/Vol] 33.3 g/dL 32-36 [facility] No Panel InformationOrdered By: Dr. Beasley on 12-18-2022 Estimated GFR (MDRD) Amer 83 mL/min >60 [facility] Comment on above: GFR Calc Estimated GFR (MDRD) Non-Af Amer 68 mL/min >60 [facility] Comment on above: Non- GFR Calc Prostate Specific Antigen Screen 0.64 ng/mL 0.00-4.00 [facility] Comment on above: This test was perfor med using the TPSA assay method for the[employer] chemistry system. Values obtained with differentassay methods cannot be used interchangably.When changing PSA assays in the course of monitoring apatient, additional sequential testing should be carriedout to confirm baseline values. Platelets bldOrdered By: Dr. Beasley on 12-18-2022 Platelets (Bld) [#/Vol] 241 10*3/uL 150-450 [facility] Serum or plasma albumin rl urement (mass/volume)Ordered By: Dr. Beasley on 12-18-2022 Albumin [Mass/Vol] 3.8 g/dL 3.2-5.0 [facility] Serum or plasma albumin/glob ulin mass ratioOrdered By: Dr. Beasley on 12-18-2022 Albumin/Globulin [Mass ratio] 0.9 {ratio} 0.9-2.4 [facility] Serum or plasma calcium rl urement (mass/volume)Ordered By: Dr. Beasley on 12-18-2022 Calcium [Mass/Vol] 9.3 mg/dL 8.5-10.1 [facility] Serum or plasma cholesterol in HDL measurement (mass/volume)Ordered By: Dr. Beasley on 12-18-2022 Cholesterol in HDL [Mass/Vol] 56 mg/dL >40 [facility] Comment on above: The drugs N-Acetylcy steine and Metamizole may falsely depress this assay. Reference Range HDL <40 mg/dL Low HDL Cholesterol HDL >or= 60 mg/dL High HDL Cholesterol Serum or plasma cholesterol in VLDL measurement (mass/volume)Ordered By: Dr. Beasley on 12-18-2022 Cholesterol in VLDL [Mass/Vol] 24 mg/dL 5-40 [facility] Serum or plasma creatinine m easurement (mass/volume)Ordered By: Dr. Beasley on 12-18-2022 Creatinine [Mass/Vol] 1.14 mg/dL 0.70-1.30 [facility] Comment on above: The validity of the calculated GFR & GFRAA in patients over 70 years has not been determined. Clinical correlation is essential. Serum or plasma low density lipoprotein (LDL) cholesterol measurement (mass/volume)Ordered By: Dr. Beasley on 12-18-2022 Cholesterol in LDL [Mass/Vol] 75 mg/dL 0-130 [facility] Serum or plasma urea nitroge n measurement (mass/volume)Ordered By: Dr. Beasley on 12-18-2022 Urea nitrogen [Mass/Vol] 20 mg/dL 7-18 [facility] Thin prep Papanicolaou smear with manual screeningOrdered By: Dr. Beasley on 12-18-2022 Thin prep Papanicolaou smear with manual screening 31 U/L 15-37 [facility] Thin prep Papanicolaou smear with manual screening 8 5-15 [facility] Basophil percentageOrdered B y: Soo Manrique on 11-03-2022 Basophil percentage < 0.9 mg/dL 0.70-1.30 [facility] No Panel InformationOrdered By: Soo Manrique on 11-03-2022 Bedside Estimated GFR (eGFR) > 60.0000 mL/min >60 [facility] - Microbiology an d Antimicrobial susceptibilityon 04-10-2022 SARS-CoV-2 (COVID-19) RNA RAUDEL+probe Ql (Unsp spec) Not detected Not Detect [facility] Work Phone: Comment on above: Normal Reference Ran ge: Not DetectedMethod:(RT-PCR) real-time reverse transcriptase PCRLuminex RoverTown Instrument*The Food and Drug Administration (FDA) has issued an Emergency Use Authorization (EAU) for the [employer] SARS-CoV-2 Assay for the rapid detection of the virus that causes COVID-19. This test has been validated, but the FDAs independent review of this validation is pending.*Negative results do not preclude infection and should not be used as the sole basis for treatment or patient management. Optimum specimen types and timing for peak viral levels during infections caused by SARS-CoV-2 have not been determined. Collection of multiple specimens from the same patient may be necessary to detect the virus. The possibility of a false negative result should be considered if the patient has clinical presentation or has had recent exposure. ANES POSTPROC EVALon 021 ANES POSTPROC EVAL HNO ID: [id number] Author: Berenice Benavides MD Service: Anesthesiology Author Type: Physician Type: Anesthesia Postprocedure Evaluation Filed: 09/17/2021 10:08 AM Note Text: POST ANESTHESIA EVALUATION NOTE : 1955 Procedure Summary Date: 09/17/21 Room / Location: [facility] / [facility] Anesthesia Start: 818 Anesthesia Stop: 901 Procedures: COLONOSCOPY, FLEXIBLE W/REMOVAL TUMOR(S), POLYP(S), OR OTHER LESION(S) BY SNARE TECHNIQUE (N/A ) EGD (N/A ) COLONOSCOPY WITH BIOPSY (N/A ) Diagnosis: Heme positive stool Anemia, unspecified type Loss of appetite Surgeons: Kristofer Mccarty MD Responsible Provider: Berenice Benavides MD Anesthesia Type: MAC ASA Status: 3 Anesthesia Type: MAC Last vitals Vitals Value Taken Time BP 155/72 09/17/21 0930 Temp 36.5 ?C (97.7 ?F) 09/17/21 0900 Pulse 58 09/17/21 0933 Resp 24 09/17/21 09 SpO2 98 % 09/17/21932 Vitals shown include unvalidated device data. Post Anesthesia Patient Status Patient Evaluation: PACU. PACU/ICU Patient Condition: stable. Anticipated Disposition: phase 2 then home. Neurological Status: aware and responsive. Pulmonary Status: breathing comfortably on room air Airway Control: returned to baseline unsupported. Cardiovascular Status: stable. Pain Management: clinically adequate - multimodal analgesia pain management approach Postoperative Hydration: acceptable. Intraoperative Events: no significant anesthesia events Recommendation: continue current plan of care. Anesthesia Observations No Documentation SIGNATURE: Berenice Benavides MD PATIENT NAME: Tracey Iverson DATE: September 17, 2021 TIME: 10:08 AM CSN: [id number] [place] ANES PRE-OPon 09-17-2021 ANES PRE-OP HNO ID: [id number] Author: Berenice Benavides MD Service: Anesthesiology Author Type: Physician Type: Anesthesia Preprocedure Evaluation Filed: 09/17/2021 8:16 AM Note Text: ANESTHESIOLOGY DAY OF SURGERY NOTE : 1955 Procedure(s) (LRB): COLONOSCOPY (N/A) EGD (N/A) Surgeon(s): Kristofer Mccarty MD Estimated body mass index is 27.22 kg/m? as calculated from the following: Height as of this encounter: 188 cm (6' 2). Weight as of this encounter: 96.2 kg (212 lb). Most recent hematocrit and potassium results: Hematocrit 47.1 01/20/2018 Potassium 3.7 06/23/2021 Relevant Problems CARDIO (+) Essential hypertension PULMONARY (+) Pulmonary emphysema (HCC) Alcohol use GERD--Mccall's I - PHYSICAL EVALUATION AIRWAY Patient intubated: No. Mallampati: II. TM distance: >3 FB. Neck ROM: full ROM without neurological symptoms. Mouth opening: adequate. Short neck: no. Thick neck: no DENTAL Normal dental observations. Dental findings: teeth intact. Dentures, upper: complete. Additional exam findings: no II - ANESTHESIA PLAN ASA Score: 3 Anesthetic Plan: MAC NPO Status: adequate Monitoring plan: Standard ASA. Postoperative analgesic plan: parenteral or oral opioids and multimodal analgesia. Anesthetic Risks, Benefits, Alternatives, Personnel Discussed. Consent obtained from: patient.Patient / Surrogate agrees to blood products: blood products not planned DNR status not reviewed with patient and/or family prior to surgery. Significant changes in the patient condition since the History and Physical, not otherwise documented in primary service progress note: no. Potential Anesthesia issues that may suggest increased risk of complications or contraindication to planned procedure: none. Vitals Value Taken Time BP 152/70 09/17/21712 Pulse Resp 16 09/17/21712 Temp 36.4 ?C (97.5 ?F) 09/17/21712 SpO2 98 % 09/17/21712 Facility-Administered Medications as of 09/17/2021 Medication Dose Route Frequency - lactated ringers iv infusion 30 mL/hr INTRAVENOUS CONTINUOUS Outpatient Medications as of 09/17/2021 Medication Sig - atorvastatin (LIPITOR) 20 mg tablet - folic acid 1 mg tablet - lansoprazole (PREVACID) 30 mg capsule Take 30 mg by mouth once daily. - potassium chloride 20 mEq TbER Take 1 tablet by mouth twice daily. - thiamine (VITAMIN B1) 100 mg tablet Take by mouth. - traZODone (DESYREL) 50 mg tablet Take 50 mg by mouth at bedtime as needed. - [] peg 3350-Electrolytes (GOLYTELY) 236-22.74-6.74 -5.86 gram suspension Take 4,000 mL by mouth one time only for 1 dose. - budesonide-formoterol (SYMBICORT) 80-4.5 mcg/actuation inhaler Inhale 2 Puffs as instructed twice daily. - omeprazole (PRILOSEC) 20 mg capsule Take 2 capsules by mouth once daily. (Patient not taking: Reported on 07/15/2021 ) - hydroCHLOROthiazide (HYDRODIURIL, ESIDRIX) 25 mg tablet Take 1 tablet by mouth once daily. (Patient not taking: Reported on 07/15/2021 ) - lisinopril (ZESTRIL, PRINIVIL) 10 mg tablet Take 1 tablet by mouth once daily. (Patient not taking: Reported on 07/15/2021 ) - Blood Pressure Monitor Use as directed to monitor blood pressure - MULTI-VITAMIN ORAL Take by mouth. - psyllium seed, with dextrose, (FIBER SUPPLEMENT ORAL) Take by mouth. I have interviewed and examined the patient. I have reviewed the medical record and/or the pre-anesthesia evaluation, pertinent labs, and test results. This contains updated information obtained within 48 hours of Surgery/Procedure. SIGNATURE: Berenice Benavides MD PATIENT NAME: Tracey Iverson DATE: September 17, 2021 TIME: 8:14 AM CSN: [id number] Normal [facility] HISTORY PHYSICALon HISTORY PHYSICAL HNO ID: [id number] Author: Kristofer Mccarty MD Service: General Surgery Author Type: Physician Type: HANDP Filed: 09/17/2021 7:20 AM Note Text: HISTORY AND PHYSICAL ? Tracey Iverson 1955 ? REFERRING PHYSICIAN: Falguni Beasley MD ? CHIEF COMPLAINT: Consult (EGD and colonoscopy consult) ? HPI: The patient is a 66 year old male referred for endoscopy for anemia and heme positive stool. Patient was seen in the emergency department at [facility] on 07/09/21, records reviewed. Patient presented with complaints of lightheadedness. Labs showed hemoglobin 10.2 and hematocrit 31.4, Hemoccult test positive. He had EKG which per ED physician report did not show ST elevation or depression. Patient was noted to have recent unremarkable stress test and echo. He was initiated on a PPI and advised to by ED physician after discussing with cardiology to hold his aspirin due to GI bleeding. They had recommended that patient follow up as outpatient for endoscopy. He has a past history of alcohol abuse and was advised to avoid alcohol. ? Prior to his recent ED visit, patient was hospitalized at [facility] for renal dysfunction in May 2021. He has seen his PCP since his hospitalization and those notes are also reviewed. ? Patient denies any change in bowel habits, weight changes, visible blood in stools, black tarry stools or abdominal pain. He does note decreased appetite. Patient notes ?family history of colon cancer-unsure if brother had colon vs pancreatic cancer. Patient denies any nausea or vomiting. ? Tracey has undergone prior endoscopy. Most recent EGD 08/11/[address] 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 Colonoscopy 04/07/21 showed four medium polyps in the descending and transverse colon which were removed and returned as adenomatous polyps. ? Patient has upcoming follow-up visits scheduled with primary care, pulmonology and cardiology. He follows with Dr. Beasley and Olegario Sanchez, DASIA-C in primary care and [facility]. ? ? PAST MEDICAL HISTORY PAST MEDICAL HISTORY Diagnosis Date - Abnormal cardiac enzyme level ? 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 - Chronic obstructive pulmonary disease (COPD) (HCC) ? - Depression ? - Irregular heart rate ? - NAFLD (nonalcoholic fatty liver disease) ? - PVC (premature ventricular contraction) ? - Smoker ? - Smoking greater than 40 pack years ? - Snoring ? - Tobacco abuse ? - Unintentional weight loss ? ? ? PAST SURGICAL HISTORY PAST SURGICAL HISTORY Procedure Laterality Date - COLONOSCOP W/ OR W/O [facility] SPEC ? 03/14/2018 ? Colonoscopy - COLONOSCOP W/ OR W/O [facility] SPEC ? 04/07/2019 ? Colonoscopy - EGD W/O OR W/BRUSH/WASH ? 08/11/2019 ? Mccall's, repeat in 2-3 years - INGUINAL HERNIA REPAIR HX ? 2009 - KNEE ARTHROSCOPY/SURGERY Left 2010 ? Dr. Fernandez [facility] ? ? ? CURRENT MEDICATIONS Current Outpatient Medications Medication Sig - atorvastatin (LIPITOR) 20 mg tablet ? - folic acid 1 mg tablet ? - lansoprazole (PREVACID) 30 mg capsule Take 30 mg by mouth once daily. - potassium chloride 20 mEq TbER Take 1 tablet by mouth twice daily. - thiamine (VITAMIN B1) 100 mg tablet Take by mouth. - traZODone (DESYREL) 50 mg tablet Take 50 mg by mouth at bedtime as needed. - aspirin 81 mg chewable tablet Take 81 mg by mouth once daily. - magnesium oxide (MAG-OX) 400 mg (241.3 mg magnesium) tablet Take 400 mg by mouth once daily. - budesonide-formoterol (SYMBICORT) 80-4.5 mcg/actuation inhaler Inhale 2 Puffs as instructed twice daily. - Blood Pressure Monitor Use as directed to monitor blood pressure - MULTI-VITAMIN ORAL Take by mouth. - psyllium seed, with dextrose, (FIBER SUPPLEMENT ORAL) Take by mouth. - omeprazole (PRILOSEC) 20 mg capsule Take 2 capsules by mouth once daily. (Patient not taking: Reported on 07/15/2021 ) - gabapentin (NEURONTIN) 100 mg capsule Take 1 capsule by mouth three times daily for 90 days. - hydroCHLOROthiazide (HYDRODIURIL, ESIDRIX) 25 mg tablet Take 1 tablet by mouth once daily. (Patient not taking: Reported on 07/15/2021 ) - lisinopril (ZESTRIL, PRINIVIL) 10 mg tablet Take 1 tablet by mouth once daily. (Patient not taking: Reported on 07/15/2021 ) ? No current facility-administered medications for this visit. ? ? ALLERGIES: Patient has no known allergies. ? PERSONAL HISTORY: SOCIAL HISTORY Social History ? Tobacco Use - Smoking status: Current Every Day Smoker ? ? Packs/day: 0.50 ? ? Years: 40.00 ? ? Pack years: 20.00 ? ? Types: Cigarettes ? ? Start date: 1972 - Smokeless tobacco: Never Used - Tobacco comment: a couple now and then Vaping Use - Vaping Use: Never used Substance Use Topics - Alcohol use: Yes ? ? Alcohol/week: 84.0 standard drinks ? ? Types: 8 (more content not included)... Normal [facility] SURGICAL PATHOLOGYon 021 SURGICAL PATHOLOGY Specimen originated from [facility] Specimen #: [id number] Submitting Physician: Kristofer Mccarty M.D. FINAL DIAGNOSIS 1. Stomach, antrum, biopsy (A) - Mild chronic inactive gastritis with reactive epithelial changes. - No morphologic evidence of Helicobacter pylori microorganisms. 2. Colon, transverse, polypectomy (B) - Tubular adenoma. 3. Colon, descending, polypectomy (C) - Tubular adenoma. AEB/mm 09/19/2021 Leann Irving M.D. (Electronic Signature) _ SPECIMEN SUBMITTED A: GASTRIC/ANTRAL, BIOPSY B: TRANSVERSE COLON POLYP C: DESCENDING COLON POLYP CLINICAL DATA SCREENING; FAMILY HISTORY COLON CANCER A: R/O H PYLORI GROSS DESCRIPTION A. Received in formalin is one piece of moore, soft tissue measuring 0.5 x 0.3 x 0.2 cm. Totally submitted in one cassette. B. Received in formalin are multiple segments of moore polypoid tissue ranging in size from 0.7 x 0.5 x 0.4 cm to 0.4 x 0.3 x 0.2 cm. No stalks are noted. The lines of resection are noted. The larger specimen is bisected. The smaller specimens are not sectioned. Totally submitted in formalin in two cassettes. C. Received in formalin are three pieces of moore, soft tissue aggregating to 0.9 x 0.3 x 0.2 cm. Totally submitted in one cassette. Gross examination performed at [facility], [address] [place] [address] 09/17/2021 5:07:07 PM Date of Report: 09/19/2021 Date of Procedure: 09/17/2021 Date of Receipt: 09/17/2021 Submitted by: Kristofer Mccarty M.D. Location: [facility] Diagnostic interpretation performed at [place] [address]. CLIA Number: [id number] Normal [facility] Basic metabolic 2000 panelon 06-23-2021 Anion gap [Moles/Vol] 15 mmol/L Normal 9-18 [facility] Comment on above: Order Comment: Speci men Type: BLOOD SPECIMEN Performed By: #### 2 4321-2 #### [facility] CLIA [id number] [address] [place] [address] Calcium [Mass/Vol] 10.5 mg/dL High 8.5-10.2 [facility] Comment on above: Order Comment: Speci men Type: BLOOD SPECIMEN Performed By: #### 2 4321-2 #### [facility] CLIA [id number] [address] [place] [address] Chloride [Moles/Vol] 100 mmol/L Normal 97-105 [facility] Comment on above: Order Comment: Speci men Type: BLOOD SPECIMEN Performed By: #### 2 4321-2 #### [facility] CLIA [id number] [address] [place] [address] CO2 [Moles/Vol] 16 mmol/L Low 22-30 [facility] Comment on above: Order Comment: Speci men Type: BLOOD SPECIMEN Performed By: #### 2 4321-2 #### [facility] CLIA [id number] [address] [place] [address] Creatinine [Mass/Vol] 2.04 mg/dL High 0.73-1.22 [facility] Comment on above: Order Comment: Speci men Type: BLOOD SPECIMEN Performed By: #### 2 4321-2 #### [facility] CLIA [id number] [address] [place] [address] GFR/1.73 sq M.predicted MDRD (S/P/Bld) [Vol rate/Area] 40 mL/min/{1.73_m2} Normal [facility] Comment on above: Order Comment: Speci men Type: BLOOD SPECIMEN Result Comment: 33 eGFR (Estimated GFR) Units of measure: mL/min/1.73 meters squared eGFR is derived from the reexpressed MDRD Study equation using the following parameters: serum creatinine, age, gender and race. The creatinine assay has been calibrated to be traceable to IDMS. An eGFR <60 mL/min/1.73m2 for >3 months is consistent with chronic kidney disease. Refer to KDOQI guidelines for clinical interpretation. In patients with unstable renal function, e.g. those with acute kidney injury, the eGFR may not accurately reflect actual GFR. Performed By: #### 2 4321-2 #### [facility] CLIA [id number] [address] [place] [address] Glucose [Mass/Vol] 102 mg/dL High 74-99 [facility] Comment on above: Order Comment: Speci men Type: BLOOD SPECIMEN Result Comment: The [place] Diabetes Association (ADA) provides guidance for cutoff values for fasting glucose and random glucose. The ADA defines fasting as no caloric intake for at least 8 hours. Fasting plasma glucose results between 100 to 125 mg/dL indicate increased risk for diabetes (prediabetes). Fasting plasma glucose results greater than or equal to 126 mg/dL meet the criteria for diagnosis of diabetes. In the absence of unequivocal hyperglycemia, results should be confirmed by repeat testing. In a patient with classic symptoms of hyperglycemia or hyperglycemic crisis, random plasma glucose results greater than or equal to 200 mg/dL meet the criteria for diagnosis of diabetes. Reference: Standards of Medical Care in Diabetes 2016, [place] [employer] Association. Diabetes Care. 2016.39(Suppl 1). Performed By: #### 2 4321-2 #### [facility] CLIA [id number] [address] [place] [address] Potassium [Moles/Vol] 3.7 mmol/L Normal 3.7-5.1 [facility] Comment on above: Order Comment: Speci men Type: BLOOD SPECIMEN Performed By: #### 2 4321-2 #### [facility] CLIA [id number] [address] [place] [address] Sodium [Moles/Vol] 131 mmol/L Low 136-144 [facility] Comment on above: Order Comment: Speci men Type: BLOOD SPECIMEN Performed By: #### 2 4321-2 #### [facility] CLIA [id number] [address] [place] [address] Urea nitrogen [Mass/Vol] 31 mg/dL High 9-24 [facility] Comment on above: Order Comment: Speci men Type: BLOOD SPECIMEN Performed By: #### 2 4321-2 #### [facility] CLIA [id number] [address] [place] [address] Vital Signs Date Time Vital Sign Value Performing Clinician Jt peter 04-30-2025 11:32-0400 Body height 187.[address] Falguni Beasley MD Work Phone: [facility] 04-30-2025 11:32-0400 Body mass index (BMI) [Ratio] 31 kg/m2 Dr. Falguni Beasley MD Work Phone: [facility] 04-30-2025 11:32-0400 Body weight 109.[address] Falguni Beasley MD Work Phone: [facility] 04-30-2025 11:32-0400 Diastolic blood pressure 96 mm[Hg] Dr. Falguni Beasley MD Work Phone: [facility] 04-30-2025 11:32-0400 Heart rate 71 /min Dr. Falguni Beasley MD Work Phone: [facility] 04-30-2025 11:32-0400 Respiratory rate 18 /min Dr. Falguni Beasley MD Work Phone: [facility] 04-30-2025 11:32-0400 Systolic blood pressure 162 mm[Hg] Dr. Falguni Beasley MD Work Phone: [facility] 03-30-2025 10:23-0400 Body height 187.[address] Falguni Beasley MD Work Phone: [facility] 03-30-2025 10:23-0400 Body mass index (BMI) [Ratio] 30.3 kg/m2 Dr. Falguni Beasley MD Work Phone: [facility] 03-30-2025 10:23-0400 Body temperature 97.2 [degF] Dr. Falguni Beasley MD Work Phone: [facility] 03-30-2025 10:23-0400 Body weight 107.[address] Falguni Beasley MD Work Phone: [facility] 03-30-2025 10:23-0400 Diastolic blood pressure 80 mm[Hg] Dr. Falguni Beasley MD Work Phone: [facility] 03-30-2025 10:23-0400 Heart rate 76 /min Dr. Falguni Beasley MD Work Phone: [facility] 03-30-2025 10:23-0400 Respiratory rate 16 /min Dr. Falguni Beasley MD Work Phone: [facility] 03-30-2025 10:23-0400 SaO2% (BldA) [Mass fraction] 99 % Dr. Falguni Beasley MD Work Phone: [facility] 03-30-2025 10:23-0400 Systolic blood pressure 132 mm[Hg] Dr. Falguni Beasley MD Work Phone: [facility] 01-12-2025 08:04-0500 Body mass index (BMI) [Ratio] 29 kg/m2 Dr. Falguni Beasley MD Work Phone: [facility] 01-12-2025 08:04-0500 Body temperature 97.4 [degF] Dr. Falguni Beasley MD Work Phone: [facility] 01-12-2025 08:04-0500 Body weight 102.[address] Falguni Beasley MD Work Phone: [facility] 01-12-2025 08:04-0500 Diastolic blood pressure 75 mm[Hg] Dr. Falguni Beasley MD Work Phone: [facility] 01-12-2025 08:04-0500 Heart rate 81 /min Dr. Falguni Beasley MD Work Phone: [facility] 01-12-2025 08:04-0500 Respiratory rate 18 /min Dr. Falguni Beasley MD Work Phone: [facility] 01-12-2025 08:04-0500 SaO2% (BldA) [Mass fraction] 96 % Dr. Falguni Beasley MD Work Phone: [facility] 01-12-2025 08:04-0500 Systolic blood pressure 124 mm[Hg] Dr. Falguni Beasley MD Work Phone: [facility] 12-28-2024 15:08-0500 Body mass index (BMI) [Ratio] 30 kg/m2 Dr. Falguni Beasley MD Work Phone: [facility] 12-28-2024 15:08-0500 Body temperature 97.5 [degF] Dr. Falguni Beasley MD Work Phone: [facility] 12-28-2024 15:08-0500 Body weight 106.[address] Falguni Beasley MD Work Phone: [facility] 12-28-2024 15:08-0500 Diastolic blood pressure 82 mm[Hg] Dr. Falguni Beasley MD Work Phone: [facility] 12-28-2024 15:08-0500 Heart rate 70 /min Dr. Falguni Beasley MD Work Phone: [facility] 12-28-2024 15:08-0500 Respiratory rate 18 /min Dr. Falguni Beasley MD Work Phone: [facility] 12-28-2024 15:08-0500 SaO2% (BldA) [Mass fraction] 99 % Dr. Falguni Beasley MD Work Phone: [facility] 12-28-2024 15:08-0500 Systolic blood pressure 144 mm[Hg] Dr. Falguni Beasley MD Work Phone: [facility] 12-22-2023 08:59-0500 Body height 187.[address] Falguni Beasley Work Phone: [facility] 12-22-2023 08:59-0500 Body mass index (BMI) [Ratio] 30.9 kg/m2 Dr. Falguni Beasley Work Phone: [facility] 12-22-2023 08:59-0500 Body temperature 97.1 [degF] Dr. Falguni Beasley Work Phone: [facility] 12-22-2023 08:59-0500 Body weight 109.[address] Falguni Beasley Work Phone: [facility] 12-22-2023 08:59-0500 Diastolic blood pressure 74 mm[Hg] Dr. Falguni Beasley Work Phone: [facility] 12-22-2023 08:59-0500 Heart rate 79 /min Dr. Falguni Beasley Work Phone: [facility] 12-22-2023 08:59-0500 Respiratory rate 16 /min Dr. Falguni Beasley Work Phone: [facility] 12-22-2023 08:59-0500 SaO2% (BldA) [Mass fraction] 99 % Dr. Falguni Beasley Work Phone: [facility] 12-22-2023 08:59-0500 Systolic blood pressure 120 mm[Hg] Dr. Falguni Beasley Work Phone: [facility] 12-10-2023 11:37-0500 Body mass index (BMI) [Ratio] 31.4 kg/m2 Dr. Falguni Beasley Work Phone: [facility] 12-10-2023 11:37-0500 Body weight 111.[address] Falguni Beasley Work Phone: [facility] 12-10-2023 11:37-0500 Diastolic blood pressure 75 mm[Hg] Dr. Falguni Beasley Work Phone: [facility] 12-10-2023 11:37-0500 Heart rate 59 /min Dr. Falguni Beasley Work Phone: [facility] 12-10-2023 11:37-0500 Respiratory rate 18 /min Dr. Falguni Beasley Work Phone: [facility] 12-10-2023 11:37-0500 Systolic blood pressure 112 mm[Hg] Dr. Falguni Beasley Work Phone: [facility] 10-13-2023 08:02-0500 Body mass index (BMI) [Ratio] 31 kg/m2 Dr. Falguni Beasley Work Phone: [facility] 10-13-2023 08:02-0500 Body temperature 97.7 [degF] Dr. Falguni Beasley Work Phone: [facility] 10-13-2023 08:02-0500 Body weight 109.[address] Falguni Beasley Work Phone: [facility] 10-13-2023 08:02-0500 Diastolic blood pressure 81 mm[Hg] Dr. Falguni Beasley Work Phone: [facility] 10-13-2023 08:02-0500 Heart rate 77 /min Dr. Falguni Beasley Work Phone: [facility] 10-13-2023 08:02-0500 Respiratory rate 20 /min Dr. Falguni Beasley Work Phone: [facility] 10-13-2023 08:02-0500 SaO2% (BldA) [Mass fraction] 95 % Dr. Falguni Beasley Work Phone: [facility] 10-13-2023 08:02-0500 Systolic blood pressure 133 mm[Hg] Dr. Falguni Beasley Work Phone: [facility] 10-05-2023 13:00-0500 Body height 187.[address] Falguni Beasley Work Phone: [facility] 10-05-2023 13:00-0500 Body weight 104.[address] Falguni Beasley Work Phone: [facility] 10-05-2023 13:00-0500 Heart rate 79 /min Dr. Falguni Beasley Work Phone: [facility] 10-05-2023 13:00-0500 SaO2% (BldA) [Mass fraction] 97 % Dr. Falguni Beasley Work Phone: [facility] 08-19-2023 12:32-0400 Body mass index (BMI) [Ratio] 30.2 kg/m2 Dr. Falguni Beasley Work Phone: [facility] 08-19-2023 12:32-0400 Body temperature 97.5 [degF] Dr. Falguni Beasley Work Phone: [facility] 08-19-2023 12:32-0400 Body weight 106.[address] Falguni Beasley Work Phone: [facility] 08-19-2023 12:32-0400 Diastolic blood pressure 79 mm[Hg] Dr. Falguni Beasley Work Phone: [facility] 08-19-2023 12:32-0400 Heart rate 61 /min Dr. Falguni Beasley Work Phone: [facility] 08-19-2023 12:32-0400 Respiratory rate 20 /min Dr. Falguni Beasley Work Phone: [facility] 08-19-2023 12:32-0400 SaO2% (BldA) [Mass fraction] 96 % Dr. Falguni Beasley Work Phone: [facility] 08-19-2023 12:32-0400 Systolic blood pressure 149 mm[Hg] Dr. Falguni Beasley Work Phone: [facility] 05-28-2023 08:48-0400 Body height 187.[address] Falguni Beasley Work Phone: [facility] 05-28-2023 08:48-0400 Body mass index (BMI) [Ratio] 30.4 kg/m2 Dr. Falguni Beasley Work Phone: [facility] 05-28-2023 08:48-0400 Body temperature 95.4 [degF] Dr. Falguni Beasley Work Phone: [facility] 05-28-2023 08:48-0400 Body weight 107.[address] Falguni Beasley Work Phone: [facility] 05-28-2023 08:48-0400 Diastolic blood pressure 70 mm[Hg] Dr. Falguni Beasley Work Phone: [facility] 05-28-2023 08:48-0400 Heart rate 47 /min Dr. Falguni Beasley Work Phone: [facility] 05-28-2023 08:48-0400 Respiratory rate 18 /min Dr. Falguni Beasley Work Phone: [facility] 05-28-2023 08:48-0400 SaO2% (BldA) [Mass fraction] 96 % Dr. Falguni Beasley Work Phone: [facility] 05-28-2023 08:48-0400 Systolic blood pressure 136 mm[Hg] Dr. Falguni Beasley Work Phone: [facility] 12-18-2022 15:27-0500 Body height 187.[address] Falguni Beasley Work Phone: [facility] 12-18-2022 15:27-0500 Body mass index (BMI) [Ratio] 31.1 kg/m2 Dr. Falguni Beasley Work Phone: [facility] 12-18-2022 15:27-0500 Body temperature 98.2 [degF] Dr. Falguni Beasley Work Phone: [facility] 12-18-2022 15:27-0500 Body weight 110.[address] Falguni Beasley Work Phone: [facility] 12-18-2022 15:27-0500 Diastolic blood pressure 80 mm[Hg] Dr. Falguni Beasley Work Phone: [facility] 12-18-2022 15:27-0500 Heart rate 71 /min Dr. Falguni Beasley Work Phone: [facility] 12-18-2022 15:27-0500 Respiratory rate 16 /min Dr. Falguni Beasley Work Phone: [facility] 12-18-2022 15:27-0500 SaO2% (BldA) [Mass fraction] 97 % Dr. Falguni Beasley Work Phone: [facility] 12-18-2022 15:27-0500 Systolic blood pressure 132 mm[Hg] Dr. Falguni Beasley Work Phone: [facility] 11-05-2022 09:28-0500 Body height 187.[address] Falguni Beasley Work Phone: [facility] Work Phone: 11-05-2022 09:28-0500 Body mass index (BMI) [Ratio] 30.5 kg/m2 Dr. Falguni Beasley Work Phone: [facility] 11-05-2022 09:28-0500 Body temperature 97.2 [degF] Dr. Falguni Beasley Work Phone: [facility] 11-05-2022 09:28-0500 Body weight 107.[address] Falguni Beasley Work Phone: [facility] 11-05-2022 09:28-0500 Diastolic blood pressure 75 mm[Hg] Dr. Falguni Beasley Work Phone: [facility] 11-05-2022 09:28-0500 Heart rate 52 /min Dr. Falguni Beasley Work Phone: [facility] 11-05-2022 09:28-0500 Respiratory rate 17 /min Dr. Falguni Beasley Work Phone: [facility] 11-05-2022 09:28-0500 SaO2% (BldA) [Mass fraction] 98 % Dr. Falguni Beasley Work Phone: [facility] 11-05-2022 09:28-0500 Systolic blood pressure 130 mm[Hg] Dr. Falguni Beasley Work Phone: [facility] 10-26-2022 09:30-0500 Body temperature 98.6 [degF] Dr. Falguni Beasley Work Phone: [facility] 10-26-2022 09:30-0500 Diastolic blood pressure 82 mm[Hg] Dr. Falguni Beasley Work Phone: [facility] 10-26-2022 09:30-0500 Heart rate 63 /min Dr. Falguni Beasley Work Phone: [facility] 10-26-2022 09:30-0500 SaO2% (BldA) [Mass fraction] 98 % Dr. Falguni Beasley Work Phone: [facility] 10-26-2022 09:30-0500 Systolic blood pressure 138 mm[Hg] Dr. Falguni Beasley Work Phone: [facility] 09-29-2022 09:04-0500 Body mass index (BMI) [Ratio] 30.2 kg/m2 Dr. Falguni Beasley Work Phone: [facility] 09-29-2022 09:04-0500 Body temperature 98.3 [degF] Dr. Falguni Beasley Work Phone: [facility] 09-29-2022 09:04-0500 Body weight 107.[address] Falguni Beasley Work Phone: [facility] 09-29-2022 09:04-0500 Diastolic blood pressure 64 mm[Hg] Dr. Falguni Beasley Work Phone: [facility] 09-29-2022 09:04-0500 Heart rate 69 /min Dr. Falguni Beasley Work Phone: [facility] 09-29-2022 09:04-0500 Respiratory rate 14 /min Dr. Falguni Beasley Work Phone: [facility] 09-29-2022 09:04-0500 SaO2% (BldA) [Mass fraction] 98 % Dr. Falguni Beasley Work Phone: [facility] 09-29-2022 09:04-0500 Systolic blood pressure 118 mm[Hg] Dr. Falguni Beasley Work Phone: [facility] 08-11-2022 16:27-0400 Body height 187.[address] Falguni Beasley Work Phone: [facility] Work Phone: 08-11-2022 16:27-0400 Body mass index (BMI) [Ratio] 29.5 kg/m2 Dr. Falguni Beasley Work Phone: [facility] Work Phone: 08-11-2022 16:27-0400 Body temperature 98.6 [degF] Dr. Falguni Beasley Work Phone: [facility] Work Phone: 08-11-2022 16:27-0400 Body weight 104.[address] Falguni Beasley Work Phone: [facility] Work Phone: 08-11-2022 16:27-0400 Diastolic blood pressure 78 mm[Hg] Dr. Falguni Beasley Work Phone: [facility] Work Phone: 08-11-2022 16:27-0400 Heart rate 65 /min Dr. Falguni Beasley Work Phone: [facility] Work Phone: 08-11-2022 16:27-0400 Respiratory rate 16 /min Dr. Falguni Beasley Work Phone: [facility] Work Phone: 08-11-2022 16:27-0400 SaO2% (BldA) [Mass fraction] 97 % Dr. Falguni Beasley Work Phone: [facility] Work Phone: 08-11-2022 16:27-0400 Systolic blood pressure 137 mm[Hg] Dr. Falguni Beasley Work Phone: [facility] Work Phone: 06-29-2022 10:42-0400 Body height 187.[address] Falguni Beasley Work Phone: [facility] Work Phone: 06-29-2022 10:42-0400 Body mass index (BMI) [Ratio] 29.1 kg/m2 Dr. Falguni Beasley Work Phone: [facility] Work Phone: 06-29-2022 10:42-0400 Body temperature 97.9 [degF] Dr. Falguni Beasley Work Phone: [facility] Work Phone: 06-29-2022 10:42-0400 Body weight 102.[address] Falguni Beasley Work Phone: [facility] Work Phone: 06-29-2022 10:42-0400 Diastolic blood pressure 70 mm[Hg] Dr. Falguni Beasley Work Phone: [facility] Work Phone: 06-29-2022 10:42-0400 Heart rate 82 /min Dr. Falguni Beasley Work Phone: [facility] Work Phone: 06-29-2022 10:42-0400 Respiratory rate 16 /min Dr. Falguni Beasley Work Phone: [facility] Work Phone: 06-29-2022 10:42-0400 SaO2% (BldA) [Mass fraction] 97 % Dr. Falguni Beasley Work Phone: [facility] Work Phone: 06-29-2022 10:42-0400 Systolic blood pressure 120 mm[Hg] Dr. Falguni Beasley Work Phone: [facility] Work Phone: 06-10-2022 16:31-0400 Body mass index (BMI) [Ratio] 29.1 kg/m2 Dr. Falguni Beasley Work Phone: [facility] Work Phone: 06-10-2022 16:31-0400 Body temperature 98.8 [degF] Dr. Falguni Beasley Work Phone: [facility] Work Phone: 06-10-2022 16:31-0400 Body weight 102.[address] Falguni Beasley Work Phone: [facility] Work Phone: 06-10-2022 16:31-0400 Diastolic blood pressure 75 mm[Hg] Dr. Falguni Beasley Work Phone: [facility] Work Phone: 06-10-2022 16:31-0400 Heart rate 50 /min Dr. Falguni Beasley Work Phone: [facility] Work Phone: 06-10-2022 16:31-0400 Respiratory rate 14 /min Dr. Falguni Beasley Work Phone: [facility] Work Phone: 06-10-2022 16:31-0400 SaO2% (BldA) [Mass fraction] 96 % Dr. Falguni Beasley Work Phone: [facility] Work Phone: 06-10-2022 16:31-0400 Systolic blood pressure 130 mm[Hg] Dr. Falguni Beasley Work Phone: [facility] Work Phone: 04-10-2022 13:39-0400 Body temperature 98.2 [degF] Dr. Falguni Beasley Work Phone: [facility] Work Phone: 04-10-2022 13:39-0400 Diastolic blood pressure 60 mm[Hg] Dr. Falguni Beasley Work Phone: [facility] Work Phone: 04-10-2022 13:39-0400 Heart rate 89 /min Dr. Falguni Beasley Work Phone: [facility] Work Phone: 04-10-2022 13:39-0400 SaO2% (BldA) [Mass fraction] 97 % Dr. Falguni Beasley Work Phone: [facility] Work Phone: 04-10-2022 13:39-0400 Systolic blood pressure 118 mm[Hg] Dr. Falguni Beasley Work Phone: [facility] Work Phone: 04-10-2022 13:39-0400 Body height 187.[address] Falguni Beasley Work Phone: [facility] Work Phone: 04-10-2022 13:39-0400 Body temperature 98.2 [degF] Dr. Falguni Beasley Work Phone: [facility] Work Phone: 04-10-2022 13:39-0400 Diastolic blood pressure 60 mm[Hg] Dr. Falguni Beasley Work Phone: [facility] Work Phone: 04-10-2022 13:39-0400 Heart rate 89 /min Dr. Falguni Beasley Work Phone: [facility] Work Phone: 04-10-2022 13:39-0400 SaO2% (BldA) [Mass fraction] 97 % Dr. Falguni Beasley Work Phone: [facility] Work Phone: 04-10-2022 13:39-0400 Systolic blood pressure 118 mm[Hg] Dr. Falguni Beasley Work Phone: [facility] Work Phone: Encounters Encounter Date Encounter Type Care Provider Facility Start: 04-30-2025 End: 04-30-2025 Patient encounter procedure Linda NIELSEN -[facility] Work Phone: Start: 04-30-2025 End: 04-30-[address] Falguni Beasley MD Work Phone: [facility] Work Phone: Start: 03-30-2025 End: 03-30-[address] Falguni Beasley MD -[facility] Work Phone: Start: 03-30-2025 End: 03-30-[address] 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 Falguni Beasley MD -Laboratory, [facility] Start: 12-28-2024 End: 12-28-[address] Falguni Beasley MD -[facility] Work Phone: Start: 12-28-2024 End: 12-28-2024 ambulatory Efewongbe Oleghe Facility:[facility] Start: 10-31-2024 End: 10-31-2024 ambulatory Olimpia Root NP Facility:[facility] Start: 10-27-2024 End: 10-27-2024 ambulatory Efewongbe Oleghe Facility:[facility] Start: 10-18-2024 End: 10-18-2024 ambulatory Efewmenahgabe Oleghe Facility:[facility] Start: 10-11-2024 End: 10-11-2024 ambulatory Efewongbe Oleghe Facility:[facility] Start: 10-06-2024 End: 10-06-2024 ambulatory Efewongbe Oleghe Facility:[facility] Start: 10-06-2024 End: 10-06-2024 ambulatory Efewongbe Oleghe Facility:[facility] Start: 09-14-2024 End: 09-14-2024 ambulatory Efewongbe Oleghe Facility:[facility] Start: 06-08-2024 End: 06-08-2024 ambulatory Efewongbe Oleghe Facility:[facility] Start: 05-19-2024 End: 05-19-2024 ambulatory Efewongbe Oleghe Facility:[facility] Start: 01-14-2024 Non-patient / Non-visit Dr. Makayla Beasley Work Phone: [facility] Start: 01-14-2024 End: 01-14-[address] Falguni Beasley Work Phone: [facility] Work Phone: Start: 01-14-2024 End: 01-14-[address] [facility] Start: 12-22-2023 End: 12-22-[address] Falguni Beasley Work Phone: [facility] Work Phone: Start: 12-22-2023 End: 12-22-[address] Falguni Beasley Work Phone: [facility] Work Phone: Start: 12-10-2023 End: 12-10-[address] Falguni Beasley Work Phone: [facility] Work Phone: Start: 10-13-2023 End: 10-13-[address] [facility] Work Phone: Start: 10-06-2023 Non-patient / Non-visit Dr. Makayla Beasley Work Phone: [facility] Start: 10-05-2023 End: 10-05-[address] Falguni Beasley Work Phone: [facility] Work Phone: Start: 10-05-2023 End: 10-05-[address] Falguni Beasley [facility] Work [facility]: Start: 08-19-2023 End: 08-19-[address] Falguni Beasley Work Phone: [facility] Work Phone: Start: 05-28-2023 End: 05-28-[address] Falguni Beasley Work Phone: [facility] Work Phone: Start: 05-28-2023 End: 05-28-[address] Falguni Beasley Work Phone: [facility] Work Phone: Start: 12-18-2022 End: 12-18-[address] Falguni Beasley Work Phone: [facility] Work Phone: Start: 12-18-2022 End: 12-18-[address] Falguni Beasley Work Phone: [facility] Internal [facility] Start: 11-05-2022 End: 11-05-[address] Falguni Beasley Work Phone: [facility] Start: 11-03-2022 End: 11-03-[address] Falguni Beasley Work Phone: [facility] Work Phone: Start: 11-03-2022 End: 11-03-[address] Falguni Beasley Work Phone: [facility] Start: 10-26-2022 End: 10-26-[address] Falguni Beasley Work Phone: [facility] Internal [facility] Start: 09-29-2022 End: 09-29-[address] Falguni Beasley Work Phone: [facility] Internal Medicine Start: 08-11-2022 End: 08-11-[address] Falguni Beasley Work Phone: [facility] Work Phone: Start: 08-11-2022 End: 08-11-[address] Falguni Beasley Work Phone: [facility] Start: 06-29-2022 End: 06-29-[address] Falguni Beasley Work Phone: [facility]-Radiology, [facility] Start: 06-29-2022 End: 06-29-[address] Falguni Beasley Work Phone: [facility] Internal Medicine Start: 06-10-2022 End: 06-10-[address] Falguni Beasley Work Phone: [facility] Internal Medicine Start: 04-10-2022 End: 04-10-[address] Falguni Beasley Work Phone: [facility] Internal Medicine Procedures Date Procedure Procedure Detail Performing Clinician Start: 12-28-2024 SARS-CoV-2, Influenz a & RSV (PCR) Dr. Falguni Beasley MD Work Phone: Start: 10-05-[address] Lindsay Beasley Work Phone: Start: 11-03-2022 CT of abdomen with contrast Dr. Falguni Beasley Work Phone: Start: 08-11-[address] Lindsay Beasley Work Phone: Start: 06-29-2022 Plain chest X-ray Dr. Jennifer Beasley Work Phone: Start: 04-10-2022 Plain chest X-ray Dr. Jennifer Beasley Work Phone: Plan of Treatment Date Care Activity Detail Author Start: 05-04-2025 ambulatory Ambulatory Facility:[facility] Start: 12-22-2023 Evaluation of diagnostic study results [facility] Start: 05-28-2023 Patient referral [facility] Work Phone: Start: 11-03-2022 Abdomen WITH IV Contrast Abdomen WITH IV Contrast [facility] Start: 11-03-2022 CT Abdomen W contrast IV [facility] Start: 10-26-2022 Patient referral [facility] Work Phone: CBC W Auto Different ial panel - Blood [facility] Work Phone: CT Chest WO contrast [facility] Hemoglobin A1c/Hemoglobin.total in Blood [facility] Work Phone: Lipid 1996 panel - S jayjay or Plasma [facility] Work Phone: Patient referral [facility] Work Phone: Polysomnography [facility] Immunizations Immunization Date Immunization Notes Care Provider Fa [facility] 02-10-2021 Covid (Pfizer) Dr. Falguni Beasley Work Phone: [facility] 01-20-2021 Covid (Pfizer) Dr. Falguni Besaley Work Phone: [facility] Payers Date Payer Category Payer Private Health Insurance [id number] 2024 Medicare [id number] 2024 Self-pay [id number] 2024 Unknown [id number] 2011 Unknown [id number] Unknown [id number] Unknown [id number] 2.16.8 [id number] Unknown [id number] 2.16.8 [id number] Unknown [id number] 2.16.8 [id number] Unknown [id number] 2.16.8 [id number] Unknown [id number] 2.16.8 [id number] Unknown [id number] 2.16.8 [id number] Unknown [id number] 2.16.8 [id number] Unknown [id number] 2.16.8 [id number] Unknown [id number] 2.16.8 [id number] Unknown [id number] 2.16.8 [id number] Unknown [id number] 2.16.8 [id number] Unknown [id number] 2.16.8 [id number] Unknown [id number] 2.16.8 [id number] Unknown [id number] 2.16.8 [id number] Unknown [id number] 2.16.8 [id number] Unknown [id number] 2.16.8 [id number] Social History Date Type Detail Facility Start: 04-10-2022 End: 12-22-2023 Tobacco smoking status NHIS Unknown if ever smoked [facility] Start: 08-08-2020 None [facility] Start: 08-08-2020 Spouse/ Signif icant Other [facility] Start: 08-08-2020 Cigarettes [facility] Start: 1955 Sex Assigned At Male [facility] Start: 03-03-2024 Tobacco smoking status NHIS Ex-smoker (finding) [facility] Clinical Notes 10-06-2023 to 01-12-2025 Note Date & Type Note Facility 01-12-2025 Evaluation note Diagnosis Onset Date Resolution Suspected sleep apnea acute Feb 2024 2:40pm COPD (chronic obstructive pulmonary disease) chronic January 12, 2 025 2:40pm Lung nodule chronic December 2:40pm Overweight chronic January 12, 2025 2:40pm Sinusitis acute March 30, 2025 10:11am Atrial fibrillation chronic March 302024 10:11am Borderline type 2 diabetes mellitus chronic March 30, 2025 10:11am Essential hypertension chronic Ma y 2024 10:11am GERD (gastroesophageal reflux disease) chronic March 30, 2025 10:11am Atrial fibrillation chronic April 30, 2025 11:29am Essential hypertension chronic Ju ne 2024 11:29am Hyperlipidemia chronic April 30, 2025 11:29am Tobacco abuse chronic April 30, 025 11:29am [facility] Work Phone: 1(301) 286-718702-06-2025 Evaluation note* Diagnosis Onset Date Resolution Status Admit Date URI (upper respiratory infection) acute December 28 3:00pm Atrial fibrillation chronic 2024 3:00pm COPD (chronic obstructive pulmonary disease) chronic December 28, 2024 3:00pm Essential hypertension chronic Fe bru2024 3:00pm Hyperlipidemia chronic December 282024 3:00pm Suspected sleep apnea acute Feb 2024 2:40pm COPD (chronic obstructive pulmonary disease) chronic December 2:40pm Lung nodule chronic December 2:40pm Overweight chronic January 12, 2025 2:40pm Sinusitis acute March 30, 2025 10:11am Atrial fibrillation chronic March 302024 10:11am Borderline type 2 diabetes mellitus chronic March 30, 2025 10 :11am Essential hypertension chronic Ma y 2024 10:11am GERD (gastroesophageal reflu x disease) chronic March 30, 2025 10 :11am [facility] Work Phone: 1(195) 981-709311-15-2023 Procedure [facility] Evaluation note* Diagnosis Onset Date Resolution Status COPD (chronic obstructive pulmonary disease) [facility] Work Phone: evaluation note* Diagnosis Onset Date Resolution Status COPD (chronic obstructive pulmonary disease) chronic Upper respiratory infection noneactive Alcohol abuse acute Hyperlipidemia acute Tobacco abuse acute Borderline type 2 diabetes mellitus chronic Essential hypertension chron ic COVID noneactive [facility] Work Phone: Evaluation note* Diagnosis Onset Date Resolution Status Alcohol abuse acute Hyperlipidemia acute Tobacco abuse acute Borderline type 2 diabetes mellitus chronic Essential hypertension chron ic COVID noneactive [id number] acute Tobacco use disorder, continuous acute [facility] Work Phone: evaluation note* Diagnosis Onset Date Resolution Status [id number] acute Tobacco use disorder, continuous chronic Skin tear of left upper arm without complication noneactive COPD (chronic obstructive pulmonary disease) chronic Tobacco use disorder, continuous chronic Abdominal pain noneactive Hernia of abdominal wall non eactive Bronchitis noneactive Diastasis recti acute Umbilical hernia without obs truction and without gangrene acute [facility] Work Phone: evaluation note* Diagnosis Onset Date Resolution Status Skin tear of left upper arm without complication noneactive COPD (chronic obstructive pulmonary disease) chronic Tobacco use disorder, continuous chronic Abdominal pain noneactive Hernia of abdominal wall non eactive Bronchitis noneactive Diastasis recti acute Umbilical hernia without obs truction and without gangrene acute Alcohol abuse acute BPH (benign prostatic hyperplasia) acute Borderline type 2 diabetes mellitus chronic Essential hypertension chron ic GERD (gastroesophageal reflux disease) chronic Hyperlipidemia chronic Lumbar radiculopathy [facility] Work Phone: Evaluation note* Diagnosis Onset Date Resolution Status Alcohol abuse chronic Alcoholic liver disease, unspecified chronic Borderline type 2 diabetes mellitus chronic COPD (chronic obstructive pulmonary disease) chronic Essential hypertension chron [facility] Work Phone: evaluation note* Diagnosis Onset Date Resolution Status COPD (chronic obstructive pulmonary disease) chronic Nicotine dependence, cigarettes, uncomplicated chronic [facility] Work Phone: Evaluation note* Diagnosis Onset Date Resolution Status Lung nodule acute COPD (chronic obstructive pulmonary disease) chronic Nicotine dependence, cigarettes, uncomplicated chronic Hypersomnolence acute Paroxysmal atrial fibrillation acute Essential hypertension chron ic PVC (premature ventricular contraction) chronic Alcoholic liver disease, unspecified chronic Atrial fibrillation chronic Borderline type 2 diabetes mellitus chronic Essential hypertension chron ic GERD (gastroesophageal reflux disease) chronic [facility] Work Phone: Hospital Discharge instructionsAmbulatory Orders* Pulmonary Medicine Location: None Selected [facility] Work Phone: Reason for referral (narrative)No reason for referral information [facility] Work Phone: Summary Purpose Family History No Family History Records Found Relationship Condition Age at Onset Recorded Date/T taylor brother Malignant neoplasm Unknown father Alcoholism Unknown Advance Directives No Advanced Directives Records Found Advance Directive Response Recorded Date/ Time Living Will No July 09 1 1:00am Power of Fountain Dispenser No July 09 1:00am Advance Directive Response Recorded Date/ Time Living Will No July 09 1 12:00am Power of Fountain Dispenser No July 09 021 12:00am Chief Complaint and Reason for Visit Chief Complaint COVID SYMPTOMS Reason for Visit COPD (chronic obstru ctive pulmonary disease) Chief Complaint COVID SYMPTOMS 6 M FU Covid + Reason for Visit COPD (chronic obstru ctive pulmonary disease) Upper respiratory infection Alcohol abuse Hyperlipidemia Tobacco abuse Borderline type 2 diabetes mellitus Essential hypertension COVID Chief Complaint 6 M FU Covid + Lung cancer screening SMOKER Reason for Visit Alcohol abuse Hyperlipidemia Tobacco abuse Borderline type 2 diabetes mellitus Essential hypertension COVID [id number] Tobacco use disorder, continuous Chief Complaint Lung cancer screenin g SMOKER wound PAINFULL BELLY BUTTON/SEVERE COUGH HERNIA, ABDOMINAL PAIN *IV & ORAL CONTRAST* Hernia Reason for Visit [id number] Tobacco use disorder, continuous Skin tear of left upper arm without complication COPD (chronic obstructive pulmonary disease) Tobacco use disorder, continuous Abdominal pain Hernia of abdominal wall Bronchitis Diastasis recti Umbilical hernia without obstruction and without gangrene Chief Complaint wound PAINFULL BELLY BUTTON/SEVERE COUGH HERNIA, ABDOMINAL PAIN *IV & ORAL CONTRAST* Hernia 6 M FU Reason for Visit Skin tear of left up per arm without complication COPD (chronic obstructive pulmonary disease) Tobacco use disorder, continuous Abdominal pain Hernia of abdominal wall Bronchitis Diastasis recti Umbilical hernia without obstruction and without gangrene Alcohol abuse BPH (benign prostatic hyperplasia) Borderline type 2 diabetes mellitus Essential hypertension GERD (gastroesophageal reflux disease) Hyperlipidemia Lumbar radiculopathy Chief Complaint MED REFILLS Reason for Visit Alcohol abuse Alcoholic liver disease, unspecified Borderline type 2 diabetes mellitus COPD (chronic obstructive pulmonary disease) Essential hypertension Chief Complaint COPD COPD COPD Reason for Visit COPD (chronic obstru ctive pulmonary disease) Nicotine dependence, cigarettes, uncomplicated Chief Complaint COPD COPD 6 wk FU OVERDUE FOR OV / LAST SEEN 10/2021 6 m fu Reason for Visit Lung nodule COPD (chronic obstructive pulmonary disease) Nicotine dependence, cigarettes, uncomplicated Hypersomnolence Paroxysmal atrial fibrillation Essential hypertension PVC (premature ventricular contraction) Alcoholic liver disease, unspecified Atrial fibrillation Borderline type 2 diabetes mellitus Essential hypertension GERD (gastroesophageal reflux disease) Chief Complaint COPD COPD 6 wk FU OVERDUE FOR OV / LAST SEEN 10/2021 6 m fu Paroxysmal atrial fibrillation Reason for Visit Lung nodule COPD (chronic obstructive pulmonary disease) Nicotine dependence, cigarettes, uncomplicated Hypersomnolence Paroxysmal atrial fibrillation Essential hypertension PVC (premature ventricular contraction) Alcoholic liver disease, unspecified Atrial fibrillation Borderline type 2 diabetes mellitus Essential hypertension GERD (gastroesophageal reflux disease) Chief Complaint Admit Date 3 month med December 28, 2024 3 :00pm 3 M FU January 12, 2025 2:40pm 3 M FU March 30, 2025 10:11a m Reason for Visit Admit Date URI (upper respiratory infection) Februa 2024 3:00pm Atrial fibrillation December 28, 2024 3 :00pm COPD (chronic obstructive pulmonary dise ase) December 28, 2024 3:00pm Essential hypertension December 28 3:00pm Hyperlipidemia December 28, 2024 3 :00pm Suspected sleep apnea January 12 2:40pm COPD (chronic obstructive pulmonary dise ase) January 12, 2025 2:40pm Lung nodule January 12, 2025 2:40pm Overweight January 12, 2025 2:40pm Sinusitis March 30, 2025 10:11a m Atrial fibrillation March 30, 2025 10:11a m Borderline type 2 diabetes mellitus March 30, 2025 10:11am Essential hypertension March 30, 2025 10: 11am GERD (gastroesophageal reflux disease) [facility] 2024 10:11am Chief Complaint Admit Date 3 M FU January 12, 2025 2:40pm 3 M FU March 30, 2025 10:11a m 6 M FU April 30, 2025 11:29 am Reason for Visit Admit Date Suspected sleep apnea January 12 2:40pm COPD (chronic obstructive pulmonary dise ase) January 12, 2025 2:40pm Lung nodule January 12, 2025 2:40pm Overweight January 12, 2025 2:40pm Sinusitis March 30, 2025 10:11a m Atrial fibrillation March 30, 2025 10:11a m Borderline type 2 diabetes mellitus March 30, 2025 10:11am Essential hypertension March 30, 2025 10: 11am GERD (gastroesophageal reflux disease) M ay 2024 10:11am Atrial fibrillation April 30, 2025 11:29 am Essential hypertension April 30, 2025 11 :29am Hyperlipidemia April 30, 2025 11:29 am Tobacco abuse April 30, 2025 11:29 am Additional Source Comments (unrecognized sect ion and content) No Status Records FoundNo Status Records FoundNo Status Records Found INFORMATION SOURCE (unrecogn ized section and content) DATE CREATED AUTHOR 06/28/2021 [facility] DATE CREATED AUTHOR AUTHOR'S ORGANIZ ATION 09/21/2021 [facility] DATE CREATED AUTHOR AUTHOR'S ORGANIZ ATION 04/30/2025 [facility] Goals (unrecognized section and content) Goals may be documented in a n alternate sectionGoals may be documented in an alternate sectionGoals may be documented in an alternate sectionGoals may be documented in an alternate sectionGoals may be documented in an alternate sectionGoals may be documented in an alternate sectionGoals may be documented in an alternate sectionGoals may be documented in an alternate sectionGoals may be documented in an alternate sectionGoals may be documented in an alternate sectionGoals may be documented in an alternate section Care Teams (unrecognized sec tion and content) Team Status: Active Member Role Status Dates Dr. Falguni Beasley MD Primary Care Provider Active Team Status: Inactive Member Role Status Dates Dr. Falguni Beasley MD Primary Care Ciaran white, Attending Provider, Referring Provider Active Team Status: Inactive Member Role Status Dates Dr. Falguni Beasley MD Primary Care Provider, Refer ring Provider Active Olegario Sanchez BOX STORAGE WORKER, [employer]OX STORAGE WORKER-C Attending Provider Active Team Status: Inactive Member Role Status Dates Dr. Falguni Beasley MD Primary Care Provider, Refer ring Provider Active JOVANNY Sanchez Attending Provider Active Team Status: Inactive Member Role Status Dates Dr. Falguni Beasley MD Primary Care Provider, Refer ring Provider Active Dr. Robyn Kaur MD Attending Provider Active Team Status: Inactive Member Role Status Dates Dr. Falguni Beasley MD Primary Care Provider Active JOVANNY Sanchez Attending Provider, Referring Pro vider Active Team Status: Inactive Member Role Status Dates Dr. Falguni Beasley MD Primary Care Provider, Refer ring Provider Active Dr. Dayne Holliday DO Attending Provider Active Team Status: Active Member Role Status Dates Dr. Falguni Beasley MD Primary Care Provider Active Dr. Dayne Holliday DO Attending Provider, Referring Provider, Other Provider Active Team Status: Inactive Member Role Status Dates Dr. Falguni Beasley MD Primary Care Provider Active Dr. Dayne Holliday DO Attending Provider, Referring Pro vider Active Team Status: Inactive Member Role Status Dates Dr. Falguni Beasley MD Primary Care Provider, Refer ring Provider Active Olimpia Root BOX STORAGE WORKER, BOX STORAGE WORKER-C Attending Provider Active Team Status: Inactive Member Role Status Dates Dr. Falguni Beasley MD Primary Care Provider, Refer ring Provider Active Linda Horne [employer] WORK[employer], [employer] WORKER-C Attending Provider Active Team Status: Active Member Role Status Dates Dr. Falguni Beasley MD Primary Care Provider Active Dr. Arturo Cohen MD Attending Provider Active Team Status: Inactive Member Role Status Dates Dr. Falguni Beasley MD Primary Care Provider Active Linda Horne [employer]AGE WORKER, [employer] WORKER-C Attending Provider Active Team Status: Inactive Member Role Status Dates Dr. Falguni Beasley MD Primary Care Provider Active Start: December 28, 2024 End: December 28, 2024 Dr. Falguni Beasley MD Attending Provider Active Start: December 28, 2024 End: December 28, 2024 Dr. Falguni Beasley MD Referring Provider Active Start: December 28, 2024 End: December 28, 2024 Team Status: Inactive Member Role Status Dates Dr. Falguni Beasley MD Primary Care Provider Active Start: January 12, 2025 End: January 12, 2025 Dr. Falguni Beasley MD Referring Provider Active Start: January 12, 2025 End: January 12, 2025 Olimpia Root [employer]AGE WORKER, [employer]ORAGE WORKER-C Attending Provider Active Start: January 12, 2025 End: January 12, 2025 Team Status: Inactive Member Role Status Dates Dr. Falguni Beasley MD Primary Care Provider Active Start: March 30, 2025 End: March 30, 2025 Dr. Falguni Beasley MD Attending Provider Active Start: March 30, 2025 End: March 30, 2025 Dr. Falguni Beasley MD Referring Provider Active Start: March 30, 2025 End: March 30, 2025 Team Status: Inactive Member Role Status Dates Dr. Falguni Beasley MD Primary Care Provider Active Start: April 30, 2025 End: April 30, 2025 Dr. Falguni Beasley MD Referring Provider Active Start: April 30, 2025 End: April 30, 2025 Linda Horne NP, [employer] WORKER-C Attending Provider Active S tart: April 30, 2025 End: April 30, 2025 FOR RECORDS PERTAINING TO PATIENTS WHO ARE [...] BE BASED ON THE PRIMARY CLINICAL RECORDS. [facility] [employer] provides no warranty or guarantee of the accuracy or completeness of information in this document.
== END | disposition home or self-care (01) ==
PROVIDERS: PCP Internal Medicine; Referring Provider Nurse Practitioner Acute Care; Visit Provider Nurse Practitioner Acute Care
DX: F17.210 Nicotine dependence, cigarettes, uncomplicated (principal)
CPT/HCPCS: 71271

== ENCOUNTER → 2025-06-19 | Outpatient (CLI) | payer MEDICARE, OTHER, SELFPAY ==
--- NOTE | 2025-06-19 08:08 | RAD_ITS ---
PROCEDURE: CHEST 2 PA AND LATERAL 06/19/2025 REASON FOR EXAM: SHORTNESS OF BREATH, COUGH, EDEMA TECHNIQUE: CHEST 2 PA AND LATERAL COMPARISON: None FINDINGS: Hardware: None Heart: The heart size is normal. Mediastinum: The mediastinal contour is unremarkable. Lungs: Lungs are mildly hyperexpanded with chronic interstitial changes, no superimposed acute pulmonary process. Bones: Degenerative changes are identified within the thoracic spine. RAD/Chest PA and Lateral IMPRESSION: Mildly hyperexpanded lungs with chronic interstitial changes, no superimposed a cute pulmonary process Reading Location: [id number]
[2025-06-19 08:43] LABS: Hematocrit 40.6 % (40-54); Hemoglobin 13.8 g/dL (13.0-16.5); Immature Granulocytes Count 0.020 X10^3/uL (0.0-0.0); Mean Corp Hgb Conc 34.0 g/dL (32-36); Mean Corpuscular Volume 92.9 fL (80-94); Mean Platelet Vol. 9.4 fl (6.2-12.0); NRBC Flagged by Analyzer 0 % (0-5); Platelet Count 197 K/mm3 (150-450); RBC Distribution Width CV 12.6 % (11.6-14.6); RBC Distribution Width SD 43.0 fl (35.1-43.9); Red Blood Count 4.37 M/mm3 (4.6-6.2); White Blood Count 5.5 K/mm3 (4.4-11.0)
[2025-06-19 09:42] LABS: Anion Gap 10 (5-15); BUN 12 mg/dL (4-19); BUN/Creat Ratio 14.4 RATIO (10-20); Calcium,Total 9.8 mg/dL (7.6-11.0); Carbon Dioxide 21.5 mmol/L (21.0-32.0); Chloride 95 mmol/L (98-108); Glucose 121 mg/dL (70-99); Potassium 4.9 mmol/L (3.3-5.1); Pro- Brain NATRIURETIC PEPTIDE 2003 pg/mL (<=900)
== END | disposition home or self-care (01) ==
LOC: LAB 07:54
PROVIDERS: PCP Internal Medicine; Referring Provider Nurse Practitioner Family; Visit Provider Nurse Practitioner Family
DX: R06.02 Shortness of breath (principal); R60.0 Localized edema; J32.9 Chronic sinusitis, unspecified
CPT/HCPCS: 36415; 71046; 80048; 83880; 85025

== ENCOUNTER → 2025-08-15 | Outpatient (CLI) | payer MEDICARE, OTHER, SELFPAY ==
--- OUTSIDE RECORDS SUMMARY | 2025-08-15 06:02 | XMS RPT_ITS | CCD ---
Author Organization [facility] Care Team Providers Care Supervisor [employer] Name Role Phone Dr. Falguni Beasley Primary Care Provider [phone] Dr. Falguni Beasley Referring Provider [phone] JOVANNY Manrique Attending Provider Dr. Falguni Lopez Attending Provider [phone] Dr. Falguni Beasley Primary Care Provider [phone] Dr. Falguni Beasley Referring Provider [phone] JOVANNY Manrique Attending Provider Mack Grier VOUCHER EXAMINER, VOUCHER EXAMINER-C Jennifer Attending Provider Dr. Falguni Beasley Primary Care Provider [phone] Danis VOUCHER EXAMINER, VOUCHER EXAMINER-C Jennifer Attending Provider Danis VOUCHER EXAMINER, VOUCHER EXAMINER-C Jennifer Referring Provider Dr. Falguni Beasley Referring Provider [phone] Laura VOUCHER EXAMINER, VOUCHER EXAMINER-C Olegario Attending Provider [phone] JOVANNY Manrique Attending Provider Dr. Robyn Hill Attending Provider [phone] Dr. Falguni Beasley Primary Care Provider [phone]) Dr. Falguni Beasley Attending Provider [phone] Dr. Falguni Beasley Primary Care Provider [phone] Dr. Falguni Beasley Attending Provider [phone] Dr. Falguni Beasley Referring Provider [phone] Dr. Falguni Beasley Primary Care Provider [phone] Dr. Falguni Beasley Referring Provider [phone] Dr. Dayne Holliday Attending Provider Dr. Dayne Holliday Referring Provider Dr. Dayne Holliday Other Provider Dr. Falguni Beasley Primary Care Provider [phone] Dr. Dayne Holliday Attending Provider Dr. Falguni Beasley Referring Provider [phone] Dk VOUCHER EXAMINER, VOUCHER EXAMINER-C Olimpia Attending Provider Coleen VOUCHER EXAMINER, VOUCHER EXAMINER-C Linda Mccarthy Attending Provider Dr. Falguni Beasley Attending Provider [phone] Dr. Arturo Cohen Attending Provider Gale VALENZUELA, Dr. Montes De Oca Primary Care Provider Gale VALENZUELA, Dr. Montes De Oca Attending Provider [phone] Gale VALENZUELA, Dr. Montes De Oca Referring Provider [phone] Dk FORMAN-Olimpia Orellana Attending Provider Gale VALENZUELA, Dr. Montes De Oca Primary Care Provider Dr. Falguni Beasley MD Referring Provider [phone] Gale VALENZUELA, Dr. Montes De Oca Attending Provider Coleen VOUCHER EXAMINER-CLinda Attending Provider Olimpia Hartley Referring Provider Gale VALENZUELA, Dr. Montes De Oca Primary Care Provider Gale VALENZUELA, Dr. Montes De Oca Referring Provider Dk VOUCHER EXAMINER-COlimpia Attending Provider Coleen VOUCHER EXAMINER-CLinda Referring Provider Gale VALENZUELA, Dr. Montes De Oca Primary Care Provider Gale VALENZUELA, Dr. Montes De Oca Referring Provider [phone] Coleen VOUCHER EXAMINERLinda Attending Unavailable Oleghe, Efewongbe Primary Care Unavailable Oleghe, Efewongbe Referring Unavailable Oleghe, Efewongbe Primary Care Unavailable Oleghe, Efewongbe Referring Unavailable Root VOUCHER EXAMINER, Olimpia Attending Unavailable Oleghe, Efewongbe Attending Unavailable Oleghe, Efewongbe Referring Unavailable Oleghe, Efewongbe Primary Care Unavailable Coleen VOUCHER EXAMINERLinda Attending Unavailable Oleghe, Efewongbe Referring Unavailable Oleghe, Efewongbe Primary Care Unavailable Oleghe, Efewongbe Referring Unavailable Kirk Lemons Attending Unavailable Oleghe, Efewongbe Primary Care Unavailable Oleghe, Efewongbe Referring Unavailable Oleghe, Efewongbe Attending Unavailable Oleghe, Efewongbe Primary Care Unavailable Oleghe, Efewongbe Primary Care Unavailable Oleghe, Efewongbe Referring Unavailable Root VOUCHER EXAMINER, Olimpia Attending Unavailable Oleghe, Efewongbe Primary Care Unavailable Root VOUCHER EXAMINER, Olimpia Attending Unavailable Oleghe, Efewongbe Referring Unavailable Linda Horne NP Referring Unavailable Linda Horne NP Attending Unavailable Oleghe, Efewongbe Primary Care Unavailable Oleghe, Efewongbe Primary Care Unavailable Oleghe, Efewongbe Referring Unavailable Oleghe, Efewongbe Attending Unavailable Oleghe, Efewongbe Attending Unavailable Oleghe, Efewongbe Primary Care Unavailable Oleghe, Efewongbe Referring Unavailable Oleghe, Efewongbe Primary Care Unavailable Root VOUCHER EXAMINER, Olimpia Referring Unavailable Root VOUCHER EXAMINER, Olimpia Attending Unavailable Oleghe, Efewongbe Primary Care Unavailable Oleghe, Efewongbe Referring Unavailable Oleghe, Efewongbe Attending Unavailable Oleghe, Efewongbe Attending Unavailable Oleghe, Efewongbe Referring Unavailable Oleghe, Efewongbe Primary Care Unavailable Oleghe, Efewongbe Referring Unavailable Oleghe, Efewongbe Attending Unavailable Oleghe, Efewongbe Primary Care Unavailable Roof VOUCHER EXAMINERLinda Referring Unavailable Roof VOUCHER EXAMINER, Linda H Attending Unavailable CarlitosFe rodriguezongomari Primary Care Unavailable Olimpia Root NP Attending Unavailable Carlitosmatt, Feongbe Primary Care Unavailable Olimpia Root NP Referring Unavailable Linda Horne NP Attending Unavailable Gale, Hannabe Primary Care Unavailable Oletriston, Efvincenzoongbe Referring Unavailable Gale, Efewongbe Primary Care Unavailable Fe Beasleyongbe Referring Unavailable Linda Horne NP Attending Unavailable Allergies Allergy Classification Reported Allergen(s) Allergy Type Date of Onset Reaction(s) Facility (7 sources) venom-wasp Allergy to substance 03-30-2025 Swelling [facility] (1 source) venom-wasp Drug allergy (disorder) 08-07-2025 [facility] Repository Medications Current Medications Medication Drug Class(es) Dates Sig (Normalized) Sig (Original) ascorbic acid 500 mg oral tablet (20 sources) Vitamin C Start: 03-24-2024 take 1 g by mouth once daily Ascorbic Acid (Vitamin C) 500 mg tablet Active 1 g PO DAILY March 24, 2024 12:00am Start: 10-28-2021 End: 12-10-2023 take 1 tablet by mouth once daily Ascorbic Acid (Vitamin C) 500 mg tablet Discontinued 500 mg PO DAILY October 28, 2021 1:00am December 10, 2023 12:48pm cholecalciferol 0.125 mg oral tablet (20 sources) Vitamin D Start: 07-17-2025 take 1 tablet by mouth once daily Cholecalciferol (Vitamin D3) 125 mcg (5,000 unit) tablet Active 125 ug PO daily July 17, 2025 12:00am Start: 04-30-2025 End: 07-17-2025 take 1 tablet by mouth once daily Cholecalciferol (Vitamin D3) 25 mcg (1,000 unit) tablet Discontinued 125 ug PO DAILY April 30, 2025 11:38am July 17, 2025 11:14am Start: 12-10-2023 End: 04-30-2025 take 1 tablet [...] 28, 2021 1:00am December 10, 2023 12:49pm ELDERBERRY FRUIT (20 sources) Start: 06-19-2025 take 1 mg by mouth once daily Elderberry Fruit 350 mg capsule Active mg PO DAILY June 19, 2025 12:00am Start: 10-28-2021 End: 03-03-2024 take 1 capsule by mouth three times daily Elderberry Fruit 200 mg capsule Discontinued 200 mg PO THREE TIMES A DAY October 28, 2021 1:00am March 03, 2024 11:06am empagliflozin 10 mg oral tablet (3 sources) Sodium-Glucose Cotransporter 2 Inhibitor Start: 06-19-2025 take 1 tablet by mouth once daily Empagliflozin (Jardiance) 10 mg tablet Active 10 mg PO DAILY 30 June 19, 2025 12:00am [id number] 0.3 ml EPINEPHrine 1 mg/ml auto-injector (7 sources) alpha-Adrenergic Agonist, beta-Adrenergic Agonist, Catecholamine Start: 06-08-2024 Epinephrine (Epipen 2-Wisam) 0.3 mg/0.3 mL auto-injector Active 0.3 mg IM every 5 to 15 minutes as needed for anaphylaxis 2 0 June 08, 2024 12:00am administer at onset of symptoms, may repeat if no improvement after 15 minutes, call 911 Fluticasone-Umeclid in-Vilanter (20 sources) Anticholinergic, Corticosteroid, beta2-Adrenergic Agonist Start: 04-17-2025 Fluticasone-Umecli din-Vilanter (Trelegy Ellipta) 100-62.5-25 mcg blister with device Active 1 NMA INHALATION Q24H 60 3 April 17, 2025 10:12am Start: 04-17-2025 Fluticasone-Um eclidin-Vilanter (Trelegy Ellipta) 100-62.5-25 mcg blister with device Active 1 NMA INHALATION Q24H 60 April 17, 2025 10:12am Start: 02-07-2025 End: 04-17-2025 Uwtseechktx-Oolyqsoqh-Viwstu er (Trelegy Ellipta) 100-62.5-25 mcg blister with device Discontinued 1 NMA INHALATION Q24H 60 1 February 07, 2025 12:02pm April 17, 2025 10:13am Start: 02-07-2025 End: 04-17-2025 Uhslrsebwtl-Ioynmhtou-Rauhye er (Trelegy Ellipta) 100-62.5-25 mcg blister with device Discontinued 1 NMA INHALATION Q24H 60 February 07, 2025 12:02pm April 17, 2025 10:13am Start: 02-07-2025 Fluticasone-Um eclidin-Vilanter (Trelegy Ellipta) 100-62.5-25 mcg blister with device Active 1 NMA INHALATION Q24H 60 February 07, 2025 12:02pm Start: 12-08-2024 End: 02-07-2025 Ddfnddrklkp-Efcoflcjv-Acnudv er (Trelegy Ellipta) 100-62.5-25 mcg blister with device Discontinued 1 NMA INHALATION Q24H 60 December 08, 2024 9:21am February 07, 2025 2:26pm Start: 12-08-2024 End: 02-07-2025 Iamcsvhveid-Yvpzjphow-Lvvklv er (Trelegy Ellipta) 100-62.5-25 mcg blister with device Discontinued 1 NMA INHALATION Q24H 60 December 08, 2024 9:21am February 07, 2025 2:26pm Start: 07-11-2024 End: 12-08-2024 Unrlnszvzys-Weohviulz-Htkvgw er (Trelegy Ellipta) 100-62.5-25 mcg blister with device Discontinued 1 NMA INHALATION Q24H 60 July 11, 2024 11:42am December 08, 2024 9:21am Start: 07-11-2024 End: 12-08-2024 Ocrrqlakstn-Fswnsabtp-Iqmpyo er (Trelegy Ellipta) 100-62.5-25 mcg blister with device Discontinued 1 NMA INHALATION Q24H 60 July 11, 2024 11:42am December 08, 2024 9:21am Start: 05-11-2024 End: 07-11-2024 Ktkymlkkasx-Gmhvlidhs-Ldzvnq er (Trelegy Ellipta) 100-62.5-25 mcg blister with device Discontinued 1 NMA INHALATION Q24H 60 3 May 11, 2024 12:41pm July 11, 2024 11:43am Start: 05-11-2024 End: 07-11-2024 Xxfkelghnrb-Vqtxlttyd-Bvzkgv er (Trelegy Ellipta) 100-62.5-25 mcg blister with device Discontinued 1 NMA INHALATION Q24H 60 May 11, 2024 12:41pm July 11, 2024 11:43am Start: 02-08-2024 End: 05-11-2024 Xycfwnkqfhz-Wusqizkhv-Rqmcui er (Trelegy Ellipta) 100-62.5-25 mcg blister with device Discontinued 1 NMA INHALATION Q24H 60 3 February 08, 2024 12:51pm May 11, 2024 12:41pm Start: 02-08-2024 End: 05-11-2024 Vvdcjmhhqaj-Wirnlrhck-Gcctyj er (Trelegy Ellipta) 100-62.5-25 mcg blister with device Discontinued 1 NMA INHALATION Q24H 60 February 08, 2024 12:51pm May 11, 2024 12:41pm Start: 11-11-2023 End: 12-10-2023 Isgvpmuubtz-Cvrvzmxxk-Frgbyn er (Trelegy Ellipta) 100-62.5-25 mcg blister with device Discontinued 1 NMA INHALATION Q24H 60 3 November 11, 2023 9:54am December 10, 2023 12:47pm Start: 11-11-2023 End: 12-10-2023 Bfoytfmesyl-Vnwygxtos-Plgyyf er (Trelegy Ellipta) 100-62.5-25 mcg blister with device Discontinued 1 NMA INHALATION Q24H 60 November 11, 2023 9:54am December 10, 2023 12:47pm Start: 11-11-2023 End: 12-10-2023 Gxoveskjwjj-Azftrnipu-Yluipw er (Trelegy Ellipta) 100-62.5-25 mcg blister with device Discontinued 1 INH INHALATION Q24H 60 November 11, 2023 8:54am December 10, 2023 11:47am Start: 11-11-2023 End: 02-08-2024 Ynxcfcaxxna-Tsualtbml-Yrjqny er (Trelegy Ellipta) 100-62.5-25 mcg blister with device Discontinued 1 NMA INHALATION Q24H 60 3 November 11, 2023 9:53am February 08, 2024 12:52pm Start: 11-11-2023 End: 02-08-2024 Gadmdqqihts-Cawrwnlxo-Iozyyg er (Trelegy Ellipta) 100-62.5-25 mcg blister with device Discontinued 1 NMA INHALATION Q24H 60 November 11, 2023 9:53am February 08, 2024 12:52pm Start: 11-11-2023 Fluticasone-Um eclidin-Vilanter (Trelegy Ellipta) 100-62.5-25 mcg blister with device Active 1 INH INHALATION Q24H 60 November 11, 2023 8:53am Start: 06-28-2023 End: 10-13-2023 Trtdgxbollc-Iacioleze-Uuzzya er (Trelegy Ellipta) 100-62.5-25 mcg blister with device Discontinued 1 NMA INHALATION Q24H 60 3 June 28, 2023 4:45pm October 13, 2023 2:11pm Start: 06-28-2023 End: 10-13-2023 Sneyyqvvodu-Knyxbxkhl-Hvjnle er (Trelegy Ellipta) 100-62.5-25 mcg blister with device Discontinued 1 NMA INHALATION Q24H 60 June 28, 2023 4:45pm October 13, 2023 2:11pm Start: 06-28-2023 End: 10-13-2023 Xonjlnzdyuu-Dieeiyljr-Uunhjv er (Trelegy Ellipta) 100-62.5-25 mcg blister with device Discontinued 1 INH INHALATION Q24H 60 June 28, 2023 3:45pm October 13, 2023 1:11pm Start: 06-28-2023 Fluticasone-Um eclidin-Vilanter (Trelegy Ellipta) 100-62.5-25 mcg blister with device Active 1 INH INHALATION Q24H 60 June 28, 2023 3:45pm Start: 05-31-2023 End: 06-28-2023 Tplsvjlzbqu-Loaoxviyb-Kaxwje er (Trelegy Ellipta) 100-62.5-25 mcg blister with device Discontinued 1 NMA INHALATION Q24H 60 3 May 31, 2023 4:01pm June 28, 2023 4:46pm Start: 05-31-2023 End: 06-28-2023 Lawdlwvgoxd-Oxagxccil-Mxgjwf er (Trelegy Ellipta) 100-62.5-25 mcg blister with device Discontinued 1 NMA INHALATION Q24H 60 May 31, 2023 4:01pm June 28, 2023 4:46pm Start: 05-31-2023 End: 06-28-2023 Pzngllzzlhq-Zzstqbuaf-Bmxetu er (Trelegy Ellipta) 100-62.5-25 mcg blister with device Discontinued 1 INH INHALATION Q24H 60 May 31, 2023 3:01pm June 28, 2023 3:46pm Start: 05-31-2023 Fluticasone-Um eclidin-Vilanter (Trelegy Ellipta) 100-62.5-25 mcg blister with device Active 1 INH INHALATION Q24H 60 May 31, 2023 4:01pm Start: 05-05-2023 End: 05-31-2023 Tzmeijhaqww-Ebugwiuup-Thpoli er (Trelegy Ellipta) 100-62.5-25 mcg blister with device Discontinued 1 NMA INHALATION Q24H 60 1 May 05, 2023 8:52am May 31, 2023 4:02pm Start: 05-05-2023 End: 05-31-2023 Hzdrqqqcxiy-Aymwbakyi-Oxqqfa er (Trelegy Ellipta) 100-62.5-25 mcg blister with device Discontinued 1 NMA INHALATION Q24H 60 May 05, 2023 8:52am May 31, 2023 4:02pm Start: 05-05-2023 End: 05-31-2023 Mmwwtjznoha-Yaigizknc-Gsszpp er (Trelegy Ellipta) 100-62.5-25 mcg blister with device Discontinued 1 INH INHALATION Q24H 60 May 05, 2023 7:52am May 31, 2023 3:02pm Start: 05-05-2023 End: 05-31-2023 Btyecwnbpvr-Lpdlgckqe-Ygvmky er (Trelegy Ellipta) 100-62.5-25 mcg blister with device Discontinued 1 INH INHALATION Q24H 60 May 05, 2023 8:52am May 31, 2023 4:02pm Start: 04-01-2023 End: 05-05-2023 Rfqbtaugotr-Lqudzpoel-Bdytpu er (Trelegy Ellipta) 100-62.5-25 mcg blister with device Discontinued 1 NMA INHALATION Q24H 60 April 01, 2023 2:38pm May 05, 2023 8:52am Start: 04-01-2023 End: 05-05-2023 Luparvuczar-Bczjizftl-Ifwmhk er (Trelegy Ellipta) 100-62.5-25 mcg blister with device Discontinued 1 NMA INHALATION Q24H 60 April 01, 2023 2:38pm May 05, 2023 8:52am Start: 04-01-2023 End: 05-05-2023 Nszqwjhhvze-Ifwmpjhzn-Vgvfgd er (Trelegy Ellipta) 100-62.5-25 mcg blister with device Discontinued 1 INH INHALATION Q24H 60 April 01, 2023 1:38pm May 05, 2023 7:52am Start: 04-01-2023 End: 05-05-2023 Nzmnmgtigis-Ihlfuiwzs-Ojmpju er (Trelegy Ellipta) 100-62.5-25 mcg blister with device Discontinued 1 INH INHALATION Q24H 60 April 01, 2023 2:38pm May 05, 2023 8:52am Start: 03-03-2023 End: 04-01-2023 Ccftwccwslc-Cnggptlcb-Niqlkf er (Trelegy Ellipta) 100-62.5-25 mcg blister with device Discontinued 1 NMA INHALATION Q24H 60 March 03, 2023 1:13pm April 01, 2023 2:39pm Start: 03-03-2023 End: 04-01-2023 Ynfuhxfqjpi-Siqvojnuc-Foyxng er (Trelegy Ellipta) 100-62.5-25 mcg blister with device Discontinued 1 NMA INHALATION Q24H 60 March 03, 2023 1:13pm April 01, 2023 2:39pm Start: 03-03-2023 End: 04-01-2023 Awfgufvmntz-Acwtfjxiq-Mldmld er (Trelegy Ellipta) 100-62.5-25 mcg blister with device Discontinued 1 INH INHALATION Q24H 60 March 03, 2023 12:13pm April 01, 2023 1:39pm Start: 03-03-2023 End: 04-01-2023 Goczqgxjjrk-Kovhmsrxo-Vosxgw er (Trelegy Ellipta) 100-62.5-25 mcg blister with device Discontinued 1 INH INHALATION Q24H 60 March 03, 2023 1:13pm April 01, 2023 2:39pm Start: 02-01-2023 End: 03-03-2023 Lkclnaonedv-Amgoanexm-Aerayr er (Trelegy Ellipta) 100-62.5-25 mcg blister with device Discontinued 1 NMA INHALATION Q24H 60 3 February 01, 2023 5:17pm March 03, 2023 1:13pm Start: 02-01-2023 End: 03-03-2023 Oghzqtazzvu-Nqkhdnljk-Xpzbsj er (Trelegy Ellipta) 100-62.5-25 mcg blister with device Discontinued 1 NMA INHALATION Q24H 60 February 01, 2023 5:17pm March 03, 2023 1:13pm Start: 02-01-2023 End: 03-03-2023 Xszileobaak-Czprymqjz-Kgewvg er (Trelegy Ellipta) 100-62.5-25 mcg blister with device Discontinued 1 INH INHALATION Q24H 60 February 01, 2023 4:17pm March 03, 2023 12:13pm Start: 02-01-2023 End: 03-03-2023 Bxwozavzotm-Ctvowbokl-Swtfwh er (Trelegy Ellipta) 100-62.5-25 mcg blister with device Discontinued 1 INH INHALATION Q24H 60 February 01, 2023 5:17pm March 03, 2023 1:13pm Start: 12-31-2022 End: 02-01-2023 Vknqvksvlnq-Jlvsrmzaf-Wfcelg er (Trelegy Ellipta) 100-62.5-25 mcg blister with device Discontinued 1 NMA INHALATION Q24H 60 3 December 31, 2022 4:59pm February 01, 2023 5:17pm Start: 12-31-2022 End: 02-01-2023 Iunkcfimqjk-Huvjjtnrz-Igvjri er (Trelegy Ellipta) 100-62.5-25 mcg blister with device Discontinued 1 NMA INHALATION Q24H 60 December 31, 2022 4:59pm February 01, 2023 5:17pm Start: 12-31-2022 End: 02-01-2023 Owsetsbdxku-Xgplozllx-Tuhwkd er (Trelegy Ellipta) 100-62.5-25 mcg blister with device Discontinued 1 INH INHALATION Q24H 60 December 31, 2022 3:59pm February 01, 2023 4:17pm Start: 12-31-2022 End: 02-01-2023 Wzxtwnnsgcp-Gjpikcghh-Uyxzgh er (Trelegy Ellipta) 100-62.5-25 mcg blister with device Discontinued 1 INH INHALATION Q24H 60 December 31, 2022 4:59pm February 01, 2023 5:17pm Start: 11-30-2022 End: 12-31-2022 Fsqdunpogpe-Mpuzscpvb-Iyiyyo er (Trelegy Ellipta) 100-62.5-25 mcg blister with device Discontinued 1 NMA INHALATION Q24H 60 3 November 30, 2022 12:36pm December 31, 2022 4:59pm Start: 11-30-2022 End: 12-31-2022 Rmibcsoijsd-Xfwumtzla-Uugbyu er (Trelegy Ellipta) 100-62.5-25 mcg blister with device Discontinued 1 NMA INHALATION Q24H 60 November 30, 2022 12:36pm December 31, 2022 4:59pm Start: 11-30-2022 End: 12-31-2022 Svjovocayed-Jleqcconb-Cummnj er (Trelegy Ellipta) 100-62.5-25 mcg blister with device Discontinued 1 INH INHALATION Q24H 60 November 30, 2022 11:36am December 31, 2022 3:59pm Start: 11-30-2022 End: 12-31-2022 Udbjjzvktsj-Iazfkpoix-Xvedgq er (Trelegy Ellipta) 100-62.5-25 mcg blister with device Discontinued 1 INH INHALATION Q24H 60 November 30, 2022 12:36pm December 31, 2022 4:59pm Start: 11-30-2022 Fluticasone-Um eclidin-Vilanter (Trelegy Ellipta) 100-62.5-25 mcg blister with device Active 1 INH INHALATION Q24H 60 November 30, 2022 11:36am Start: 10-30-2022 End: 11-30-2022 Gekoulhtvgk-Boujckcag-Mxvjoq er (Trelegy Ellipta) 100-62.5-25 mcg blister with device Discontinued 1 NMA INHALATION Q24H 60 October 30, 2022 1:20pm November 30, 2022 12:36pm Start: 10-30-2022 End: 11-30-2022 Mnrnbtqjrxa-Wjtfyeabe-Wwlqod er (Trelegy Ellipta) 100-62.5-25 mcg blister with device Discontinued 1 NMA INHALATION Q24H 60 October 30, 2022 1:20pm November 30, 2022 12:36pm Start: 10-30-2022 End: 11-30-2022 Nypeuqqjuii-Ultfkmzcq-Lcbxwl er (Trelegy Ellipta) 100-62.5-25 mcg blister with device Discontinued 1 INH INHALATION Q24H 60 October 30, 2022 1:20pm November 30, 2022 12:36pm Start: 10-30-2022 End: 11-30-2022 Qlrgrtkimpp-Xhxyjuyiz-Cwupxh er (Trelegy Ellipta) 100-62.5-25 mcg blister with device Discontinued 1 INH INHALATION Q24H 60 October 30, 2022 12:20pm November 30, 2022 11:36am Start: 10-30-2022 Fluticasone-Um eclidin-Vilanter (Trelegy Ellipta) 100-62.5-25 mcg blister with device Active 1 INH INHALATION Q24H 60 October 30, 2022 12:20pm Start: 09-28-2022 End: 10-30-2022 Qecvyuypput-Xjfhibqnl-Yvlgyo er (Trelegy Ellipta) 100-62.5-25 mcg blister with device Discontinued 1 NMA INHALATION Q24H 60 3 September 28, 2022 9:53pm October 30, 2022 1:20pm Start: 09-28-2022 End: 10-30-2022 Zntvtvrvtmd-Tzztknxyn-Ojmmkj er (Trelegy Ellipta) 100-62.5-25 mcg blister with device Discontinued 1 NMA INHALATION Q24H 60 September 28, 2022 9:53pm October 30, 2022 1:20pm Start: 09-28-2022 End: 10-30-2022 Bacngiowrbw-Lmkwwqnan-Wyssok er (Trelegy Ellipta) 100-62.5-25 mcg blister with device Discontinued 1 INH INHALATION Q24H 60 September 28, 2022 9:53pm October 30, 2022 1:20pm Start: 09-28-2022 End: 10-30-2022 Cnzegtlnoyf-Pppvuqzxm-Eadjvu er (Trelegy Ellipta) 100-62.5-25 mcg blister with device Discontinued 1 INH INHALATION Q24H 60 September 28, 2022 8:53pm October 30, 2022 12:20pm Start: 08-27-2022 End: 09-28-2022 Wtgqfqaocmc-Atwrneiqn-Iqyvkj er (Trelegy Ellipta) 100-62.5-25 mcg blister with device Discontinued 1 NMA INHALATION Q24H 60 August 27, 2022 5:11pm September 28, 2022 9:54pm Start: 08-27-2022 End: 09-28-2022 Xxyztzseyfj-Yfqnxesno-Pqqteq er (Trelegy Ellipta) 100-62.5-25 mcg blister with device Discontinued 1 NMA INHALATION Q24H 60 August 27, 2022 5:11pm September 28, 2022 9:54pm Start: 08-27-2022 End: 09-28-2022 Ekcyfmsolgl-Iwweznkph-Jnyuaf er (Trelegy Ellipta) 100-62.5-25 mcg blister with device Discontinued 1 INH INHALATION Q24H 60 August 27, 2022 5:11pm September 28, 2022 9:54pm Start: 08-27-2022 End: 09-28-2022 Iuexrliyeao-Xmfckpgka-Iltxta er (Trelegy Ellipta) 100-62.5-25 mcg blister with device Discontinued 1 INH INHALATION Q24H 60 August 27, 2022 4:11pm September 28, 2022 8:54pm Start: 07-28-2022 End: 08-27-2022 Uirgnxeksst-Vifurnyua-Rsycxe er (Trelegy Ellipta) 100-62.5-25 mcg blister with device Discontinued 1 NMA INHALATION Q24H 60 3 July 28, 2022 9:05am August 27, 2022 5:11pm Start: 07-28-2022 End: 08-27-2022 Kijdhcptlni-Mwlmbjgvr-Lczwma er (Trelegy Ellipta) 100-62.5-25 mcg blister with device Discontinued 1 NMA INHALATION Q24H 60 July 28, 2022 9:05am August 27, 2022 5:11pm Start: 07-28-2022 End: 08-27-2022 Cfauncsehzp-Xwexsqbtk-Oyyuli er (Trelegy Ellipta) 100-62.5-25 mcg blister with device Discontinued 1 INH INHALATION Q24H 60 July 28, 2022 9:05am August 27, 2022 5:11pm Start: 07-28-2022 End: 08-27-2022 Vhicbqmnxwc-Adoebfyrh-Jcxwfv er (Trelegy Ellipta) 100-62.5-25 mcg blister with device Discontinued 1 INH INHALATION Q24H 60 July 28, 2022 8:05am August 27, 2022 4:11pm Start: 07-28-2022 Fluticasone-Um eclidin-Vilanter (Trelegy Ellipta) 100-62.5-25 mcg blister with device Active 1 INH INHALATION Q24H 60 July 28, 2022 9:05am Start: 06-29-2022 End: 07-28-2022 Tylojbqvikm-Rpeqrfinz-Npsvqz er (Trelegy Ellipta) 100-62.5-25 mcg blister with device Discontinued 1 NMA INHALATION Q24H 60 1 June 29, 2022 8:51am July 28, 2022 9:05am Start: 06-29-2022 End: 07-28-2022 Nuiuujlmsci-Recnxtidx-Gwqian er (Trelegy Ellipta) 100-62.5-25 mcg blister with device Discontinued 1 NMA INHALATION Q24H 60 June 29, 2022 8:51am July 28, 2022 9:05am Start: 06-29-2022 End: 07-28-2022 Fobypclmyge-Ufxowujiy-Joaxae er (Trelegy Ellipta) 100-62.5-25 mcg blister with device Discontinued 1 INH INHALATION Q24H 60 June 29, 2022 7:51am July 28, 2022 8:05am Start: 06-29-2022 End: 07-28-2022 Fwrkgyhcgdv-Kdgattycf-Rveobv er (Trelegy Ellipta) 100-62.5-25 mcg blister with device Discontinued 1 INH INHALATION Q24H 60 June 29, 2022 8:51am July 28, 2022 9:05am Start: 06-29-2022 Fluticasone-Um eclidin-Vilanter (Trelegy Ellipta) 100-62.5-25 mcg blister with device Active 1 INH INHALATION Q24H 60 June 29, 2022 8:51am Start: 05-26-2022 End: 06-29-2022 Igrjaqcvwwv-Xoarkbfgx-Lhpitp er (Trelegy Ellipta) 100-62.5-25 mcg blister with device Discontinued 1 NMA INHALATION Q24H 60 May 26, 2022 4:42pm June 29, 2022 8:51am Start: 05-26-2022 End: 06-29-2022 Geegxsyaajl-Owpvljgli-Kbyytc er (Trelegy Ellipta) 100-62.5-25 mcg blister with device Discontinued 1 NMA INHALATION Q24H 60 May 26, 2022 4:42pm June 29, 2022 8:51am Start: 05-26-2022 End: 06-29-2022 Ebeqjqbaxae-Uimffappc-Ksojvy er (Trelegy Ellipta) 100-62.5-25 mcg blister with device Discontinued 1 INH INHALATION Q24H 60 May 26, 2022 3:42pm June 29, 2022 7:51am Start: 05-26-2022 End: 06-29-2022 Hpdwxtvefqi-Xlieeukhs-Tggdpt er (Trelegy Ellipta) 100-62.5-25 mcg blister with device Discontinued 1 INH INHALATION Q24H 60 May 26, 2022 4:42pm June 29, 2022 8:51am Start: 04-22-2022 End: 05-26-2022 Tfvulbfruhx-Sqxqoledj-Kcmtbw er (Trelegy Ellipta) 100-62.5-25 mcg blister with device Discontinued 1 NMA INHALATION Q24H 60 April 22, 2022 3:40pm May 26, 2022 4:42pm Start: 04-22-2022 End: 05-26-2022 Iooelxbtiee-Ozgcpsnoq-Umdjsv er (Trelegy Ellipta) 100-62.5-25 mcg blister with device Discontinued 1 NMA INHALATION Q24H 60 April 22, 2022 3:40pm May 26, 2022 4:42pm Start: 04-22-2022 End: 05-26-2022 Mndiuxywhxu-Fenmnjksh-Fpyzwl er (Trelegy Ellipta) 100-62.5-25 mcg blister with device Discontinued 1 INH INHALATION Q24H 60 April 22, 2022 2:40pm May 26, 2022 3:42pm Start: 04-22-2022 End: 05-26-2022 Sihgzejkbzh-Qrfunubzt-Vdkcdn er (Trelegy Ellipta) 100-62.5-25 mcg blister with device Discontinued 1 INH INHALATION Q24H 60 April 22, 2022 3:40pm May 26, 2022 4:42pm Start: 03-23-2022 End: 04-22-2022 Xzciyulwbbv-Wayvahaiu-Ipdsrb er (Trelegy Ellipta) 100-62.5-25 mcg blister with device Discontinued 1 NMA INHALATION Q24H 60 March 23, 2022 10:52am April 22, 2022 3:40pm Start: 03-23-2022 End: 04-22-2022 Hxpdzmqtiot-Gesmsqnjj-Besyfh er (Trelegy Ellipta) 100-62.5-25 mcg blister with device Discontinued 1 NMA INHALATION Q24H 60 March 23, 2022 10:52am April 22, 2022 3:40pm Start: 03-23-2022 End: 04-22-2022 Wawfwnoegib-Bqplmrdez-Tevdwd er (Trelegy Ellipta) 100-62.5-25 mcg blister with device Discontinued 1 INH INHALATION Q24H 60 March 23, 2022 9:52am April 22, 2022 2:40pm Start: 03-23-2022 End: 04-22-2022 Holqwyrcaln-Bdmyiylqo-Aeeppc er (Trelegy Ellipta) 100-62.5-25 mcg blister with device Discontinued 1 INH INHALATION Q24H 60 March 23, 2022 10:52am April 22, 2022 3:40pm Start: 03-23-2022 Fluticasone-Um eclidin-Vilanter (Trelegy Ellipta) 100-62.5-25 mcg blister with device Active 1 INH INHALATION Q24H March 23, 2022 10:52am Start: 02-24-2022 End: 03-23-2022 Ifvxvfwapnq-Qsldzambu-Iaewrm er (Trelegy Ellipta) 100-62.5-25 mcg blister with device Discontinued 1 NMA INHALATION Q24H 60 1 February 24, 2022 11:22am March 23, 2022 10:52am Start: 02-24-2022 End: 03-23-2022 Cpkfzkiprxy-Oehqgvzqd-Riogbd er (Trelegy Ellipta) 100-62.5-25 mcg blister with device Discontinued 1 NMA INHALATION Q24H 60 February 24, 2022 11:22am March 23, 2022 10:52am Start: 02-24-2022 End: 03-23-2022 Frqvvgxqpax-Nssavstyc-Vnnwwh er (Trelegy Ellipta) 100-62.5-25 mcg blister with device Discontinued 1 INH INHALATION Q24H 60 February 24, 2022 10:22am March 23, 2022 9:52am Start: 02-24-2022 End: 03-23-2022 Dkqglwtmzet-Ughvqhbfu-Goxowk er (Trelegy Ellipta) 100-62.5-25 mcg blister with device Discontinued 1 INH INHALATION Q24H 60 February 24, 2022 11:22am March 23, 2022 10:52am Start: 12-23-2021 End: 02-24-2022 Ohgmrysqmau-Pwmtsdeuc-Dperme er (Trelegy Ellipta) 100-62.5-25 mcg blister with device Discontinued 1 NMA INHALATION Q24H 60 December 23, 2021 9:04am February 24, 2022 11:22am Start: 12-23-2021 End: 02-24-2022 Iskzvqfczxp-Mrksvhycn-Abfcdw er (Trelegy Ellipta) 100-62.5-25 mcg blister with device Discontinued 1 NMA INHALATION Q24H 60 December 23, 2021 9:04am February 24, 2022 11:22am Start: 12-23-2021 End: 02-24-2022 Pqfcppduqmn-Yciirhswe-Mmspmb er (Trelegy Ellipta) 100-62.5-25 mcg blister with device Discontinued 1 INH INHALATION Q24H 60 December 23, 2021 8:04am February 24, 2022 10:22am Start: 12-23-2021 End: 02-24-2022 Neatlervspm-Lwscktvks-Gpgknk er (Trelegy Ellipta) 100-62.5-25 mcg blister with device Discontinued 1 INH INHALATION Q24H 60 December 23, 2021 9:04am February 24, 2022 11:22am Start: 10-17-2021 End: 12-23-2021 Tpnrsqzpgdr-Urmwmknle-Vverav er (Trelegy Ellipta) 100-62.5-25 mcg blister with device Discontinued 1 NMA INHALATION Q24H 60 October 17, 2021 11:02am December 23, 2021 9:04am Start: 10-17-2021 End: 12-23-2021 Nohqgbgmbfw-Sqbhyivyz-Ojshuf er (Trelegy Ellipta) 100-62.5-25 mcg blister with device Discontinued 1 NMA INHALATION Q24H 60 October 17, 2021 11:02am December 23, 2021 9:04am Start: 10-17-2021 End: 12-23-2021 Aatofqjpxkc-Rvznkdsdy-Npcqyk er (Trelegy Ellipta) 100-62.5-25 mcg blister with device Discontinued 1 INH INHALATION Q24H 60 October 17, 2021 10:02am December 23, 2021 8:04am Start: 10-17-2021 End: 12-23-2021 Tkeynonscey-Honarzpyi-Jsjmxx er (Trelegy Ellipta) 100-62.5-25 mcg blister with device Discontinued 1 INH INHALATION Q24H 60 October 17, 2021 11:02am December 23, 2021 9:04am Start: 08-04-2021 End: 10-17-2021 Hgkbezgbpjs-Oeejkzgld-Ewtxoy er (Trelegy Ellipta) 100-62.5-25 mcg blister with device Discontinued 1 INH INHALATION Q24H 60 August 04, 2021 10:07am October 17, 2021 11:02am Start: 08-04-2021 End: 10-17-2021 Zxiwuugwnch-Xiuglubus-Svemiv er (Trelegy Ellipta) 100-62.5-25 mcg blister with device Discontinued 1 NMA INHALATION Q24H 60 1 August 04, 2021 12:00am October 17, 2021 11:02am Start: 08-04-2021 End: 10-17-2021 Mjahtzorjie-Wstittetw-Vcktsz er (Trelegy Ellipta) 100-62.5-25 mcg blister with device Discontinued 1 NMA INHALATION Q24H 60 August 04, 2021 12:00am October 17, 2021 11:02am Start: 08-04-2021 End: 10-17-2021 Kvgjdbctkdy-Qyfaeogry-Mdeupy er (Trelegy Ellipta) 100-62.5-25 mcg blister with device Discontinued 1 INH INHALATION Q24H 60 August 03, 2021 11:00pm October 17, 2021 10:02am Start: 08-04-2021 End: 10-17-2021 Eokjmddqlir-Keduymgal-Ojcryn er (Trelegy Ellipta) 100-62.5-25 mcg blister with device Discontinued 1 INH INHALATION Q24H 60 August 04, 2021 12:00am October 17, 2021 11:02am folic acid 1 mg oral tablet (20 sources) Start: 06-19-2021 End: 08-06-2025 take 1 tablet by mouth once daily Folic Acid 1 mg tablet Active 0 .ROUTE .COMPLEX 90 August 06, 2025 6:05pm TAKE 1 TABLET BY MOUTH EVERY DAY @ 08:00 furosemide 40 mg oral tablet (6 sources) Loop Diuretic Start: 07-17-2025 take 1 tablet by mouth every other day Furosemide (Lasix) 40 mg tablet Active 40 mg PO every other day 30 July 17, 2025 11:39am Start: 06-19-2025 End: 07-17-2025 take 1 tablet by mouth once daily Furosemide (Lasix) 40 mg tablet Discontinued 40 mg PO DAILY 30 June 19, 2025 12:00am July 17, 2025 11:40am lisinopril 20 mg oral tablet (20 sources) Angiotensin Converting Enzyme Inhibitor Start: 06-19-2025 End: 07-03-2025 take 1 tablet by mouth once daily Lisinopril 20 mg tablet Active 20 mg PO DAILY 90 July 03, 2025 1:16pm Start: 09-14-2024 End: 06-19-2025 take 1 tablet by mouth once daily Lisinopril 10 mg tablet Discontinued 10 mg PO DAILY 30 September 14, 2024 12:00am June 19, 2025 9:30am Start: 06-17-2021 End: 06-19-2021 take 1 tablet by mouth once daily Lisinopril 10 mg tablet Discontinued 10 mg PO DAILY June 17, 2021 12:00am June 19, 2021 12:58pm BP magnesium oxide 500 mg oral tablet (20 sources) Start: 07-17-2025 take 1 tablet by mouth once daily Magnesium Oxide 500 mg magnesium tablet Active 500 mg PO daily July 17, 2025 12:00am Start: 06-25-2023 End: 07-17-2025 take 1 tablet by mouth once daily Magnesium Oxide 400 mg (241.3 mg magnesium) tablet Discontinued 0 .ROUTE .COMPLEX 90 0 June 25, 2023 7:02pm July 17, 2025 11:15am TAKE 1 TABLET BY MOUTH EVERY DAY Start: 06-26-2021 End: 06-25-2023 take 1 tablet by mouth once daily Magnesium Oxide 400 mg magnesium tablet Discontinued 400 mg PO DAILY 60 2 December 31, 2022 4:59pm June 25, 2023 7:02pm 24 hr metoprolol succinate 50 mg extended release oral tablet (20 sources) beta-Adrenergic Wilfrid Start: 03-27-2024 End: 04-12-2025 take 1 tablet by mouth once daily Metoprolol Succinate 50 mg tablet extended release 24 hr Active 50 mg PO DAILY 30 April 12, 2025 11:42am Start: 03-03-2024 End: 03-24-2024 take 1 tablet by mouth once daily Metoprolol Succinate 50 mg tablet extended release 24 hr Discontinued 50 mg PO DAILY 30 March 03, 2024 12:00am March 24, 2024 3:04pm Start: 07-17-2021 End: 07-21-2021 take 1 tablet by mouth twice daily Metoprolol Tartrate 50 mg tablet Discontinued 50 mg PO TWICE A DAY 60 12 July 17, 2021 9:45am July 21, 2021 [...] DAILY October 28, 2021 1:00am Multivitamin tablet (7 sources) Start: 10-28-2021 Multivitamin t ablet Active 1 {tbl} PO DAILY October 28, 2021 1:00am Zinc (16 sources) Start: 10-28-2021 take 50 mg by [...] Drug Class(es) Dates Sig (Normalized) Sig (Original) [id number] 200 actuat albuterol 0.09 mg/actuat metered dose inhaler (20 sources) beta2-Adrenergic Agonist Start: 08-19-2023 End: 05-10-2025 Albuterol Sulfate 90 mcg/actuation HFA aerosol inhaler Discontinued 2 NMA INHALATION Q4H as needed for shortness of breath or wheezing 8.5 October 13, 2024 10:24am May 10, 2025 2:55pm administer with spacer Start: 08-19-2023 take 1 [...] needed for shortness of breath or wheezing 8.03 22April 10, 2022 12:00am June 10, 2022 4:29pm Start: 04-10-2022 End: 06-10-2022 take 1 puff(s) by inhalation every six hours Albuterol Sulfate Discontinued 2 PUFF INHALATION EVERY 6 HOURS 8.5 April 09, 2022 11:00pm June 10, 2022 3:29pm amLODIPine 5 mg oral tablet (16 sources) Dihydropyridine Calcium Channel Iwlfrid Start: 08-09-2020 End: 06-17-2021 take 1 tablet by mouth once daily Amlodipine 5 MG tablet Discontinued 5 mg PO DAILY 30 0 August 09, 2020 12:00am June 17, 2021 9:29am amoxicillin 875 mg / clavulanate 125 mg oral tablet (7 sources) Penicillin-class Antibacterial Start: 01-12-2025 End: 03-30-2025 Amoxicillin-Pot Clavulanate 875-125 mg tablet Discontinued 1 {tbl} PO TWICE A DAY 20 January 12, 2025 1:00am March 30, 2025 10:22am apixaban 5 mg oral tablet (20 sources) Factor Xa Inhibitor Start: 06-20-2024 End: [...] Tablet,Chewable Discontinued 81 mg PO DAILY@0800 60 0 June 19, 2021 12:00am July 21, 2021 8:34am On Hold: Order Changed Start: 08-09-2020 End: 06-17-2021 take 1 tablet by mouth once daily Aspirin 81 MG tablet,chewable Discontinued 81 mg PO DAILY@0800 1 0 August 09, 2020 12:00am June 17, 2021 9:29am atorvastatin 20 mg oral tablet (20 sources) HMG-CoA Reductase Inhibitor Start: 06-19-2021 End: 05-11-2025 take 1 tablet by mouth at bedtime Atorvastatin 20 mg tablet Discontinued 20 mg PO AT BEDTIME 90 0 February 16, 2025 4:38pm May 11, 2025 3:24pm Start: 08-09-2020 End: 06-17-2021 take 1 tablet by mouth at bedtime Atorvastatin 40 MG tablet Discontinued 40 mg PO AT BEDTIME 30 0 August 09, 2020 12:00am June 17, 2021 9:29am azithromycin 250 mg oral tablet (20 sources) Macrolide Antimicrobial Start: 06-30-2022 End: 12-18-2022 take 2-5 tablets by mouth once daily Azithromycin (Zithromax Z-Wisam) 250 mg tablet Discontinued 0 PO .COMPLEX 6 0 October 26, 2022 10:58am December 18, 2022 4:23pm take 500 mg today (day 1), then 250 mg for 4 days (days 2-5) PO Start: 04-10-2022 End: 06-10-2022 take 2-5 tablets by mouth once daily Azithromycin (Zithromax Z-Wisam) 250 mg tablet Discontinued 0 PO .COMPLEX 6 0 April 10, 2022 12:00am June 10, 2022 4:28pm take 500 mg today (day 1), then 250 mg for 4 days (days 2-5) PO benzonatate 200 mg oral capsule (20 sources) Non-narcotic Antitussive Start: 10-26-2022 End: 12-18-2022 take 1 capsule by mouth three times daily as needed for cough Benzonatate 200 mg capsule Discontinued 200 mg PO THREE TIMES A DAY as needed for cough 60 1 October 26, 2022 10:59am December 18, 2022 4:25pm Start: 04-10-2022 End: 06-10-2022 take 1 capsule by mouth three times daily as needed for cough Benzonatate 200 mg capsule Discontinued 200 mg PO THREE TIMES A DAY as needed for cough 60 1 April 10, 2022 12:00am June 10, 2022 4:29pm Budesonide-Formoterol (16 sources) Corticosteroid, beta2-Adrenergic Agonist Start: 06-17-2021 End: 08-04-2021 take 1 puff(s) by inhalation twice daily Budesonide-Formoterol (Symbicort) 160-4.5 mcg/actuation HFA aerosol inhaler Discontinued 2 PUFF INHALATION TWICE A DAY 10.2 June 17, 2021 10:48am August 04, 2021 10:08am Start: 06-17-2021 End: 08-04-2021 Budesonide-Formoterol (Symbi efrem) 160-4.5 mcg/actuation HFA aerosol inhaler Discontinued 2 NMA INHALATION TWICE A DAY 10.2 3 June 17, 2021 12:00am August 04, 2021 [...] 17, 2021 12:00am August 04, 2021 10:08am Bddbnvpvgv-Atvvtecz-Synkamqa ol (9 sources) Corticosteroid, beta2-Adrenergic Agonist Start: 10-13-2023 End: 12-10-2023 Oljrfvrtlf-Lbgbbjpr-Zajasndi ol (Breztri Aerosphere) 160-9-4.8 mcg/actuation HFA aerosol inhaler Discontinued 2 NMA INHALATION TWICE A DAY 10.7 6 October 13, 2023 1:00am December 10, 2023 12:48pm Lung nodule Solitary pulmonary nodule Start: 10-13-2023 End: 12-10-2023 Youdmpiouc-Uimxohbx-Xdhnyuzg ol (Breztri Aerosphere) 160-9-4.8 mcg/actuation HFA aerosol inhaler Discontinued 2 NMA INHALATION TWICE A DAY 10.7 October 13, 2023 1:00am December 10, 2023 12:48pm Start: 10-13-2023 End: 12-10-2023 Qrnbdchltb-Mmwgjoqu-Axoytkfq ol (Breztri Aerosphere) 160-9-4.8 mcg/actuation HFA aerosol inhaler Discontinued 2 INH INHALATION TWICE A DAY 10.7 October 13, 2023 12:00am December 10, 2023 11:48am dexamethasone 6 mg oral tablet (15 sources) Corticosteroid Start: 06-30-2022 End: 10-26-2022 take 1 tablet by mouth once daily Dexamethasone 6 mg tablet Discontinued 6 mg PO DAILY 5 0 June 30, 2022 12:00am October 26, 2022 10:58am dutasteride 0.5 mg oral capsule (16 sources) 5-alpha Reductase Inhibitor Start: 08-08-2020 End: 06-17-2021 take 1 capsule by mouth once daily Dutasteride 0.5 MG capsule Discontinued 0.5 mg PO DAILY August 08, 2020 12:00am June 17, 2021 9:29am BLADDER ferrous sulfate 325 mg oral tablet (20 sources) Start: 07-21-2021 End: 05-15-2025 take 1 tablet by mouth every other day Ferrous Sulfate 325 mg (65 mg iron) tablet Discontinued 325 mg PO every other day 60 1 November 23, 2024 12:52pm May 15, 2025 7:44am gabapentin 100 mg oral capsule (20 sources) Anti-epileptic Agent Start: 07-09-2021 End: 06-26-2025 take 1 capsule by mouth three times daily Gabapentin 100 mg capsule Discontinued 100 mg PO THREE TIMES A DAY 90 0 May 29, 2025 12:40pm June 26, 2025 11:34am Lumbar radiculopathy Radiculopathy, lumbar region NERVE PAIN Start: 06-17-2021 End: 07-09-2021 take 1 capsule by mouth once daily Gabapentin 100 mg capsule Discontinued 100 mg PO DAILY 90 July 08, 2021 4:28pm July 09, 2021 2:05am NERVE PAIN guaiFENesin 400 mg oral tablet (16 sources) Start: 04-10-2022 End: 06-10-2022 take 1 tablet by mouth three times daily as needed for cough Guaifenesin 400 mg tablet Discontinued 400 mg PO THREE TIMES A DAY as needed for congestion, cough 60 April 10, 2022 12:00am June 10, 2022 4:29pm hydroCHLOROthiazide 25 mg oral tablet (16 sources) Thiazide Diuretic Start: 06-17-2021 End: 06-19-2021 take 1 tablet by mouth once daily Hydrochlorothiazide 25 mg tablet Discontinued 25 mg PO DAILY June 17, 2021 12:00am June 19, 2021 12:58pm BP lansoprazole 30 mg delayed release oral capsule (20 sources) Proton Pump Inhibitor Start: 06-23-2021 End: 06-12-2025 take 1 capsule by mouth once daily Lansoprazole 30 mg capsule,delayed release(DR/EC) Discontinued 30 mg PO DAILY 90 December 05, 2024 3:00pm June 12, 2025 8:06am Nirmatrelvir-Ritonavir (15 sources) Start: 06-29-2022 End: 08-27-2022 Nirmatrelvir-Ritonavir (Paxlovid [...] omeprazole 20 mg delayed release oral capsule (16 sources) Proton Pump Inhibitor Start: 08-08-2020 End: 06-23-2021 take 2 capsules by mouth once daily Omeprazole 20 MG capsule,delayed release(DR/EC) Discontinued 40 mg PO DAILY August 08, 2020 12:00am June 23, 2021 9:24am GERD Start: 08-08-2020 End: 06-23-2021 take 40 mg by mouth once daily Omeprazole Discontinued 40 MG PO DAILY August 07, 2020 11:00pm June 23, 2021 8:24am potassium chloride 20 meq extended release oral tablet (20 sources) Start: 10-28-2021 End: 06-12-2025 take 1 tablet by mouth twice daily Potassium Chloride (K-Tab) 20 mEq tablet extended release Discontinued 20 meq PO TWICE A DAY 180 November 23, 2024 12:52pm June 12, 2025 8:06am Start: 07-09-2021 End: 10-28-2021 take 2 tablets by mouth twice daily Potassium Chloride (K-Tab) 20 mEq tablet extended release Discontinued 40 meq PO TWICE A DAY 240 2 July 16, 2021 7:59am July 21, 2021 8:36am Start: 06-19-2021 End: 07-09-2021 take 1 tablet by mouth twice daily Potassium Chloride (K-Tab) 20 mEq tablet extended release Discontinued 20 meq PO TWICE A DAY 60 0 July 08, 2021 4:29pm July 09, 2021 2:12am predniSONE 20 mg oral tablet (20 sources) Start: 12-29-2024 End: 03-30-2025 take 2 tablets by mouth once daily Prednisone 20 mg tablet Discontinued 40 mg PO daily 10 December 29, 2024 1:00am March 30, 2025 10:22am Start: 10-26-2022 End: 12-18-2022 take 2 tablets by mouth once daily at mealtime Prednisone 20 mg tablet Discontinued 40 mg PO DAILY 10 October 26, 2022 1:00am December 18, 2022 [...] mg tablet Discontinued 40 mg PO DAILY 10 April 10, 2022 12:00am June 10, 2022 4:29pm Start: 04-10-2022 End: 06-10-2022 take 40 mg by mouth once daily Prednisone Discontinued 40 MG PO DAILY April 09, 2022 11:00pm June 10, 2022 3:29pm psyllium 520 mg oral capsule (7 sources) Start: 03-24-2024 End: 04-30-2025 Psyllium Husk (Daily Fiber) 0.52 gram capsule Discontinued 0.52 g PO DAILY March 24, 2024 12:00am April 30, 2025 11:39am sertraline 25 mg oral tablet (16 sources) Serotonin Reuptake Inhibitor Start: 06-17-2021 End: 06-23-2021 take 1 tablet by mouth at bedtime Sertraline 25 mg tablet Discontinued 25 mg PO AT BEDTIME 30 June 17, 2021 12:00am June 23, 2021 9:04am has not started thiamine 100 mg oral tablet (20 sources) Start: 06-19-2021 End: 04-12-2025 take 1 tablet by mouth once daily Thiamine Hcl (Vitamin B1) 100 mg tablet Discontinued 100 mg PO DAILY 90 April 12, 2025 1:44pm April 12, 2025 9:26pm traZODone hydrochloride 50 mg oral tablet (20 sources) Serotonin Reuptake Inhibitor Start: 11-05-2023 End: 12-08-2023 take 1 tablet by mouth at bedtime as needed Trazodone Active 0 .ROUTE .COMPLEX 60 December 08, 2023 9:47pm TAKE 1 TABLET BY MOUTH AT BEDTIME NEEDED FOR INSOMNIA Start: 07-16-2021 End: 04-17-2025 take 1 tablet by mouth at bedtime as needed Trazodone 50 mg tablet Discontinued 0 .ROUTE .COMPLEX 60 October 24, 2024 5:38pm April 17, 2025 10:34am TAKE 1 TABLET BY MOUTH AT BEDTIME NEEDED FOR INSOMNIA Start: 06-20-2021 End: 06-23-2021 take 1 tablet by mouth at bedtime as needed Trazodone 50 mg tablet Discontinued 50 mg PO AT BEDTIME as needed for insomnia 14 0 June 20, 2021 12:00am June 23, 2021 9:04am Problems Active Problems Problem Classification Problem Date Documented Date Episodic/Chronic Abdominal hernia (17 sources) Umbilical hernia; Translations: [Umbilical hernia without obstruction or gangrene] Episodic Abdominal pain (2 sources) Unspecified abdominal pain; Translations: [Abdominal pain, unspecified site] Episodic Acute and unspecified renal failure (16 sources) Injury of kidney; Translations: [Acute kidney [...] or chronic] Episodic Deficiency and other anemia (16 sources) Anemia; Translations: [Anemia, unspecified] 12-09-2021 Episodic Disorders of lipid metabolism (20 sources) Hyperlipidemia; Translations: [Hyperlipidemia, unspecified] Onset: 06-01-2025 Chronic Esophageal disorders (20 sources) Gastroesophageal reflux disease; Translations: [Gastro-esophageal reflux disease without esophagitis] Onset: 04-10-2025 12-09-2021 Chronic Essential hypertension (20 sources) Essential hypertension; Translations: [Essential (primary) hypertension] Onset: 06-01-2025 Chronic Fluid and electrolyte disorders (16 sources) Hypokalemia; Translations: [Hypokalemia] 06-23-2021 Episodic Hyperplasia of prostate (14 sources) Benign prostatic hyperplasia; Translations: [Benign prostatic hyperplasia without lower urinary tract symptoms] Onset: 10-06-2024 12-18-2022 Chronic Immunizations and screening for infectious disease (1 source) Encounter for immunization; Translations: [Encounter for immunization] Onset: 08-07-2025 Episodic Mood disorders (16 sources) Depressive disorder; Translations: [Depression] 06-17-2021 Chronic Open wounds of extremities (2 sources) Laceration without foreign body of left upper arm, initial encounter; Translations: [Open wound of upper arm, without mention of complication] Episodic Other connective tissue disease (13 sources) Diastasis recti; Translations: [Separation of muscle (nontraumatic), other site] 11-07-2022 Episodic Other connective tissue disease (2 sources) Separation of muscle (nontraumatic), other site; Translations: [Diastasis of muscle] Episodic Other connective tissue disease (10 sources) Suspected respiratory disease; Translations: [Other symptoms and signs involving the nervous system] 06-08-2024 Episodic Other hematologic conditions (16 sources) Raised cardiac enzyme or marker; Translations: [Other specified abnormalities of plasma proteins] 06-25-2021 Episodic Other liver diseases (3 sources) Non-alcoholic fatty liver; Translations: [Fatty (change of) liver, not elsewhere classified] Chronic Other liver diseases (13 sources) Fatty (change of) liver, not elsewhere classified; Translations: [Nonalcoholic fatty liver disease] 06-19-2021 Chronic Other liver diseases (16 sources) Cardiac enzymes abnormal; Translations: [Abnormal levels of other serum enzymes] 06-25-2021 Episodic Other lower respiratory disease (16 sources) Dyspnea; Translations: [Shortness of breath] 07-21-2021 Episodic Other lower respiratory disease (12 sources) Nodule of lung; Translations: [Solitary pulmonary nodule] 10-13-2023 Episodic Other lower respiratory disease (2 sources) Solitary pulmonary nodule; Translations: [Solitary pulmonary nodule] 10-13-2023 Episodic Other lower respiratory disease (8 sources) Dyspnea on exertion; Translations: [Other forms of dyspnea] 06-19-2025 Episodic Other lower respiratory disease (2 sources) Other forms of dyspnea; Translations: [Other forms of dyspnea] Onset: 07-17-2025 Episodic Other lower respiratory disease (1 source) Shortness of breath; Translations: [Shortness of breath] Onset: 06-26-2025 Episodic Other nutritional; endocrine; and metabolic disorders (7 sources) Obesity; Translations: [Obesity, unspecified] 10-11-2024 Chronic Other nutritional; endocrine; and metabolic disorders (16 sources) Unintentional weight loss; Translations: [Abnormal weight loss] 06-17-2021 Episodic Other nutritional; endocrine; and metabolic disorders (10 sources) Overweight; Translations: [Overweight] 10-11-2024 Episodic Other screening for suspected conditions (not mental disorders or infectious disease) (20 sources) Patient encounter status; Translations: [Encounter for screening for malignant neoplasm of respiratory organs] Episodic Other skin disorders (7 sources) Disorder of skin of upper limb; Translations: [Disorder of the skin and subcutaneous tissue, unspecified] 06-08-2024 Episodic Other upper respiratory infections (14 sources) Sinusitis; Translations: [Chronic sinusitis, unspecified] Onset: 04-10-2025 03-30-2025 Chronic Poisoning by nonmedicinal substances (7 sources) Insect sting; Translations: [Toxic effect of venom of other arthropod, accidental (unintentional), initial encounter] 06-08-2024 Episodic Residual codes; unclassified (9 sources) Hypersomnia; Translations: [Hypersomnia, unspecified] 12-10-2023 Chronic Residual codes; unclassified (2 sources) Hypersomnia, unspecified; Translations: [Hypersomnia, unspecified] 12-10-2023 Chronic Residual codes; unclassified (20 sources) Tobacco user; Translations: [Tobacco use] 06-17-2021 Episodic Residual codes; unclassified (3 sources) Tobacco use; Translations: [Tobacco use disorder] Onset: 06-01-2025 Episodic Residual codes; unclassified (7 sources) Bilateral lower limb edema; Translations: [Localized edema] 06-08-2024 Episodic Residual codes; unclassified (4 sources) Edema of lower extremity; Translations: [Localized edema] 06-18-2025 Episodic Spondylosis; intervertebral disc disorders; other back problems (13 sources) Lumbar radiculopathy; Translations: [Radiculopathy, lumbar region] 12-18-2022 Episodic Substance-related disorders (20 sources) Cigarette smoker ; Translations: [Nicotine dependence, cigarettes, uncomplicated] Onset: 08-07-2025 Chronic Unclassified (1 source) Other persistent atrial fibrillation; Translations: [Other persistent atrial fibrillation] Onset: 07-17-2025 Viral infection (2 sources) COVID-19; Translations: [Other specified viral infection] Episodic Past or Other Problems Problem Classification Problem Date Documented Da te Episodic/Chronic Diabetes mellitus without complication (20 sources) Prediabetes; Translations: [Prediabetes] Onset: 04-10-2025 Episodic Other connective tissue disease (1 source) Other symptoms and signs involving the nervous system; Translations: [Other symptoms and signs involving the nervous system] Onset: 12-02-2024 Episodic Other upper respiratory infections (10 sources) Acute upper respiratory infection, unspecified; Translations: [Acute upper respiratory infections of unspecified site] Onset: 01-19-2025 Episodic Results Test Name Value Interpretation Reference Range Facility Pulmonary Visit Reporton Pulmonary Visit Report [facility] [address] [place] [address]. [address] [place] [address] OFFICE VISIT Date of Service: 08/07/25 MR#: [id number] Acct: [id number] Name: DIANATRACEY GRAVES Rep #: [id number] : 1955 Provider: MORALES Root Age/Sex: 70/M Location: [facility] [email or web address] Status: Signed Assessment and Plan Assessment and Plan (1) COPD (chronic obstructive pulmonary disease): Status: Chronic Qualifiers: COPD type: unspecified COPD Qualified Code(s): J44.9 - Chronic obstructive pulmonary disease, unspecified Comment: FEV1 52% Plan: Stable, he does not appear to be an exacerbation of COPD today. No need for prednisone or antibiotic. Continue current maintenance medication symptomatically controlled on triple therapy with use of Trelegy. No additional testing at this time. Contact the office for any new or worsening symptoms. An acute visit and typically be arranged within 1-2 days. Follow-up in May 2026. Annual influenza vaccination provided in the office today. (2) Suspected sleep apnea: Status: Acute Plan: Previous polysomnogram nondiagnostic. The patient had difficult time sleeping. At this time he is not open to repeat testing. However, I did take the time to educate him on the relationship between untreated obstructive sleep apnea and risk for heart arrhythmia. The patient is currently being treated for atrial fibrillation with a possible cardioversion pending. I explained to him that if we are able to identify the sleep apnea and get him into treatment he will be more likely to stay in a sinus rhythm if they are successful with the cardioversion. The patient states that he would like to try the cardioversion first and see how it goes. I have advised him that if he changes his mind he would like to pursue a repeat test he should contact the office and set up a visit to discuss it. He is agreeable with this plan. (3) Overweight: Status: Chronic Plan: Complicates exam, plan, care and prognosis. Continue to encourage weight loss. (4) Lung nodule: Status: Chronic Comment: [id number] smoking history quitting completely in 2022 Plan: Stable. Due for LDCT in April 2026, ordered at the last office visit. Orders: Orders Low Dose CT Lung Screening 04/22/26 F17.210 - Nicotine dependence, cigarettes, uncomplicated Influenza Immunization Today Z23 - Encounter for immunization Plan Details Additional Comments: This note was generated with Rowl dictation software. It may contain incorrect words, spelling, and punctuation that were not noted in checking the note before signing. Follow Up: 04/22/26 HPI 7 M FU Chief Complaint: test results HPI Comments Details: This patient presents to the office today to review recent test results and to follow up on his moderate COPD complicated by A-Fib. He is ambulatory and on room air. He has not recently been seen in the ED or urgent care for any respiratory illness. He has not required any antibiotics or prednisone for any breathing problems. He continues complete smoking cessation for the past 2 years. He is compliant with use of Trelegy 1 puff daily. He does report rinsing his mouth out after each use. He denies any medication side effect such as sore throat or thrush. He has not recently needed to use the albuterol rescue inhaler. He reports shortness of breath on exertion only. He denies any cough, sputum production or hemoptysis. Has not had any wheezing, or chest pain. He also denies any fever, chills or body aches. Test results personally reviewed with the patient: Low-dose CT lung screening completed on May 04, 2025. Unchanged emphysema. No nodules reported. Recommendation is to continue screening with LDCT in 12 months. Intake Vital Signs 01/12/25 08:04 08/07/25 07:53 Height 6 ft 2 in 6 ft 2 in Weight: 237 lb BMI 30.4 BP 138/77 H Blood Pressure Location Lt brachial Position Sitting Respiration 18 Pulse 60 Pulse Source Monitor Temp 97.5 F L Temperature Source Temporal Artery Pulse Oximetry (%) 99 Oxygen Delivery Method room air Intake Visit Reasons: 7 M FU Chief Complaint: 3 month FU Accompanied by: Self Allergies venom-wasp (wasp sting) Allergy (Verified 08/07/25 09:15) Swelling Medications ???Medication ???Instructions ???Recorded ???Confirmed ???Type multivitamin 1 tab PO DAILY 10/28/21 08/07/25 H istory zinc 50 mg tablet 50 mg PO DAILY 10/28/21 08/07/25 H istory ascorbic acid (vitamin C) 500 mg 1 g PO DAILY 03/24/24 08/07/25 His tory tablet epinephrine 0.3 mg/0.3 mL 0.3 mg (0.3 mL) IM Q5-15M PRN 05/2208/07/25 Rx injection, auto-injector (EpiPen anaphylaxis #2 ea 2-Wisam) apixaban 5 mg tablet (Eliquis) 5 mg PO .COMPLEX #14 tabs 02/09/25 08/07/25 Rx metoprolol succi (more content not included)... Normal [facility] Cardiology Visit Reporton Cardiology Visit Report [facility] [address] [place] [address] OFFICE VISIT Date of Service: 07/17/25 MR#: [id number] Acct: [id number] Name: DIANATRACEY GRAVES Rep #: [id number] : 1955 Provider: MORALES us Age/Sex: 70/M Location: [facility] [place] Status: Signed HPI HPI History of Present Illness Details: Patient is a 70-year-old white male that comes in with his today for cardiovascular monitoring. He has s a history of atrial fibrillation, possibly hypertension, borderline diabetes, nonalcohol fatty liver disease, and previous tobacco abuse. He had an echocardiogram done [...] He states shortness of breath with activity. This is unchanged from last visit. He denies shortness of breath at rest, orthopnea, or PND. He denies chronic cough. He denies significant, sudden weight gain. He denies lightheadedness, dizziness, near-syncope, or syncope. He denies blood in urine, blood in stool, or epistaxis. He denies fever with chills. He denies myalgia. He states fatigue. His exercise level has remained stable. Intake Vital Signs 06/19/25 09:03 07/17/25 11:06 Height 6 ft 2 in 6 ft 2 in Weight: 241 lb 236 lb BMI 30.9 30.2 BP 168/77 H 124/63 H Blood Pressure Location Lt brachial Lt brachial Position Sitting Sitting Respiration 18 18 Pulse 56 L 58 L Pulse Source Monitor NIBP Pulse Oximetry (%) 94 Oxygen Delivery Method room air Intake Visit Reasons: 4 WK FU Calf Skinner Required: No Is patient in pain?: No Allergies venom-wasp (wasp sting) Allergy (Verified 07/17/25 11:11) Swelling Medications ???Medication ???Instructions ???Recorded ???Confirmed ???Type multivitamin 1 tab PO DAILY 10/28/21 07/17/25 H istory zinc 50 mg tablet 50 mg PO DAILY 10/28/21 07/17/25 H istory ascorbic acid (vitamin C) 500 mg 1 g PO DAILY 03/24/24 07/17/25 His tory tablet epinephrine 0.3 mg/0.3 mL 0.3 mg (0.3 mL) IM Q5-15M PRN 05/2207/17/25 Rx injection, auto-injector (EpiPen anaphylaxis #2 ea 2-Wisam) apixaban 5 mg tablet (Eliquis) 5 mg PO .COMPLEX #14 tabs 02/09/25 07/17/25 Rx folic acid 1 mg tablet See Rx Instructions .Route 5 07/17/25 Rx .COMPLEX #90 tabs metoprolol succinate 50 mg 50 mg PO DAILY #30 tabs 04/12/25 0 07/17/25 Rx tablet,extended release 24 hr thiamine HCl (vitamin B1) 100 mg 100 mg PO DAILY #90 tabs 04/12/25 07/17/25 Rx tablet fluticasone fur. 100 mcg-umeclid 1 inh inhalation Q24H #60 ea 04/1707/17/25 Rx 62.5 mcg-vilant 25 mcg inhalat.powder (Trelegy Ellipta) trazodone 50 mg tablet See Rx Instructions .Route 5 07/17/25 Rx .COMPLEX #90 tabs albuterol sulfate 90 mcg/actuation 2 puff inhalation Q4H PRN 07/17/25 Rx aerosol inhaler shortness of breath or wheezing #8.5 grams atorvastatin 20 mg tablet 20 mg PO QHS #90 TABLETS 05/11/25 07/17/25 Rx ferrous sulfate 325 mg (65 mg 325 mg PO Q OTHER DAY #60 tabs 07/17/25 Rx iron) tablet lansoprazole 30 mg capsule,delayed 30 mg PO DAILY #90 caps 06/12/25 07/17/25 Rx release potassium chloride 20 mEq 20 meq PO BID #180 tabs 06/12/25 0 07/17/25 Rx tablet,extended release (K-Tab) elderberry fruit 350 mg capsule mg PO DAILY 06/19/25 07/17/25 Hist ory empagliflozin 10 mg tablet 10 mg PO DAILY #30 tabs 06/19/25 0 07/17/25 Rx (Jardiance) gabapentin 100 mg capsule 100 mg PO TID NERVE PAIN #90 caps 06/26/25 07/17/25 Rx lisinopril 20 mg tablet 20 mg PO DAILY #90 tabs 07/03/25 0 07/17/25 Rx cholecalciferol (vitamin D3) 125 125 mcg PO QDAY 07/17/25 07/17/25 History mcg (5,000 unit) tablet furosemide 40 mg tablet (Lasix) 40 mg PO Q OTHER DAY #30 tabs 06/2307/17/25 Rx magnesium oxide 500 mg PO QDAY 07/17/25 07/17/25 H istory Ejection fraction %: 65 Have you fallen in the past year?: No [facility] Medical History Lower extremity edema Sinusitis URI (upper respiratory infection) Essential hypertension Atrial fibrillation Alcoholic liver disease, unspecified Lumbar radiculopathy BPH (benign prostatic hyperplasia) Hyperlipidemia Anemia Shortness of breath Tobacco use disorder, continuous Encounter for screening for malignant neoplasm of lung in current smoker with 30 pack year history or greater Kidney disease Hypokalemia Colon cancer screening Borderline type 2 diabetes mellitus Smoking greater than 4 (more content not included)... Normal [facility] Absolute lymphocyte countOrd ered By: Linda Horne on 06-19-2025 Lymphocytes Auto (Unsp spec) [#/Vol] 0.73 10*3/uL Low 0.83-4.51 [facility] Absolute neutrophil countOrd ered By: Linda Horne on 06-19-2025 Neutrophils (Bld) [#/Vol] 4.0 10*3/uL 2.0-7.7 [facility] Anion gap in Serum or Plasma Ordered By: Linda Horne on 06-19-2025 Anion gap [Moles/Vol] 10 mmol/L 5-15 [facility] Automated lymphocyte count a s percentage of total leukocytesOrdered By: Linda Horne on 06-19-2025 Lymphocytes/100 WBC Auto (Unsp spec) 13.3 % Low 19-41 [facility] BUN/creatinine ratioOrdered By: Linda Horne on 06-19-2025 Urea nitrogen/Creatinine [Mass ratio] 14.4 mg/mg - [facility] Basic Metabolic Profile (BMP )on 06-19-2025 BUN/CRE 14.4 RATIO Normal 09-10 [facility] Comment on above: Performed By: #### L 100.0100, L503.7505, L500.2500 ####[facility] [id number] [place], [address] Calcium [Mass/Vol] 9.8 mg/dL Normal 7.6-11.0 [facility] Comment on above: Performed By: #### L 100.0100, L503.7505, L500.2500 ####[facility] [address] [place], [address] Chloride [Moles/Vol] 95 mmol/L Low 98-108 [facility] Comment on above: Performed By: #### L 100.0100, L503.7505, L500.2500 ####[facility] [address] [place], [address] CO2 [Moles/Vol] 21.5 mmol/L Normal 21.0-32.0 [facility] Comment on above: Performed By: #### L 100.0100, L503.7505, L500.2500 ####[facility] [address] [place], [address] Creatinine [Mass/Vol] 0.81 mg/dL Normal 0.70-1.20 [facility] Comment on above: Performed By: #### L 100.0100, L503.7505, L500.2500 ####[facility] [id number] [place], [address] GAP 10 Normal 5-15 [facility] Comment on above: Performed By: #### L 100.0100, L503.7505, L500.2500 ####[facility] [address] [place], [address] GFR/1.73 sq M.predicted among non-blacks MDRD (S/P/Bld) [Vol rate/Area] 96 mL/min/{1.73_m2} Normal >60 [facility] Comment on above: Result Comment: mL/m in/1.73m2 CKD-EPI Creatinine Equation (2020) Performed By: #### L 100.0100, L503.7505, L500.2500 ####[facility] [address] [place], [address] Glucose [Mass/Vol] 121 mg/dL High 70-99 [facility] Comment on above: Performed By: #### L 100.0100, L503.7505, L500.2500 ####[facility] [address] [place], [address] Potassium [Moles/Vol] 4.9 mmol/L Normal 3.3-5.1 [facility] Comment on above: Performed By: #### L 100.0100, L503.7505, L500.2500 ####[facility] [address] [place], [address] Sodium [Moles/Vol] 127 mmol/L Low 133-145 [facility] Comment on above: Performed By: #### L 100.0100, L503.7505, L500.2500 ####[facility] [address] [place], [address] Urea nitrogen [Mass/Vol] 12 mg/dL Normal 4-19 [facility] Comment on above: Performed By: #### L 100.0100, L503.7505, L500.2500 ####[facility] [address] [place], [address] Basophil percentageOrdered B y: Linda Coleen on 06-19-2025 Basophils/100 WBC (Bld) 0.9 % 0-1 [facility] CBC W/Diff, Automatedon - Absolute Lymph 0.73 X10 3/uL Low 0.83-4.51 [facility] Comment on above: Performed By: #### L 100.0100, L503.7505, L500.2500 #### [facility] [address] [place], [address] Absolute Neut 4.0 X10 3/uL Normal 2.0-7.7 [facility] Comment on above: Performed By: #### L 100.0100, L503.7505, L500.2500 #### [facility] [address] [place], [address] Basophils/100 WBC (Bld) 0.9 % Normal 0-1 [facility] Comment on above: Performed By: #### L 100.0100, L503.7505, L500.2500 #### [facility] [address] [place], [address] Eosinophils/100 WBC (Bld) 3.6 % Normal 0-5 [facility] Comment on above: Performed By: #### L 100.0100, L503.7505, L500.2500 #### [facility] [address] [place], [address] Erythrocyte distribution width (RBC) [Ratio] 12.6 % Normal 11.6-14.6 [facility] Comment on above: Performed By: #### L 100.0100, L503.7505, L500.2500 #### [facility] [address] [place], [address] Hematocrit (Bld) [Volume fraction] 40.6 % Normal 40-54 [facility] Comment on above: Performed By: #### L 100.0100, L503.7505, L500.2500 #### [facility] [address] [place], [address] Hemoglobin (Bld) [Mass/Vol] 13.8 g/dL Normal 13.0-16.5 [facility] Comment on above: Performed By: #### L 100.0100, L503.7505, L500.2500 #### [facility] [address] [place], [address] IG% 0.400 Normal 0.0-0.9 [facility] Comment on above: Result Comment: IG% - Immature Granulocytes (promyelocytes, myelocytes and metamyelocytes) > 1% indicates that a LEFT SHIFT is Present. Performed By: #### L 100.0100, L503.7505, L500.2500 #### [facility] [address] [place], [address] Lymphocytes/100 WBC (Bld) 13.3 % Low 19-41 [facility] Comment on above: Performed By: #### L 100.0100, L503.7505, L500.2500 #### [facility] [address] [place], [address] MCH (RBC) [Entitic mass] 31.6 pg Normal 27.0-32.0 [facility] Comment on above: Performed By: #### L 100.0100, L503.7505, L500.2500 #### [facility] [address] [place], [address] MCHC (RBC) [Mass/Vol] 34.0 g/dL Normal 32-36 [facility] Comment on above: Performed By: #### L 100.0100, L503.7505, L500.2500 #### [facility] [address] [place], [address] MCV (RBC) [Entitic vol] 92.9 fL Normal 80-94 [facility] Comment on above: Performed By: #### L 100.0100, L503.7505, L500.2500 #### [facility] [address] [place], [address] Monocytes/100 WBC (Bld) 8.9 % Normal 0-10 [facility] Comment on above: Performed By: #### L 100.0100, L503.7505, L500.2500 #### [facility] [address] [place], [address] Neutrophils/100 WBC (Bld) 72.9 % High 47-70 [facility] Comment on above: Performed By: #### L 100.0100, L503.7505, L500.2500 #### [facility] [address] [place], [address] Nucleated RBC (Bld) [#/Vol] 0 10*3/uL Normal 0-5 [facility] Comment on above: Performed By: #### L 100.0100, L503.7505, L500.2500 #### [facility] [address] [place], [address] Platelet mean volume (Bld) [Entitic vol] 9.4 fL Normal 6.2-12.0 [facility] Comment on above: Performed By: #### L 100.0100, L503.7505, L500.2500 #### [facility] [address] [place], [address] Platelets (Bld) [#/Vol] 197 10*3/uL Normal 150-450 [facility] Comment on above: Performed By: #### L 100.0100, L503.7505, L500.2500 #### [facility] [address] [place], [address] RBC (Bld) [#/Vol] 4.37 10*6/uL Low 4.6-6.2 [facility] Comment on above: Performed By: #### L 100.0100, L503.7505, L500.2500 #### [facility] [address] [place], [address] RDW SD 43.0 fl Normal 35.1-43.9 [facility] Comment on above: Performed By: #### L 100.0100, L503.7505, L500.2500 #### [facility] [address] [place], [address] WBC (Bld) [#/Vol] 5.5 10*3/uL Normal 4.4-11.0 [facility] Comment on above: Performed By: #### L 100.0100, L503.7505, L500.2500 #### [facility] [address] [place], [address] Carbon dioxide, total [Moles /volume] in Central venous bloodOrdered By: Linda Horne on 06-19-2025 CO2 [Moles/Vol] 21.5 mmol/L 21.0-32.0 [facility] Cardiology Visit Reporton Cardiology Visit Report [facility] [address] [place] [address] OFFICE VISIT Date of Service: 06/19/25 MR#: [id number] Acct: [id number] Name: TRACEY IVERSON Rep #: [id number] : 1955 Provider: MORALES us Age/Sex: 70/M Location: [facility] [place] Status: Signed HPI HPI History of Present Illness Details: Patient is a 70-year-old white male that comes in with his today for cardiovascular monitoring. He has s a history of atrial fibrillation, possibly hypertension, borderline diabetes, nonalcohol fatty liver disease, and previous t FMLA obacco abuse. He had an echocardiogram done 01/14/2024 [...] fever with chills. He denies myalgia. He states fatigue. His exercise level has remained stable. Intake Vital Signs 04/30/25 11:32 06/19/25 09:03 Height 6 ft 2 in 6 ft 2 in Weight: 242 lb 241 lb BMI 31.0 30.9 BP 162/96 H 168/77 H Blood Pressure Location Lt brachial Lt brachial Position Sitting Sitting Respiration 18 18 Pulse 71 56 L Pulse Source Monitor Monitor Pulse Oximetry (%) 94 Oxygen Delivery Method room air Intake Visit Reasons: CHF symptoms see clinicals Calf Skinner Required: No Accompanied by: Is patient in pain?: No Allergies venom-wasp (wasp sting) Allergy (Verified 06/19/25 09:04) Swelling Medications ???Medication ???Instructions ???Recorded ???Confirmed ???Type multivitamin 1 tab PO DAILY 10/28/21 06/19/25 H istory zinc 50 mg tablet 50 mg PO DAILY 10/28/21 06/19/25 H istory magnesium oxide 400 mg (241.3 mg See Rx Instructions .Route 3 06/19/25 Rx magnesium) tablet .COMPLEX #90 tabs ascorbic acid (vitamin C) 500 mg 1 g PO DAILY 03/24/24 06/19/25 His tory tablet epinephrine 0.3 mg/0.3 mL 0.3 mg (0.3 mL) IM Q5-15M PRN 05/2206/19/25 Rx injection, auto-injector (EpiPen anaphylaxis #2 ea 2-Wisam) apixaban 5 mg tablet (Eliquis) 5 mg PO .COMPLEX #14 tabs 02/09/25 06/19/25 Rx folic acid 1 mg tablet See Rx Instructions .Route 5 06/19/25 Rx .COMPLEX #90 tabs metoprolol succinate 50 mg 50 mg PO DAILY #30 tabs 04/12/25 0 06/19/25 Rx tablet,extended release 24 hr thiamine HCl (vitamin B1) 100 mg 100 mg PO DAILY #90 tabs 04/12/25 06/19/25 Rx tablet fluticasone fur. 100 mcg-umeclid 1 inh inhalation Q24H #60 ea 04/1706/19/25 Rx 62.5 mcg-vilant 25 mcg inhalat.powder (Trelegy Ellipta) trazodone 50 mg tablet See Rx Instructions .Route 5 06/19/25 Rx .COMPLEX #90 tabs cholecalciferol (vitamin D3) 25 125 mcg PO DAILY 04/30/25 06/19/25 History mcg (1,000 unit) tablet albuterol sulfate 90 mcg/actuation 2 puff inhalation Q4H PRN 06/19/25 Rx aerosol inhaler shortness of breath or wheezing #8.5 grams atorvastatin 20 mg tablet 20 mg PO QHS #90 TABLETS 05/11/25 06/19/25 Rx ferrous sulfate 325 mg (65 mg 325 mg PO Q OTHER DAY #60 tabs 06/19/25 Rx iron) tablet gabapentin 100 mg capsule 100 mg PO TID NERVE PAIN #90 caps 05/29/25 06/19/25 Rx lansoprazole 30 mg capsule,delayed 30 mg PO DAILY #90 caps 06/12/25 06/19/25 Rx release potassium chloride 20 mEq 20 meq PO BID #180 tabs 06/12/25 0 06/19/25 Rx tablet,extended release (K-Tab) elderberry fruit 350 mg capsule mg PO DAILY 06/19/25 06/19/25 Hist ory empagliflozin 10 mg tablet 10 mg PO DAILY #30 tabs 06/19/25 0 06/19/25 Rx (Jardiance) furosemide 40 mg tablet (Lasix) 40 mg PO DAILY #30 tabs 06/19/25 0 06/19/25 Rx lisinopril 20 mg tablet 20 mg PO DAILY #30 tabs 06/19/25 0 06/19/25 Rx Have you fallen in the past year?: No PFSH Medical History Lower extremity edema Sinusitis URI (upper respiratory infection) Essential hypertension Atrial fibrillation Alcoholic liver disease, unspecified Lumbar radiculopathy BPH (benign prostatic hyperplasia) Hyperlipidemia Anemia Shortness of breath Tobacco use disorder, continuous Encounter for screening for malignant neoplasm of lung in current smoker with 30 pack year history or greater Kidney disease Hypokalemia Colon cancer screening Border (more content not included)... Normal [facility] Chest PA and Lateralon 06-19 Chest PA and Lateral [facility] [address] [place], [place] [id number] Chest PA and Lateral MR#: [id number] Acct: [id number] Name: TRACEY IVERSON Rep #: [id number] : 1955 M 70 From: Kirsh Gomes MD PCP: Dr. Falguni Beasley MD Status: REG CLI Study: Chest PA and Lateral Date of Exam: 06/19/25 Exam# [id number] Ordering Dr: Linda Horne NP VOUCHER EXAMINER-C PROCEDURE: CHEST 2 PA AND LATERAL 06/19/2025 REASON FOR EXAM: SHORTNESS OF BREATH, COUGH, EDEMA TECHNIQUE: CHEST 2 PA AND LATERAL COMPARISON: None FINDINGS: Hardware: None Heart: The heart size is normal. Mediastinum: The mediastinal contour is unremarkable. Lungs: Lungs are mildly hyperexpanded with chronic interstitial changes, no superimposed acute pulmonary process. Bones: Degenerative changes are identified within the thoracic spine. RAD/Chest PA and Lateral IMPRESSION: Mildly hyperexpanded lungs with chronic interstitial changes, no superimposed acute pulmonary process Reading Location: [facility] CC: VOUCHER EXAMINER-C Linda Horne; Dr. Falguni Beasley MD Information Security Associate: Signed Normal [facility] Chloride assayOrdered By: Becky Horne on 06-19-2025 Chloride [Moles/Vol] 95 mmol/L Low 98-108 [facility] Eosinophil percentageOrdered By: Linda Horne on 06-19-2025 Eosinophils/100 WBC (Bld) 3.6 % 0-5 [facility] Erythrocyte distribution wid th ratioOrdered By: Linda Horne on 06-19-2025 Erythrocyte distribution width (RBC) [Ratio] 12.6 % 11.6-14.6 [facility] Erythrocyte distribution wid th standard deviationOrdered By: Linda Horne on 06-19-2025 Erythrocyte distribution width (RBC) [Ratio] 43.0 fl 35.1-43.9 [facility] Glomerular filtration rate ( GFR) estimation/1.73 sq m using serum, plasma, or whole bOrdered By: Linda Horne on 06-19-2025 GFR/1.73 sq M.predicted among non-blacks MDRD (S/P/Bld) [Vol rate/Area] 96 mL/min/{1.73_m2} >60 [facility] Comment on above: mL/min/1.73m2 CKD-EP I Creatinine Equation (2020) Hematocrit Auto (Bld) [Volum e fraction]Ordered By: Linda Horne on 06-19-2025 Hematocrit (Bld) [Volume fraction] 40.6 % 40-54 [facility] Hemoglobin measurementOrdere d By: Linda Horne on 06-19-2025 Hemoglobin (Bld) [Mass/Vol] 13.8 g/dL 13.0-16.5 [facility] Immature granulocytes/100 WB C Auto (Bld)Ordered By: Linda Horne on 06-19-2025 Immature granulocytes/100 WBC (Bld) 0.400 % 0.0-0.9 [facility] Comment on above: IG% - Immature Granu locytes (promyelocytes, myelocytes and metamyelocytes) > 1% indicates that a LEFT SHIFT is Present. MCV (mean corpuscular volume ) determinationOrdered By: Linda Horne on 06-19-2025 MCV (RBC) [Entitic vol] 92.9 fL 80-94 [facility] Mean corpuscular hemoglobin (MCH) determinationOrdered By: Linda Horne on 06-19-2025 MCH (RBC) [Entitic mass] 31.6 pg 27.0-32.0 [facility] Mean corpuscular hemoglobin concentration (MCHC) determinationOrdered By: Linda Horne on 06-19-2025 MCHC (RBC) [Mass/Vol] 34.0 g/dL 32-36 [facility] Mean platelet volume determi nationOrdered By: Linda Horne on 06-19-2025 Platelet mean volume (Bld) [Entitic vol] 9.4 fL 6.2-12.0 [facility] Monocyte percentageOrdered B y: Linda oHrne on 06-19-2025 Monocytes/100 WBC (Bld) 8.9 % 0-10 [facility] Natriuretic peptide.B prohor brenna N-Terminal [Mass/volume] in Serum or PlasmaOrdered By: Linda Horne on 06-19-2025 Natriuretic peptide.B prohormone N-Terminal [Mass/Vol] 2003 pg/mL High <900 [facility] Comment on above: Heart Failure Unlike ly: < 300 pg/mLHeart Failure Likely< 50 Years: > 450 pg/mL50-75 Years: > 900 pg/mL>75 Years: > 1800 pg/mL Neutrophil percentageOrdered By: Linda Horne on 06-19-2025 Neutrophils/100 WBC (Bld) 72.9 % High 47-70 [facility] Nucleated red blood cell per centageOrdered By: Linda Horne on 06-19-2025 Nucleated RBC/100 WBC (Bld) [Ratio] 0 % 0-5 [facility] Platelet countOrdered By: Becky Horne on 06-19-2025 Platelets (Bld) [#/Vol] 197 10*3/uL 150-450 [facility] Potassium measurement (mass/ volume)Ordered By: Linda Horne on 06-19-2025 Potassium (Unsp spec) [Mass/Vol] 4.9 mmol/L 3.3-5.1 [facility] Pro- Brain NATRIURETIC PEPTI Marilynn 06-19-2025 Natriuretic peptide B (Bld) [Mass/Vol] 2003 pg/mL High <=900 [facility] Comment on above: Result Comment: Hear t Failure Unlikely: < 300 pg/mL Heart Failure Likely < 50 Years: > 450 pg/mL 50-75 Years: > 900 pg/mL >75 Years: > 1800 pg/mL Performed By: #### L 100.0100, L503.7505, L500.2500 ####[facility] [address] [place], [address] RBC Auto (Bld) [#/Vol]Ordere d By: Linda Horne on 06-19-2025 RBC (Bld) [#/Vol] 4.37 10*6/uL Low 4.6-6.2 [facility] Serum creatinine measurement (mass/volume)Ordered By: Linda Horne on 06-19-2025 Creatinine [Mass/Vol] 0.81 mg/dL 0.70-1.20 [facility] Serum glucose measurement (m ass/volume)Ordered By: Linda Horne on 06-19-2025 Glucose [Mass/Vol] 121 mg/dL High 70-99 [facility] Serum or plasma calcium rl urement (mass/volume)Ordered By: Linda Horne on 06-19-2025 Calcium [Mass/Vol] 9.8 mg/dL 7.6-11.0 [facility] Serum or plasma urea nitroge n measurement (mass/volume)Ordered By: Linda Horne on 06-19-2025 Urea nitrogen [Mass/Vol] 12 mg/dL 4-19 [facility] Sodium levelOrdered By: Linda Horne on 06-19-2025 Sodium [Moles/Vol] 127 mmol/L Low 133-145 [facility] White blood cell (WBC) count Ordered By: Linda Horne on 06-19-2025 WBC (Bld) [#/Vol] 5.5 10*3/uL 4.4-11.[address] [facility] [address] Lung Screeningon 05-04-[address] Lung Screening [facility] Imaging Services [address] [place] [id number] Lung Screening MR#: [id number] Acct: [id number] Name: TRACEY IVERSON Rep #: [id number] : 1955 M 69 From: Antonino gunderson MD PCP: Dr. Falguni Beasley MD Status: [facility] Study: Low Dose CT Lung Screening Date of Exam: 05/04 Exam# [id number] Ordering Dr: Olimpia Root VOUCHER EXAMINER VOUCHER EXAMINER-C PROCEDURE: LOW DOSE CT LUNG SCREENING 05/04/2025 REASON FOR EXAM: SMOKER QUIT 11/22/2023 TECHNIQUE: LOW DOSE CT LUNG SCREENING Coronal and Sagittal reconstruction series were provided. One or more dose reduction techniques were used (e.g., Automated exposure control, adjustment of the mA and/or kV according to patient size, use of iterative reconstruction technique). REFERENCE LINK: [employer] Lung-RADS RADIATION DOSE SUMMARY: CTDlvol: 4.02 mGy DLP: 140.9 mGycm COMPARISON: 05/19/2024. FINDINGS: PULMONARY NODULES: (Only nodules >3mm are reported) Nodules described below are on series 2 unless otherwise specified. Unchanged paraseptal emphysema. Unchanged coronary artery calcifications. Normal unenhanced main pulmonary artery and right and left pulmonary arteries. Normal bilateral peripheral pulmonary arteries. Normal thoracic aorta and visualized great vessels. There is no demonstrated aortic aneurysm. Normal heart and pericardium. Normal mediastinum. Normal hilar regions. Normal visualized trachea and bronchi. Normal pleura. Normal visualized upper abdomen. CT/Low Dose CT Lung Screening IMPRESSION: Unchanged emphysema. Coronary artery calcification (CAC) is is present Lung-RADS Category: 2 BENIGN (BASED ON IMAGING FEATURES OR INDOLENT BEHAVIOR). RECOMMEND 12-MONTH SCREENING LDCT. Reading Location: [place] [address] CC: MORALES Root; Dr. Falguni Beasley MD Information Security Associate: Signed Normal [facility] Cardiology Visit Reporton Cardiology Visit Report [facility] [address] [place] [address] OFFICE VISIT Date of Service: 04/30/25 MR#: [id number] Acct: [id number] Name: TRACEY IVERSON Rep #: [id number] : 1955 Provider: MORALES us Age/Sex: 69/M Location[place] [facility] Status: Signed HPI HPI History of Present [...] Source Monitor Intake Visit Reasons: 6 M Calf Skinner Required: No Accompanied by: Self Is patient [...] smokin11/20/23 alcohol (more content not included)... Normal [facility] Absolute lymphocyte countOrd ered By: Falguni Beasley on 03-30-2025 Lymphocytes Auto (Unsp spec) [#/Vol] 0.98 10*3/uL 0.83-4.51 [facility] Absolute neutrophil countOrd ered By: Falguni Beasley on 03-30-2025 Neutrophils (Bld) [#/Vol] 6.8 10*3/uL 2.0-7.7 [facility] Automated lymphocyte count a s percentage of total leukocytesOrdered By: Falguni Beasley on 03-30-2025 Lymphocytes/100 WBC Auto (Unsp spec) 11.0 % Low 19-41 [facility] Basophil percentageOrdered B y: Falguni Beasley on 03-30-2025 Basophils/100 WBC (Bld) 0.7 % 0-1 [facility] CBC W/Diff, Automatedon Absolute Lymph 0.98 X10 3/uL Normal 0.83-4.51 [facility] Comment on above: Performed By: #### L 501.9985, L100.0100 ####[facility] [address] [place], [address] Absolute Neut 6.8 X10 3/uL Normal 2.0-7.7 [facility] Comment on above: Performed By: #### L 501.9985, L100.0100 ####[facility] [address] [place], [address] Basophils/100 WBC (Bld) 0.7 % Normal 0-1 [facility] Comment on above: Performed By: #### L 501.9985, L100.0100 ####[facility] [address] [place], [address] Eosinophils/100 WBC (Bld) 1.9 % Normal 0-5 [facility] Comment on above: Performed By: #### L 501.9985, L100.0100 ####[facility] [address] [place], [address] Erythrocyte distribution width (RBC) [Ratio] 13.0 % Normal 11.6-14.6 [facility] Comment on above: Performed By: #### L 501.9985, L100.0100 ####[facility] [address] [place], [address] Hematocrit (Bld) [Volume fraction] 44.2 % Normal 40-54 [facility] Comment on above: Performed By: #### L 501.9985, L100.0100 ####[facility] [address] [place], [address] Hemoglobin (Bld) [Mass/Vol] 15.1 g/dL Normal 13.0-16.5 [facility] Comment on above: Performed By: #### L 501.9985, L100.0100 ####[facility] [address] [place], [address] IG% 0.700 Normal 0.0-0.9 [facility] Comment on above: Result Comment: IG% - Immature Granulocytes (promyelocytes, myelocytes and metamyelocytes) > 1% indicates that a LEFT SHIFT is Present. Performed By: #### L 501.9985, L100.0100 ####[facility] [address] [place], [address] Lymphocytes/100 WBC (Bld) 11.0 % Low 19-41 [facility] Comment on above: Performed By: #### L 501.9985, L100.0100 ####[facility] [address] [place], [address] MCH (RBC) [Entitic mass] 32.7 pg High 27.0-32.0 [facility] Comment on above: Performed By: #### L 501.9985, L100.0100 ####[facility] [address] [place], [address] MCHC (RBC) [Mass/Vol] 34.2 g/dL Normal 32-36 [facility] Comment on above: Performed By: #### L 501.9985, L100.0100 ####[facility] [address] [place], [address] MCV (RBC) [Entitic vol] 95.7 fL High 80-94 [facility] Comment on above: Performed By: #### L 501.9985, L100.0100 ####[facility] [address] [place], [address] Monocytes/100 WBC (Bld) 9.0 % Normal 0-10 [facility] Comment on above: Performed By: #### L 501.9985, L100.0100 ####[facility] [address] [place], [address] Neutrophils/100 WBC (Bld) 76.7 % High 47-70 [facility] Comment on above: Performed By: #### L 501.85, L100.0100 ####[facility] [address] [place], [address] Nucleated RBC (Bld) [#/Vol] 0 10*3/uL Normal 0-5 [facility] Comment on above: Performed By: #### L 501.85, L100.0100 ####[facility] [address] [place], [address] Platelet mean volume (Bld) [Entitic vol] 9.6 fL Normal 6.2-12.0 [facility] Comment on above: Performed By: #### L 501.85, L100.0100 ####[facility] [address] [place], [address] Platelets (Bld) [#/Vol] 253 10*3/uL Normal 150-450 [facility] Comment on above: Performed By: #### L 501.85, L100.0100 ####[facility] [address] [place], [address] RBC (Bld) [#/Vol] 4.62 10*6/uL Normal 4.6-6.2 [facility] Comment on above: Performed By: #### L 501.85, L100.0100 ####[facility] [address] [place], [address] RDW SD 44.8 fl High 35.1-43.9 [facility] Comment on above: Performed By: #### L 501.9985, L100.0100 ####[facility] [address] [place], [address] WBC (Bld) [#/Vol] 8.9 10*3/uL Normal 4.4-11.0 [facility] Comment on above: Performed By: #### L 501.9985, L100.0100 ####[facility] [address] [place], [address] Eosinophil percentageOrdered By: Fetennysonomari Beasley on 03-30-2025 Eosinophils/100 WBC (Bld) 1.9 % 0-5 [facility] Erythrocyte distribution wid th ratioOrdered By: [facility] Carlitosmatt on 03-30-2025 Erythrocyte distribution width (RBC) [Ratio] 13.0 % 11.6-14.6 [facility] Erythrocyte distribution wid th standard deviationOrdered By: [facility] on 03-30-2025 Erythrocyte distribution width (RBC) [Ratio] 44.8 fl High 35.1-43.9 [facility] Hematocrit Auto (Bld) [Volum e fraction]Ordered By: Fetennysonomari Beasley on 03-30-2025 Hematocrit (Bld) [Volume fraction] 44.2 % 40-54 [facility] Hemoglobin A1con 03-30-2025 HbA1c (Bld) [Mass fraction] 6.1 % High <=5.6 [facility] Comment on above: Result Comment: Norm al < 5.7 % Prediabetic 5.7 - 6.4 % Diabetic >or= 6.5 % Please note range changes. Performed By: #### L 501.9985, L100.0100 ####[facility] [address] [place], [address] Hemoglobin A1c percentageOrd ered By: Falguni Beasley on 03-30-2025 HbA1c (Bld) [Mass fraction] 6.1 % High <5.7 [facility] Comment on above: Normal < 5.7 % Predi abetic 5.7 - 6.4 % Diabetic >or= 6.5 % Please note range changes. Hemoglobin measurementOrdere d By: Falguni Beasley on 03-30-2025 Hemoglobin (Bld) [Mass/Vol] 15.1 g/dL 13.0-16.5 [facility] Immature granulocytes/100 WB C Auto (Bld)Ordered By: Falguni Beasley on 03-30-2025 Immature granulocytes/100 WBC (Bld) 0.700 % 0.0-0.9 [facility] Comment on above: IG% - Immature Granu locytes (promyelocytes, myelocytes and metamyelocytes) > 1% indicates that a LEFT SHIFT is Present. Internal Medicine Office Vis itoneptali 03-30-2025 Internal Medicine Office Visit [facility] [address] [place] [place] [address] OFFICE VISIT Date of Service: 03/30/25 MR#: [id number] Acct: [id number] Name: TRACEY IVERSON Rep #: [id number] : 1955 Provider: Dr. Falguni villanueva MD Age/Sex: 69/M Location: [facility] Status: Signed Intake Vital Signs 12/28/24 15:08 [...] M FU Chief Complaint: 3 month FU Calf Skinner Required: No Accompanied by: Self Is patient [...] past year?: No PFSH Medical History (Updated 03/30/25 @ 12:58 by [...] chronic conditions. Just recently got back from [place] and following this, has had some sinus pressure, congestion and postnasal drip. No chills, fever o (more content not included)... Normal [facility] MCV (mean corpuscular volume ) determinationOrdered By: Falguni Beasley on 03-30-2025 MCV (RBC) [Entitic vol] 95.7 fL High 80-94 [facility] Mean corpuscular hemoglobin (MCH) determinationOrdered By: Falguni Beasley on 03-30-2025 MCH (RBC) [Entitic mass] 32.7 pg High 27.0-32.0 [facility] Mean corpuscular hemoglobin concentration (MCHC) determinationOrdered By: Falguni Beasley on 03-30-2025 MCHC (RBC) [Mass/Vol] 34.2 g/dL 32-36 [facility] Mean platelet volume determi nationOrdered By: Falguni Beasley on 03-30-2025 Platelet mean volume (Bld) [Entitic vol] 9.6 fL 6.2-12.0 [facility] Monocyte percentageOrdered B y: Falguni Beasley on 03-30-2025 Monocytes/100 WBC (Bld) 9.0 % 0-10 [facility] Neutrophil percentageOrdered By: Falguni Beasley on 03-30-2025 Neutrophils/100 WBC (Bld) 76.7 % High 47-70 [facility] Nucleated red blood cell per centageOrdered By: Falguni Beasley on 03-30-2025 Nucleated RBC/100 WBC (Bld) [Ratio] 0 % 0-5 [facility] Platelet countOrdered By: Makayla Beasley on 03-30-2025 Platelets (Bld) [#/Vol] 253 10*3/uL 150-450 [facility] RBC Auto (Bld) [#/Vol]Ordere d By: Falguni Beasley on 03-30-2025 RBC (Bld) [#/Vol] 4.62 10*6/uL 4.6-6.2 [facility] White blood cell (WBC) count Ordered By: Falguni Beasley on 03-30-2025 WBC (Bld) [#/Vol] 8.9 10*3/uL 4.4-11.0 [facility] Pulmonary Visit Reporton Pulmonary Visit Report [facility] [place] [address] [place] [address] OFFICE VISIT Date of Service: 01/12/25 MR#: [id number] Acct: [id number] Name: TRACEY IVERSON Rep #: [id number] : 1955 Provider: MORALES Root Age/Sex: 69/M Location: [facility] Status: Signed Assessment and Plan Assessment and [...] in which he will be traveling to [facility]. He would be willing to revisit [...] tabs 0RF Plan Details Follow Up: 08/22/25 ([facility]) HPI 3 M FU Chief Complaint: Test [...] M FU Chief Complaint: 3 month FU Calf Skinner Required: No Accompanied by: Allergies venom-wasp (wasp [...] metoprolol succin (more content not included)... Normal [facility] Influenza virus A and B and SARS-CoV-2 (COVID-19) and Respiratory syncytial virus RNAOrdered By: Falguni Beasley on 12-28-2024 SARS-CoV-2 (COVID-19) RNA RAUDEL+probe Ql (Unsp spec) RSV Abnormal [facility] Internal Medicine Office Vis iton 12-28-2024 Internal Medicine Office Visit [facility] [place] [place] [address] OFFICE VISIT Date of Service: 12/28/24 MR#: [id number] Acct: [id number] Name: TRACEY IVERSON Rep #: [id number] : 1955 Provider: Dr. Falguni villanueva MD Age/Sex: 69/M Location: [facility] Status: Signed Intake Vital Signs 10/27/24 11:37 [...] (Eliquis) 5 mg PO BID #60 tabs 12/06/2405/16 Rx fluticasone fur. 100 mcg-umeclid 1 inh [...] sick contac (more content not included)... Normal [facility] M100.678on 12-28-2024 M100.678 SARS-CoV-2 (COVID 19 ) Negative INFLUENZA A Negative INFLUENZA B Negative RSV PCR A Positive A RSV Normal [facility] Comment on above: Performed By: #### M 100.678 ####[facility] [address] [place], [address] 12 Lead EKG performed by [facility] on 10-27-2024 12 Lead EKG performed by [place] [id number] [place] [address] 12 Lead EKG performed by [facility] 10/27/24808 MR#: [id number] Acct: [id number] Name: TRACEY IVERSON Rep #: [id number] : 1955 69 From: Kirk Lemons MD Attending Dr: Dr. Kirk Lemons MD Status: DE P AMB Ordering Dr: Kirk Lemons MD Date: 10/27/24 [place] [facility] [place] Sex: M C Admitted: [facility] [place] Lead EKG performed by [facility] ECG Report Interpretation ----Atrial fibrillation -Left axis -anterior fascicular block. -Poor R-wave progression -nonspecificABNORMAL Electronically signed on 10/27/2024 at 12:[address] Kirk Lemons [employer] Version 8610 10/27/24 1222 Date Kirk Lemons MD CC: Dr. Falguni Beasley MD Date Dictated: 10/27/24808 Date Transcribed: 10/27/24808 Information Security Associate: Signed Normal [facility] Cardiology Visit Reporton Cardiology Visit Report [facility] [address] [place] [address] OFFICE VISIT Date of Service: 10/27/24 MR#: [id number] Acct: [id number] Name: TRACEY IVERSON Rep #: [id number] : 1955 Provider: Dr. Kirk haji MD Age/Sex: 69/M Location: [facility] [place] Status: Signed HPI HPI History of Present [...] Intake Visit Reasons: Discuss Rhythm Control Strategies Calf Skinner Required: No Is patient in pain?: No [...] you fallen in the past year?: No [facility] Medical History Essential hypertension Atrial fibrillation Alcoholic liver disease, unspecified Lumbar radiculopathy BPH (benign prostatic hyperplasia) Hyperlipidemia Anemia (more content not included)... Normal [facility] Comprehensive Metabolic Prof ilon 10-18-2024 Albumin [Mass/Vol] 3.8 g/dL Normal 3.2-5.0 [facility] Comment on above: Performed By: #### L 500.4050 ####[facility] [address] [place], [place], [phone] Albumin/Globulin [Mass ratio] 0.9 {ratio} Normal 0.9-2.4 [facility] Comment on above: Performed By: #### L 500.4050 ####[facility] [address] [place], [address] ALK P 144 U/L High 45-117 [facility] Comment on above: Performed By: #### L 500.4050 ####[facility] [address] [place], [address] ALT [Catalytic activity/Vol] 47 U/L Normal 16-61 [facility] Comment on above: Performed By: #### L 500.4050 ####[facility] [address] [place], [address] AST [Catalytic activity/Vol] 44 U/L High 15-37 [facility] Comment on above: Performed By: #### L 500.4050 ####[facility] [address] [place], [address] Bilirubin [Mass/Vol] 0.70 mg/dL Normal 0.20-1.00 [facility] Comment on above: Result Comment: For patients on eltrombopag therapy, use of Dimension [place] TBIL is not recommended. Performed By: #### L 500.4050 ####[facility] [address] [place], [address] BUN/CRE 18.5 RATIO Normal 10-20 [facility] Comment on above: Performed By: #### L 500.4050 ####[facility] [address] [place], [address] CA,Total 9.7 mg/dL Normal 8.5-10.1 [facility] Comment on above: Performed By: #### L 500.4050 ####[facility] [address] [place], [address] Chloride [Moles/Vol] 103 mmol/L Normal 98-107 [facility] Comment on above: Performed By: #### L 500.4050 ####[facility] [address] [place], [address] CO2 [Moles/Vol] 25.0 mmol/L Normal 21.0-32.0 [facility] Comment on above: Performed By: #### L 500.4050 ####[facility] [address] [place], [address] Creatinine [Mass/Vol] 0.87 mg/dL Normal 0.70-1.30 [facility] Comment on above: Result Comment: The validity of the calculated GFR GFRAA in patients over 70 years has not been determined. Clinical correlation is essential. Performed By: #### L 500.4050 ####[facility] [address] [place], [address] EST GFR - AA 113 mL/min Normal >60 [facility] Comment on above: Result Comment: Afri can Malian GFR Calc Performed By: #### L 500.4050 ####[facility] [address] [place], [address] GAP 5 Normal 5-15 [facility] Comment on above: Performed By: #### L 500.4050 ####[facility] [address] [place], [address] GFR/1.73 sq M.predicted among non-blacks MDRD (S/P/Bld) [Vol rate/Area] 93 mL/min/{1.73_m2} Normal >60 [facility] Comment on above: Result Comment: Non- GFR Calc Performed By: #### L 500.4050 ####[facility] [address] [place], [address] Globulin (S) [Mass/Vol] 4.3 g/dL High 2.2-4.2 [facility] Comment on above: Performed By: #### L 500.4050 ####[facility] [address] [place], [address] Glucose [Mass/Vol] 111 mg/dL High 74-106 [facility] Comment on above: Result Comment: Fast ing Glucose result from 100 to 125 mg/dL suggests IMPAIRED HOMEOSTASIS per A.D.A. criteria. Performed By: #### L 500.4050 ####[facility] [address] [place], [address] Potassium [Moles/Vol] 4.6 mmol/L Normal 3.5-5.1 [facility] Comment on above: Performed By: #### L 500.4050 ####[facility] [address] [place], [place], [id number] Sodium [Moles/Vol] 133 mmol/L Low 136-145 [facility] Comment on above: Performed By: #### L 500.4050 ####[facility] [address] [place], [place], [id number] T PROT 8.1 g/dL Normal 6.4-8.2 [facility] Comment on above: Performed By: #### L 500.4050 ####[facility] [address] [place], [place], [id number] Urea nitrogen [Mass/Vol] 16 mg/dL Normal 7-18 [facility] Comment on above: Performed By: #### L 500.4050 ####[facility] [address] [place], [place], [id number] Pulmonary Visit Reporton Pulmonary Visit Report [facility] [place] [address] [place], [place] [address] OFFICE VISIT Date of Service: 10/11/24 MR#: [id number] Acct: [id number] Name: TRACEY IVERSON Rep #: [id number] Provider: MORALES Root Age/Sex: 69/M [facility] Status: Signed Assessment and Plan Assessment and [...] Chief Complaint: Annual COPD, lung nodule FU Calf Skinner Required: No [facility] Vendor: None Accompanied by: Is patient in pain?: No Allergies No Known Allergies Allergy (Verified 10/11/24 14:57) Medications (more content not included)... Normal [facility] CBC W/Diff, Automatedon 09-22 Absolute Lymph 0.95 X10 3/uL Normal 0.83-4.51 [facility] Comment on above: Performed By: #### L 500.4100, L501.9940, L100.0100, L500.4050 #### [facility] [address] [place], [place], [id number] Absolute Neut 5.7 X10 3/uL Normal 2.0-7.7 [facility] Comment on above: Performed By: #### L 500.4100, L501.9940, L100.0100, L500.4050 #### [facility] [address] [place], [address] Basophils/100 WBC (Bld) 1.0 % Normal 0-1 [facility] Comment on above: Performed By: #### L 500.4100, L501.9940, L100.0100, L500.4050 #### [facility] [address] [place], [address] Eosinophils/100 WBC (Bld) 2.4 % Normal 0-5 [facility] Comment on above: Performed By: #### L 500.4100, L501.9940, L100.0100, L500.4050 #### [facility] [address] [place], [address] Erythrocyte distribution width (RBC) [Ratio] 13.3 % Normal 11.6-14.6 [facility] Comment on above: Performed By: #### L 500.4100, L501.9940, L100.0100, L500.4050 #### [facility] [address] [place], [address] Hematocrit (Bld) [Volume fraction] 45.3 % Normal 40-54 [facility] Comment on above: Performed By: #### L 500.4100, L501.9940, L100.0100, L500.4050 #### [facility] [address] [place], [address] Hemoglobin (Bld) [Mass/Vol] 14.7 g/dL Normal 13.0-16.5 [facility] Comment on above: Performed By: #### L 500.4100, L501.9940, L100.0100, L500.4050 #### [facility] [address] [place], [address] IG% 0.400 Normal 0.0-0.9 [facility] Comment on above: Result Comment: IG% - Immature Granulocytes (promyelocytes, myelocytes and metamyelocytes) > 1% indicates that a LEFT SHIFT is Present. Performed By: #### L 500.4100, L501.9940, L100.0100, L500.4050 #### [facility] [address] [place], [address] Lymphocytes/100 WBC (Bld) 12.1 % Low 19-41 [facility] Comment on above: Performed By: #### L 500.4100, L501.9940, L100.0100, L500.4050 #### [facility] [address] [place], [address] MCH (RBC) [Entitic mass] 30.8 pg Normal 27.0-32.0 [facility] Comment on above: Performed By: #### L 500.4100, L501.9940, L100.0100, L500.4050 #### [facility] [address] [place], [address] MCHC (RBC) [Mass/Vol] 32.5 g/dL Normal 32-36 [facility] Comment on above: Performed By: #### L 500.4100, L501.9940, L100.0100, L500.4050 #### [facility] [address] [place], [address] MCV (RBC) [Entitic vol] 95.0 fL High 80-94 [facility] Comment on above: Performed By: #### L 500.4100, L501.9940, L100.0100, L500.4050 #### [facility] [address] [place], [address] Monocytes/100 WBC (Bld) 11.6 % High 0-10 [facility] Comment on above: Performed By: #### L 500.4100, L501.9940, L100.0100, L500.4050 #### [facility] [address] [place], [address] Neutrophils/100 WBC (Bld) 72.5 % High 47-70 [facility] Comment on above: Performed By: #### L 500.4100, L501.9940, L100.0100, L500.4050 #### [facility] [address] [place], [address] Nucleated RBC (Bld) [#/Vol] 0 10*3/uL Normal 0-5 [facility] Comment on above: Performed By: #### L 500.4100, L501.9940, L100.0100, L500.4050 #### [facility] [address] [place], [address] Platelet mean volume (Bld) [Entitic vol] 9.9 fL Normal 6.2-12.0 [facility] Comment on above: Performed By: #### L 500.4100, L501.9940, L100.0100, L500.4050 #### [facility] [address] [place], [address] Platelets (Bld) [#/Vol] 268 10*3/uL Normal 150-450 [facility] Comment on above: Performed By: #### L 500.4100, L501.9940, L100.0100, L500.4050 #### [facility] [address] [place], [address] RBC (Bld) [#/Vol] 4.77 10*6/uL Normal 4.6-6.2 [facility] Comment on above: Performed By: #### L 500.4100, L501.9940, L100.0100, L500.4050 #### [facility] [address] [place], [address] RDW SD 46.7 fl High 35.1-43.9 [facility] Comment on above: Performed By: #### L 500.4100, L501.9940, L100.0100, L500.4050 #### [facility] [address] [place], [address] WBC (Bld) [#/Vol] 7.8 10*3/uL Normal 4.4-11.0 [facility] Comment on above: Performed By: #### L 500.4100, L501.9940, L100.0100, L500.4050 #### [facility] [address] [place], [address] Absolute Neut Normal 2.0-7.7 [facility] Comment on above: Result Comment: DUPL ICATE Performed By: #### L 500.4050, L500.4100, L100.0100 ####[facility] [address] [place], [address] HCT Normal 40-54 [facility] Comment on above: Result Comment: DUPL ICATE Performed By: #### L 500.4050, L500.4100, L100.0100 ####[facility] [address] [place], [address] HGB Normal 13.0-16.5 [facility] Comment on above: Result Comment: DUPL ICATE Performed By: #### L 500.4050, L500.4100, L100.0100 ####[facility] [address] [place], [address] MCH Normal 27.0-32.0 [facility] Comment on above: Result Comment: DUPL ICATE Performed By: #### L 500.4050, L500.4100, L100.0100 ####[facility] [address] [place], [address] MCHC Normal 32-36 [facility] Comment on above: Result Comment: DUPL ICATE Performed By: #### L 500.4050, L500.4100, L100.0100 ####[facility] [address] [place], [address] MCV Normal 80-94 [facility] Comment on above: Result Comment: DUPL ICATE Performed By: #### L 500.4050, L500.4100, L100.0100 ####[facility] [address] [place], [address] NEUT% Normal 47-70 [facility] Comment on above: Result Comment: DUPL ICATE Performed By: #### L 500.4050, L500.4100, L100.0100 ####[facility] [address] [place], [address] PLT Normal 150-450 [facility] Comment on above: Result Comment: DUPL ICATE Performed By: #### L 500.4050, L500.4100, L100.0100 ####[facility] [address] [place], [address] RBC Normal 4.6-6.2 [facility] Comment on above: Result Comment: DUPL ICATE Performed By: #### L 500.4050, L500.4100, L100.0100 ####[facility] [address] [place], [address] RDW CV Normal 11.6-14.6 [facility] Comment on above: Result Comment: DUPL ICATE Performed By: #### L 500.4050, L500.4100, L100.0100 ####[facility] [address] [place], [address] RDW SD Normal 35.1-43.9 [facility] Comment on above: Result Comment: DUPL ICATE Performed By: #### L 500.4050, L500.4100, L100.0100 ####[facility] [address] [place], [address] WBC Normal 4.4-11.0 [facility] Comment on above: Result Comment: DUPL ICATE Performed By: #### L 500.4050, L500.4100, L100.0100 ####[facility] [address] [place], [address] Comprehensive Metabolic Prof ilon 10-06-2024 Albumin [Mass/Vol] 3.6 g/dL Normal 3.2-5.0 [facility] Comment on above: Order Comment: LINDA COLEEN ORDERED BMP Performed By: #### L 500.4100, L501.9940, L100.0100, L500.4050 #### [facility] [address] [place], [address] Albumin/Globulin [Mass ratio] 0.8 {ratio} Low 0.9-2.4 [facility] Comment on above: Order Comment: LINDA COLEEN ORDERED BMP Performed By: #### L 500.4100, L501.9940, L100.0100, L500.4050 #### [facility] [address] [place], [address] ALK P 145 U/L High 45-117 [facility] Comment on above: Order Comment: LINDA COLEEN ORDERED BMP Performed By: #### L 500.4100, L501.9940, L100.0100, L500.4050 #### [facility] [address] [place], [address] ALT [Catalytic activity/Vol] 46 U/L Normal 16-61 [facility] Comment on above: Order Comment: LINDA COLEEN ORDERED BMP Performed By: #### L 500.4100, L501.9940, L100.0100, L500.4050 #### [facility] [address] [place], [address] AST [Catalytic activity/Vol] 40 U/L High 15-37 [facility] Comment on above: Order Comment: LINDA HORNE ORDERED BMP Performed By: #### L 500.4100, L501.9940, L100.0100, L500.4050 #### [facility] [address] [place], [address] Bilirubin [Mass/Vol] 0.60 mg/dL Normal 0.20-1.00 [facility] Comment on above: Order Comment: LINDA HORNE ORDERED BMP Result Comment: For patients on eltrombopag therapy, use of Dimension [place] TBIL is not recommended. Performed By: #### L 500.4100, L501.9940, L100.0100, L500.4050 #### [facility] [address] [place], [address] BUN/CRE 17.0 RATIO Normal 10-20 [facility] Comment on above: Order Comment: LINDA HORNE ORDERED BMP Performed By: #### L 500.4100, L501.9940, L100.0100, L500.4050 #### [facility] [address] [place], [address] CA,Total 9.9 mg/dL Normal 8.5-10.1 [facility] Comment on above: Order Comment: LINDA HORNE ORDERED BMP Performed By: #### L 500.4100, L501.9940, L100.0100, L500.4050 #### [facility] [address] [place], [address] Chloride [Moles/Vol] 101 mmol/L Normal 98-107 [facility] Comment on above: Order Comment: LINDA HORNE ORDERED BMP Performed By: #### L 500.4100, L501.9940, L100.0100, L500.4050 #### [facility] [address] [place], [address] CO2 [Moles/Vol] 24.0 mmol/L Normal 21.0-32.0 [facility] Comment on above: Order Comment: LINDA HONRE ORDERED BMP Performed By: #### L 500.4100, L501.9940, L100.0100, L500.4050 #### [facility] [address] [place], [address] Creatinine [Mass/Vol] 0.82 mg/dL Normal 0.70-1.30 [facility] Comment on above: Order Comment: LINDA HORNE ORDERED BMP Result Comment: The validity of the calculated GFR GFRAA in patients over 70 years has not been determined. Clinical correlation is essential. Performed By: #### L 500.4100, L501.9940, L100.0100, L500.4050 #### [facility] [address] [place], [address] EST GFR - AA 120 mL/min Normal >60 [facility] Comment on above: Order Comment: LINDA HORNE ORDERED BMP Result Comment: Afri can Malian GFR Calc Performed By: #### L 500.4100, L501.9940, L100.0100, L500.4050 #### [facility] [address] [place], [address] GAP 5 Normal 5-15 [facility] Comment on above: Order Comment: LINDA HORNE ORDERED BMP Performed By: #### L 500.4100, L501.9940, L100.0100, L500.4050 #### [facility] [address] [place], [address] GFR/1.73 sq M.predicted among non-blacks MDRD (S/P/Bld) [Vol rate/Area] 99 mL/min/{1.73_m2} Normal >60 [facility] Comment on above: Order Comment: LINDA HORNE ORDERED BMP Result Comment: Non- GFR Calc Performed By: #### L 500.4100, L501.9940, L100.0100, L500.4050 #### [facility] [address] [place], [address] Globulin (S) [Mass/Vol] 4.7 g/dL High 2.2-4.2 [facility] Comment on above: Order Comment: LINDA HORNE ORDERED BMP Performed By: #### L 500.4100, L501.9940, L100.0100, L500.4050 #### [facility] [address] [place], [address] Glucose [Mass/Vol] 94 mg/dL Normal 74-106 [facility] Comment on above: Order Comment: LINDA HORNE ORDERED BMP Performed By: #### L 500.4100, L501.9940, L100.0100, L500.4050 #### [facility] [address] [place], [address] Potassium [Moles/Vol] 4.5 mmol/L Normal 3.5-5.1 [facility] Comment on above: Order Comment: LINDA HORNE ORDERED BMP Performed By: #### L 500.4100, L501.9940, L100.0100, L500.4050 #### [facility] [address] [place], [address] Sodium [Moles/Vol] 129 mmol/L Low 136-145 [facility] Comment on above: Order Comment: LINDA HORNE ORDERED BMP Performed By: #### L 500.4100, L501.9940, L100.0100, L500.4050 #### [facility] [address] [place], [address] T PROT 8.3 g/dL High 6.4-8.2 [facility] Comment on above: Order Comment: LINDA HORNE ORDERED BMP Performed By: #### L 500.4100, L501.9940, L100.0100, L500.4050 #### [facility] [address] [place], [address] Urea nitrogen [Mass/Vol] 14 mg/dL Normal 7-18 [facility] Comment on above: Order Comment: LINDA HORNE ORDERED BMP Performed By: #### L 500.4100, L501.9940, L100.0100, L500.4050 #### [facility] [address] [place], [address] ALB Normal 3.2-5.0 [facility] Comment on above: Result Comment: DUPL ICATE Performed By: #### L 500.4050, L500.4100, L100.0100 ####[facility] [address] [place], [address] ALK P Normal 45-117 [facility] Comment on above: Result Comment: DUPL ICATE Performed By: #### L 500.4050, L500.4100, L100.0100 ####[facility] [address] [place], [address] ALT Normal 16-61 [facility] Comment on above: Result Comment: DUPL ICATE Performed By: #### L 500.4050, L500.4100, L100.0100 ####[facility] [address] [place], [address] AST Normal 15-37 [facility] Comment on above: Result Comment: DUPL ICATE Performed By: #### L 500.4050, L500.4100, L100.0100 ####[facility] [address] [place], [address] BUN Normal 7-18 [facility] Comment on above: Result Comment: DUPL ICATE Performed By: #### L 500.4050, L500.4100, L100.0100 ####[facility] [address] [place], [address] Performed By: #### L 500.2500 ####[facility] [address] [place], [address] BUN/CRE Normal 10-20 [facility] Comment on above: Result Comment: DUPL ICATE Performed By: #### L 500.4050, L500.4100, L100.0100 ####[facility] [address] [place], [address] Performed By: #### L 500.2500 ####[facility] [address] [place], [address] CA,Total Normal 8.5-10.1 [facility] Comment on above: Result Comment: DUPL ICATE Performed By: #### L 500.4050, L500.4100, L100.0100 ####[facility] [address] [place], [address] Performed By: #### L 500.2500 ####[facility] [address] [place], [address] CL Normal 98-107 [facility] Comment on above: Result Comment: DUPL ICATE Performed By: #### L 500.4050, L500.4100, L100.0100 ####[facility] [address] [place], [address] Performed By: #### L 500.2500 ####[facility] [address] [place], [address] CO2 Normal 21.0-32.0 [facility] Comment on above: Result Comment: DUPL ICATE Performed By: #### L 500.4050, L500.4100, L100.0100 ####[facility] [address] [place], [address] Performed By: #### L 500.2500 ####[facility] [id number] [place], [address] CREAT,SERUM Normal 0.70-1.30 [facility] Comment on above: Result Comment: DUPL ICATE Performed By: #### L 500.4050, L500.4100, L100.0100 ####[facility] [id number] [place], [address] Performed By: #### L 500.2500 ####[facility] [address] [place], [address] EST GFR Normal >60 [facility] Comment on above: Result Comment: DUPL ICATE Performed By: #### L 500.4050, L500.4100, L100.0100 ####[facility] [address] [place], [address] Performed By: #### L 500.2500 ####[facility] [address] [place], [address] EST GFR - AA Normal >60 [facility] Comment on above: Result Comment: DUPL ICATE Performed By: #### L 500.4050, L500.4100, L100.0100 ####[facility] [address] [place], [address] Performed By: #### L 500.2500 ####[facility] [address] [place], [address] GAP Normal 5-15 [facility] Comment on above: Result Comment: DUPL ICATE Performed By: #### L 500.4050, L500.4100, L100.0100 ####[facility] [address] [place], [address] Performed By: #### L 500.2500 ####[facility] [address] [place], [address] GLU Normal 74-106 [facility] Comment on above: Result Comment: DUPL ICATE Performed By: #### L 500.4050, L500.4100, L100.0100 ####[facility] [address] [place], [address] Performed By: #### L 500.2500 ####[facility] [address] [place], [address] Potassium Normal 3.5-5.1 [facility] Comment on above: Result Comment: DUPL ICATE Performed By: #### L 500.4050, L500.4100, L100.0100 ####[facility] [address] [place], [address] Performed By: #### L 500.2500 ####[facility] [address] [place], [address] T BILI Normal 0.20-1.00 [facility] Comment on above: Result Comment: DUPL ICATE Performed By: #### L 500.4050, L500.4100, L100.0100 ####[facility] [address] [place], [address] T PROT Normal 6.4-8.2 [facility] Comment on above: Result Comment: DUPL ICATE Performed By: #### L 500.4050, L500.4100, L100.0100 ####[facility] [address] [place], [address] Comprehensive Metabolic Profil Normal 136-145 [facility] Comment on above: Result Comment: DUPL ICATE Performed By: #### L 500.4050, L500.4100, L100.0100 ####[facility] [address] [place], [address] Performed By: #### L 500.2500 ####[facility] [address] [place], [address] Internal Medicine Office Vis karthik 10-06-2024 Internal Medicine Office Visit [facility] [place] [address] OFFICE VISIT Date of Service: 10/06/24 MR#: [id number] Acct: [id number] Name: TRACEY IVERSON Rep #: [id number] : 1955 Provider: Dr. Falguni villanueva MD Age/Sex: 69/M Location: [facility] Status: Signed Intake Vital Signs 06/08/24 14:58 [...] recent exac (more content not included)... Normal [facility] Lipid Profileon 10-06-2024 Cholesterol [Mass/Vol] 129 mg/dL Normal [facility] Comment on above: Order Comment: LINDA HORNE ORDERED BMP Result Comment: <200 mg/dL Desirable 200-240 mg/dL Borderline >240 mg/dL High Risk Performed By: #### L 500.4100, L501.9940, L100.0100, L500.4050 #### [facility] [address] [facility] [place], [address] Cholesterol in HDL [Mass/Vol] 51 mg/dL Normal [facility] Comment on above: Order Comment: LINDA HORNE ORDERED BMP Result Comment: The drugs N-Acetylcysteine and Metamizole may falsely depress this assay. Reference Range HDL <40 mg/dL Low HDL Cholesterol HDL >or= 60 mg/dL High HDL Cholesterol Performed By: #### L 500.4100, L501.9940, L100.0100, L500.4050 #### [facility] [address] [place], [address] Cholesterol in LDL [Mass/Vol] 61 mg/dL Normal 0-130 [facility] Comment on above: Order Comment: LINDA HORNE ORDERED BMP Performed By: #### L 500.4100, L501.9940, L100.0100, L500.4050 #### [facility] [address] [place], [address] Cholesterol in VLDL [Mass/Vol] 17 mg/dL Normal 5-40 [facility] Comment on above: Order Comment: LINDA HORNE ORDERED BMP Performed By: #### L 500.4100, L501.9940, L100.0100, L500.4050 #### [facility] [address] [place], [address] Triglyceride [Mass/Vol] 86 mg/dL Normal [facility] Comment on above: Order Comment: LINDA HORNE ORDERED BMP Result Comment: The drugs N-Acetylcysteine and Metamizole may falsely depress this assay. Serum Triglycerides Reference Interval Normal <150 mg/dL Borderline high 150 - 199 mg/dL High 200 - 499 mg/dL Very High > or = 500 mg/dL Performed By: #### L 500.4100, L501.9940, L100.0100, L500.4050 #### [facility] [address] [place], [address] CHOL Normal 200 [facility] Comment on above: Result Comment: DUPL ICATE Performed By: #### L 500.4050, L500.4100, L100.0100 ####[facility] [address] [place], [address] HDL Normal [facility] Comment on above: Result Comment: DUPL ICATE The drugs N-Acetylcysteine and Metamizole may falsely depress this assay. Performed By: #### L 500.4050, L500.4100, L100.0100 ####[facility] [address] [place], [address] LDL Normal 0-130 [facility] Comment on above: Result Comment: DUPL ICATE Performed By: #### L 500.4050, L500.4100, L100.0100 ####[facility] [address] [place], [address] TRIG Normal [facility] Comment on above: Result Comment: DUPL ICATE The drugs N-Acetylcysteine and Metamizole may falsely depress this assay. Performed By: #### L 500.4050, L500.4100, L100.0100 ####[facility] [address] [place], [address] VLDL Normal 5-40 [facility] Comment on above: Result Comment: DUPL ICATE Performed By: #### L 500.4050, L500.4100, L100.0100 ####[facility] [address] [place], [address] PSA,Total- Diagnosticon 11 PSA, DIAGNOSTIC 0.56 ng/mL Normal 0.0-4.0 [facility] Comment on above: Order Comment: LINDA HORNE ORDERED BMP Result Comment: This test was performed using the TPSA assay method for the [employer] chemistry system. Values obtained with different assay methods cannot be used interchangably. When changing PSA assays in the course of monitoring a patient, additional sequential testing should be carried out to confirm baseline values. Performed By: #### L 500.4100, L501.9940, L100.0100, L500.4050 #### [facility] [address] [place], [address] 12 Lead EKG performed by [facility] [place] 09-14-2024 12 Lead [facility]KG performed by [facility] [address] [place] [address] 12 Lead EKG performed by [facility] 09/14/24 1631 MR#: [id number] Acct: [id number] Name: TRACEY IVERSON Rep #: [id number] : 1955 69 From: Linda Horne VOUCHER EXAMINER VOUCHER EXAMINER-C Attending Dr: Linda Horne NP-C Status: DEP AMB Ordering Dr: Linda Horne NP, NP-C Date: 09/14/24 Location: [facility] Sex: M C Admitted: BMS/12 Lead EKG performed by [facility] ECG Report Interpretation ----Atrial fibrillation -Left axis -anterior fascicular block. ABNORMAL Electronically signed on 09/15/2024 at 12:10 by Arturo Cohenwood Software Version [id number] 09/15/24 1213 Date Linda Horne NP, NP-C CC: Dr. Falguni Beasley MD Date Dictated: 09/14/24 163 Date Transcribed: 09/14/241630 Information Security Associate: OLU Signed Normal [facility] Cardiology Visit Reporton Cardiology Visit Report [facility] [address] [place], [place] [address] OFFICE VISIT Date of Service: 09/14/24 MR#: [id number] Acct: [id number] Name: TRACEY IVERSON Rep #: [id number] : 1955 Provider: MORALES us Age/Sex: 69/M Location: [facility] Status: Signed [facility] History of Present Illness Details: He is [...] air Intake Visit Reasons: ELIQUIS F/U PER [facility] Calf Skinner Required: No Accompanied by: Is patient in [...] past year?: No PFSH Medical History (Updated 09/14/24 @ 16:30 by Linda Horne VOUCHER EXAMINER, VOUCHER EXAMINER-C) Essential hypertension Atrial fibrillation Alcoholic liver disease, [...] disease) P (more content not included)... Normal [facility] Absolute lymphocyte countOrd ered By: Falguni Beasley on 12-22-2023 Lymphocytes Auto (Unsp spec) [#/Vol] 0.94 10*3/uL 0.83-4.51 [facility] Automated lymphocyte count a s percentage of total leukocytesOrdered By: vincenzotennysonomari Beasley on 12-22-2023 Lymphocytes/100 WBC Auto (Unsp spec) 13.6 % 19-41 [facility] Basophil percentageOrdered B y: Falguni Beasley on 12-22-2023 Basophils/100 WBC (Bld) 1.4 % 0-1 [facility] Bilirubin [Mass/Vol] 0.60 mg/dL 0.20-1.00 [facility] Comment on above: For patients on eltr ombopag therapy, use of Dimension [place] TBIL is not recommended. Chloride [Moles/Vol] 107 mmol/L 98-107 [facility] Cholesterol [Mass/Vol] 141 mg/dL <200 [facility] Comment on above: <200 mg/dL Desirable 200-240 mg/dL Borderline >240 mg/dL High Risk Eosinophils/100 WBC (Bld) 2.7 % 0-5 [facility] Glucose [Mass/Vol] 104 mg/dL 74-106 [facility] Comment on above: Fasting Glucose resu lt from 100 to 125 mg/dL suggests IMPAIRED HOMEOSTASIS per A.D.A. criteria. Hemoglobin (Bld) [Mass/Vol] 15.6 g/dL 13.0-16.5 [facility] Monocytes/100 WBC (Bld) 8.4 % 0-10 [facility] Neutrophils (Bld) [#/Vol] 5.1 10*3/uL 2.0-7.7 [facility] Neutrophils/100 WBC (Bld) 73.6 % 47-70 [facility] Potassium [Moles/Vol] 4.3 mmol/L 3.5-5.1 [facility] Protein [Mass/Vol] 8.4 g/dL 6.4-8.2 [facility] Sodium [Moles/Vol] 135 mmol/L 136-145 [facility] Triglyceride [Mass/Vol] 73 mg/dL <199 [facility] Comment on above: The drugs N-Acetylcy steine and Metamizole may falsely depress this assay.Serum Triglycerides Reference Interval Normal <150 mg/dL Borderline high 150 - 199 mg/dL High 200 - 499 mg/dL Very High > or = 500 mg/dL WBC (Bld) [#/Vol] 6.9 10*3/uL 4.4-11.0 [facility] Determination of erythrocyte mean corpuscular volume (MCV)Ordered By: Falguni Beasley on 12-22-2023 MCV (RBC) [Entitic vol] 93.1 fL 80-94 [facility] Erythrocyte distribution wid th ratioOrdered By: [facility] Carlitosmatt on 12-22-2023 Erythrocyte distribution width (RBC) [Ratio] 12.8 % 11.6-14.6 [facility] Erythrocyte distribution wid th standard deviationOrdered By: [facility] on 12-22-2023 Erythrocyte distribution width (RBC) [Entitic vol] 43.7 fL 35.1-43.9 [facility] Hematocrit Auto (Bld) [Volum e fraction]Ordered By: [facility] Carlitosmatt on 12-22-2023 Hematocrit (Bld) [Volume fraction] 48.3 % 40-54 [facility] Immature granulocytes/100 WB C Auto (Bld)Ordered By: [facility] Carlitosmatt on 12-22-2023 Immature granulocytes/100 WBC (Bld) 0.300 % 0.0-0.9 [facility] Comment on above: IG% - Immature Granu locytes (promyelocytes, myelocytes and metamyelocytes) > 1% indicates that a LEFT SHIFT is Present. Laboratory - Chemistry and C hemistry - challengeOrdered By: vincenzotennysonomari Urbinamatt on 12-22-2023 Albumin/Globulin [Mass ratio] 0.8 {ratio} 0.9-2.4 [facility] ALP [Catalytic activity/Vol] 131 U/L 45-117 [facility] ALT [Catalytic activity/Vol] 57 U/L 16-61 [facility] Cholesterol in HDL (Body fld) [Mass/Vol] 58 mg/dL >40 [facility] Comment on above: The drugs N-Acetylcy steine and Metamizole may falsely depress this assay. Reference Range HDL <40 mg/dL Low HDL Cholesterol HDL >or= 60 mg/dL High HDL Cholesterol Cholesterol in LDL (Body fld) [Moles/Vol] 68 mg/dL 0-130 [facility] Cholesterol in VLDL Calc [Moles/Vol] 15 mg/dL 5-40 [facility] CO2 [Moles/Vol] 24.0 mmol/L 21.0-32.0 [facility] Globulin (S) [Mass/Vol] 4.7 g/dL 2.2-4.2 [facility] Urea nitrogen/Creatinine [Mass ratio] 16.5 mg/mg 10-20 [facility] Laboratory - Hematology and Cell countsOrdered By: Falguni Beasley on 12-22-2023 MCH (RBC) [Entitic mass] 30.1 pg 27.0-32.0 [facility] MCHC (RBC) [Mass/Vol] 32.3 g/dL 32-36 [facility] Nucleated RBC/100 WBC (Bld) [Ratio] 0 % 0-5 [facility] Platelets (Bld) [#/Vol] 286 10*3/uL 150-450 [facility] - Hematology and Cell countson 12-22-2023 HbA1c (Bld) [Mass fraction] 5.7 % 4.2-6.3 [facility] No Panel InformationOrdered By: Falguni Beasley on 12-22-2023 Estimated GFR (MDRD) Amer 93 mL/min >60 [facility] Comment on above: GFR Calc Estimated GFR (MDRD) Non-Af Amer 77 mL/min >60 [facility] Comment on above: Non- GFR Calc Platelet mean volume Ayad-Ec ker (Bld) [Entitic vol]Ordered By: Falguni Beasley on 12-22-2023 Platelet mean volume (Bld) [Entitic vol] 10.1 fL 6.2-12.0 [facility] RBC Auto (Bld) [#/Vol]Ordere d By: Falguni Beasley on 12-22-2023 RBC (Bld) [#/Vol] 5.19 10*6/uL 4.6-6.2 [facility] Screening prostate specific antigen (PSA) measurementOrdered By: Falguni Beasley on 12-22-2023 Prostate specific Ag IA [Mass/Vol] 0.75 ng/mL 0.00-4.00 [facility] Comment on above: This test was perfor med using the TPSA assay method for the[employer] chemistry system. Values obtained with differentassay methods cannot be used interchangably.When changing PSA assays in the course of monitoring apatient, additional sequential testing should be carriedout to confirm baseline values. Serum or plasma calcium rl urement (mass/volume)Ordered By: Falguni Beasley on 12-22-2023 Calcium [Mass/Vol] 10.0 mg/dL 8.5-10.1 [facility] Serum or plasma creatinine m easurement (mass/volume)Ordered By: Falguni Beasley on 12-22-2023 Creatinine [Mass/Vol] 1.03 mg/dL 0.70-1.30 [facility] Comment on above: The validity of the calculated GFR & GFRAA in patients over 70 years has not been determined. Clinical correlation is essential. Serum or plasma urea nitroge n measurement (mass/volume)Ordered By: Falguni Beasley on 12-22-2023 Urea nitrogen [Mass/Vol] 17 mg/dL 7-18 [facility] Thin prep Papanicolaou smear with manual screeningOrdered By: Falguni Beasley on 12-22-2023 Thin prep Papanicolaou smear with manual screening 3.7 g/dL 3.2-5.0 [facility] Thin prep Papanicolaou smear with manual screening 39 U/L 15-37 [facility] Thin prep Papanicolaou smear with manual screening 4 5-15 [facility] Basophil percentageOrdered B y: Falguni Beasley on 05-28-2023 Bilirubin [Mass/Vol] 0.50 mg/dL 0.20-1.00 [facility] Comment on above: For patients on eltr ombopag therapy, use of Dimension [place] TBIL is not recommended. Chloride [Moles/Vol] 105 mmol/L 98-[address] [facility] Glucose [Mass/Vol] 108 mg/dL 74-106 [facility] Comment on above: Fasting Glucose resu lt from 100 to 125 mg/dL suggests IMPAIRED HOMEOSTASIS per A.D.A. criteria. Potassium [Moles/Vol] 4.4 mmol/L 3.5-5.1 [facility] Protein [Mass/Vol] 8.1 g/dL 6.4-8.2 [facility] Sodium [Moles/Vol] 131 mmol/L 136-145 [facility] Laboratory - Chemistry and C hemistry - challengeOrdered By: Falguni Beasley on 05-28-2023 ALP [Catalytic activity/Vol] 150 U/L 45-117 [facility] ALT [Catalytic activity/Vol] 67 U/L 16-61 [facility] CO2 [Moles/Vol] 22.0 mmol/L 21.0-32.0 [facility] Globulin (S) [Mass/Vol] 4.4 g/dL 2.2-4.2 [facility] Urea nitrogen/Creatinine [Mass ratio] 12.3 mg/mg 10-20 [facility] No Panel InformationOrdered By: Falguni Beasley on 05-28-2023 Estimated GFR (MDRD) Amer 99 mL/min >60 [facility] Comment on above: GFR Calc Estimated GFR (MDRD) Non-Af Amer 82 mL/min >60 [facility] Comment on above: Non- GFR Calc Serum or plasma albumin rl urement (mass/volume)Ordered By: Falguni Beasley on 05-28-2023 Albumin [Mass/Vol] 3.7 g/dL 3.2-5.0 [facility] Serum or plasma albumin/glob ulin mass ratioOrdered By: Falguni Beasley on 05-28-2023 Albumin/Globulin [Mass ratio] 0.8 {ratio} 0.9-2.4 [facility] Serum or plasma calcium rl urement (mass/volume)Ordered By: Falguni Beasley on 05-28-2023 Calcium [Mass/Vol] 9.5 mg/dL 8.5-10.1 [facility] Serum or plasma creatinine m easurement (mass/volume)Ordered By: Falguni Beasley on 05-28-2023 Creatinine [Mass/Vol] 0.98 mg/dL 0.70-1.30 [facility] Comment on above: The validity of the calculated GFR & GFRAA in patients over 70 years has not been determined. Clinical correlation is essential. Serum or plasma urea nitroge n measurement (mass/volume)Ordered By: Falguni Beasley on 05-28-2023 Urea nitrogen [Mass/Vol] 12 mg/dL 7-18 [facility] Thin prep Papanicolaou smear with manual screeningOrdered By: donald Beasley on 05-28-2023 Thin prep Papanicolaou smear with manual screening 43 U/L 15-37 [facility] Thin prep Papanicolaou smear with manual screening 4 5-15 [facility] Whole blood hemoglobin A1c/t otal hemoglobin ratio (mass fraction)Ordered By: Falguni Beasley on 05-28-2023 HbA1c (Bld) [Mass fraction] 5.7 % 3.8-5.6 [facility] Comment on above: Normal < 5.7 % Predi abetic 5.7 - 6.4 % Diabetic >or= 6.5 % Please note range changes. Absolute lymphocyte countOrd ered By: Dr. Beasley on 12-18-2022 Lymphocytes Auto (Unsp spec) [#/Vol] 1.63 10*3/uL 0.83-4.51 [facility] Basophil percentageOrdered B y: Dr. Beasley on 12-18-2022 Basophils/100 WBC (Bld) 1.3 % 0-1 [facility] Bilirubin [Mass/Vol] 0.40 mg/dL 0.20-1.00 [facility] Comment on above: For patients on eltr ombopag therapy, use of Dimension [place] TBIL is not recommended. Chloride [Moles/Vol] 105 mmol/L 98-107 [facility] Cholesterol [Mass/Vol] 155 mg/dL <200 [facility] Comment on above: <200 mg/dL Desirable 200-240 mg/dL Borderline >240 mg/dL High Risk Eosinophils/100 WBC (Bld) 2.7 % 0-5 [facility] Glucose [Mass/Vol] 99 mg/dL 74-106 [facility] Neutrophils (Bld) [#/Vol] 4.5 10*3/uL 2.0-7.7 [facility] Neutrophils/100 WBC (Bld) 62.3 % 47-70 [facility] Potassium [Moles/Vol] 4.2 mmol/L 3.5-5.1 [facility] Protein [Mass/Vol] 7.9 g/dL 6.4-8.2 [facility] Sodium [Moles/Vol] 138 mmol/L 136-145 [facility] Triglyceride [Mass/Vol] 121 mg/dL <199 [facility] Comment on above: The drugs N-Acetylcy steine and Metamizole may falsely depress this assay.Serum Triglycerides Reference Interval Normal <150 mg/dL Borderline high 150 - 199 mg/dL High 200 - 499 mg/dL Very High > or = 500 mg/dL WBC (Bld) [#/Vol] 7.2 10*3/uL 4.4-11.0 [facility] Blood erythrocytes count (nu mber/volume)Ordered By: Dr. Beasley on 12-18-2022 RBC (Bld) [#/Vol] 4.45 10*6/uL 4.6-6.2 [facility] Blood hemoglobin measurement (mass/volume)Ordered By: Dr. Beasley on 12-18-2022 Hemoglobin (Bld) [Mass/Vol] 14.0 g/dL 13.0-16.5 [facility] Blood lymphocytes/100 leukoc ytesOrdered By: Dr. Beasley on 12-18-2022 Lymphocytes/100 WBC (Bld) 22.8 % 19-41 [facility] Blood monocytes/100 leukocyt esOrdered By: Dr. Beasley on 12-18-2022 Monocytes/100 WBC (Bld) 10.6 % 0-10 [facility] Blood platelet mean volumeOr dered By: Dr. Beasley on 12-18-2022 Platelet mean volume (Bld) [Entitic vol] 9.9 fL 6.2-12.0 [facility] Determination of erythrocyte mean corpuscular volume (MCV)Ordered By: Dr. Beasley on 12-18-2022 MCV (RBC) [Entitic vol] 94.4 fL 80-94 [facility] Hematocrit Auto (Bld) [Volum e fraction]Ordered By: Dr. Beasley on 12-18-2022 Hematocrit (Bld) [Volume fraction] 42.0 % 40-54 [facility] - Chemistry and C hemistry - challengeOrdered By: Dr. Beasley on 12-18-2022 ALP [Catalytic activity/Vol] 144 U/L 45-117 [facility] [facility] ALT [Catalytic activity/Vol] 52 U/L 16-61 [facility] CO2 [Moles/Vol] 25.0 mmol/L 21.0-32.0 [facility] Globulin (S) [Mass/Vol] 4.1 g/dL 2.2-4.2 [facility] Urea nitrogen/Creatinine [Mass ratio] 17.5 mg/mg 10-20 [facility] Laboratory - Hematology and Cell countsOrdered By: Dr. Beasley on 12-18-2022 Erythrocyte distribution width (RBC) [Entitic vol] 43.0 fL 35.1-43.9 [facility] Erythrocyte distribution width (RBC) [Ratio] 12.6 % 11.6-14.6 [facility] Immature granulocytes/100 WBC (Bld) 0.300 % 0.0-0.9 [facility] Comment on above: IG% - Immature Granu locytes (promyelocytes, myelocytes and metamyelocytes) > 1% indicates that a LEFT SHIFT is Present. MCH (RBC) [Entitic mass] 31.5 pg 27.0-32.0 [facility] Nucleated RBC/100 WBC (Bld) [Ratio] 0 % 0-5 [facility] Laboratory - Hematology and Cell countson 12-18-2022 HbA1c (Bld) [Mass fraction] 5.7 % 4.2-6.3 [facility] MCHC Auto (RBC) [Mass/Vol]Or dered By: Dr. Beasley on 12-18-2022 MCHC (RBC) [Mass/Vol] 33.3 g/dL 32-36 [facility] No Panel InformationOrdered By: Dr. Beasley on 12-18-2022 Estimated GFR (MDRD) Amer 83 mL/min >60 [facility] Comment on above: GFR Calc Estimated GFR (MDRD) Non-Af Amer 68 mL/min >60 [facility] Comment on above: Non- GFR Calc Prostate Specific Antigen Screen 0.64 ng/mL 0.00-4.00 [facility] Comment on above: This test was perfor med using the TPSA assay method for the[employer] chemistry system. Values obtained with differentassay methods cannot be used interchangably.When changing PSA assays in the course of monitoring apatient, additional sequential testing should be carriedout to confirm baseline values. Platelets bldOrdered By: Dr. Beasley on 12-18-2022 Platelets (Bld) [#/Vol] 241 10*3/uL 150-450 [facility] Serum or plasma albumin rl urement (mass/volume)Ordered By: Dr. Beasley on 12-18-2022 Albumin [Mass/Vol] 3.8 g/dL 3.2-5.0 [facility] Serum or plasma albumin/glob ulin mass ratioOrdered By: Dr. Beasley on 12-18-2022 Albumin/Globulin [Mass ratio] 0.9 {ratio} 0.9-2.4 [facility] Serum or plasma calcium rl urement (mass/volume)Ordered By: Dr. Beasley on 12-18-2022 Calcium [Mass/Vol] 9.3 mg/dL 8.5-10.1 [facility] Serum or plasma cholesterol in HDL measurement (mass/volume)Ordered By: Dr. Beasley on 12-18-2022 Cholesterol in HDL [Mass/Vol] 56 mg/dL >40 [facility] Comment on above: The drugs N-Acetylcy steine and Metamizole may falsely depress this assay. Reference Range HDL <40 mg/dL Low HDL Cholesterol HDL >or= 60 mg/dL High HDL Cholesterol Serum or plasma cholesterol in VLDL measurement (mass/volume)Ordered By: Dr. Beasley on 12-18-2022 Cholesterol in VLDL [Mass/Vol] 24 mg/dL 5-40 [facility] Serum or plasma creatinine m easurement (mass/volume)Ordered By: Dr. Beasley on 12-18-2022 Creatinine [Mass/Vol] 1.14 mg/dL 0.70-1.30 [facility] Comment on above: The validity of the calculated GFR & GFRAA in patients over 70 years has not been determined. Clinical correlation is essential. Serum or plasma low density lipoprotein (LDL) cholesterol measurement (mass/volume)Ordered By: Dr. Beaslye on 12-18-2022 Cholesterol in LDL [Mass/Vol] 75 mg/dL 0-130 [facility] Serum or plasma urea nitroge n measurement (mass/volume)Ordered By: Dr. Beasley on 12-18-2022 Urea nitrogen [Mass/Vol] 20 mg/dL 7-18 [facility] Thin prep Papanicolaou smear with manual screeningOrdered By: Dr. Beasley on 12-18-2022 Thin prep Papanicolaou smear with manual screening 31 U/L 15-37 [facility] Thin prep Papanicolaou smear with manual screening 8 5-15 [facility] Basophil percentageOrdered B y: Soo Manrique on 11-03-2022 Basophil percentage < 0.9 mg/dL 0.70-1.30 [facility] No Panel InformationOrdered By: Soo Manrique on 11-03-2022 Bedside Estimated GFR (eGFR) > 60.0000 mL/min >60 [facility] Laboratory - Microbiology an d Antimicrobial susceptibilityon 04-10-2022 SARS-CoV-2 (COVID-19) RNA RAUDEL+probe Ql (Unsp spec) Not detected Not Detect [facility] Work Phone: Comment on above: Normal Reference Ran ge: Not DetectedMethod:(RT-PCR) real-time reverse transcriptase PCRLuminex IMTIAZ Instrument*The Food and Drug Administration (FDA) has issued an Emergency Use Authorization (EAU) for the IMTIAZ SARS-CoV-2 Assay for the rapid detection of [...] has had recent exposure. ANES POSTPROC EVALon ANES POSTPROC EVAL HNO ID: [id number] Author: Berenice Benavides MD Service: Anesthesiology Author Type: Physician Type: Anesthesia Postprocedure Evaluation Filed: 09/17/2021 10:08 AM Note Text: POST ANESTHESIA EVALUATION NOTE : 1955 Procedure Summary Date: 09/17/21 Room / Location: MD ENDO A / MD ENDO Anesthesia Start: 818 Anesthesia Stop: 901 [...] Pulse 58 09/17/21 0933 Resp 24 09/17/21 0933 SpO2 98 % 09/17/21932 Vitals shown include [...] September 17, 2021 TIME: 10:08 AM CSN: [id number] [facility] ANES PRE-OPon 09-17-2021 ANES PRE-OP HNO ID: [id number] Author: Berenice Benavides MD Service: Anesthesiology Author [...] September 17, 2021 TIME: 8:14 AM CSN: [id number] [facility] HISTORY PHYSICALon HISTORY PHYSICAL HNO ID: [id number] Author: Kristofer Mccarty MD Service: General Surgery [...] was seen in the emergency department at [facility] on 07/09/21, records reviewed. Patient presented with [...] recent ED visit, patient was hospitalized at [facility] for renal dysfunction in May 2021. He [...] pulmonology and cardiology. He follows with Dr. Baesley and Olegario Sanchez, DASIA-C in primary care and [facility]. ? ? PAST MEDICAL HISTORY [...] Laterality Date - COLONOSCOP W/ OR W/O [facility] SPEC ? 03/14/2018 ? Colonoscopy - COLONOSCOP W/ OR W/O [facility] SPEC ? 04/07/2019 ? Colonoscopy - EGD W/O OR W/BRUSH/WASH ? 08/11/2019 ? [facility], repeat in 2-3 years - INGUINAL HERNIA REPAIR HX ? 2009 - KNEE ARTHROSCOPY/SURGERY Left 2010 ? Dr. Fern[facility] ? ? ? CURRENT MEDICATIONS Current [...] Types: 8 (more content not included)... Normal [facility] SURGICAL PATHOLOGYon 09-17-2 021 SURGICAL PATHOLOGY Specimen originated from [facility] Specimen #: [id number] Submitting Physician: Kristofer Wichita, M.D. FINAL DIAGNOSIS 1. Stomach, antrum, biopsy [...] in one cassette. Gross examination performed at [facility], [address] [place] [address] 09/17/2021 5:07:07 PM Date of Report: 09/19/2021 Date of Procedure: 09/17/2021 Date of Receipt: 09/17/2021 Submitted by: Kristofer Mccarty M.D. Location: [facility] Diagnostic interpretation performed at [facility], [address] [facility] [address]. CLIA Number: [id number] Normal [facility] Basic metabolic 2000 panelon 06-23-2021 Anion gap [Moles/Vol] 15 mmol/L Normal 9-18 [facility] Comment on above: Order Comment: Speci men Type: BLOOD SPECIMEN Performed By: #### 2 4321-2 #### [facility] CLIA [id number] [address] [place] [address] Calcium [Mass/Vol] 10.5 mg/dL High 8.5-10.2 [facility] Comment on above: Order Comment: Speci men Type: BLOOD SPECIMEN Performed By: #### 2 4321-2 #### [facility] CLIA [id number] [address] [place] [address] Chloride [Moles/Vol] 100 mmol/L Normal 97-105 [facility] Comment on above: Order Comment: Speci men Type: BLOOD SPECIMEN Performed By: #### 2 4321-2 #### [facility] CLIA [id number] [address] [place] [address] CO2 [Moles/Vol] 16 mmol/L Low 22-30 [facility] Comment on above: Order Comment: Speci men Type: BLOOD SPECIMEN Performed By: #### 2 4321-2 #### [facility] CLIA [id number] [address] [place] [address] Creatinine [Mass/Vol] 2.04 mg/dL High 0.73-1.22 [facility] Comment on above: Order Comment: Speci men Type: BLOOD SPECIMEN Performed By: #### 2 4321-2 #### [facility] CLIA [id number] [address] [place] [address] GFR/1.73 sq M.predicted MDRD (S/P/Bld) [Vol rate/Area] 40 mL/min/{1.73_m2} Normal [facility] Comment on above: Order Comment: Speci [...] GFR. Performed By: #### 2 4321-2 #### [facility] CLIA [id number] [address] [place] [address] Glucose [Mass/Vol] 102 mg/dL High 74-99 [facility] Comment on above: Order Comment: Speci men Type: BLOOD SPECIMEN Result Comment: The [place] Diabetes Association (ADA) provides guidance for cutoff [...] Standards of Medical Care in Diabetes 2016, [place] [employer]. Diabetes Care. 2016.39(Suppl 1). Performed By: #### 2 4321-2 #### [facility] CLIA [id number] [address] [place] [address] Potassium [Moles/Vol] 3.7 mmol/L Normal 3.7-5.1 [facility] Comment on above: Order Comment: Speci men Type: BLOOD SPECIMEN Performed By: #### 2 4321-2 #### [facility] CLIA [id number] [address] [place] [address] Sodium [Moles/Vol] 131 mmol/L Low 136-144 [facility] Comment on above: Order Comment: Speci men Type: BLOOD SPECIMEN Performed By: #### 2 4321-2 #### [facility] CLIA [id number] [address] [place] [address] Urea nitrogen [Mass/Vol] 31 mg/dL High 9-24 [facility] Comment on above: Order Comment: Speci men Type: BLOOD SPECIMEN Performed By: #### 2 4321-2 #### [facility] CLIA [id number] [address] [place] [address] Vital Signs Date Time Vital Sign Value Performing Clinician Faci lity 08-07-2025 07:53-0400 Body mass index (BMI) [Ratio] 30.4 kg/m2 Dr. Falguni Beasley MD Work Phone: [facility] 08-07-2025 07:53-0400 Body temperature 97.5 [degF] Dr. Falguni Beasley MD Work Phone: [facility] 08-07-2025 07:53-0400 Body weight 107.[address] Falguni Beasley MD Work Phone: [facility] 08-07-2025 07:53-0400 Diastolic blood pressure 77 mm[Hg] Dr. Falguni Beasley MD Work Phone: [facility] 08-07-2025 07:53-0400 Heart rate 60 /min Dr. Falguni Beasley MD Work Phone: [facility] 08-07-2025 07:53-0400 Respiratory rate 18 /min Dr. Falguni Beasley MD Work Phone: [facility] 08-07-2025 07:53-0400 SaO2% (BldA) [Mass fraction] 99 % Dr. Falguni Beasley MD Work Phone: [facility] 08-07-2025 07:53-0400 Systolic blood pressure 138 mm[Hg] Dr. Falguni Beasley MD Work Phone: [facility] 07-17-2025 11:06-0400 Body height 187.[address] Falguni Beasley MD Work Phone: [facility] 07-17-2025 11:06-0400 Body mass index (BMI) [Ratio] 30.2 kg/m2 Dr. Falguni Beasley MD Work Phone: [facility] 07-17-2025 11:06-0400 Body weight 107.[address] Falguni Beasley MD Work Phone: [facility] 07-17-2025 11:06-0400 Diastolic blood pressure 63 mm[Hg] Dr. Falguni Beasley MD Work Phone: [facility] 07-17-2025 11:06-0400 Heart rate 58 /min Dr. Falguni Beasley MD Work Phone: [facility] 07-17-2025 11:06-0400 Respiratory rate 18 /min Dr. Falguni Beasley MD Work Phone: [facility] 07-17-2025 11:06-0400 Systolic blood pressure 124 mm[Hg] Dr. Falguni Beasley MD Work Phone: [facility] 06-19-2025 09:03-0400 Body height 187.[address] Falguni Beasley MD Work Phone: [facility] 06-19-2025 09:03-0400 Body mass index (BMI) [Ratio] 30.9 kg/m2 Dr. Falguni Beasley MD Work Phone: [facility] 06-19-2025 09:03-0400 Body weight 109.[address] Falguni Beasley MD Work Phone: [facility] 06-19-2025 09:03-0400 Diastolic blood pressure 77 mm[Hg] Dr. Falguni Beasley MD Work Phone: [facility] 06-19-2025 09:03-0400 Heart rate 56 /min Dr. Falguni Beasley MD Work Phone: [facility] 06-19-2025 09:03-0400 Respiratory rate 18 /min Dr. Falguni Beasley MD Work Phone: [facility] 06-19-2025 09:03-0400 SaO2% (BldA) [Mass fraction] 94 % Dr. Falguni Beasley MD Work Phone: [facility] 06-19-2025 09:03-0400 Systolic blood pressure 168 mm[Hg] Dr. Falguni Beasley MD Work Phone: [facility] 04-30-2025 11:32-0400 Body height 187.[address] Falguni Beasley MD Work Phone: [facility] 04-30-2025 11:32-0400 Body mass index (BMI) [Ratio] 31 kg/m2 Dr. Falguni Beasley MD Work Phone: [facility] 04-30-2025 11:32-0400 Body weight 109.[address] Falguni Beasley MD Work Phone: [facility] 04-30-2025 11:32-0400 Diastolic blood pressure 96 mm[Hg] Dr. Falguni Beasley MD Work Phone: [facility] 04-30-2025 11:32-0400 Heart rate 71 /min Dr. Falguni Beasley MD Work Phone: [facility] 04-30-2025 11:32-0400 Respiratory rate 18 /min Dr. Falguni Beasley MD Work Phone: [facility] 04-30-2025 11:32-0400 Systolic blood pressure 162 mm[Hg] Dr. Falguni Beasley MD Work Phone: [facility] 03-30-2025 10:23-0400 Body height 187.[address] Falguni Beasley MD Work Phone: [facility] 03-30-2025 10:23-0400 Body mass index (BMI) [Ratio] 30.3 kg/m2 Dr. Falguni Beasley MD Work Phone: [facility] 03-30-2025 10:23-0400 Body temperature 97.2 [degF] Dr. Falguni Beasley MD Work Phone: [facility] 03-30-2025 10:23-0400 Body weight 107.[address] Falguni Beasley MD Work Phone: [facility] 03-30-2025 10:23-0400 Diastolic blood pressure 80 mm[Hg] Dr. Falguni Beasley MD Work Phone: [facility] 03-30-2025 10:23-0400 Heart rate 76 /min Dr. Falguni Beasley MD Work Phone: [facility] 03-30-2025 10:23-0400 Respiratory rate 16 /min Dr. Falguni Beasley MD Work Phone: [facility] 03-30-2025 10:23-0400 SaO2% (BldA) [Mass fraction] 99 % Dr. Falguni Beasley MD Work Phone: [facility] 03-30-2025 10:23-0400 Systolic blood pressure 132 mm[Hg] Dr. Falguni Beasley MD Work Phone: [facility] 01-12-2025 08:04-0500 Body mass index (BMI) [Ratio] 29 kg/m2 Dr. Falguni Beasley MD Work Phone: [facility] 01-12-2025 08:04-0500 Body temperature 97.4 [degF] Dr. Falguni Beasley MD Work Phone: [facility] 01-12-2025 08:04-0500 Body weight 102.[address] Falguni Beasley MD Work Phone: [facility] 01-12-2025 08:04-0500 Diastolic blood pressure 75 mm[Hg] Dr. Falguni Beasley MD Work Phone: [facility] 01-12-2025 08:04-0500 Heart rate 81 /min Dr. Falguni Beasley MD Work Phone: [facility] 01-12-2025 08:04-0500 Respiratory rate 18 /min Dr. Falguni Beasley MD Work Phone: [facility] 01-12-2025 08:04-0500 SaO2% (BldA) [Mass fraction] 96 % Dr. Falguni Beasley MD Work Phone: [facility] 01-12-2025 08:04-0500 Systolic blood pressure 124 mm[Hg] Dr. Falguni Beasley MD Work Phone: [facility] 12-28-2024 15:08-0500 Body mass index (BMI) [Ratio] 30 kg/m2 Dr. Falguni Beasley MD Work Phone: [facility] 12-28-2024 15:08-0500 Body temperature 97.5 [degF] Dr. Falguni Beasley MD Work Phone: [facility] 12-28-2024 15:08-0500 Body weight 106.[address] Falguni Beasley MD Work Phone: [facility] 12-28-2024 15:08-0500 Diastolic blood pressure 82 mm[Hg] Dr. Falguni Beasley MD Work Phone: [facility] 12-28-2024 15:08-0500 Heart rate 70 /min Dr. Falguni Beasley MD Work Phone: [facility] 12-28-2024 15:08-0500 Respiratory rate 18 /min Dr. Falguni Beasley MD Work Phone: [facility] 12-28-2024 15:08-0500 SaO2% (BldA) [Mass fraction] 99 % Dr. Falguni Beasley MD Work Phone: [facility] 12-28-2024 15:08-0500 Systolic blood pressure 144 mm[Hg] Dr. Falguni Beasley MD Work Phone: [facility] 12-22-2023 08:59-0500 Body height 187.[address] Falguni Beasley Work Phone: [facility] 12-22-2023 08:59-0500 Body mass index (BMI) [Ratio] 30.9 kg/m2 Dr. Falguni Beasley Work Phone: [facility] 12-22-2023 08:59-0500 Body temperature 97.1 [degF] Dr. Falguni Beasley Work Phone: [facility] 12-22-2023 08:59-0500 Body weight 109.[address] Falguni Beasley Work Phone: [facility] 12-22-2023 08:59-0500 Diastolic blood pressure 74 mm[Hg] Dr. Falguni Beasley Work Phone: [facility] 12-22-2023 08:59-0500 Heart rate 79 /min Dr. Falguni Beasley Work Phone: [facility] 12-22-2023 08:59-0500 Respiratory rate 16 /min Dr. Falguni Beasley Work Phone: [facility] 12-22-2023 08:59-0500 SaO2% (BldA) [Mass fraction] 99 % Dr. Falguni Beasley Work Phone: [facility] 12-22-2023 08:59-0500 Systolic blood pressure 120 mm[Hg] Dr. Falguni Beasley Work Phone: [facility] 12-10-2023 11:37-0500 Body mass index (BMI) [Ratio] 31.4 kg/m2 Dr. Falguni Beasley Work Phone: [facility] 12-10-2023 11:37-0500 Body weight 111.[address] Falguni Beasley Work Phone: [facility] 12-10-2023 11:37-0500 Diastolic blood pressure 75 mm[Hg] Dr. Falguni Beasley Work Phone: [facility] 12-10-2023 11:37-0500 Heart rate 59 /min Dr. Falguni Beasley Work Phone: [facility] 12-10-2023 11:37-0500 Respiratory rate 18 /min Dr. Falguni Beasley Work Phone: [facility] 12-10-2023 11:37-0500 Systolic blood pressure 112 mm[Hg] Dr. Falguni Beasley Work Phone: [facility] 10-13-2023 08:02-0500 Body mass index (BMI) [Ratio] 31 kg/m2 Dr. Falguni Beasley Work Phone: [facility] 10-13-2023 08:02-0500 Body temperature 97.7 [degF] Dr. Falguni Beasley Work Phone: [facility] 10-13-2023 08:02-0500 Body weight 109.[address] Falguni Beasley Work Phone: [facility] 10-13-2023 08:02-0500 Diastolic blood pressure 81 mm[Hg] Dr. Falguni Beasley Work Phone: [facility] 10-13-2023 08:02-0500 Heart rate 77 /min Dr. Falguni Beasley Work Phone: [facility] 10-13-2023 08:02-0500 Respiratory rate 20 /min Dr. Falguni Beasley Work Phone: [facility] 10-13-2023 08:02-0500 SaO2% (BldA) [Mass fraction] 95 % Dr. Falguni Beasley Work Phone: [facility] 10-13-2023 08:02-0500 Systolic blood pressure 133 mm[Hg] Dr. Falguni Beasley Work Phone: [facility] 10-05-2023 13:00-0500 Body height 187.[address] Falguni Beasley Work Phone: [facility] 10-05-2023 13:00-0500 Body weight 104.[address] Falguni Beasley Work Phone: [facility] 10-05-2023 13:00-0500 Heart rate 79 /min Dr. Falguni Beasley Work Phone: [facility] 10-05-2023 13:00-0500 SaO2% (BldA) [Mass fraction] 97 % Dr. Falguni Beasley Work Phone: [facility] 08-19-2023 12:32-0400 Body mass index (BMI) [Ratio] 30.2 kg/m2 Dr. Falguni Beasley Work Phone: [facility] 08-19-2023 12:32-0400 Body temperature 97.5 [degF] Dr. Falguni Beasley Work Phone: [facility] 08-19-2023 12:32-0400 Body weight 106.[address] Falguni Beasley Work Phone: [facility] 08-19-2023 12:32-0400 Diastolic blood pressure 79 mm[Hg] Dr. Falguni Beasley Work Phone: [facility] 08-19-2023 12:32-0400 Heart rate 61 /min Dr. Falguni Beasley Work Phone: [facility] 08-19-2023 12:32-0400 Respiratory rate 20 /min Dr. Falguni Beasley Work Phone: [facility] 08-19-2023 12:32-0400 SaO2% (BldA) [Mass fraction] 96 % Dr. Falguni Beasley Work Phone: [facility] 08-19-2023 12:32-0400 Systolic blood pressure 149 mm[Hg] Dr. Falguni Beasley Work Phone: [facility] 05-28-2023 08:48-0400 Body height 187.[address] Falguni Beasley Work Phone: [facility] 05-28-2023 08:48-0400 Body mass index (BMI) [Ratio] 30.4 kg/m2 Dr. Falguni Beasley Work Phone: [facility] 05-28-2023 08:48-0400 Body temperature 95.4 [degF] Dr. Falguni Beasley Work Phone: [facility] 05-28-2023 08:48-0400 Body weight 107.[address] Falguni Beasley Work Phone: [facility] 05-28-2023 08:48-0400 Diastolic blood pressure 70 mm[Hg] Dr. Falguni Beasley Work Phone: [facility] 05-28-2023 08:48-0400 Heart rate 47 /min Dr. Falguni Beasley Work Phone: [facility] 05-28-2023 08:48-0400 Respiratory rate 18 /min Dr. Falguni Beasley Work Phone: [facility] 05-28-2023 08:48-0400 SaO2% (BldA) [Mass fraction] 96 % Dr. Falguni Beasley Work Phone: [facility] 05-28-2023 08:48-0400 Systolic blood pressure 136 mm[Hg] Dr. Falguni Beasley Work Phone: [facility] 12-18-2022 15:27-0500 Body height 187.[address] Falguni Beasley Work Phone: [facility] 12-18-2022 15:27-0500 Body mass index (BMI) [Ratio] 31.1 kg/m2 Dr. Falguni Beasley Work Phone: [facility] 12-18-2022 15:27-0500 Body temperature 98.2 [degF] Dr. Falguni Beasley Work Phone: [facility] 12-18-2022 15:27-0500 Body weight 110.[address] Falguni Beasley Work Phone: [facility] 12-18-2022 15:27-0500 Diastolic blood pressure 80 mm[Hg] Dr. Falguni Beasley Work Phone: [facility] 12-18-2022 15:27-0500 Heart rate 71 /min Dr. Falguni Beasley Work Phone: [facility] 12-18-2022 15:27-0500 Respiratory rate 16 /min Dr. Falguni Beasley Work Phone: [facility] 12-18-2022 15:27-0500 SaO2% (BldA) [Mass fraction] 97 % Dr. Falguni Beasley Work Phone: [facility] 12-18-2022 15:27-0500 Systolic blood pressure 132 mm[Hg] Dr. Falguni Beasley Work Phone: [facility] 11-05-2022 09:28-0500 Body height 187.[address] Falguni Beasley Work Phone: [facility] Work Phone: 11-05-2022 09:28-0500 Body mass index (BMI) [Ratio] 30.5 kg/m2 Dr. Falguni Beasley Work Phone: [facility] 11-05-2022 09:28-0500 Body temperature 97.2 [degF] Dr. Falguni Beasley Work Phone: [facility] 11-05-2022 09:28-0500 Body weight 107.[address] Falguni Beasley Work Phone: [facility] 11-05-2022 09:28-0500 Diastolic blood pressure 75 mm[Hg] Dr. Falguni Beasley Work Phone: [facility] 11-05-2022 09:28-0500 Heart rate 52 /min Dr. Falguni Beasley Work Phone: [facility] 11-05-2022 09:28-0500 Respiratory rate 17 /min Dr. Falguni Beasley Work Phone: [facility] 11-05-2022 09:28-0500 SaO2% (BldA) [Mass fraction] 98 % Dr. Falguni Beasley Work Phone: [facility] 11-05-2022 09:28-0500 Systolic blood pressure 130 mm[Hg] Dr. Falguni Beasley Work Phone: [facility] 10-26-2022 09:30-0500 Body temperature 98.6 [degF] Dr. Falguni Beasley Work Phone: [facility] 10-26-2022 09:30-0500 Diastolic blood pressure 82 mm[Hg] Dr. Falguni Beasley Work Phone: [facility] 10-26-2022 09:30-0500 Heart rate 63 /min Dr. Falguni Beasley Work Phone: [facility] 10-26-2022 09:30-0500 SaO2% (BldA) [Mass fraction] 98 % Dr. Falguni Beasley Work Phone: [facility] 10-26-2022 09:30-0500 Systolic blood pressure 138 mm[Hg] Dr. Falguni Beasley Work Phone: [facility] 09-29-2022 09:04-0500 Body mass index (BMI) [Ratio] 30.2 kg/m2 Dr. Falguni Beasley Work Phone: [facility] 09-29-2022 09:04-0500 Body temperature 98.3 [degF] Dr. Falguni Beasley Work Phone: [facility] 09-29-2022 09:04-0500 Body weight 107.[address] Falguni Beasley Work Phone: [facility] 09-29-2022 09:04-0500 Diastolic blood pressure 64 mm[Hg] Dr. Falguni Beasley Work Phone: [facility] 09-29-2022 09:04-0500 Heart rate 69 /min Dr. Falguni Beasley Work Phone: [facility] 09-29-2022 09:04-0500 Respiratory rate 14 /min Dr. Falguni Beasley Work Phone: [facility] 09-29-2022 09:04-0500 SaO2% (BldA) [Mass fraction] 98 % Dr. Falguni Beasley Work Phone: [facility] 09-29-2022 09:04-0500 Systolic blood pressure 118 mm[Hg] Dr. Falguni Beasley Work Phone: [facility] 08-11-2022 16:27-0400 Body height 187.[address] Falguni Beasley Work Phone: [facility] Work Phone: 08-11-2022 16:27-0400 Body mass index (BMI) [Ratio] 29.5 kg/m2 Dr. Falguni Beasley Work Phone: [facility] Work Phone: 08-11-2022 16:27-0400 Body temperature 98.6 [degF] Dr. Falguni Beasley Work Phone: [facility] Work Phone: 08-11-2022 16:27-0400 Body weight 104.[address] Falguni Beasley Work Phone: [facility] Work Phone: 08-11-2022 16:27-0400 Diastolic blood pressure 78 mm[Hg] Dr. Falguni Beasley Work Phone: [facility] Work Phone: 08-11-2022 16:27-0400 Heart rate 65 /min Dr. Falguni Beasley Work Phone: [facility] Work Phone: 08-11-2022 16:27-0400 Respiratory rate 16 /min Dr. Falguni Beasley Work Phone: [facility] Work Phone: 08-11-2022 16:27-0400 SaO2% (BldA) [Mass fraction] 97 % Dr. Falguni Beasley Work Phone: [facility] Work Phone: 08-11-2022 16:27-0400 Systolic blood pressure 137 mm[Hg] Dr. Falguni Beasley Work Phone: [facility] Work Phone: 06-29-2022 10:42-0400 Body height 187.[address] Falguni Beasley Work Phone: [facility] Work Phone: 06-29-2022 10:42-0400 Body mass index (BMI) [Ratio] 29.1 kg/m2 Dr. Falguni Beasley Work Phone: [facility] Work Phone: 06-29-2022 10:42-0400 Body temperature 97.9 [degF] Dr. Falguni Beasley Work Phone: [facility] Work Phone: 06-29-2022 10:42-0400 Body weight 102.[address] Falguni Beasley Work Phone: [facility] Work Phone: 06-29-2022 10:42-0400 Diastolic blood pressure 70 mm[Hg] Dr. Falguni Beasley Work Phone: [facility] Work Phone: 06-29-2022 10:42-0400 Heart rate 82 /min Dr. Falguni Beasley Work Phone: [facility] Work Phone: 06-29-2022 10:42-0400 Respiratory rate 16 /min Dr. Falguni Beasley Work Phone: [facility] Work Phone: 06-29-2022 10:42-0400 SaO2% (BldA) [Mass fraction] 97 % Dr. Falguni Beasley Work Phone: [facility] Work Phone: 06-29-2022 10:42-0400 Systolic blood pressure 120 mm[Hg] Dr. Falguni Beasley Work Phone: [facility] Work Phone: 06-10-2022 16:31-0400 Body mass index (BMI) [Ratio] 29.1 kg/m2 Dr. Falguni Beasley Work Phone: [facility] Work Phone: 06-10-2022 16:31-0400 Body temperature 98.8 [degF] Dr. Falguni Beasley Work Phone: [facility] Work Phone: 06-10-2022 16:31-0400 Body weight 102.[address] Falguni Beasley Work Phone: [facility] Work Phone: 06-10-2022 16:31-0400 Diastolic blood pressure 75 mm[Hg] Dr. Falguni Beasley Work Phone: [facility] Work Phone: 06-10-2022 16:31-0400 Heart rate 50 /min Dr. Falguni Beasley Work Phone: [facility] Work Phone: 06-10-2022 16:31-0400 Respiratory rate 14 /min Dr. Falguni Beasley Work Phone: [facility] Work Phone: 06-10-2022 16:31-0400 SaO2% (BldA) [Mass fraction] 96 % Dr. Falguni Beasley Work Phone: [facility] Work Phone: 06-10-2022 16:31-0400 Systolic blood pressure 130 mm[Hg] Dr. Falguni Beasley Work Phone: [facility] Work Phone: 04-10-2022 13:39-0400 Body temperature 98.2 [degF] Dr. Falguni Beasley Work Phone: [facility] Work Phone: 04-10-2022 13:39-0400 Diastolic blood pressure 60 mm[Hg] Dr. Falguni Beasley Work Phone: [facility] Work Phone: 04-10-2022 13:39-0400 Heart rate 89 /min Dr. Falguni Beasley Work Phone: [facility] Work Phone: 04-10-2022 13:39-0400 SaO2% (BldA) [Mass fraction] 97 % Dr. Falguni Beasley Work Phone: [facility] Work Phone: 04-10-2022 13:39-0400 Systolic blood pressure 118 mm[Hg] Dr. Falguni Beasley Work Phone: [facility] Work Phone: 04-10-2022 13:39-0400 Body height 187.[address] Falguni Beasley Work Phone: [facility] Work Phone: 04-10-2022 13:39-0400 Body temperature 98.2 [degF] Dr. Falguni Beasley Work Phone: [facility] Work Phone: 04-10-2022 13:39-0400 Diastolic blood pressure 60 mm[Hg] Dr. Falguni Beasley Work Phone: [facility] Work Phone: 04-10-2022 13:39-0400 Heart rate 89 /min Dr. Falguni Beasley Work Phone: [facility] Work Phone: 04-10-2022 13:39-0400 SaO2% (BldA) [Mass fraction] 97 % Dr. Falguni Beasley Work Phone: [facility] Work Phone: 04-10-2022 13:39-0400 Systolic blood pressure 118 mm[Hg] Dr. Falguni Beasley Work Phone: [facility] Work Phone: Encounters Encounter Date Encounter Type Care Provider Facility Start: 08-07-2025 End: 08-07-2025 Patient encounter procedure Olimpia NIELSEN -[facility] Work Phone: Start: 08-07-2025 End: 08-07-[address] Falguni Beasley MD Work Phone: -[facility] Start: 07-17-2025 End: 07-17-2025 Patient encounter procedure Linda Horne VOUCHER EXAMINER-C -[facility] Work Phone: Start: 07-17-2025 End: 07-17-[address] Falguni Beasley MD Work Phone: -[facility] Start: 06-19-2025 End: 06-19-[address] Falguni Beasley MD Work Phone: -[facility] Start: 06-19-2025 End: 06-19-2025 Patient encounter procedure Linda Horne VOUCHER EXAMINER-C -[facility] Work Phone: Start: 06-19-2025 End: 06-19-2025 ambulatory Linda Horne NP Facility:[facility] Start: 05-04-2025 End: 05-04-[address] Falguni Beasley MD Work Phone: [facility] Work Phone: Start: 05-04-2025 End: 05-04-2025 Patient encounter procedure Olimpia Root VOUCHER EXAMINER-C -Cat Scan [facility] Work Phone: Start: 05-04-2025 End: 05-04-2025 ambulatory Falguni Beasley Facility:[facility] Start: 04-30-2025 End: 04-30-2025 Patient encounter procedure Linda Horne VOUCHER EXAMINER-C -[facility] Work Phone: Start: 04-30-2025 End: 04-30-[address] Falguni Beasley MD Work Phone: [facility] Work Phone: Start: 03-30-2025 End: 03-30-[address] Falguni Beasley MD -[facility] Work Phone: Start: 03-30-2025 End: 03-30-[address] Falguni Beasley MD Work Phone: [facility] Work Phone: Start: 03-30-2025 End: 03-30-2025 ambulatory Efewongbe Oleghe Facility:[facility] Start: 01-12-2025 End: 01-12-2025 Patient encounter procedure Olimpia Root VOUCHER EXAMINER-C -[facility] Work Phone: Start: 01-12-2025 End: 01-12-2025 ambulatory Efewongbe Olecarmelitae Facility:[facility] Start: 12-28-2024 End: 12-28-[address] Falguni Beasley MD -Laboratory, [place] Start: 12-28-2024 End: 12-28-[address] Falguni Beasley MD -[facility] Work Phone: Start: 12-28-2024 End: 12-28-2024 ambulatory Efewongbe Oleghe Facility:[facility] Start: 10-31-2024 End: 10-31-2024 ambulatory Olimpia Root NP Facility:[facility] Start: 10-27-2024 End: 10-27-2024 ambulatory Efewongbe Oleghe Facility:[facility] Start: 10-18-2024 End: 10-18-2024 ambulatory ewongbe Oleghe Facility:[facility] Start: 10-11-2024 End: 10-11-2024 ambulatory Efewongbe Oleghe Facility:[facility] Start: 10-06-2024 End: 10-06-2024 ambulatory Efewongbe Oleghe Facility:[facility] Start: 10-06-2024 End: 10-06-2024 ambulatory [facility] Facility:[facility] Start: 09-14-2024 End: 09-14-2024 ambulatory Linda Horne NP Facility:[facility] Start: 01-14-2024 Non-patient / Non-visit Dr. Makayla Beasley Work Phone: [facility] Start: 01-14-2024 End: 01-14-[address] Falguni Beasley Work Phone: [facility] Work Phone: Start: 01-14-2024 End: 01-14-[address] [facility] Start: 12-22-2023 End: 12-22-[address] Falguni Beasley Work Phone: [facility] Work Phone: Start: 12-22-2023 End: 12-22-[address] Falguni Beasley Work Phone: [facility] Work Phone: Start: 12-10-2023 End: 12-10-[address] Falguni Beasley Work Phone: [facility] Work Phone: Start: 10-13-2023 End: 10-13-[address] [facility] Work Phone: Start: 10-06-2023 Non-patient / Non-visit Dr. Makayla Beasley Work Phone: [facility] Start: 10-05-2023 End: 10-05-[address] Falguni Beasley Work Phone: [facility] Work Phone: Start: 10-05-2023 End: 10-05-[address] Falguni Beasley Work Phone: [facility] Work Phone: Start: 08-19-2023 End: 08-19-[address] [facility] Work Phone: Start: 05-28-2023 End: 05-28-[address] Falguni Beasley Work Phone: [facility] Work Phone: Start: 05-28-2023 End: 05-28-[address] Falguni Beasley Work Phone: [facility] Work Phone: Start: 12-18-2022 End: 12-18-[address] Falguni Beasley Work Phone: [facility] Work Phone: Start: 12-18-2022 End: 12-18-[address] Falguni Beasley Work Phone: [facility] Start: 11-05-2022 End: 11-05-[address] Falguni Beasley Work Phone: [facility] Start: 11-03-2022 End: 11-03-[address] Falguni Beasley Work Phone: [facility] Work Phone: Start: 11-03-2022 End: 11-03-[address] Falguni Beasley Work Phone: [facility] Start: 10-26-2022 End: 10-26-[address] Falguni Beasley Work Phone: [facility] Start: 09-29-2022 End: 09-29-[address] Falguni Beasley Work Phone: [facility] Start: 08-11-2022 End: 08-11-[address] Falguni Beasley Work Phone: [facility] Work Phone: Start: 08-11-2022 End: 08-11-[address] Falguni Beasley Work Phone: [facility] Start: 06-29-2022 End: 06-29-[address] Falguni Beasley Work Phone: [facility] Start: 06-29-2022 End: 06-29-[address] Falguni Beasley Work Phone: [facility] Start: 06-10-2022 End: 06-10-[address] Falguni Beasley Work Phone: [facility] Start: 04-10-2022 End: 04-10-[address] Falguni Beasley Work Phone: [facility] Procedures Date Procedure Procedure Detail Performing Clinician Start: 06-19-2025 X-ray of chest, PA a nd lateral views Dr. Falguni Beasley MD Work Phone: Start: 05-04-[address] Lindsay Beasley MD Work Phone: Start: 12-28-2024 SARS-CoV-2, Influenz a & RSV (PCR) Dr. Falguni Beasley MD Work Phone: Start: 10-05-[address] Lindsay Beasley Work Phone: Start: 11-03-2022 CT of abdomen with contrast Dr. Falguni Beasley Work Phone: Start: 08-11-[address] Lindsay Beasley Work Phone: Start: 06-29-2022 Plain chest X-ray Dr. Matt Beasley Work Phone: Start: 04-10-2022 Plain chest X-ray Dr. Matt Beasley Work Phone: Plan of Treatment Date Care Activity Detail Author Start: 08-15-2025 ambulatory Ambulatory Facility:[facility] Start: 12-22-2023 Evaluation of diagnostic study results [facility] Start: 05-28-2023 Patient referral [facility] Work Phone: Start: 11-03-2022 Abdomen WITH IV Contrast Abdomen WITH IV Contrast [facility] Start: 11-03-2022 CT Abdomen W contrast IV [facility] Start: 10-26-2022 Patient referral [facility] Work Phone: Anion gap in Serum o r Plasma [facility] BUN/Creatinine ratio [facility] Calcium [Mass/volume ] in Serum or Plasma [facility] Carbon dioxide, tota l [Moles/volume] in Central venous blood [facility] CBC W Auto Different ial panel - Blood [facility] Work Phone: Creatinine [Mass/vol ume] in Serum or Plasma [facility] CT Chest [facility] CT Chest WO contrast [facility] Glucose [Mass/volume ] in Serum or Plasma [facility] Hemoglobin A1c/Hemoglobin.total in Blood [facility] Work Phone: Lipid 1996 panel - S jayjay or Plasma [facility] Work Phone: Measurement of renal function [facility] Natriuretic peptide. B prohormone N-Terminal [Mass/volume] in Serum or Plasma [facility] NM Heart Views W str ess and W radionuclide IV [facility] Patient referral [facility] Work Phone: Polysomnography [facility] Potassium measurement [facility] Serum chloride measurement [facility] Sodium measurement [facility] Urea nitrogen [Mass/ volume] in Serum or Plasma [facility] Immunizations Immunization Date Immunization Notes Care Provider [place] 08-01-2025 RSV Adult Recombinan t (Arexvy) Dr. Falguni Beasley MD Work Phone: [facility] 09-26-2024 Influenza, injectabl e, Madin Ashleigh Canine Kidney, preservative free, quadrivalent Dr. Falguni Beasley MD Work Phone: [facility] 11-17-2021 Covid (Pfizer) Dr. Falguni Beasley MD Work Phone: [facility] 02-22-2021 Covid (Pfizer) Dr. Falguni Beasley MD Work Phone: [facility] 02-10-2021 Covid (Pfizer) Dr. Falguni Beasley Work Phone: [facility] 02-01-2021 Covid (Pfizer) Dr. Falguni Beasley MD Work Phone: [facility] 01-20-2021 Covid (Pfizer) Dr. Falguni Beasley Work Phone: [facility] 08-22-2020 influenza, injectabl e, quadrivalent, preservative free Dr. Falguni Beasley MD Work Phone: [facility] 12-09-[address] Falguni Beasley MD Work Phone: [facility] 09-22-2019 influenza, injectabl e, quadrivalent, preservative free Dr. Falguni Beasley MD Work Phone: [facility] 08-17-2018 influenza, injectabl e, quadrivalent, preservative free Dr. Falguni Beasley MD Work Phone: [facility] 08-10-[address] Falguni Beasley MD Work Phone: [facility] 10-04-2017 influenza, injectabl e, quadrivalent, preservative free Dr. Falguni Beasley MD Work Phone: [facility] 08-14-2016 tetanus toxoid, redu lamberto diphtheria toxoid, and acellular pertussis vaccine, adsorbed Dr. Falguni Beasley MD Work Phone: [facility] Payers Date Payer Category Payer Private Health Insurance [id number] 2024 Medicare [id number] 2024 Private Health Insurance [id number] Self-pay [id number] 2024 Unknown [id number] 2011 Unknown [id number] Unknown [id number] Unknown [id number] 2.16.8 [id number] Unknown [id number] 2.16.8 [id number] Unknown [id number] 2.16.8 [id number] Unknown [id number] 2.16.8 [id number] Unknown [id number] 2.16.8 [id number] Unknown [id number] 2.16.8 [id number] Unknown [id number] 2.16.8 [id number] Unknown [id number] 2.16.8 [id number] Unknown [id number] 2.16.8 [id number] Unknown [id number] 2.16.8 [id number] Unknown [id number] 2.16.8 [id number] Unknown [id number] 2.16.8 [id number] Unknown [id number] 2.16.8 [id number] Unknown [id number] 2.16.8 [id number] Unknown [id number] 2.16.8 [id number] Unknown [id number] 2.16.8 [id number] Unknown [id number] 2.16.8 [id number] Unknown [id number] 2.16.8 [id number] Unknown [id number] [id number] [id number] Social History Date Type Detail Facility Start: 04-10-2022 End: 12-22-2023 Tobacco smoking status TXIS Unknown if ever smoked [facility] Start: 08-08-2020 None [facility] Start: 08-08-2020 Spouse/ Signif icant Other [facility] Start: 08-08-2020 Cigarettes [facility] Start: 1955 Sex Assigned At Male W [facility] Start: 03-03-2024 Tobacco smoking status NHIS Ex-smoker (finding) [facility] Clinical Notes 10-06-2023 to 06-19-2025 Note Date & Type Note Facility 06-19-2025 Radiology Diagnostic study note [facility] Imaging Services [address], [place] [id number] Chest PA and Lateral MR#: [id number] Acct: [id number] Name: TRACEY IVERSON Rep #: [id number] : 1955 M [id number] From: Pierre Gomes MD PCP: Dr. Falguni Beasley MD Status: R EG CLI Study:Chest PA and Lateral Date of Exam: 06/19/25 Exam# [id number] Ordering Dr: Faraz Horne NP VOUCHER EXAMINER-C PROCEDURE: CHEST 2 PA AND LATERAL 06/19/2025 REASON FOR EXAM: SHORTNESS OF BREATH, COUGH, EDEMA TECHNIQUE: CHEST 2 PA AND LATERAL COMPARISON: None FINDINGS: Hardware: None Heart: The heart size is normal. Mediastinum: The mediastinal contour is unremarkable. Lungs: Lungs are mildly hyperexpanded with chronic interstitial changes, no superimposed acute pulmonary process. Bones: Degenerative changes are identified within the thoracic spine. RAD/Chest PA and Lateral IMPRESSION: Mildly hyperexpanded lungs with chronic interstitial changes, no superimposed acute pulmonary process Reading Location: [facility] CC: VOUCHER EXAMINER-C Linda Horne; Dr. Falguni Beasley MD ~ Information Security Associate: Signed [facility] 05-05-2025 Radiology Diagnostic study note [facility] Imaging Services [address] [place], [place] [address] Low Dose CT Lung Screening MR#: [id number] Acct: [id number] Name: TRACEY IVERSON Rep #: [id number] : 1955 M [id number] From: Chance Lang MD PCP: Dr. Falguni Beasley MD Status: R EG CLI Study:Low Dose CT Lung Screening Date of Exam : 05/04/25 Exam# [id number] Ordering Dr: Esteban Root NP VOUCHER EXAMINER-C PROCEDURE: LOW DOSE CT LUNG SCREENING 05/04/2025 REASON FOR EXAM: SMOKER QUIT 11/22/2023 TECHNIQUE: LOW DOSE CT LUNG SCREENING Coronal and Sagittal reconstruction series were provided. One or more dose reduction techniques were used (e.g., Automated exposure control, adjustment of the mA and/or kV according to patient size, use of iterative reconstruction technique). REFERENCE LINK: [employer] Lung-RADS RADIATION DOSE SUMMARY: CTDlvol: 4.02 mGy DLP: 140.9 mGycm COMPARISON: 05/19/2024. FINDINGS: PULMONARY NODULES: (Only nodules >3mm are reported) Nodules described below are on series 2 unless otherwise specified. Unchanged paraseptal emphysema. Unchanged coronary artery calcifications. Normal unenhanced main pulmonary artery and right and left pulmonary arteries. Normal bilateral peripheral pulmonary arteries. Normal thoracic aorta and visualized great vessels. There is no demonstrated aortic aneurysm. Normal heart and pericardium. Normal mediastinum. Normal hilar regions. Normal visualized trachea and bronchi. Normal pleura. Normal visualized upper abdomen. CT/Low Dose CT Lung Screening IMPRESSION: Unchanged emphysema. Coronary artery calcification (CAC) is is present Lung-RADS Category: 2 BENIGN (BASED ON IMAGING FEATURES OR INDOLENT BEHAVIOR). RECOMMEND 12-MONTH SCREENING LDCT. Reading [facility] [address] CC: MORALES Root; Dr. Falguni Beasley MD ~ Information Security Associate: Signed [facility] 04-30-2025 Evaluation note Diagnosis Onset Date Resolution Atrial fibrillation chronic April 30, 2025 11:29am Essential hypertension chronic Ju 2024 11:29am Hyperlipidemia chronic April 30, 2025 11:29am Tobacco abuse chronic April 30, 025 11:29am Dyspnea on exertion acute June 19, 2025 8:49am Atrial fibrillation chronic June 19, 2025 8:49am Essential hypertension chronic Ju ly 2024 8:49am Hyperlipidemia chronic June 19, 2025 8:49am Tobacco abuse chronic June 19, 2025 8:49am Dyspnea on exertion acute Augus t 2024 10:35am Atrial fibrillation chronic Augus t 2024 10:35am Essential hypertension chronic Au teodora 2024 10:35am Hyperlipidemia chronic June 10:35am Tobacco abuse chronic June 10:35am [facility] Work Phone: 1([phone]) 452-670905-09-2025 Evaluation note* Diagnosis Onset Date Resolution Status Admit Date Sinusitis acute March 30, 2025 10:11am Atrial fibrillation chronic March 302024 10:11am Borderline type 2 diabetes mellitus chronic March 30, 2025 10 :11am Essential hypertension chronic Ma y 2024 10:11am GERD (gastroesophageal reflu x disease) chronic March 30, 2025 10 :11am Atrial fibrillation chronic April 30, 2025 11:29am Essential hypertension chronic Ju ne 2024 11:29am Hyperlipidemia chronic April 30, 2025 11:29am Tobacco abuse chronic April 30 025 11:29am Atrial fibrillation chronic June 19, 2025 8:49am Essential hypertension chronic Ju ly 2024 8:49am Hyperlipidemia chronic June 19, 2025 8:49am Tobacco abuse chronic June 19, 2025 8:49am [facility] Work Phone: 1([phone]) 904-138405-09-2025 Evaluation note* Diagnosis Onset Date Resolution Status Admit Date Sinusitis acute March 30, 2025 10:11am Atrial fibrillation chronic March 302024 10:11am Borderline type 2 diabetes mellitus chronic March 30, 2025 10 :11am Essential hypertension chronic Ma y 2024 10:11am GERD (gastroesophageal reflu x disease) chronic March 30, 2025 10 :11am Atrial fibrillation chronic April 30, 2025 11:29am Essential hypertension chronic Ju ne 2024 11:29am Hyperlipidemia chronic April 30, 2025 11:29am Tobacco abuse chronic April 30 025 11:29am Dyspnea on exertion acute June 19, 2025 8:49am Atrial fibrillation chronic June 19, 2025 8:49am Essential hypertension chronic Ju ly 2024 8:49am Hyperlipidemia chronic June 19, 2025 8:49am Tobacco abuse chronic June 19, 2025 8:49am [facility] Work Phone: 1([phone]) 241-333405-09-2025 Evaluation note* Diagnosis Onset Date Resolution Status Admit Date Sinusitis acute March 30, 2025 10:11am Atrial fibrillation chronic March 302024 10:11am Borderline type 2 diabetes mellitus chronic March 30, 2025 10 :11am Essential hypertension chronic Ma y 2024 10:11am GERD (gastroesophageal reflu x disease) chronic March 30, 2025 10 :11am Atrial fibrillation chronic April 30, 2025 11:29am Essential hypertension chronic Ju ne 2024 11:29am Hyperlipidemia chronic April 30, 2025 11:29am Tobacco abuse chronic April 30, 025 11:29am Dyspnea on exertion acute June 19, 2025 8:49am Atrial fibrillation chronic June 19, 2025 8:49am Essential hypertension chronic Ju ly 2024 8:49am Hyperlipidemia chronic June 19, 2025 8:49am Tobacco abuse chronic June 19, 2025 8:49am Dyspnea on exertion acute Junus t 2024 10:35am Atrial fibrillation chronic Augus t 2024 10:35am Essential hypertension chronic Au teodora 2024 10:35am Hyperlipidemia chronic June 10:35am Tobacco abuse chronic June 10:35am [facility] Work Phone: 1(443) 229-552402-21-2025 Evaluation note* Diagnosis Onset Date Resolution Status Admit Date Suspected sleep apnea acute Fe2024 2:40pm COPD (chronic obstructive pulmonary disease) chronic December 2:40pm Lung nodule chronic December 2:40pm Overweight chronic January 12, 2025 2:40pm Sinusitis acute March 30, 2025 10:11am Atrial fibrillation chronic March 302024 10:11am Borderline type 2 diabetes mellitus chronic March 30, 2025 10 :11am Essential hypertension chronic Ma y 2024 10:11am GERD (gastroesophageal reflu x disease) chronic March 30, 2025 10 :11am Atrial fibrillation chronic April 30, 2025 11:29am Essential hypertension chronic Ju ne 2024 11:29am Hyperlipidemia chronic April 30, 2025 11:29am Tobacco abuse chronic April 30 025 11:29am [facility] Work Phone: [phone]) 450-386302-06-2025 Evaluation note* Diagnosis Onset Date Resolution Status Admit Date URI (upper respiratory infection) acute December 28 3:00pm Atrial fibrillation chronic Febru josue2024 3:00pm COPD (chronic obstructive pulmonary disease) chronic December 28, 2024 3:00pm Essential hypertension chronic Fe bruary 2024 3:00pm Hyperlipidemia chronic December 282024 3:00pm Suspected sleep apnea acute Feb ru2024 2:40pm COPD (chronic obstructive pulmonary disease) chronic December 2:40pm Lung nodule chronic December 2:40pm Overweight chronic January 12, 2025 2:40pm Sinusitis acute March 30, 2025 10:11am Atrial fibrillation chronic March 302024 10:11am Borderline type 2 diabetes mellitus chronic March 30, 2025 10 :11am Essential hypertension chronic Ma 2024 10:11am GERD (gastroesophageal reflu x disease) chronic March 30, 2025 10 :11am [facility] Work Phone: 1([phone]) 417-351711-15-2023 Procedure [facility] Evaluation note* Diagnosis Onset Date Resolution Status COPD (chronic obstructive pulmonary disease) [facility] Work Phone: Evaluation note* Diagnosis Onset Date Resolution Status COPD (chronic obstructive pulmonary disease) chronic Upper respiratory infection noneactive Alcohol abuse acute Hyperlipidemia acute Tobacco abuse acute Borderline type 2 diabetes mellitus chronic Essential hypertension chron ic COVID noneactive [facility] Work Phone: Evaluation note* Diagnosis Onset Date Resolution Status Alcohol abuse acute Hyperlipidemia acute Tobacco abuse acute Borderline type 2 diabetes mellitus chronic Essential hypertension chron ic COVID noneactive [id number] acute Tobacco use disorder, continuous acute [facility] Work Phone: Evaluation note* Diagnosis Onset Date Resolution Status [id number] acute Tobacco use disorder, continuous chronic Skin tear of left upper arm without complication noneactive COPD (chronic obstructive pulmonary disease) chronic Tobacco use disorder, continuous chronic Abdominal pain noneactive Hernia of abdominal wall non eactive Bronchitis noneactive Diastasis recti acute Umbilical hernia without obs truction and without gangrene acute [facility] Work Phone: Evaluation note* Diagnosis Onset Date Resolution Status Skin [...] reflux disease) chronic Hyperlipidemia chronic Lumbar radiculopathy chronic [facility] Work Phone: Evaluation note* Diagnosis Onset Date Resolution Status Alcohol abuse chronic Alcoholic liver disease, unspecified chronic Borderline type 2 diabetes mellitus chronic COPD (chronic obstructive pulmonary disease) chronic Essential hypertension chron ic [facility] Work Phone: Evaluation note* Diagnosis Onset Date Resolution Status COPD (chronic obstructive pulmonary disease) chronic Nicotine dependence, cigarettes, uncomplicated chronic [facility] Work Phone: Evaluation note* Diagnosis Onset Date Resolution Status Lung nodule acute COPD (chronic obstructive pulmonary disease) chronic Nicotine dependence, cigarettes, uncomplicated chronic Hypersomnolence acute Paroxysmal atrial fibrillation acute Essential hypertension chron ic PVC (premature ventricular contraction) chronic Alcoholic liver disease, unspecified chronic Atrial fibrillation chronic Borderline type 2 diabetes mellitus chronic Essential hypertension chron ic GERD (gastroesophageal reflux disease) [facility] Work Phone: Hospital Discharge instructionsAmbulatory Orders* Pulmonary Medicine Location: None Selected [facility] Work Phone: Reason for referral (narrative)No reason for referral information [facility] Work Phone: Summary Purpose Family History No Family History Records Found Relationship Condition Age at Onset Recorded Date/T taylor brother Malignant neoplasm Unknown father Alcoholism Unknown Advance Directives No Advanced Directives Records Found Advance Directive Response Recorded Date/ Time Living Will No July 09 1 1:00am Power of Medical Laboratory Technicians No July 09 1:00am Advance Directive Response Recorded Date/ Time Living Will No July 09 1 12:00am Power of Medical Laboratory Technicians No July 09 12:00am Chief Complaint and Reason for Visit [...] type 2 diabetes mellitus Essential hypertension COVID [id number] Tobacco use disorder, continuous Chief Complaint Lung cancer screenin g SMOKER wound PAINFULL BELLY BUTTON/SEVERE COUGH HERNIA, ABDOMINAL PAIN *IV & ORAL CONTRAST* Hernia Reason for Visit [id number] Tobacco use disorder, continuous Skin tear of [...] 2025 10: 11am GERD (gastroesophageal reflux disease) [facility] 2024 10:11am Chief Complaint Admit Date 3 [...] 2025 10: 11am GERD (gastroesophageal reflux disease) [facility] 2024 10:11am Atrial fibrillation April 30, 2025 11:29 am Essential hypertension April 30, 2025 11 :29am Hyperlipidemia April 30, 2025 11:29 am Tobacco abuse April 30, 2025 11:29 am Chief Complaint Admit Date 3 M FU January 12, 2025 2:40pm 3 M FU March 30, 2025 10:11a m 6 M FU April 30, 2025 11:29 am SMOKER - QUIT 11/22/23 May 04, 2025 1 :18pm Chief Complaint Admit Date 3 M FU March 30, 2025 10:11a m 6 M FU April 30, 2025 11:29 am SMOKER - QUIT 11/22/23 May 04, 2025 1 :18pm E ORDERS June 19, 2025 7:50 am CHF symptoms see clinicals June 19 8:49am Reason for Visit Admit Date Sinusitis March 30, 2025 10:11a m Atrial [...] Tobacco abuse April 30, 2025 11:29 am Atrial fibrillation June 19, 2025 8:49 am Essential hypertension June 19, 2025 8 :49am Hyperlipidemia June 19, 2025 8:49 am Tobacco abuse June 19, 2025 8:49 am Reason for Visit Admit Date Sinusitis March 30, 2025 10:11a m Atrial fibrillation March 30, 2025 10:11a m Borderline type 2 diabetes mellitus March 30, 2025 10:11am Essential hypertension March 30, 2025 10: 11am GERD (gastroesophageal reflux disease) [facility] 2024 10:11am Atrial fibrillation April 30, 2025 11:29 am Essential hypertension April 30, 2025 11 :29am Hyperlipidemia April 30, 2025 11:29 am Tobacco abuse April 30, 2025 11:29 am Dyspnea on exertion June 19, 2025 8:49 am Atrial fibrillation June 19, 2025 8:49 am Essential hypertension June 19, 2025 8 :49am Hyperlipidemia June 19, 2025 8:49 am Tobacco abuse June 19, 2025 8:49 am Chief Complaint Admit Date 3 M FU March 30, 2025 10:11a m 6 M FU April 30, 2025 11:29 am SMOKER - QUIT 11/22/23 May 04, 2025 1 :18pm E ORDERS June 19, 2025 7:50 am CHF symptoms see clinicals June 19 8:49am 4 WK FU July 17, 2025 10 :35am Reason for Visit Admit Date Sinusitis March 30, 2025 10:11a m Atrial fibrillation March 30, 2025 10:11a m Borderline type 2 diabetes mellitus March 30, 2025 10:11am Essential hypertension March 30, 2025 10: 11am GERD (gastroesophageal reflux disease) [facility] 2024 10:11am Atrial fibrillation April 30, 2025 11:29 am Essential hypertension April 30, 2025 11 :29am Hyperlipidemia April 30, 2025 11:29 am Tobacco abuse April 30, 2025 11:29 am Dyspnea on exertion June 19, 2025 8:49 am Atrial fibrillation June 19, 2025 8:49 am Essential hypertension June 19, 2025 8 :49am Hyperlipidemia June 19, 2025 8:49 am Tobacco abuse June 19, 2025 8:49 am Dyspnea on exertion July 17, 2025 10 :35am Atrial fibrillation July 17, 2025 10 :35am Essential hypertension July 17, 2025 10:35am Hyperlipidemia July 17, 2025 10 :35am Tobacco abuse July 17, 2025 10 :35am Chief Complaint Admit Date 6 M FU April 30, 2025 11:29 am SMOKER - QUIT 11/22/23 May 04, 2025 1 :18pm E ORDERS June 19, 2025 7:50 am CHF symptoms see clinicals June 19 8:49am 4 WK FU July 17, 2025 10 :35am 7 M August 07, 2025 9:03am Reason for Visit Admit Date Atrial fibrillation April 30, 2025 11:29 am Essential hypertension April 30, 2025 11 :29am Hyperlipidemia April 30, 2025 11:29 am Tobacco abuse April 30, 2025 11:29 am Dyspnea on exertion June 19, 2025 8:49 am Atrial fibrillation June 19, 2025 8:49 am Essential hypertension June 19, 2025 8 :49am Hyperlipidemia June 19, 2025 8:49 am Tobacco abuse June 19, 2025 8:49 am Dyspnea on exertion July 17, 2025 10 :35am Atrial fibrillation July 17, 2025 10 :35am Essential hypertension July 17, 2025 10:35am Hyperlipidemia July 17, 2025 10 :35am Tobacco abuse July 17, 2025 10 :35am Additional Source Comments (unrecognized sect ion and content) No Status Records FoundNo Status Records FoundNo Status Records Found INFORMATION SOURCE (unrecogn ized section and content) DATE CREATED AUTHOR 06/28/2021 [facility] DATE CREATED AUTHOR AUTHOR'S ORGANIZ ATION 09/21/2021 [facility] DATE CREATED AUTHOR AUTHOR'S ORGANIZ ATION 08/10/2025 [facility] Goals (unrecognized section and content) Goals may [...] Provider, Refer ring Provider Active Olegario Sanchez VOUCHER EXAMINER, VOUCHER EXAMINER-C Attending Provider Active Team Status: Inactive Member [...] Provider, Refer ring Provider Active Olimpia Root VOUCHER EXAMINER, VOUCHER EXAMINER-C Attending Provider Active Team Status: Inactive Member Role Status Dates Dr. Falguni Beasley MD Primary Care Provider, Refer ring Provider Active Linda Horne VOUCHER EXAMINER, VOUCHER EXAMINER-C Attending Provider Active Team Status: Active Member Role Status Dates Dr. Falguni Beasley MD Primary Care Provider Active Dr. Arturo Cohen MD Attending Provider Active Team Status: Inactive Member Role Status Dates Dr. Falguni Beasley MD Primary Care Provider Active Linda Horne VOUCHER EXAMINER, VOUCHER EXAMINER-C Attending Provider Active Team Status: Inactive Member [...] 2025 End: January 12, 2025 Olimpia Root NP, VOUCHER EXAMINER-C Attending Provider Active Start: January 12, 2025 [...] 2025 End: April 30, 2025 Linda Horne VOUCHER EXAMINER, VOUCHER EXAMINER-C Attending Provider Active S tart: April 30, 2025 End: April 30, 2025 Team Status: Inactive Member Role Status Dates Dr. Falguni Beasley MD Primary Care Provider Active Start: May 04, 2025 End: May 04, 2025 Olimpia Root VOUCHER EXAMINER, VOUCHER EXAMINER-C Attending Provider Active Start: May 04, 2025 End: May 04, 2025 Olimpia Root VOUCHER EXAMINER, VOUCHER EXAMINER-C Referring Provider Active Start: May 04, 2025 End: May 04, 2025 Team Status: Active Member Role/Relationship Status Dates Dr. Falguni Beasley MD Primary Care Provider Active Team Status: Inactive Member Role/Relationship Status Dates Dr. Falguni Beasley MD Primary Care Provider Active Start: March 30, 2025 End: March 30, 2025 Dr. Falguni Beasley MD Attending Provider Active Start: March 30, 2025 End: March 30, 2025 Dr. Falguni Beasley MD Referring Provider Active Start: March 30, 2025 End: March 30, 2025 Team Status: Inactive Member Role/Relationship Status Dates Dr. Falguni Beasley MD Primary Care Provider Active Start: March 30, 2025 End: March 30, 2025 Dr. Falguni Beasley MD Attending Provider Active Start: March 30, 2025 End: March 30, 2025 Dr. Falguni Beasley MD Referring Provider Active Start: March 30, 2025 End: March 30, 2025 Team Status: Inactive Member Role/Relationship Status Dates Dr. Falguni Beasley MD Primary Care Provider Active Start: April 30, 2025 End: April 30, 2025 Dr. Falguni Beasley MD Referring Provider Active Start: April 30, 2025 End: April 30, 2025 Linda Horne VOUCHER EXAMINER, VOUCHER EXAMINER-C Attending Provider Active S tart: April 30, 2025 End: April 30, 2025 Team Status: Inactive Member Role/Relationship Status Dates Dr. Falguni Beasley MD Primary Care Provider Active Start: May 04, 2025 End: May 04, 2025 Olimpia Root VOUCHER EXAMINER, VOUCHER EXAMINER-C Attending Provider Active Start: May 04, 2025 End: May 04, 2025 Olimpia Root VOUCHER EXAMINER, VOUCHER EXAMINER-C Referring Provider Active Start: May 04, 2025 End: May 04, 2025 Team Status: Active Member Role/Relationship Status Dates Dr. Falguni Beasley MD Primary Care Provider Active Start: June 19, 2025 Linda Horne VOUCHER EXAMINER, VOUCHER EXAMINER-C Attending Provider Active S tart: June 19, 2025 Linda Horne VOUCHER EXAMINER, VOUCHER EXAMINER-C Referring Provider Active S tart: June 19, 2025 Team Status: Inactive Member Role/Relationship Status Dates Dr. Falguni Beasley MD Primary Care Provider Active Start: June 19, 2025 End: June 19, 2025 Dr. Falguni Beasley MD Referring Provider Active Start: June 19, 2025 End: June 19, 2025 Linda Horne VOUCHER EXAMINER, VOUCHER EXAMINER-C Attending Provider Active S tart: June 19, 2025 End: June 19, 2025 Team Status: Inactive Member Role/Relationship Status Dates Dr. Falguni Beasley MD Primary Care Provider Active Start: June 19, 2025 End: June 19, 2025 Linda Horne VOUCHER EXAMINER, VOUCHER EXAMINER-C Attending Provider Active S tart: June 19, 2025 End: June 19, 2025 Linda Horne VOUCHER EXAMINER, VOUCHER EXAMINER-C Referring Provider Active S tart: June 19, 2025 End: June 19, 2025 Team Status: Inactive Member Role/Relationship Status Dates Dr. Falguni Beasley MD Primary Care Provider Active Start: July 17, 2025 End: July 17, 2025 Dr. Falguni Beasley MD Referring Provider Active Start: July 17, 2025 End: July 17, 2025 Linda Horne VOUCHER EXAMINER, VOUCHER EXAMINER-C Attending Provider Active S tart: July 17, 2025 End: July 17, 2025 Team Status: Inactive Member Role/Relationship Status Dates Dr. Falguni Beasley MD Primary Care Provider Active Start: April 30, 2025 End: April 30, 2025 Dr. Falguni Beasley MD Referring Provider Active Start: April 30, 2025 End: April 30, 2025 Linda Horne VOUCHER EXAMINER, VOUCHER EXAMINER-C Attending Provider Active S tart: April 30, 2025 End: April 30, 2025 Team Status: Inactive Member Role/Relationship Status Dates Dr. Falguni Beasley MD Primary Care Provider Active Start: May 04, 2025 End: May 04, 2025 Olimpia Root VOUCHER EXAMINER, VOUCHER EXAMINER-C Attending Provider Active Start: May 04, 2025 End: May 04, 2025 Olimpia Root VOUCHER EXAMINER, VOUCHER EXAMINER-C Referring Provider Active Start: May 04, 2025 End: May 04, 2025 Team Status: Inactive Member Role/Relationship Status Dates Dr. Falguni Beasley MD Primary Care Provider Active Start: June 19, 2025 End: June 19, 2025 Linda Horne VOUCHER EXAMINER, VOUCHER EXAMINER-C Attending Provider Active S tart: June 19, 2025 End: June 19, 2025 Linda Horne VOUCHER EXAMINER, VOUCHER EXAMINER-C Referring Provider Active S tart: June 19, 2025 End: June 19, 2025 Team Status: Inactive Member Role/Relationship Status Dates Dr. Falguni Beasley MD Primary Care Provider Active Start: June 19, 2025 End: June 19, 2025 Dr. Falguni Beasley MD Referring Provider Active Start: June 19, 2025 End: June 19, 2025 Linda Horne VOUCHER EXAMINER, VOUCHER EXAMINER-C Attending Provider Active S tart: June 19, 2025 End: June 19, 2025 Team Status: Inactive Member Role/Relationship Status Dates Dr. Falguni Beasley MD Primary Care Provider Active Start: July 17, 2025 End: July 17, 2025 Dr. Falguni Beasley MD Referring Provider Active Start: July 17, 2025 End: July 17, 2025 Linda Horne NP, VOUCHER EXAMINER-C Attending Provider Active S tart: July 17, 2025 End: July 17, 2025 Team Status: Inactive Member Role/Relationship Status Dates Dr. Falguni Beasley MD Primary Care Provider Active Start: August 07, 2025 End: August 07, 2025 Dr. Falguni Beasley MD Referring Provider Active Start: August 07, 2025 End: August 07, 2025 Olimpia Root VOUCHER EXAMINER, VOUCHER EXAMINER-C Attending Provider Active Start: August 07, 2025 End: August 07, 2025 FOR RECORDS PERTAINING TO PATIENTS WHO [...] BE BASED ON THE PRIMARY CLINICAL RECORDS. [facility], [facility]. provides no warranty or guarantee of the accuracy or completeness of information in this document.
--- NOTE | 2025-08-15 14:17 | STRESSREP ---
Stress Test Report Date: 08/15/2025 Procedure: Pharmacologic stress nuclear imaging study Indications: Atrial fibrillation/dyspnea Consent: Per the patient Procedure: The patient underwent pharmacologic (Regadenoson 0.4mg ) evaluation with a peak heart rate of 117 beats per minute (76%predicted maximal heart rate) and a peak blood pressure of 150/82 mmHg. The baseline ECG demonstrated atrial fibrillation with poor R wave progression across anterior leads. The peak pharmacologic ECG did not show any ischemic changes. Baseline atrial fibrillation with no significant dysrhythmias noted with pharmacologic infusion or in recovery. There was no complaint of chest discomfort during pharmacologic infusion or recovery. The patient was injected with 15.0 millicuries of technetium 99m Cardiolite and subsequently rest SPECT Cardiolite nuclear imaging was obtained in the horizontal long, vertical long, and short axis views. The patient underwent pharmacologic (Regadenoson) evaluation. The patient was injected with 45.0 millicuries of technetium 99m Cardiolite and subsequently stress SPECT Cardiolite nuclear imaging was obtained in the horizontal long, vertical long, and short axis views. A gated Cardiolite study at peak stress was obtained. The examination was stopped secondary to completion of protocol. Rest and stress SPECT Cardiolite nuclear imaging status post realignment, normalization, and attenuation correction demonstrate mildly reduced perfusion of the anterior and inferior luna suggestive of ischemia. There is end systolic thickening and brightening. The gated Cardiolite study demonstrates myocardial thickening and inward wall motion. The reported LVEF is 61%. Impression: 1. Pharmacologic (Regadenoson) evaluation 2. Peak pharmacologic ECG with no ischemic changes. 3. Baseline atrial fibrillation. 5. Mildly reduced perfusion of the anterior and inferior luna post pharmacological stress, suggestive of ischemia. 6. The gated Cardiolite study reports an LVEF of 61%. This note was generated with [employer] software. It may contain incorrect words, spelling, and punctuation that were not noted in checking the note before signing.
== END | disposition home or self-care (01) ==
LOC: CVS 05:59
PROVIDERS: PCP Internal Medicine; Referring Provider Nurse Practitioner Family; Visit Provider Nurse Practitioner Family
DX: I48.19 Other persistent atrial fibrillation (principal); R06.09 Other forms of dyspnea
CPT/HCPCS: 78452; 93017; A9500; A4216; J2785

== ENCOUNTER → 2025-08-30 | Outpatient (CLI) | payer MEDICARE, OTHER, SELFPAY ==
[2025-08-30 14:21] LABS: Hematocrit 44.8 % (40-54); Hemoglobin 14.9 g/dL (13.0-16.5); Immature Granulocytes Count 0.040 X10^3/uL (0.0-0.0); Mean Corp Hgb Conc 33.3 g/dL (32-36); Mean Corpuscular Volume 93.3 fL (80-94); Mean Platelet Vol. 9.1 fl (6.2-12.0); NRBC Flagged by Analyzer 0 % (0-5); Platelet Count 235 K/mm3 (150-450); RBC Distribution Width CV 13.5 % (11.6-14.6); RBC Distribution Width SD 45.8 fl (35.1-43.9); Red Blood Count 4.80 M/mm3 (4.6-6.2); White Blood Count 7.2 K/mm3 (4.4-11.0)
[2025-08-30 16:05] LABS: Anion Gap 12 (5-15); BUN 20 mg/dL (4-19); BUN/Creat Ratio 22.6 RATIO (10-20); Calcium,Total 9.8 mg/dL (7.6-11.0); Carbon Dioxide 20.0 mmol/L (21.0-32.0); Chloride 98 mmol/L (98-108); Glucose 124 mg/dL (70-99); Potassium 5.0 mmol/L (3.3-5.1)
== END | disposition home or self-care (01) ==
LOC: LAB 14:00
PROVIDERS: PCP Internal Medicine; Referring Provider Nurse Practitioner Family; Visit Provider Nurse Practitioner Family
DX: R94.39 Abnormal result of other cardiovascular function study (principal); I48.0 Paroxysmal atrial fibrillation; R06.09 Other forms of dyspnea; E66.9 Obesity, unspecified; R06.02 Shortness of breath
CPT/HCPCS: 36415; 80048; 85025

== ENCOUNTER 2025-09-21 06:51 | Day surgery (SDC) | payer MEDICARE, OTHER, SELFPAY ==
--- NOTE | 2025-09-16 12:30 | HP.PCM_ITS ---
History and Physical
--- NOTE | 2025-09-16 12:30 | PCM.HP.BLA ---
History and Physical Date of Admission: 09/21/25 Patient is a 70-year-old white male who presents for a left heart catheterization after an abnormal stress test. He has s a history of atrial fibrillation, possibly hypertension, borderline diabetes, nonalcohol fatty liver disease, and previous tobacco abuse. He had an echocardiogram done 01/14/2024 which showed normal LV function ejection fraction 65% his PA pressure was slightly elevated at 38. The atrial were both of normal size there was 1+ tricuspid regurgitation and no other valvular disease documented. He denies chest, arm, jaw, or neck discomfort. He denies palpitations. He denies bilateral lower extremity edema. He denies claudication. He states shortness of breath with activity. This is unchanged from last visit. He denies shortness of breath at rest, orthopnea, or PND. He denies chronic cough. He denies significant, sudden weight gain. He denies lightheadedness, dizziness, near-syncope, or syncope. He denies blood in urine, blood in stool, or epistaxis. He denies fever with chills. He denies myalgia. He states fatigue. His exercise level has remained stable. Intake Vital Signs: See EMR Intake Visit Reasons: [facility] Parking Enforcer Required: No Is patient in pain?: No Allergies venom-wasp (wasp sting) Allergy (Verified 07/17/25 11:11) Swelling Medications: See EMR Ejection fraction %: 65 Have you fallen in the past year?: No ON LICENSE OF [facility] Medical History Lower extremity edema Sinusitis URI (upper respiratory infection) Essential hypertension Atrial fibrillation Alcoholic liver disease, unspecified Lumbar radiculopathy BPH (benign prostatic hyperplasia) Hyperlipidemia Anemia Shortness of breath Tobacco use disorder, continuous Encounter for screening for malignant neoplasm of lung in current smoker with 30 pack year history or greater Kidney disease Hypokalemia Colon cancer screening Borderline type 2 diabetes mellitus Smoking greater than 40 pack years NAFLD (nonalcoholic fatty liver disease) PVC (premature ventricular contraction) Abnormal cardiac enzyme level Smoker COPD (chronic obstructive pulmonary disease) Depression Tobacco abuse Unintentional weight loss Surgical History H/O: knee surgery Family History Brother Cancer pancreatic cancer Father Alcoholism Social History Smoking Status: Former smoker Tobacco: How many years used: 48 how long ago did patient quit smokin11/20/23 alcohol intake: current alcohol intake frequency: 3 or more drinks per day Alcohol type: beer substance use type: does not use caffeine: Yes Type: coffee Number of servings: 1 ROS Const Const: Negative for fatigue or weakness Eyes Eyes: Negative for change in vision ENT ENT: Negative for dizziness or balance problems Cardio Chest Pain: No Palpitations: No Edema: None (Improved) Muscle aches with walking: None Resp Respiratory: Positive for SOB with activity; Negative for SOB at rest or SOB orthopnea\SOB lying down GI GI: Negative nausea or heartburn : Negative for hematuria or frequent nighttime urination/ nocturia Musc Musc: Negative for balance problems Skin Skin: Negative non-healing lesions or rash Neuro Neuro: Negative for dizziness, lightheadedness, near syncope, syncope or weakness Endo Endo: Negative for fatigue Allergy Allergy/Immunology: Negative for rash Cardiology Exam Const Appearance: cooperative, healthy appearing, comfortable and no acute distress Nutritional Appearance: well nourished and obese Orientation: alert, awake and oriented x3 Head Head: normal to inspection Ears: hearing grossly normal bilaterally Nose: external nose normal Face and Sinus: face symmetric Mouth: moist mucous membranes Eyes General: appearance normal, both eyes and all related structures Eyelids: eyelids normal EOM: EOM intact bilaterally Neck Neck: normal visual inspection and no JVD Carotids: normal carotid upstroke Chest Chest inspection: normal inspection of the chest, symmetric chest movement and normal respiratory effort; Negative cough Auscultation: Bilateral: Clear to Auscultation Cardio Rate: not regular rate Rhythm: irregular rhythm Heart sounds: S1 normal and S2 normal; Negative rub, gallop or murmur GI GI: normal to inspection and obese Neuro General: patient alert, patient awake, patient oriented x3 and CN's II-XI intact bilaterally Skin Skin: no rashes or lesions noted Extremities Pulses: Normal: Right Posterior Tibial Pulse, Left Posterior Tibial Pulse, Right Radial Pulse and Left Radial Pulse Lower Extremity Edema: None: Bilateral Psych Psychological: normal affect Supplemental Info Supplemental Information Holter Monitor 04/05/2024 Interpretation There were a total of 91,085 beats recorded over the 24 hour period. The average HR was 68 BPM, atrial fibrillation. The minimum HR was 33 BPM, atrial fibrillation. The maximum HR was 132 BPM, atrial fibrillation. The longest R-R interval was 3.1 seconds. There were a total of 6888 premature ventricular ectopic beats, comprising 7.6% of the total QRS complexes. There were 150 beats in bigeminy, and 37 in trigeminy. There were 164 beats in couplets. There were no ventricular runs noted. The patient had 80 episodes of atrial fibrillation, with the total time of 19 hours 48 minutes, representing 92.3% of the total beats. Noted good rate control. The patient kept a diary with no symptoms noted. Echocardiogram 01/14/2024 Interpretation Summary Normal LV size. Left ventricular systolic function is normal. The estimated ejection fraction is 65 %. Pulmonary artery systolic pressure is 38 mmHg. Contrast injection was performed. Stress test from 08/15/2025: Impression: 1. Pharmacologic (Regadenoson) evaluation 2. Peak pharmacologic ECG with no ischemic changes. 3. Baseline atrial fibrillation. 5. Mildly reduced perfusion of the anterior and inferior luna post pharmacological stress, suggestive of ischemia. 6. The gated Cardiolite study reports an LVEF of 61%. Assessment and Plan Assessment and Plan (1) Dyspnea on exertion: Status: Acute Plan: On account of on account of ongoing shortness of breath despite diuretic therapy, he underwent a stress test to assess further. Stress test was reviewed with Dr. Lemons. Stress test on 08/15/2025 was noted to be abnormal with mildly reduced perfusion of the anterior and inferior luna. This was a pharmacological stress test. Baseline ECG showed ongoing atrial fibrillation. On account of this, he will proceed with heart catheterization to evaluate further. Depending on results, further recommendation be made. (2) Atrial fibrillation: Status: Chronic Qualifiers: Atrial fibrillation type: persistent (not longstanding) Qualified Code(s): I48.19 - Other persistent atrial fibrillation Plan: [id number] score: 3 (age, HTN, DM) (3.2% stroke risk) Atrial fibrillation stage: 3C, longstanding persistent 12 Lead EC10/27/2024-atrial fibrillation 69 bpm Echocardiogram: 01/14/2024-EF: 65%, normal left and right atrial size Holter monitor: 04/05/2024?average heart 68 bpm, atrial fibrillation Heart Rate Control: Metoprolol succinate Anticoagulation/CVA Protection: Eliquis This has been ongoing since at least November 2023. Initially, we focused on rate control as he was reluctant to begin anticoagulation. Over time, he has started anticoagulation without issues. We discussed the role of rhythm controlling strategies such as atrial fibrillation ablation or cardioversion. We discussed that the longer he is in atrial fibrillation the increase challenging maintaining sinus rhythm. After heart catheterization, further decision regarding rhythm controlling strategies to be made with noted concern regarding duration of atrial fibrillation. (3) Hyperlipidemia: Status: Chronic Qualifiers: Hyperlipidemia type: pure hypercholesterolemia Qualified Code(s): E78.00 - Pure hypercholesterolemia, unspecified Plan: Patient's last lipids from October 06, 2024 total cholesterol was 129 HDL 51 LDL 61 and triglycerides 86. He will continue current medical therapy. He will continue risk factor and lifestyle modification. (4) Essential hypertension: Status: Chronic Plan: Patient's blood pressure is well-controlled. We will continue to monitor. We will not make any medication regimen changes. (5) Tobacco abuse: Status: Chronic Plan: He acknowledges that he has discontinued tobacco products. We will continue to promote and support smoking cessation. Plan Details Additional Comments: Thank you for allowing us to participate in the patients plan of care, if you have any questions please do not hesitate to call. Plan was reviewed with patient/family member along with red flag symptoms. Understanding was acknowledged. Questions were answered to apparent satisfaction. This note was generated using a voice recognition system and there may be incorrect words, spelling or punctuation that were not noted when reviewing the office note prior to saving. Portions of this documentation were copied and pasted from previous office visit notes to provide a cohesive continuity of the history. The note has been reviewed, edited, and updated, as necessary.
[2025-09-21 07:27] VITALS: BMI 32.3
== END 2025-09-21 10:45 | disposition home or self-care (01) ==
PROVIDERS: PCP Internal Medicine; Referring Provider Internal Medicine Cardiovascular Disease; Visit Provider Internal Medicine Cardiovascular Disease
DX: I48.19 Other persistent atrial fibrillation (principal); J44.9 Chronic obstructive pulmonary disease, unspecified; E11.9 Type 2 diabetes mellitus without complications; I10 Essential (primary) hypertension; K76.0 Fatty (change of) liver, not elsewhere classified; R94.39 Abnormal result of other cardiovascular function study; E78.5 Hyperlipidemia, unspecified; R06.09 Other forms of dyspnea; Z79.84 Long term (current) use of oral hypoglycemic drugs; Z79.01 Long term (current) use of anticoagulants; Z79.899 Other long term (current) drug therapy; Z87.891 Personal history of nicotine dependence
CPT/HCPCS: 93454; 99152; 99153; Q9967; C1769; C1894